=== PATIENT | female | born 1935 | race Caucasian/White ===

== ENCOUNTER 2020-08-18 16:41 | Inpatient (IN) ==
[2020-08-18] MEDS ORDERED: ZOFRAN INJ 4 MG VIAL IVP ONE (16:47)
--- NOTE | 2020-08-18 16:48 | DR.DIZZY ---
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 States she awoke to taker her am meds this morning. Noted RUE numbness t/o the extremity as well as increasing slurring of words. Did not seek medical attention until the afternoon. No focal motor weakness, dizziness, syncope, DISLA, neck pain, CP/ SOB. + blurrier vision from baseline. Does not know if she is on any anticoagulation or antiplatelet agent. + n/v. Source History Provided: Patient and EMS Mode of Arrival Mode of Arrival: EMS Location of Weakness Weakness Location: Generalized Context Stroke Symptoms: Numbness of limbs PMH PMH Past Medical History: CHF, CVA and Diabetes Past Surgical History: Yes Surgical History: Hysterectomy Family History History of Family Medical Conditions: Yes Family Medical History: Cancer Social History Does patient currently use any type of tobacco product: No Do you use any recreational Drugs:: No Lives With: Family ROS Review of Systems Constitutional: No Symptoms Reported Eyes: No Symptoms Reported ENTM: No Symptoms Reported Respiratoy: No Symptoms Reported Cardiovascular: No Symptoms Reported Gastrointestinal/Abdominal: Nausea and Vomiting; negative Abdominal Pain and Diarrhea Genitourinary: No Symptoms Reported Neurological: Numbness and Speech Problem; negative Headache, Seizure, Weakness and Dizziness Musculoskeletal: No Symptoms Reported Integumentary: No Symptoms Reported Hematologic/Lymphatic: No Symptoms Reported Endocrine: No Symptoms Reported Psychiatric: No Symptoms Reported All Other Systems: Reviewed and Negative PE Vital Signs Vitals: Temperature 98.3 F Pulse Rate 66 Respiratory Rate 24 Blood Pressure [Right Arm] 155/65 Blood Pressure 173/72 O2 Sat by Pulse Oximetry 99 General Limitations: No Limitations General Appearance: Alert and In No Apparent Distress Head Head Exam: Normal Inspection Eyes Eye exam: Normal Appearance ENT ENT Exam: Normal Exam, Normal Oropharynx and Normal External Ear Exam Neck Neck Exam: Normal Inspection and Full ROM Chest Chest Inspection: Normal Inspection Respiratory Respiratory Exam: Normal Lung Sounds Bilat Cardiovascular Cardiovascular Exam: Regular Rate and Normal Rhythm Abdominal Exam Abdominal Exam: Normal Inspection, Normal Bowel Sounds and Soft Rectal Rectal Exam: Deferred Extremeties Extremities Exam: Normal Inspection and Full ROM Back Back Exam: Normal Inspection and Full ROM Neurologic Neurological Exam: Alert, Oriented X3 and Reflexes Normal Patient Oriented To: Person, Place and Time Speech: negative Receptive Aphasia Psychiatric Psychiatric Exam: Normal Affect and Normal Mood Skin Skin Exam: Warm, Dry, Intact and Normal Color Other Exam Other Exam: mild dysarthria, no aphasia. a/o x 3. mild subjective numbness rue. No focal motor weakness. 5/5 strength all major muscle groups. CV 2-12 otherwise grossly intact. No pronator drift. NIH SS 2. MDM Differential Diagnosis Differential Diagnosis: CVA, Electrolyte disorder, Hypoglycemia, Myocardial infarction and TIA COURSE Treatment Treatment: 85 yo f w/ prev hx of right sided cva w/ residual rle deficits pres ented w/ dizziness, vomiting, r arm numbness and worsening dysarthria. NIH ss 2 on arrival. Presented after 4 hrs, not a tpa canidate. CTH negative for acute changes. Neuro exam unchanged on serial eval. BMP w/ mild mahad, fluids started. ASA loaded. d/w dr Fairchild whom agrees to admit. ROR Labs Reviewed Laboratory Results Reviewed?: Yes Result Diagrams: 08/18/20 17:01 08/18/20 17:01 Laboratory: WBC 3.0 X10^3/uL (3.6-10.0) L 08/18/20 17:01 RBC 2.88 X10^6/uL (3.5-5.4) L 08/18/20 17:01 Hgb 7.9 g/dL (12.0-16.0) L 08/18/20 17:01 Hct 24.2 % (36.0-47.0) L 08/18/20 17:01 MCV 84.2 fL (80.0-100.0) 08/18/20 17:01 MCH 27.5 pg (27.0-34.0) 08/18/20 17:01 MCHC 32.6 g/dL (33.0-35.0) L 08/18/20 17:01 RDW 17.0 % (11.6-16.5) H 08/18/20 17: Plt Count 62 X10^3/uL (150.0-450.0) L 08/18/20 17:01 Plt Count Comment Decreased (ADEQUATE) A 08/18/20 17: MPV 10.5 fL (7.4-11.0) 08/18/20 17:01 Neut % (Auto) 63.0 % (42.0-75.0) 08/18/20 17:01 Lymph % (Auto) 22.6 % (21.0-51.0) 08/18/20 17:01 [place] % (Auto) 7.7 % (0.0-13.0) 08/18/20 17:01 Eos % (Auto) 5.9 % (0.9-2.9) H 08/18/20 17:01 Baso % (Auto) 0.8 % (0.2-1.0) 08/18/20 17:01 Neut # (Auto) 1.9 x10^3/uL (2.2-4.8) L 08/18/20 17:01 Lymph # (Auto) 0.7 X10^3/uL (1.3-2.9) L 08/18/20 17:01 [place] # (Auto) 0.2 x10^3/uL (0.3-0.8) L 08/18/20 17:01 Eos # (Auto) 0.2 x10^3/uL (0.0-0.2) 08/18/20 17:01 Baso # (Auto) 0.0 X10^3/uL (0.0-0.1) 08/18/20 17:01 Absolute Nucleated RBC 0.0 /100WBC 08/18/20 17:01 Plt Morphology Comment Normal (NORMAL) 08/18/20 17:01 RBC Morphology Abnormal (NORMAL) A 08/18/20 17:01 Anisocytosis 1+ A 08/18/20 17:01 PT 14.4 SECONDS (11.8-14.3) 08/18/20 17:01 INR Target Range - 08/18/20 17:01 INR 1.16 (0.8-1.3) 08/18/20 17:01 APTT 28.2 SECONDS (22.9-36.5) 08/18/20 17:01 PTT Comment - 08/18/20 17:01 Sodium 143 mmol/L (136-145) 08/18/20 17:01 Corrected Sodium 146 mmol/L (136-145) H 08/18/20 17:01 Potassium 3.1 mmol/L (3.5-5.1) L 08/18/20 17:01 Chloride 105 mmol/L (98-107) 08/18/20 17:01 Carbon Dioxide 29.3 mmol/L (21-32) 08/18/20 17:01 BUN 32 mg/dL (7-18) H 08/18/20 17:01 Creatinine 1.91 mg/dL (0.55-1.02) H 08/18/20 17:01 Est GFR (MDRD) Af Amer 32 (>60) L 08/18/20 17:01 Est GFR (MDRD) Non-Af 26 (>60) L 08/18/20 17:01 Glucose 244 mg/dL (65-99) H 08/18/20 17:01 Calcium 9.2 mg/dL (8.5-10.1) 08/18/20 17:01 Troponin I 0.04 ng/mL (0-1.5) 08/18/20 17:01 XRAY XRAY Interpreted by: Radiologist X-ray Results: hairspring staker head: chronic changes, no ich or acute cva cxr: no infiltrate. EKG Rate: 57 [place]: LAD Rhythm: NSR Block: None and RBBB Hypertrophy: LVH Opioid Opioid Risk Tool Age (Justo box if 16-45): No History of Preadolescent Sexual Abuse: No Total: 0 Total Score Risk Category: Low Risk Copyright: Tera GONZALES predicting aberrant behaviors Diagnosis Discharge Problem: Numbness and tingling of right arm, MAHAD (acute kidney injury)
[2020-08-18] MEDS ORDERED: ZOFRAN INJ 4 MG VIAL ONE (17:10)
[2020-08-18] MEDS ORDERED: ASPIRIN PO ONE (17:20)
[2020-08-18] MEDS ORDERED: ASPIRIN ONE (17:23)
--- NOTE | 2020-08-18 17:25 | CT ---
BRAIN W/O CONCLINICAL INDICATION: weaknessTECHNIQUE: Images were obtained through the head per standard CT protocol. Multiplanar reformatted images were generated from the CT dataset. Dose reduction techniques including Automated Exposure Control (AEC) and adjustment of mA and kV were utlized.COMPARISON:None.FINDINGS:Diffuse patchy and confluent periventricular and subcortical hypoattenuation with associated volume loss. There is no evidence of acute infarction, intracranial hemorrhage, mass or mass effect, or abnormal extra-axial collection . The density of the larger dural venous sinuses is normal . Age-related, ex-vacuo dilatation of the ventricles and sulci . The skull base and calvarium are normal .The included paranasal sinuses and mastoid air cells are predominantly clear .IMPRESSION:1. No acute intracranial abnormality. Chronic microangiopathic changes and ex vacuo dilatation of the ventricles and sulci.Electronically signed by: ALIVIA AVELAR (Aug 18, 2020 17:24:43)
[2020-08-18 17:29] LABS: BASOPHILS % (AUTO) 0.8 % (0.2-1.0); EOSINOPHILS # (AUTO) 0.2 x10^3/uL (0.0-0.2); EOSINOPHILS % (AUTO) 5.9 % (0.9-2.9); HEMATOCRIT 24.2 % (36.0-47.0); HEMOGLOBIN 7.9 g/dL (12.0-16.0); LYMPHOCYTES # (AUTO) 0.7 X10^3/uL (1.3-2.9); LYMPHOCYTES % (AUTO) 22.6 % (21.0-51.0); MEAN CORPUSCULAR HEMOGLOBIN 27.5 pg (27.0-34.0); MEAN CORPUSCULAR HGB CONC 32.6 g/dL (33.0-35.0); MEAN CORPUSCULAR VOLUME 84.2 fL (80.0-100.0); MEAN PLATELET VOLUME 10.5 fL (7.4-11.0); MONOCYTES # (AUTO) 0.2 x10^3/uL (0.3-0.8); MONOCYTES % (AUTO) 7.7 % (0.0-13.0); NEUTROPHILS # (AUTO) 1.9 x10^3/uL (2.2-4.8); PLATELET COUNT 62 X10^3/uL (150.0-450.0); RED BLOOD COUNT 2.88 X10^6/uL (3.5-5.4)
--- NOTE | 2020-08-18 17:32 | RAD ---
HISTORYAMS weaknessSTUDYPortable AP [id number]/02/2020FINDINGSStable heart size with sternal wires, clear lungs and pleural spaces. There is no evidence for developing infiltrate, edema, pleural fluid.IMPRESSIONNo change; no acute chest findings.Electronically signed by: EUSEBIA RIVERA (Aug 18, 2020 17:32:14)
[2020-08-18 17:34] LABS: CALCIUM 9.2 mg/dL (8.5-10.1); CARBON DIOXIDE 29.3 mmol/L (21-32); CREATININE 1.91 mg/dL (0.55-1.02); TROPONIN I 0.04 ng/mL (0-1.5)
[2020-08-18 17:41] LABS: ANISOCYTOSIS 1+; PLATELET MORPHOLOGY COMMENT NORMAL (NORMAL)
[2020-08-18] MEDS ORDERED: K-DUR TAB 20 MEQ PO ONE ×2 (19:08→19:10)
[2020-08-18] MEDS ORDERED: NS 1000 ML 1,000 ML ONE (20:52)
[2020-08-18] MEDS: NS 1000 ML 1,000 ML IV SCH (20:57)
[2020-08-18] MEDS: LIPITOR TAB 40 MG PO SCH (22:09)
[2020-08-19] MEDS: NS 1000 ML 1,000 ML IV SCH ×3 (05:00→22:26)
[2020-08-19 06:49] LABS: BASOPHILS % (AUTO) 0.7 % (0.2-1.0); EOSINOPHILS # (AUTO) 0.2 x10^3/uL (0.0-0.2); EOSINOPHILS % (AUTO) 7.1 % (0.9-2.9); HEMATOCRIT 22.5 % (36.0-47.0); HEMOGLOBIN 7.3 g/dL (12.0-16.0); LYMPHOCYTES # (AUTO) 0.6 X10^3/uL (1.3-2.9); MEAN CORPUSCULAR HEMOGLOBIN 27.3 pg (27.0-34.0); MEAN CORPUSCULAR HGB CONC 32.2 g/dL (33.0-35.0); MEAN CORPUSCULAR VOLUME 84.8 fL (80.0-100.0); MEAN PLATELET VOLUME 10.2 fL (7.4-11.0); MONOCYTES # (AUTO) 0.2 x10^3/uL (0.3-0.8); MONOCYTES % (AUTO) 9.3 % (0.0-13.0); NEUTROPHILS # (AUTO) 1.2 x10^3/uL (2.2-4.8); NEUTROPHILS % (AUTO) 54.9 % (42.0-75.0); PLATELET COUNT 55 X10^3/uL (150.0-450.0); RED BLOOD COUNT 2.66 X10^6/uL (3.5-5.4); RED CELL DISTRIBUTION WIDTH 16.7 % (11.6-16.5); WHITE BLOOD COUNT 2.2 X10^3/uL (3.6-10.0)
[2020-08-19 06:53] VITALS: BMI 21.3
[2020-08-19 07:17] LABS: ALBUMIN 2.8 g/dL (3.4-5.0); CALCIUM 8.6 mg/dL (8.5-10.1); CARBON DIOXIDE 27.9 mmol/L (21-32); COR CA(FOR HYPOALB) 9.6 mg/dL (8.5-10.1); CREATININE 1.73 mg/dL (0.55-1.02); MAGNESIUM 2.1 mg/dL (1.7-2.9); TOTAL PROTEIN 6.5 g/dL (6.4-8.2)
[2020-08-19 07:42] LABS: ANISOCYTOSIS SLIGHT; BAND NEUTROPHILS % 1 % (0-10); PLATELET MORPHOLOGY COMMENT NORMAL (NORMAL)
[2020-08-19] MEDS ORDERED: ASPIRIN PO SCH (09:00)
[2020-08-19] MEDS: ASPIRIN EC 81 MG PO SCH (10:08)
[2020-08-19] MEDS: PLAVIX PO SCH (10:08)
[2020-08-19] MEDS: LIPITOR TAB 40 MG PO SCH (10:28)
[2020-08-19 11:41] LABS: CHOL/HDL RATIO 2.5 (0.0-5.0)
[2020-08-19] MEDS: HumuLIN R SC PRN ×2 (12:29→20:30)
[2020-08-19] MEDS ORDERED: MICRO K EXTEN CAP 10 MEQ PO PRN (15:54)
[2020-08-19] MEDS ORDERED: KLOR-CON PO PRN (15:54)
[2020-08-19] MEDS ORDERED: POTASSIUM CHL 60 MEQ/NS 0.45% 500 ML IV PRN (15:54)
[2020-08-19] MEDS ORDERED: K-DUR TAB 20 MEQ PO PRN (15:54)
[2020-08-19] MEDS ORDERED: POTASSIUM CHLORIDE LIQ 20 MEQ UDC PO PRN (15:54)
[2020-08-19] MEDS ORDERED: POTASSIUM CHL 40 MEQ/NS 0.45% 500 ML IV PRN (15:54)
[2020-08-19] MEDS ORDERED: K-RIDER 10 MEQ/NS 100 ML 10 MEQ/100 ML BAG IV PRN (15:54)
[2020-08-19] MEDS: COREG TAB 3.125 MG PO SCH (20:30)
[2020-08-19] MEDS ORDERED: LIPITOR TAB 20 MG PO SCH (21:00)
[2020-08-19] MEDS ORDERED: TYLENOL 325 MG TAB PO ONE (22:08)
[2020-08-19] MEDS: TYLENOL 325 MG TAB PO PRN (22:15)
[2020-08-20] MEDS: NS 1000 ML 1,000 ML IV SCH (03:24)
[2020-08-20 06:58] LABS: BASOPHILS % (AUTO) 0.7 % (0.2-1.0); EOSINOPHILS # (AUTO) 0.2 x10^3/uL (0.0-0.2); EOSINOPHILS % (AUTO) 6.7 % (0.9-2.9); HEMATOCRIT 21.6 % (36.0-47.0); LYMPHOCYTES # (AUTO) 0.6 X10^3/uL (1.3-2.9); LYMPHOCYTES % (AUTO) 26.4 % (21.0-51.0); MEAN CORPUSCULAR HEMOGLOBIN 27.4 pg (27.0-34.0); MEAN CORPUSCULAR HGB CONC 32.2 g/dL (33.0-35.0); MEAN PLATELET VOLUME 9.7 fL (7.4-11.0); MONOCYTES # (AUTO) 0.2 x10^3/uL (0.3-0.8); MONOCYTES % (AUTO) 8.5 % (0.0-13.0); NEUTROPHILS # (AUTO) 1.4 x10^3/uL (2.2-4.8); NEUTROPHILS % (AUTO) 57.7 % (42.0-75.0); PLATELET COUNT 53 X10^3/uL (150.0-450.0); RED BLOOD COUNT 2.54 X10^6/uL (3.5-5.4); RED CELL DISTRIBUTION WIDTH 16.7 % (11.6-16.5); WHITE BLOOD COUNT 2.4 X10^3/uL (3.6-10.0)
[2020-08-20 07:15] LABS: HEMOGLOBIN 6.9 g/dL (12.0-16.0)
[2020-08-20 07:25] LABS: ALBUMIN 2.5 g/dL (3.4-5.0); CALCIUM 8.4 mg/dL (8.5-10.1); CARBON DIOXIDE 25.1 mmol/L (21-32); COR CA(FOR HYPOALB) 9.6 mg/dL (8.5-10.1); CREATININE 1.54 mg/dL (0.55-1.02); TOTAL PROTEIN 5.9 g/dL (6.4-8.2)
[2020-08-20 07:31] LABS: HYPOCHROMASIA SLIGHT; PLATELET MORPHOLOGY COMMENT NORMAL (NORMAL)
[2020-08-20] MEDS ORDERED: LEXAPRO ONE (07:44)
[2020-08-20] MEDS ORDERED: NS 500 ML IV 500 ML IV ONE ×2 (08:26→10:25)
--- NOTE | 2020-08-20 08:58 | VAS ---
HISTORYCAD, DIZZINESSSTUDYCAROTID USCOMPARISONNoneTECHNIQUEMultiple bhatt scale and color flow Doppler images of the right and left carotid arterial system were obtained. The vertebral arterial system was evaluated as well.FINDINGSModerate degree of plaque is noted in both carotid bulbs.On the right, peak systolic velocities in centimeters/sec of the right internal and common carotid arteries measure 73 and 70 respectively. The greatest ICA/CCA ratio on the right is 1.04On the left, peak systolic velocities in centimeters/sec of the left internal and common carotid arteries measure 109 and 71 respectively. The greatest ICA/CCA ratio on the left is 1.53.Antegrade flow is documented in patent vertebral arteries bilaterally.IMPRESSIONNo hemodynamically significant carotid stenosis seen on either side.Electronically signed by: DAVE MONTERROSO (Aug 20, 2020 08:57:11)
[2020-08-20] MEDS: ASPIRIN EC 81 MG PO SCH (09:55)
[2020-08-20] MEDS: LEXAPRO PO SCH (09:58)
[2020-08-20] MEDS: COREG TAB 3.125 MG PO SCH ×2 (09:58→20:59)
[2020-08-20] MEDS: PLAVIX PO SCH (09:59)
[2020-08-20] MEDS: HEMOCYTE-PLUS PO SCH (10:00)
[2020-08-20] MEDS: LIPITOR TAB 40 MG PO SCH (10:01)
--- NOTE | 2020-08-20 10:31 | RAD ---
HISTORYCHF, SOBSTUDYCHEST, 1 [id number]/26/2020TECHNIQUEAP view of the chestFINDINGSStatus post median sternotomy and CABG. Cardiac silhouette is borderline in size. No consolidation, segmental collapse, pleural effusion or pneumothorax.IMPRESSIONNo acute pulmonary process.Electronically signed by: Bj Barnes (Aug 20, 2020 10:31:05)
[2020-08-20] MEDS: NS 1/2 1000 ML IV 1,000 ML IV SCH (10:32)
[2020-08-20 15:29] LABS: HEMATOCRIT 25.2 % (36.0-47.0); HEMOGLOBIN 8.1 g/dL (12.0-16.0)
[2020-08-20] MEDS: TYLENOL 325 MG TAB PO PRN (15:36)
[2020-08-20] MEDS: HumuLIN R SC PRN ×2 (17:36→20:59)
--- NOTE | 2020-08-20 17:39 | DR.CONSULT ---
Consult - Consultation for Day of: Date: 08/20/20 - Chief Complaint Chief Complaint: Pateint referred for low hemoglobin. Patinet with complaints of constipation and melena. - History of Present Illness History of Present Illness: Patient is a 85 yo female who was referred for low hemoglobin. Patient oriented to person and place only. Patient with complaints of constipation and melena. Patient states melena had been going on for a while, she states she has not had a BM since in the hospital. Has occasional lower abdominal pain and occasional diarrhea. Denies dysphagia, dyspepsia, nausea, vomiting, hematochezia. Patient denies previous colon or EGD. Hgb 6.9, Hct 21.6, Plt 53, BUN 27, Creatinine 1.54, T. Bili 0.6, AST 15, ALT 12, ALP 51. - Past Medical History Past Medical History: Diabetes, CVA, CHF - Past Surgical History Surgical History: Appendectomy, CABG/Valve Surgery, Cholecystectomy, Hysterectomy, Other - Family History Family Medical History: Cancer - Social History Does patient currently use any type of tobacco product: Yes Have you used tobacco products in the last 12 months: Yes Type of Tobacco Use: Snuff Does any household member use tobacco: Yes Alcohol Use: None Drug Use: None - Medications Home Medications: Penicillins Adverse Reaction (Verified 06/24/20 12:17) Sulfa (Sulfonamide Antibiotics) Adverse Reaction (Verified 06/24/20 12:17) CONTINUE taking the following medications insulin detemir U-100 [Levemir FlexTouch U-100 Insuln] 10 unit SUBCUT DAILY 08/19/20 [History] insulin lispro See Rx Instructions .ROUTE .COMPLEX 08/19/20 [History] - Review of Systems Gastrointestinal: See HPI, Constipation, Melena. denies: Nausea, Vomiting, Abdominal Pain, Diarrhea, Hematochezia - Physical Exam Vital Signs: Temperature 98.0 F Pulse Rate [Right Brachial] 62 Pulse Rate 58 Respiratory Rate 20 Blood Pressure [Right Arm] 165/71 Blood Pressure 173/72 O2 Sat by Pulse Oximetry 98 Oriented: Person, Place Eyes: Normal Ear: Normal Nose: Normal Throat: Normal Respiratory: Clear Throughout Cardiovascular: Normal Auscultation: Bowel Sounds: Normal Palpation: Normal. negative: Spleen Enlarged, Liver Enlarged, Mass Pulsatile Tenderness: Normal Skin: Normal Musculoskeletal: Normal Psychiatric: Normal Mood Description: Calm Affect: Normal Speech Pattern: Clear, Appropriate - Plan Plan: Assessment. 1. Anemia, Melena r/o GI Loss. Plan. 1. Hold ASA and Plavix, Protonix IV, Monitor Hgb, Transfuse as needed, EGD tomorrow. Plan reviewed with Dr. Keita - Allergies Allergies/Adverse Reactions: Allergies Allergy/AdvReac Type Severity Reaction Status Date / Time Penicillins AdvReac Verified 06/24/20 12:17 Sulfa (Sulfonamide AdvReac Verified 06/24/20 12:17 Antibiotics)
[2020-08-20] MEDS: PROTONIX INJ 40 MG VIAL IVP SCH (21:00)
[2020-08-21 07:00] LABS: ALBUMIN 2.5 g/dL (3.4-5.0); CALCIUM 8.6 mg/dL (8.5-10.1); CARBON DIOXIDE 26.5 mmol/L (21-32); COR CA(FOR HYPOALB) 9.8 mg/dL (8.5-10.1); CREATININE 1.36 mg/dL (0.55-1.02)
[2020-08-21 07:12] LABS: BASOPHILS % (AUTO) 0.6 % (0.2-1.0); EOSINOPHILS # (AUTO) 0.3 x10^3/uL (0.0-0.2); HEMATOCRIT 26.6 % (36.0-47.0); HEMOGLOBIN 8.7 g/dL (12.0-16.0); LYMPHOCYTES # (AUTO) 0.6 X10^3/uL (1.3-2.9); LYMPHOCYTES % (AUTO) 16.4 % (21.0-51.0); MEAN CORPUSCULAR HEMOGLOBIN 27.5 pg (27.0-34.0); MEAN CORPUSCULAR HGB CONC 32.5 g/dL (33.0-35.0); MEAN CORPUSCULAR VOLUME 84.6 fL (80.0-100.0); MEAN PLATELET VOLUME 9.8 fL (7.4-11.0); MONOCYTES # (AUTO) 0.2 x10^3/uL (0.3-0.8); MONOCYTES % (AUTO) 6.1 % (0.0-13.0); NEUTROPHILS # (AUTO) 2.4 x10^3/uL (2.2-4.8); NEUTROPHILS % (AUTO) 68.9 % (42.0-75.0); PLATELET COUNT 56 X10^3/uL (150.0-450.0); RED BLOOD COUNT 3.14 X10^6/uL (3.5-5.4); RED CELL DISTRIBUTION WIDTH 16.5 % (11.6-16.5); WHITE BLOOD COUNT 3.6 X10^3/uL (3.6-10.0)
[2020-08-21] MEDS ORDERED: LEXAPRO ONE (09:48)
[2020-08-21] MEDS: PROTONIX INJ 40 MG VIAL IVP SCH ×2 (10:11→20:23)
[2020-08-21] MEDS ORDERED: NS 1/2 1000 ML IV 1,000 ML IV ONE (12:13)
[2020-08-21] MEDS: NS 1/2 1000 ML IV 1,000 ML IV SCH (12:15)
[2020-08-21] MEDS ORDERED: XYLOCAINE 2 % (PLAIN) ONE (13:47)
[2020-08-21] MEDS ORDERED: DIPRIVAN VIAL 20 ML ONE (13:47)
[2020-08-21] MEDS ORDERED: BUTT CREAM (COMPOUND) ONE (14:46)
[2020-08-21] MEDS: HEMOCYTE-PLUS PO SCH (15:21)
[2020-08-21] MEDS: COREG TAB 3.125 MG PO SCH (15:21)
[2020-08-21] MEDS: LEXAPRO PO SCH (15:22)
[2020-08-21] MEDS: LIPITOR TAB 40 MG PO SCH (15:22)
[2020-08-21] MEDS ORDERED: BUTT CREAM (COMPOUND) TOP PRN (15:37)
[2020-08-21] MEDS: HumuLIN R SC PRN (20:59)
[2020-08-21] MEDS ORDERED: MILK OF MAGNESIA PO SCH (21:00)
[2020-08-21] MEDS ORDERED: COLACE CAP 100 MG PO SCH (21:00)
[2020-08-22 06:44] LABS: BASOPHILS % (AUTO) 0.4 % (0.2-1.0); EOSINOPHILS # (AUTO) 0.3 x10^3/uL (0.0-0.2); EOSINOPHILS % (AUTO) 6.2 % (0.9-2.9); HEMATOCRIT 27.9 % (36.0-47.0); HEMOGLOBIN 9.2 g/dL (12.0-16.0); LYMPHOCYTES # (AUTO) 0.6 X10^3/uL (1.3-2.9); LYMPHOCYTES % (AUTO) 13.8 % (21.0-51.0); MEAN CORPUSCULAR HGB CONC 33.1 g/dL (33.0-35.0); MEAN CORPUSCULAR VOLUME 84.7 fL (80.0-100.0); MEAN PLATELET VOLUME 9.8 fL (7.4-11.0); MONOCYTES # (AUTO) 0.3 x10^3/uL (0.3-0.8); MONOCYTES % (AUTO) 7.5 % (0.0-13.0); NEUTROPHILS % (AUTO) 72.1 % (42.0-75.0); PLATELET COUNT 59 X10^3/uL (150.0-450.0); RED BLOOD COUNT 3.29 X10^6/uL (3.5-5.4); RED CELL DISTRIBUTION WIDTH 16.7 % (11.6-16.5); WHITE BLOOD COUNT 4.1 X10^3/uL (3.6-10.0)
[2020-08-22 07:03] LABS: ALBUMIN 2.6 g/dL (3.4-5.0); CALCIUM 8.4 mg/dL (8.5-10.1); CARBON DIOXIDE 25.9 mmol/L (21-32); COR CA(FOR HYPOALB) 9.5 mg/dL (8.5-10.1); CREATININE 1.26 mg/dL (0.55-1.02); TOTAL PROTEIN 6.3 g/dL (6.4-8.2)
[2020-08-22 08:28] VITALS: BP 184/74
[2020-08-22] MEDS ORDERED: LEXAPRO ONE (08:43)
[2020-08-22] MEDS: LIPITOR TAB 40 MG PO SCH (09:22)
[2020-08-22] MEDS: HEMOCYTE-PLUS PO SCH (09:23)
[2020-08-22] MEDS: LEXAPRO PO SCH (09:23)
[2020-08-22] MEDS: PROTONIX INJ 40 MG VIAL IVP SCH (09:24)
[2020-08-22] MEDS: COREG TAB 3.125 MG PO SCH (09:24)
== END 2020-08-22 13:10 | disposition home health service (06) | DRG 812 ==
LOC: MED/SURG 16:41 → ER 16:41 → MED/SURG 20:25
PROVIDERS: ADMIT Internal Medicine; ATTEND Internal Medicine
DX: D64.9 Anemia, unspecified; R42 Dizziness and giddiness; K20.8 Other esophagitis; Z79.01 Long term (current) use of anticoagulants; K31.89 Other diseases of stomach and duodenum; N28.9 Disorder of kidney and ureter, unspecified; E11.65 Type 2 diabetes mellitus with hyperglycemia; I69.351 Hemiplegia and hemiparesis following cerebral infarction affecting right dominant side; R26.89 Other abnormalities of gait and mobility; R20.0 Anesthesia of skin; K29.00 Acute gastritis without bleeding; R13.11 Dysphagia, oral phase; R94.31 Abnormal electrocardiogram [ECG] [EKG]

== ENCOUNTER 2021-02-26 16:46 | Inpatient (IN) ==
[2021-02-26 17:02] VITALS: BMI 18.1
[2021-02-26 18:08] LABS: ALBUMIN 2.8 g/dL (3.4-5.0); CALCIUM 8.5 mg/dL (8.5-10.1); CARBON DIOXIDE 25.1 mmol/L (21-32); COR CA(FOR HYPOALB) 9.5 mg/dL (8.5-10.1); CREATININE 2.62 mg/dL (0.55-1.02)
[2021-02-26 18:20] LABS: LYMPHOCYTES # (AUTO) 0.6 X10^3/uL (1.3-2.9); MONOCYTES # (AUTO) 0.2 x10^3/uL (0.3-0.8); NEUTROPHILS # (AUTO) 1.5 x10^3/uL (2.2-4.8)
[2021-02-26 18:28] LABS: BASOPHILS % (AUTO) 0.9 % (0.2-1.0); EOSINOPHILS % (AUTO) 1.3 % (0.9-2.9); LYMPHOCYTES % (AUTO) 25.5 % (21.0-51.0); MEAN CORPUSCULAR HEMOGLOBIN 23.2 pg (27.0-34.0); MEAN CORPUSCULAR HGB CONC 29.8 g/dL (33.0-35.0); MEAN CORPUSCULAR VOLUME 77.9 fL (80.0-100.0); MEAN PLATELET VOLUME 8.9 fL (7.4-11.0); MONOCYTES % (AUTO) 9.1 % (0.0-13.0); NEUTROPHILS % (AUTO) 63.2 % (42.0-75.0); PLATELET COUNT 81 X10^3/uL (150.0-450.0); RED BLOOD COUNT 2.06 X10^6/uL (3.5-5.4); RED CELL DISTRIBUTION WIDTH 17.6 % (11.6-16.5); WHITE BLOOD COUNT 2.3 X10^3/uL (3.6-10.0)
[2021-02-26 18:46] LABS: BILIRUBIN,URINE NEGATIVE (NEGATIVE); BLOOD/HEMOGLOBIN,URINE 1+ (NEGATIVE); GLUCOSE, URINE NEGATIVE (NEGATIVE); KETONES,URINE NEGATIVE (NEGATIVE); LEUKOCYTE ESTERASE ,URINE 3+ (NEGATIVE); NITRITES,URINE NEGATIVE (NEGATIVE); PROTEIN,URINE 1+ (NEGATIVE); UROBILINOGEN,URINE NORMAL (NORMAL)
--- NOTE | 2021-02-26 18:51 | CT ---
EXAM: HEAD CT WITHOUT INTRAVENOUS CONTRASTHISTORY: Right leg weakness. Nausea, vomiting, diarrhea.TECHNIQUE: Spiral axial CT images are obtained through the brain without the administration of intravenous contrast. Additional sagittal and coronal reformatted images are reconstructed.DOSIMETRY: Total DLP 1223.3 mGycm; CTDI 78.8 mGyCOMPARISON: Head CT dated August 18, 2020.FINDINGS:There are multiple stable chronic bilateral basal ganglia/rubalcava radiata lacunar infarctions. There is significant interval progression/enlargement of a chronic appearing infarction in the right parietal lobe, measuring approximately 5.3 cm transverse by 1.8 cm AP by 3.3 cm CC (previously 3 cm transverse by 1 cm AP by 2.2 cm CC). Consider follow-up evaluation with MRI with DWI to rule out acute or subacute infarct extension in the appropriate clinical setting.There are patchy parenchymal lucencies within the periventricular white matter tracks of the centrum semiovale, consistent with chronic sequela of atherosclerotic microvascular ischemic disease. There is severe atherosclerotic disease of the carotid siphons and distal vertebral arteries.There is mild to moderate diffuse cerebral cortical atrophy. The centrum semiovale, basal ganglia, cerebellum, and brainstem are otherwise grossly unremarkable for a noncontrast CT scan. There is no acute intracranial hemorrhage, gross acute infarction, mass lesion, midline shift, or hydrocephalus seen. No extra-axial mass or abnormal fluid collection noted.The calvarium is intact. There is hyperostosis frontalis. The partially imaged paranasal sinuses, middle ear cavities and mastoid air cells are clear.IMPRESSION:1. Significant interval progression/enlargement of a chronic appearing infarction in the right parietal lobe, measuring approximately 5.3 cm transverse by 1.8 cm AP by 3.3 cm CC (previously 3 cm transverse by 1 cm AP by 2.2 cm CC). Consider follow-up evaluation with MRI with DWI to rule out acute or subacute infarct extension in the appropriate clinical setting.2. Stable appearance of multiple chronic bilateral basal ganglia/rubalcava radiata lacunar infarctions, and chronic microvascular ischemic disease throughout the centrum semiovale. Consider followup MRI with diffusion-weighted imaging to rule out occult acute infarction if clinically warranted.3. Severe atherosclerotic disease of the carotid siphons. Consider follow-up MRA as clinically warranted.4. No skull fracture, intracranial hemorrhage, mass lesion, midline shift, or hydrocephalus seen.Electronically signed by: Jose Reyna (Feb 26, 2021 18:48:57)
[2021-02-26 18:53] LABS: APPEARANCE,URINE CLOUDY (CLEAR); COLOR,URINE STRAW (YELLOW); RBC,URINE 0-2 /HPF (0-3)
[2021-02-26 18:54] LABS: BACTERIA,URINE 3+ /HPF (NEGATIVE); HYALINE CASTS, URINE FEW /LPF (NEGATIVE); SQUAMOUS EPITHELIAL CELL,UR FEW /HPF (NEGATIVE)
[2021-02-26 19:08] LABS: HYPOCHROMASIA 2+; PLATELET MORPHOLOGY COMMENT NORMAL (NORMAL)
--- NOTE | 2021-02-26 19:24 | DR.GENAD ---
HPI Time Seen Time Seen by Provider: 02/26/21 17:47 HPI Comment HPI Comment: Patient presents with the complaint of weakness, right leg weakness, N/V x 2-3 days. Notes that she has a h/o bleeding ulcers in the past. Denies any bad food or known sick contact exposure. Complaint/Symptoms Chief Complaint:: Pt c/o n/v/d and weakness and back pain since yesterday. She also c/o right leg weakness. Unable to determine if this leg weakness is new. Pt has previous CVA with right side deficit. COVID-19 Has patient experienced Coronavirus symptoms: No Source History Provided: Patient and EMS Mode of Arrival Mode of Arrival: Stretcher Timing Onset of Chief Complaint: 02/25/21 PMH PMH Past Medical History: Yes Past Medical History: CHF, CVA, Dementia and Diabetes Past Surgical History: Yes Surgical History: Appendectomy, CABG/Valve Surgery, Cholecystectomy, Hysterectomy and Other Family History History of Family Medical Conditions: Yes Family Medical History: Cancer Social History Does patient currently use any type of tobacco product: Yes Have you used tobacco products in the last 12 months: Yes Type of Tobacco Use: Smokeless Does any household member use tobacco: Yes Alcohol Use: None Do you use any recreational Drugs:: No Lives With: Family Travel Risk Has patient experienced Coronavirus symptoms: No Infectious screening In the last 2 months have you had wt loss of >10#?: NO Have you had fever, night sweats or hemotysis?: No Have you traveled outside the country in the last 6 months?: No Isolation: Standard ROS Review of Systems Constitutional: See HPI Gastrointestinal/Abdominal: Abdominal Pain, Diarrhea, Nausea and Vomiting All Other Systems: Reviewed and Negative PE Vital Signs Vitals: Temperature 98.2 F Pulse Rate 78 Respiratory Rate 20 Blood Pressure [Right Arm] 132/65 Blood Pressure 144/63 O2 Sat by Pulse Oximetry 100 General Limitations: No Limitations General Appearance: Alert and In No Apparent Distress Head Head Exam: Normal Inspection, Atraumatic and Normocephalic Eyes Eye exam: Normal Appearance and EOMI ENT ENT Exam: Normal Exam Neck Neck Exam: Normal Inspection and Trachea Midline Chest Chest Inspection: Normal Inspection and Symmetric Chest Wall Rise Respiratory Respiratory Exam: Normal Lung Sounds Bilat Respiratory Exam: Bilateral: Clear to Auscultation Cardiovascular Cardiovascular Exam: Regular Rate, Normal Rhythm and Normal Heart Sounds Abdominal Exam Abdominal Exam: Normal Inspection, Soft, Tenderness and Hyperactive Bowel Sounds Abdominal Tenderness: Diffuse Neurologic Neurological Exam: Alert and Oriented X3 Psychiatric Psychiatric Exam: Normal Affect and Normal Mood Skin Skin Exam: Warm, Dry and Intact COURSE Reevaluation 1st: Unchanged Consultation Consultation Comments: Spoke with Dr. Quigley who accepts this patient for admission. ROR Labs Reviewed Laboratory Results Reviewed?: Yes Result Diagrams: 02/26/21 17:45 02/26/21 17:45 Laboratory: WBC 2.3 X10^3/uL (3.6-10.0) L 02/26/21 17:45 RBC 2.06 X10^6/uL (3.5-5.4) L 02/26/21 17:45 Hgb 4.8 g/dL (12.0-16.0) L* 02/26/21 17:45 Hct 16.0 % (36.0-47.0) L* 02/26/21 17:45 MCV 77.9 fL (80.0-100.0) L 02/26/21 17:45 MCH 23.2 pg (27.0-34.0) L 02/26/21 17:45 MCHC 29.8 g/dL (33.0-35.0) L 02/26/21 17:45 RDW 17.6 % (11.6-16.5) H 02/26/21 17:45 Plt Count 81 X10^3/uL (150.0-450.0) L 02/26/21 17:45 Plt Count Comment Decreased (ADEQUATE) A 02/26/21 17:45 MPV 8.9 fL (7.4-11.0) 02/26/21 17:45 Neut % (Auto) 63.2 % (42.0-75.0) 02/26/21 17:45 Lymph % (Auto) 25.5 % (21.0-51.0) 02/26/21 17:45 [place] % (Auto) 9.1 % (0.0-13.0) 02/26/21 17:45 Eos % (Auto) 1.3 % (0.9-2.9) 02/26/21 17:45 Baso % (Auto) 0.9 % (0.2-1.0) 02/26/21 17:45 Neut # (Auto) 1.5 x10^3/uL (2.2-4.8) L 02/26/21 17:45 Lymph # (Auto) 0.6 X10^3/uL (1.3-2.9) L 02/26/21 17:45 [place] # (Auto) 0.2 x10^3/uL (0.3-0.8) L 02/26/21 17:45 Eos # (Auto) 0.0 x10^3/uL (0.0-0.2) 02/26/21 17:45 Baso # (Auto) 0.0 X10^3/uL (0.0-0.1) 02/26/21 17:45 Absolute Nucleated RBC 0.3 /100WBC 02/26/21 17:45 Total Counted 100 02/26/21 17:45 Neutrophils % (Manual) 55 % (39-76) 02/26/21 17:45 Lymphocytes % (Manual) 10 % (13-43) L 02/26/21 17:45 Monocytes % (Manual) 4 % (4-9) 02/26/21 17:45 Eosinophils % (Manual) 1 % (0-6) 02/26/21 17:45 Plt Morphology Comment Normal (NORMAL) 02/26/21 17:45 RBC Morphology Abnormal (NORMAL) A 02/26/21 17:45 Hypochromasia 2+ A 02/26/21 17:45 Sodium 146 mmol/L (136-145) H 02/26/21 17:45 Corrected Sodium 148 mmol/L (136-145) H 02/26/21 17:45 Potassium 3.4 mmol/L (3.5-5.1) L 02/26/21 17:45 Chloride 110 mmol/L (98-107) H 02/26/21 17:45 Carbon Dioxide 25.1 mmol/L (21-32) 02/26/21 17:45 BUN 45 mg/dL (7-18) H 02/26/21 17:45 Creatinine 2.62 mg/dL (0.55-1.02) H 02/26/21 17:45 Est GFR (MDRD) Af Amer 22 (>60) L 02/26/21 17:45 Est GFR (MDRD) Non-Af 18 (>60) L 02/26/21 17:45 Glucose 196 mg/dL (65-99) H 02/26/21 17:45 Calcium 8.5 mg/dL (8.5-10.1) 02/26/21 17:45 Corrected Calcium 9.5 mg/dL (8.5-10.1) 02/26/21 17:45 Total Bilirubin 1.00 mg/dL (0.2-1.0) 02/26/21 17:45 AST 9 Units/L (15-37) L 02/26/21 17:45 ALT 15 Units/L (12-78) 02/26/21 17:45 Alkaline Phosphatase 67 Units/L (46-116) 02/26/21 17:45 Total Protein 6.0 g/dL (6.4-8.2) L 02/26/21 17:45 Albumin 2.8 g/dL (3.4-5.0) L 02/26/21 17:45 Globulin 3.2 g/dL (2.5-4.5) 02/26/21 17:45 Albumin/Globulin Ratio 0.9 Ratio (1.1-2.1) L 02/26/21 17:45 Specimen Type Catherized urine 02/26/21 18:37 Urine Color Straw (YELLOW) 02/26/21 18:37 Urine Appearance Cloudy (CLEAR) 02/26/21 18:37 Urine pH 5.0 (5.0 - 8.0) 02/26/21 18:37 Ur Specific [place] 1.020 (1.000-1.030) 02/26/21 18:37 Urine Protein 1+ (NEGATIVE) 02/26/21 18:37 Urine Glucose (UA) Negative (NEGATIVE) 02/26/21 18:37 Urine Ketones Negative (NEGATIVE) 02/26/21 18:37 Urine Occult Blood 1+ (NEGATIVE) 02/26/21 18:37 Urine Nitrite Negative (NEGATIVE) 02/26/21 18:37 Urine Bilirubin Negative (NEGATIVE) 02/26/21 18:37 Urine Urobilinogen Normal (NORMAL) 02/26/21 18:37 Ur Leukocyte Esterase 3+ (NEGATIVE) 02/26/21 18:37 Urine RBC 0-2 /HPF (0-3) 02/26/21 18:37 Urine WBC 5-10 /HPF (0-5) A 02/26/21 18:37 Ur Squamous Epith Cells Few /HPF (NEGATIVE) 02/26/21 18:37 Urine Bacteria 3+ /HPF (NEGATIVE) 02/26/21 18:37 Hyaline Casts Few /LPF (NEGATIVE) 02/26/21 18:37 Ur Culture Indicated? Yes/culture set up 02/26/21 18:37 SARS CoV-2 RNA Rapid YOCASTA Negative (NEGATIVE) 02/26/21 18:25 XRAY X-ray Results: EXAM: HEAD CT WITHOUT INTRAVENOUS CONTRAST HISTORY: Right leg weakness. Nausea, vomiting, diarrhea. TECHNIQUE: Spiral axial CT images are obtained through the brain without the administration of intravenous contrast. Additional sagittal and coronal reformatted images are reconstructed. DOSIMETRY: Total DLP 1223.3 mGycm; CTDI 78.8 mGy COMPARISON: Head CT dated August 18, 2020. FINDINGS: There are multiple stable chronic bilateral basal ganglia/rubalcava radiata lacunar infarctions. There is significant interval progression/enlargement of a chronic appearing infarction in the right parietal lobe, measuring approximately 5.3 cm transverse by 1.8 cm AP by 3.3 cm CC (previously 3 cm transverse by 1 cm AP by 2.2 cm CC). Consider follow-up evaluation with MRI with DWI to rule out acute or subacute infarct extension in the appropriate clinical setting. There are patchy parenchymal lucencies within the periventricular white matter tracks of the centrum semiovale, consistent with chronic sequela of atherosclerotic microvascular ischemic disease. There is severe atherosclerotic disease of the carotid siphons and distal vertebral arteries. There is mild to moderate diffuse cerebral cortical atrophy. The centrum semiovale, basal ganglia, cerebellum, and brainstem are otherwise grossly unremarkable for a noncontrast CT scan. There is no acute intracranial hemorrhage, gross acute infarction, mass lesion, midline shift, or hydrocephalus seen. No extra-axial mass or abnormal fluid collection noted. The calvarium is intact. There is hyperostosis frontalis. The partially imaged paranasal sinuses, middle ear cavities and mastoid air cells are clear. IMPRESSION: 1. Significant interval progression/enlargement of a chronic appearing infarction in the right parietal lobe, measuring approximately 5.3 cm transverse by 1.8 cm AP by 3.3 cm CC (previously 3 cm transverse by 1 cm AP by 2.2 cm CC). Consider follow-up evaluation with MRI with DWI to rule out acute or subacute infarct extension in the appropriate clinical setting. 2. Stable appearance of multiple chronic bilateral basal ganglia/rubalcava radiata lacunar infarctions, and chronic microvascular ischemic disease throughout the centrum semiovale. Consider followup MRI with diffusion-weighted imaging to rule out occult acute infarction if clinically warranted. 3. Severe atherosclerotic disease of the carotid siphons. Consider follow-up MRA as clinically warranted. 4. No skull fracture, intracranial hemorrhage, mass lesion, midline shift, or hydrocephalus seen. Electronically signed by: Jose Reyna (Feb 26, 2021 18:48:57) Opioid Opioid Risk Tool Age (Justo box if 16-45): No History of Preadolescent Sexual Abuse: No Total: 0 Total Score Risk Category: Low Risk Copyright: Tera GONZALES predicting aberrant behaviors Diagnosis Discharge Problem: Acute on chronic kidney failure Qualifiers: Acute renal failure type: unspecified Chronic kidney disease stage: unspecified stage Qualified Code(s): N17.9 - Acute kidney failure, unspecified Anemia Qualifiers: Anemia type: unspecified type Qualified Code(s): D64.9 - Anemia, unspecified
[2021-02-26] MEDS: NS 1000 ML 1,000 ML IV SCH (20:40)
[2021-02-26] MEDS: NS 500 ML IV 500 ML IV ONE (21:37)
[2021-02-26] MEDS: BENADRYL INJ 50 MG VIAL IVP PRN (22:10)
[2021-02-26] MEDS: TYLENOL 325 MG TAB PO PRN (22:10)
--- NOTE | 2021-02-26 22:14 | RAD ---
PROCEDURE: Acute Abdomen Series .HISTORY: Nausea, vomiting, diarrhea, weakness, and back pain since yesterday.TECHNIQUE: AP supine and upright abdomen with AP chest x-ray views .COMPARISON: 08/20/2020 chest x-ray.TECHNICAL QUALITY: Satisfactory .FINDINGS:Unchanged mild cardiomegaly with previous sternotomy.Mediastinum and hilar regions show no masses.Normal central vascularity.Clear lungs.No pneumoperitoneum.Scattered gas and feces in the colon without distention. No obstruction or ileus.No organomegaly.Subcentimeter calcifications both sides of the visualized pelvis probably related to the vascular system.No acute bony abnormality.IMPRESSION:1. Nonspecific bowel gas pattern.2. Unchanged cardiomegaly.Electronically signed by: Bhavik Schulte (Feb 26, 2021 22:12:40)
[2021-02-27] MEDS: NS 500 ML IV 500 ML IV ONE (03:37)
[2021-02-27 05:30] LABS: EOSINOPHILS # (AUTO) 0.1 x10^3/uL (0.0-0.2); LYMPHOCYTES # (AUTO) 0.7 X10^3/uL (1.3-2.9); MONOCYTES # (AUTO) 0.2 x10^3/uL (0.3-0.8); NEUTROPHILS # (AUTO) 1.1 x10^3/uL (2.2-4.8); WHITE BLOOD COUNT 2.1 X10^3/uL (3.6-10.0)
[2021-02-27 05:34] LABS: BASOPHILS % (AUTO) 1.8 % (0.2-1.0); EOSINOPHILS % (AUTO) 3.2 % (0.9-2.9); HEMATOCRIT 22.2 % (36.0-47.0); LYMPHOCYTES % (AUTO) 32.5 % (21.0-51.0); MEAN CORPUSCULAR HEMOGLOBIN 24.6 pg (27.0-34.0); MEAN CORPUSCULAR HGB CONC 30.8 g/dL (33.0-35.0); MEAN PLATELET VOLUME 9.4 fL (7.4-11.0); MONOCYTES % (AUTO) 9.1 % (0.0-13.0); NEUTROPHILS % (AUTO) 53.4 % (42.0-75.0); PLATELET COUNT 77 X10^3/uL (150.0-450.0); RED BLOOD COUNT 2.77 X10^6/uL (3.5-5.4); RED CELL DISTRIBUTION WIDTH 17.5 % (11.6-16.5)
[2021-02-27 05:38] LABS: HEMOGLOBIN 6.8 g/dL (12.0-16.0)
[2021-02-27 05:46] LABS: ALBUMIN 2.6 g/dL (3.4-5.0); CALCIUM 8.2 mg/dL (8.5-10.1); CARBON DIOXIDE 25.8 mmol/L (21-32); COR CA(FOR HYPOALB) 9.3 mg/dL (8.5-10.1); CREATININE 2.5 mg/dL (0.55-1.02); TOTAL PROTEIN 5.5 g/dL (6.4-8.2)
[2021-02-27 05:57] LABS: ANISOCYTOSIS SLIGHT; HYPOCHROMASIA 1+; PLATELET MORPHOLOGY COMMENT NORMAL (NORMAL)
[2021-02-27 05:58] LABS: MICROCYTOSIS SLIGHT
[2021-02-27] MEDS: NS 1000 ML 1,000 ML IV SCH (07:13)
--- NOTE | 2021-02-27 08:57 | RAD ---
HISTORYHYPOXIASTUDYCHEST, 1 [id number]/28/2020FINDINGSThe cardiomediastinal silhouette is stable. Similar post sternotomy changes. Increased interstitial markings and bilateral airspace opacities, worst in the left base. The bony thorax appears intact. ACDF hardware partially visualized.IMPRESSIONBilateral airspace opacities, worst in the left base, concerning for pneumonia. Recommend follow-up to resolution.Electronically signed by: MEKA ROLLE (Feb 27, 2021 08:54:57)
[2021-02-27] MEDS ORDERED: POTASSIUM CHL 60 MEQ/NS 0.45% 500 ML IV PRN (09:50)
[2021-02-27] MEDS ORDERED: POTASSIUM CHLORIDE LIQ 20 MEQ UDC PO PRN (09:50)
[2021-02-27] MEDS ORDERED: MICRO K EXTEN CAP 10 MEQ PO PRN (09:50)
[2021-02-27] MEDS ORDERED: POTASSIUM CHL 40 MEQ/NS 0.45% 500 ML IV PRN (09:50)
[2021-02-27] MEDS ORDERED: NS 500 ML IV 500 ML IV ONE (09:50)
[2021-02-27] MEDS ORDERED: K-RIDER 10 MEQ/NS 100 ML 10 MEQ/100 ML BAG IV PRN (09:50)
[2021-02-27] MEDS ORDERED: K-DUR TAB 20 MEQ PO PRN (09:50)
[2021-02-27] MEDS ORDERED: KLOR-CON PO PRN (09:50)
--- NOTE | 2021-02-27 09:57 | DR.H&P ---
H&P History & Physical for Day of: H&P Date: 02/27/21 Chief Complaint Chief Complaint: weakness, N/V. Allergies Allergies Allergy/AdvReac Type Severity Reaction Status Date / Time Penicillins AdvReac Verified 10/09/20 13:08 Sulfa (Sulfonamide AdvReac Verified 10/09/20 13:08 Antibiotics) History of Present Illness History of Present Illness: Ms. Eubanks is a 85y/o female with a PMH of HTN, HLD, CAD s/p CABG, CVA with right sided residual weakness, wheelchair bound, anemia, gastric ulcer and gastritis presented with increased weakness, nausea and vomit ing. Patient states she also noticed worsening right sided leg weakness and numbness. She had a stroke 15 years ago and since then has been pretty immobile due to RUE and RLE weakness. She uses the wheelchair to get around, lives with adopted son. Patient was admitted for renal failure and anemia in Jul 2020. She had EGD done by Dr. Keita which showed gastric AV malformations, erosive gastritis and ulcer. She states she has not followed up with GI in clinic. She reports dark tarry stools. Denies any hematemesis or bright red rectal bleeding. Denies abdominal pain. Labs Hgb: 4.8 Plt: 81 K: 3.2 Na: 147 BUN/Cr 42/2.50 (2.62) UA: suggestive of infection, culture pending CT-head: chronic lacunar infarction with possible progression/enlargement. Recommended MRI with DWI and MRA Abd XR: no acute process Patient was transfused 2 units PRBCs, Hgb 6.8 this AM. She reports feeling be tter. no vomiting or BM since admission. Last BM yesterday morning. Son at bedside stated that patient's right sided weakness has been the same and not changed since she had the stroke. Plan: will transfuse 2 more units of PRBCs to keep Hgb>7 due to hx of CABG, consult GI Dr. Keita to evaluate for possible EGD. Change diet to clears for now. Start IV protonix BID. Reconcile home medications. Order MRA and MRI brain for further evaluation. Order CXR. Start Rocephin for UTI. Check Mag and lactic acid. Check anemia panel, FOBT. Continue hydration with IVF. Monitor H/H post transfusion. Replace K as per protocol. Monitor AM labs and imaging. PT/OT as tolerated. Time spent for clinical assessment, reviewing labs/imaging, physical exam, management, decision making and documentation greater than 75 mins. Past Medical History Past Medical History: Anemia, Anxiety, CHF, CVA, Dementia, Diabetes, GERD and Hypertension Past Surgical History Surgical History: Appendectomy, CABG/Valve Surgery, Cholecystectomy and Hysterectomy Family History Family Medical History: Cancer and Coronary Artery Disease Social History Does patient currently use any type of tobacco product: No Have you used tobacco products in the last 12 months: No Type of Tobacco Use: None Does any household member use tobacco: No Alcohol Use: None Drug Use: None Prescription drug monitoring program results: PDMP reviewed and no concerns identified Medications Home Medications: Penicillins Adverse Reaction (Verified 10/09/20 13:08) Sulfa (Sulfonamide Antibiotics) Adverse Reaction (Verified 10/09/20 13:08) CONTINUE taking the following medications pantoprazole [Protonix] 40 mg PO DAILY 02/27/21 [History] torsemide 20 mg PO BID 02/27/21 [History] Labs Result Diagrams: 02/27/21 05:00 02/27/21 05:00 Labs: 02/26/21 18:37 Urine,Catheterized Urine Culture - Preliminary Laboratory WBC 2.1 X10^3/uL (3.6-10.0) L 02/27/21 05:00 RBC 2.77 X10^6/uL (3.5-5.4) L 02/27/21 05:00 Hgb 6.8 g/dL (12.0-16.0) L* D 02/27/21 05:00 Hct 22.2 % (36.0-47.0) L 02/27/21 05:00 MCV 80.0 fL (80.0-100.0) 02/27/21 05:00 MCH 24.6 pg (27.0-34.0) L 02/27/21 05:00 MCHC 30.8 g/dL (33.0-35.0) L 02/27/21 05:00 RDW 17.5 % (11.6-16.5) H 02/27/21 05:00 Plt Count 77 X10^3/uL (150.0-450.0) L 02/27/21 05:00 Plt Count Comment Decreased (ADEQUATE) A 02/27/21 05:00 MPV 9.4 fL (7.4-11.0) 02/27/21 05:00 Neut % (Auto) 53.4 % (42.0-75.0) 02/27/21 05:00 Lymph % (Auto) 32.5 % (21.0-51.0) 02/27/21 05:00 [place] % (Auto) 9.1 % (0.0-13.0) 02/27/21 05:00 Eos % (Auto) 3.2 % (0.9-2.9) H 02/27/21 05:00 Baso % (Auto) 1.8 % (0.2-1.0) H 02/27/21 05:00 Neut # (Auto) 1.1 x10^3/uL (2.2-4.8) L 02/27/21 05:00 Lymph # (Auto) 0.7 X10^3/uL (1.3-2.9) L 02/27/21 05:00 [place] # (Auto) 0.2 x10^3/uL (0.3-0.8) L 02/27/21 05:00 Eos # (Auto) 0.1 x10^3/uL (0.0-0.2) 02/27/21 05:00 Baso # (Auto) 0.0 X10^3/uL (0.0-0.1) 02/27/21 05:00 Absolute Nucleated RBC 0.1 /100WBC 02/27/21 05:00 Total Counted 50 02/27/21 05:00 Neutrophils % (Manual) 60 % (39-76) 02/27/21 05:00 Lymphocytes % (Manual) 36 % (13-43) 02/27/21 05:00 Monocytes % (Manual) 4 % (4-9) 02/26/21 17:45 Eosinophils % (Manual) 4 % (0-6) 02/27/21 05:00 Plt Morphology Comment Normal (NORMAL) 02/27/21 05:00 RBC Morphology Abnormal (NORMAL) A 02/27/21 05:00 Dimorphic RBCs Slight 02/27/21 05:00 Hypochromasia 1+ A 02/27/21 05:00 Anisocytosis Slight A 02/27/21 05:00 Microcytosis Slight A 02/27/21 05:00 Sodium 146 mmol/L (136-145) H 02/27/21 05:00 Corrected Sodium 147 mmol/L (136-145) H 02/27/21 05:00 Potassium 3.2 mmol/L (3.5-5.1) L 02/27/21 05:00 Chloride 113 mmol/L (98-107) H 02/27/21 05:00 Carbon Dioxide 25.8 mmol/L (21-32) 02/27/21 05:00 BUN 42 mg/dL (7-18) H 02/27/21 05:00 Creatinine 2.50 mg/dL (0.55-1.02) H 02/27/21 05:00 Est GFR (MDRD) Af Amer 23 (>60) L 02/27/21 05:00 Est GFR (MDRD) Non-Af 19 (>60) L 02/27/21 05:00 Glucose 141 mg/dL (65-99) H 02/27/21 05:00 POC Glucose (mg/dL) 132 mg/dL (65-99) H 02/27/21 05:50 Calcium 8.2 mg/dL (8.5-10.1) L 02/27/21 05:00 Corrected Calcium 9.3 mg/dL (8.5-10.1) 02/27/21 05:00 Magnesium 2.2 mg/dL (1.7-2.9) 02/27/21 05:00 Iron 8 ug/dL (50-175) L 02/26/21 17:45 Transferrin 237 mg/dL (202-364) 02/26/21 17:45 Ferritin 9 ng/mL (8-252) 02/26/21 17:45 Total Bilirubin 1.10 mg/dL (0.2-1.0) H 02/27/21 05:00 AST 16 Units/L (15-37) 02/27/21 05:00 ALT 14 Units/L (12-78) 02/27/21 05:00 Alkaline Phosphatase 64 Units/L (46-116) 02/27/21 05:00 Total Protein 5.5 g/dL (6.4-8.2) L 02/27/21 05:00 Albumin 2.6 g/dL (3.4-5.0) L 02/27/21 05:00 Globulin 2.9 g/dL (2.5-4.5) 02/27/21 05:00 Albumin/Globulin Ratio 0.9 Ratio (1.1-2.1) L 02/27/21 05:00 Vitamin B12 280 pg/mL (193-986) 02/26/21 17:45 Folate 12.4 ng/mL (>8.6) 02/26/21 17:45 Specimen Type Catherized urine 02/26/21 18:37 Urine Color Straw (YELLOW) 02/26/21 18:37 Urine Appearance Cloudy (CLEAR) 02/26/21 18:37 Urine pH 5.0 (5.0 - 8.0) 02/26/21 18:37 Ur Specific [place] 1.020 (1.000-1.030) 02/26/21 18:37 Urine Protein 1+ (NEGATIVE) 02/26/21 18:37 Urine Glucose (UA) Negative (NEGATIVE) 02/26/21 18:37 Urine Ketones Negative (NEGATIVE) 02/26/21 18:37 Urine Occult Blood 1+ (NEGATIVE) 02/26/21 18:37 Urine Nitrite Negative (NEGATIVE) 02/26/21 18:37 Urine Bilirubin Negative (NEGATIVE) 02/26/21 18:37 Urine Urobilinogen Normal (NORMAL) 02/26/21 18:37 Ur Leukocyte Esterase 3+ (NEGATIVE) 02/26/21 18:37 Urine RBC 0-2 /HPF (0-3) 02/26/21 18:37 Urine WBC 5-10 /HPF (0-5) A 02/26/21 18:37 Ur Squamous Epith Cells Few /HPF (NEGATIVE) 02/26/21 18:37 Urine Bacteria 3+ /HPF (NEGATIVE) 02/26/21 18:37 Hyaline Casts Few /LPF (NEGATIVE) 02/26/21 18:37 Ur Culture Indicated? Yes/culture set up 02/26/21 18:37 SARS CoV-2 RNA Rapid YOCASTA Negative (NEGATIVE) 02/26/21 18:25 Blood Type A POSITIVE 02/26/21 18:14 Antibody Screen Negative 02/26/21 18:14 Crossmatch See Detail 02/26/21 18:14 Review of Systems Constitutional: Weakness Eyes: No Symptoms Reported ENT: No Symptoms Reported Respiratory: No Symptoms Reported Cardiovascular: Edema Gastrointestinal: Nausea, Vomiting and Melena Genitourinary: Incontinence Musculoskeletal: Leg Pain Skin: No Symptoms Reported Neurological: Weakness and Numbness Physical Exam Vital Signs: Temperature 98.4 F Pulse Rate [Left Radial] 70 Pulse Rate 78 Respiratory Rate 20 Blood Pressure [Right Arm] 133/62 Blood Pressure 144/63 O2 Sat by Pulse Oximetry 99 Oriented: Normal Eyes: Normal Nose: Normal Throat: Normal Respiratory: Diminished Throughout Cardiovascular: Normal and Edema Auscultation: Bowel Sounds: Normal Palpation: Normal Tenderness: Normal Skin: Decreased Turgur Musculoskeletal: Motor Deficit (RLE weakness, RUE strength intact ) Psychiatric: Normal Mood Description: Depressed Affect: Normal Speech Pattern: Clear and Appropriate Assessment/Plan (1) Generalized weakness: Status: Acute (2) Acute UTI: Status: Acute (3) Anemia: Qualifiers: Anemia type: unspecified type Qualified Code(s): D64.9 - Anemia, unspecified Status: Acute (4) Acute on chronic kidney failure: Qualifiers: Acute renal failure type: unspecified Chronic kidney disease stage: unspecified stage Qualified Code(s): N17.9 - Acute kidney failure, unspecified; N18.9 - Chronic kidney disease, unspecified Status: Acute (5) Iron deficiency anemia: Qualifiers: Iron deficiency anemia type: unspecified iron deficiency Qualified C ode(s): D50.9 - Iron deficiency anemia, unspecified Status: Acute (6) Right sided weakness: Status: Acute (7) Erosive gastritis: Status: Acute (8) Hypokalemia: Status: Acute (9) Hx of peptic ulcer: Status: Acute (10) Lacunar stroke: Status: Acute (11) CVA (cerebral vascular accident): Qualifiers: CVA mechanism: unspecified Qualified Code(s): I63.9 - Cerebral infarction, unspecified Status: Acute (12) GERD (gastroesophageal reflux disease): Qualifiers: Esophagitis bleeding: unspecified whether hemorrhage Esophagitis presence: with esophagitis Qualified Code(s): K21.00 - Gastro-esophageal reflux disease with esophagitis, without bleeding Status: Acute (13) Hx of CABG: Status: Acute Review H&P Reviewed: Yes Patient was examined?: Yes
--- NOTE | 2021-02-27 10:15 | MRI ---
HISTORYAcute mental status change, CVASTUDYMRI brain without IV contrastCOMPARISONCT 02/26/2021TECHNIQUEMultiplanar multi-sequence MRI of the brain was obtained without administration of IV contrast.FINDINGSThe cerebellar tonsils are normally positioned. Pituitary gland is normal in size. [Prominent diffuse volume loss in the brain with mild compensatory enlargement of the ventricular system.]No areas of restricted diffusion. Old CVA are seen. In the right parietal lobe there is mild encephalomalacia and gliosis from old CVA. An even smaller right occipital CVA is seen with encephalomalacia and gliosis. These are similar to CT appearance. Other old lacunar infarcts are seen in basal ganglia and periventricular white matter. Old lacunar infarcts are seen in the cerebellum. [There is a tiny amount of hemosiderin deposition within the right parietal CVA from likely old hemorrhage. No suggestion of recent hemorrhage.]Paranasal sinuses and mastoid air cells appear clear.IMPRESSIONNo evidence of recent CVA.Old ischemic changes are similar to the CT study.Electronically signed by: Charli Calles (Feb 27, 2021 10:13:02)
--- NOTE | 2021-02-27 10:24 | MRI ---
HISTORYAcute altered mental status, CVASTUDYMRA HEAD without IV contrastCOMPARISONCT from previous dayTECHNIQUE3-D [id number] imaging of the intracranial circulation was performed with MIP reconstructions.IV contrast was not administered.FINDINGSDistal left vertebral artery is not well seen. Left PICA appears to be supplied by a branch of the left AICA. There is attenuation of the mid basilar artery which is concerning for possible moderate hemodynamically significant stenosis. Distal basilar artery appears normal. No [employer]IL[employer] stenosis is seen. Posterior communicating arteries are not seen.Likely tiny anterior communicating artery is present. Right A1 segment is small with nonvisualization of the origin of the right A1 segment. This could be due to stenosis or may be due to normal variant small artery. Atherosclerotic changes are suspected in the supraclinoid ICAs, right greater than left. Possible hemodynamically significant stenosis is seen in the supraclinoid right ICA.There is attenuation of the distal left M1 segment which could be due to artifact or possible mild hemodynamically significant stenosis. No aneurysm is seen.IMPRESSIONPossible hemodynamically significant stenosis in the supraclinoid right ICA. Possible occlusion or absence of the intracranial portion of the left vertebral artery. Likely moderate stenosis in the mid basilar artery.Small right A1 segment is probably normal variant but stenosis at the origin is not excluded. Possible hemodynamically significant stenosis in the distal left M1 segment.Further evaluation of the [place] with CTA may be useful.Electronically signed by: Charli Calles (Feb 27, 2021 10:22:32)
[2021-02-27] MEDS: ROCEPHIN VIAL 1 GRAM 1 G in NS 100 ML IV + SPIKE MINIBAG* 100 ML IV SCH ×2 (11:00→11:35)
[2021-02-27] MEDS: PROTONIX INJ 40 MG VIAL IVP SCH ×2 (11:00→20:24)
[2021-02-27] MEDS ORDERED: LEXAPRO ONE (12:12)
[2021-02-27] MEDS: LEXAPRO PO SCH (12:30)
[2021-02-27] MEDS: COREG TAB 3.125 MG PO SCH ×2 (12:30→20:23)
[2021-02-27 13:43] LABS: HEMOGLOBIN 4.8 g/dL (12.0-16.0)
[2021-02-27] MEDS: DUONEB 0.5 MG/3 MG (3 mL) NEB SCH ×2 (13:55→21:29)
[2021-02-27] MEDS ORDERED: NS 250 ML IV 250 ML IV ONE (14:35)
[2021-02-27] MEDS: TYLENOL 325 MG TAB PO PRN (14:58)
[2021-02-27] MEDS: BENADRYL INJ 50 MG VIAL IVP PRN (14:59)
[2021-02-27] MEDS: LIPITOR TAB 20 MG PO SCH (20:23)
[2021-02-28 02:37] LABS: HEMATOCRIT 30.6 % (36.0-47.0); HEMOGLOBIN 9.8 g/dL (12.0-16.0)
[2021-02-28] MEDS: DUONEB 0.5 MG/3 MG (3 mL) NEB SCH ×3 (05:43→21:00)
[2021-02-28 06:09] LABS: BASOPHILS % (AUTO) 0.5 % (0.2-1.0); EOSINOPHILS % (AUTO) 0.7 % (0.9-2.9); HEMATOCRIT 30.7 % (36.0-47.0); HEMOGLOBIN 9.9 g/dL (12.0-16.0); LYMPHOCYTES # (AUTO) 0.5 X10^3/uL (1.3-2.9); LYMPHOCYTES % (AUTO) 9.5 % (21.0-51.0); MEAN CORPUSCULAR HEMOGLOBIN 26.3 pg (27.0-34.0); MEAN CORPUSCULAR HGB CONC 32.2 g/dL (33.0-35.0); MEAN CORPUSCULAR VOLUME 81.6 fL (80.0-100.0); MONOCYTES # (AUTO) 0.3 x10^3/uL (0.3-0.8); MONOCYTES % (AUTO) 5.8 % (0.0-13.0); NEUTROPHILS # (AUTO) 4.7 x10^3/uL (2.2-4.8); NEUTROPHILS % (AUTO) 83.5 % (42.0-75.0); PLATELET COUNT 64 X10^3/uL (150.0-450.0); RED BLOOD COUNT 3.76 X10^6/uL (3.5-5.4); WHITE BLOOD COUNT 5.7 X10^3/uL (3.6-10.0)
[2021-02-28 06:12] LABS: CREATININE 2.17 mg/dL (0.55-1.02)
[2021-02-28] MEDS ORDERED: D5 LR 1000 ML 1,000 ML IV ONE (08:29)
[2021-02-28] MEDS: ZOFRAN INJ 4 MG VIAL IVP PRN (08:57)
[2021-02-28] MEDS ORDERED: NS 1000 ML 1,000 ML ONE (09:01)
[2021-02-28] MEDS ORDERED: DIPRIVAN VIAL 20 ML ONE (09:10)
[2021-02-28] MEDS ORDERED: LEXAPRO ONE (09:11)
[2021-02-28] MEDS ORDERED: NS 1000 ML 1,000 ML IV SCH (10:00)
[2021-02-28] MEDS: MAXIPIME VIAL 1 GRAM 1 G in NS 50 ML IV + SPIKE MINIBAG* 50 ML IV SCH ×3 (10:25→20:56)
[2021-02-28] MEDS: COREG TAB 3.125 MG PO SCH ×2 (10:26→20:57)
[2021-02-28] MEDS: LEXAPRO PO SCH (10:26)
[2021-02-28] MEDS: PROTONIX INJ 40 MG VIAL IVP SCH ×2 (10:27→20:56)
[2021-02-28] MEDS: D5W 1000 ML IV 1,000 ML IV SCH (10:50)
--- NOTE | 2021-02-28 10:50 | PCM.PROG ---
Progress Note Progress Note for Day of Date of Exam: 02/28/21 Subjective Subjective: Patient seen at bedside, no acute events overnight. She did have a fever, Tmax 100.8. She states she is still having epigastric abdominal pain. She denies N/V/D. She was able to tolerate clears yesterday and is currently NPO for EGD this AM. She still feels weak especially her right leg. She did receive 2 more units of PRBCs yesterday, Hgb 9.9 this morning. FOBT positive for blood. Labs: Hgb 9.9 Plt 64 Na: 150 K: 3.6 Cl 115 BUN/Cr: 33/2.17 Glucose 171 Iron Low, normal B12 and folate CXR: concerning for pneumonia MRI-brain: prior stroke noted, no acute infarction MRA: concern for high grade stenosis Urine culture: Gram neg rods Blood Cx pending Plan: continue NPO status, EGD this morning. Follow GI recommendations. Continue IV Protonix. Start iron supplements post EGD. Change NS to D5W at 50cc/hr for hypernatremia. Monitor H/H and renal function. Diet as per GI post procedure. Switch Rocephin to Cefepime for Pseudomonas coverage. Continue Duonebs. Wean O2 as tolerated, currently on 2L NC. Outpatient follow up with neurology and cardiology. PT/OT as tolerated. Time spent for clinical assessment, reviewing labs/imaging, physical exam, management, decision making and documentation greater than 75 mins. Past Medical Family Social History Past Med/Fam/Surg Hx: No changes since H&P Allergies: Allergies Penicillins Adverse Reaction (Verified 10/09/20 13:08) Sulfa (Sulfonamide Antibiotics) Adverse Reaction (Verified 10/09/20 13:08) Review of Systems ROS: No change since H&P Vital Signs and I&O's Vital Signs: Temperature 99.0 F Pulse Rate [Left Radial] 79 Pulse Rate 79 Respiratory Rate 14 Blood Pressure [Right Arm] 134/58 Blood Pressure 143/63 O2 Sat by Pulse Oximetry 98 Intake and Output: Intake & Output 02/25/21 02/26/21 02/27/21 02/28/21 23:59 23:59 23:59 23:59 Intake Total 50 / 50 970 / 970 2202 / 2202 Output Total 200 / 200 675 / 675 320 / 320 Balance -150 / -150 295 / 295 1882 / 1882 Physical Exam Oriented: Normal Eyes: Normal Nose: Normal Throat: Dry Respiratory: Generalized and Diminished Cardiovascular: Normal and Edema (RLE > LLE ) Auscultation: Bowel Sounds: Normal Tenderness: Epigastric and Mild Skin: Decreased Turgur Musculoskeletal: Motor Deficit (RLE weakness, RUE strength intact ) Psychiatric: Normal Mood Description: Calm Affect: Normal Speech Pattern: Clear and Appropriate Laboratory and Diagnostics Result Diagrams: 02/28/21 05:26 02/28/21 05:26 Labs: 02/26/21 18:37 Urine,Catheterized Urine Culture - Final Escherichia Coli Laboratory WBC 5.7 X10^3/uL (3.6-10.0) 02/28/21 05:26 RBC 3.76 X10^6/uL (3.5-5.4) 02/28/21 05:26 Hgb 9.9 g/dL (12.0-16.0) L 02/28/21 05:26 Hct 30.7 % (36.0-47.0) L 02/28/21 05:26 MCV 81.6 fL (80.0-100.0) 02/28/21 05:26 MCH 26.3 pg (27.0-34.0) L 02/28/21 05:26 MCHC 32.2 g/dL (33.0-35.0) L 02/28/21 05:26 RDW 17.0 % (11.6-16.5) H 02/28/21 05:26 Plt Count 64 X10^3/uL (150.0-450.0) L 02/28/21 05:26 Plt Count Comment Decreased (ADEQUATE) A 02/27/21 05:00 MPV 10.0 fL (7.4-11.0) 02/28/21 05:26 Neut % (Auto) 83.5 % (42.0-75.0) H 02/28/21 05:26 Lymph % (Auto) 9.5 % (21.0-51.0) L 02/28/21 05:26 [place] % (Auto) 5.8 % (0.0-13.0) 02/28/21 05:26 Eos % (Auto) 0.7 % (0.9-2.9) L 02/28/21 05:26 Baso % (Auto) 0.5 % (0.2-1.0) 02/28/21 05:26 Neut # (Auto) 4.7 x10^3/uL (2.2-4.8) 02/28/21 05:26 Lymph # (Auto) 0.5 X10^3/uL (1.3-2.9) L 02/28/21 05:26 [place] # (Auto) 0.3 x10^3/uL (0.3-0.8) 02/28/21 05:26 Eos # (Auto) 0.0 x10^3/uL (0.0-0.2) 02/28/21 05:26 Baso # (Auto) 0.0 X10^3/uL (0.0-0.1) 02/28/21 05:26 Absolute Nucleated RBC 0.0 /100WBC 02/28/21 05:26 Total Counted 50 02/27/21 05:00 Neutrophils % (Manual) 60 % (39-76) 02/27/21 05:00 Lymphocytes % (Manual) 36 % (13-43) 02/27/21 05:00 Monocytes % (Manual) 4 % (4-9) 02/26/21 17:45 Eosinophils % (Manual) 4 % (0-6) 02/27/21 05:00 Plt Morphology Comment Normal (NORMAL) 02/27/21 05:00 RBC Morphology Abnormal (NORMAL) A 02/27/21 05:00 Dimorphic RBCs Slight 02/27/21 05:00 Hypochromasia 1+ A 02/27/21 05:00 Anisocytosis Slight A 02/27/21 05:00 Microcytosis Slight A 02/27/21 05:00 Sodium 148 mmol/L (136-145) H 02/28/21 05:26 Corrected Sodium 150 mmol/L (136-145) H 02/28/21 05:26 Potassium 3.6 mmol/L (3.5-5.1) 02/28/21 05:26 Chloride 115 mmol/L (98-107) H* 02/28/21 05:26 Carbon Dioxide 23.0 mmol/L (21-32) 02/28/21 05:26 BUN 33 mg/dL (7-18) H 02/28/21 05:26 Creatinine 2.17 mg/dL (0.55-1.02) H 02/28/21 05:26 Est GFR (MDRD) Af Amer 28 (>60) L 02/28/21 05:26 Est GFR (MDRD) Non-Af 23 (>60) L 02/28/21 05:26 Glucose 171 mg/dL (65-99) H 02/28/21 05:26 POC Glucose (mg/dL) 175 mg/dL (65-99) H 02/28/21 09:00 Lactic Acid 2.2 mmol/L (0.4-2.0) H 02/27/21 10:15 Calcium 8.0 mg/dL (8.5-10.1) L 02/28/21 05:26 Corrected Calcium 9.3 mg/dL (8.5-10.1) 02/27/21 05:00 Magnesium Cancelled 02/27/21 10:15 Iron 8 ug/dL (50-175) L 02/26/21 17:45 Transferrin 237 mg/dL (202-364) 02/26/21 17:45 Ferritin 9 ng/mL (8-252) 02/26/21 17:45 Total Bilirubin 1.10 mg/dL (0.2-1.0) H 02/27/21 05:00 AST 16 Units/L (15-37) 02/27/21 05:00 ALT 14 Units/L (12-78) 02/27/21 05:00 Alkaline Phosphatase 64 Units/L (46-116) 02/27/21 05:00 Ammonia 27 umol/L (11-32) 02/28/21 09:03 Total Protein 5.5 g/dL (6.4-8.2) L 02/27/21 05:00 Albumin 2.6 g/dL (3.4-5.0) L 02/27/21 05:00 Globulin 2.9 g/dL (2.5-4.5) 02/27/21 05:00 Albumin/Globulin Ratio 0.9 Ratio (1.1-2.1) L 02/27/21 05:00 Vitamin B12 280 pg/mL (193-986) 02/26/21 17:45 Folate 12.4 ng/mL (>8.6) 02/26/21 17:45 Specimen Type Catherized urine 02/26/21 18:37 Urine Color Straw (YELLOW) 02/26/21 18:37 Urine Appearance Cloudy (CLEAR) 02/26/21 18:37 Urine pH 5.0 (5.0 - 8.0) 02/26/21 18:37 Ur Specific [place] 1.020 (1.000-1.030) 02/26/21 18:37 Urine Protein 1+ (NEGATIVE) 02/26/21 18:37 Urine Glucose (UA) Negative (NEGATIVE) 02/26/21 18:37 Urine Ketones Negative (NEGATIVE) 02/26/21 18:37 Urine Occult Blood 1+ (NEGATIVE) 02/26/21 18:37 Urine Nitrite Negative (NEGATIVE) 02/26/21 18:37 Urine Bilirubin Negative (NEGATIVE) 02/26/21 18:37 Urine Urobilinogen Normal (NORMAL) 02/26/21 18:37 Ur Leukocyte Esterase 3+ (NEGATIVE) 02/26/21 18:37 Urine RBC 0-2 /HPF (0-3) 02/26/21 18:37 Urine WBC 5-10 /HPF (0-5) A 02/26/21 18:37 Ur Squamous Epith Cells Few /HPF (NEGATIVE) 02/26/21 18:37 Urine Bacteria 3+ /HPF (NEGATIVE) 02/26/21 18:37 Hyaline Casts Few /LPF (NEGATIVE) 02/26/21 18:37 Ur Culture Indicated? Yes/culture set up 02/26/21 18:37 Stool Description 40g semi formed 02/27/21 10:00 Stl Occult Blood (IFOB) Positive (NEGATIVE) A 02/27/21 10:00 SARS CoV-2 RNA Rapid YOCASTA Negative (NEGATIVE) 02/26/21 18:25 Blood Type A POSITIVE 02/26/21 18:14 Antibody Screen Negative 02/26/21 18:14 Crossmatch See Detail 02/26/21 18:14 Plan (1) Generalized weakness: Status: Acute (2) Acute UTI: Status: Acute (3) Anemia: Status: Acute Qualifiers: Anemia type: unspecified type Qualified Code(s): D64.9 - Anemia, unspecified (4) Acute on chronic kidney failure: Status: Acute Qualifiers: Acute renal failure type: unspecified Chronic kidney disease stage: unspecified stage Qualified Code(s): N17.9 - Acute kidney failure, unspecified; N18.9 - Chronic kidney disease, unspecified (5) Iron deficiency anemia: Status: Acute Qualifiers: Iron deficiency anemia type: unspecified iron deficiency Qualified Code(s): D50.9 - Iron deficiency anemia, unspecified (6) Right sided weakness: Status: Acute (7) Erosive gastritis: Status: Acute (8) Pneumonia: Status: Acute Qualifiers: Laterality: unspecified laterality Lung location: unspecified part of lung Pneumonia type: due to unspecified organism Qualified Code(s): J18.9 - Pneumonia, unspecified organism (9) Hypokalemia: Status: Acute (10) Hx of peptic ulcer: Status: Acute (11) Lacunar stroke: Status: Acute (12) CVA (cerebral vascular accident): Status: Acute Qualifiers: CVA mechanism: unspecified Qualified Code(s): I63.9 - Cerebral infarction, unspecified (13) GERD (gastroesophageal reflux disease): Status: Acute Qualifiers: Esophagitis bleeding: unspecified whether hemorrhage Esophagitis presence: with esophagitis Qualified Code(s): K21.00 - Gastro-esophageal reflux disease with esophagitis, without bleeding (14) Hx of CABG: Status: Acute (15) Carotid stenosis: Status: Acute Qualifiers: Laterality: bilateral Qualified Code(s): I65.23 - Occlusion and stenosis of bilateral carotid arteries
--- NOTE | 2021-02-28 13:14 | US ---
HISTORYelevated lft's DIABETES, CVA, CHF, APPENDIX, GB, CABG/VALVE, HYSTERECTOMY anemia.STUDYLIVERCOMPARISONNoneTECHNIQUEForty-seven images made by the strainer mill operator. Miranda scale and co brittney-flow doppler images of the right upper quadrant were obtained. One Cine clip was obtained.FINDING SThe liver has normal echogenicity and size. The liver has a lobular contour suggesting cirrhosis. No mass or intrahepatic biliary duct dilatation is present. Very minimal perihepatic ascites is noted.T he intrahepatic inferior vena cava was imaged. Main portal vein has echogenic material within it and no blood flow. Finding is compatible with portal venous thrombosis. There is flow in the more central and intrahepatic portal veins.The pancreas is largely obscured by overlying bowel gas.No gallbladder is identified consistent with prior cholecystectomy. No extrahepatic biliary duct dilatation; commo n duct is normal.The right kidney is normal in size and echogenicity. No hydronephrosis.IMPRESSION1. Findings suggesting hepatic cirrhosis2. Portal vein thrombosisElectronically signed by: Srinivasan mills (Feb 28, 2021 13:12:18)
[2021-02-28] MEDS: NICOTINE PATCH TD SCH (14:22)
[2021-02-28] MEDS ORDERED: BUTT CREAM (COMPOUND) TOP PRN (18:37)
[2021-02-28] MEDS: LIPITOR TAB 20 MG PO SCH (20:56)
[2021-02-28] MEDS: HumuLIN R SC PRN (21:14)
[2021-03-01] MEDS: ZOFRAN INJ 4 MG VIAL IVP PRN ×2 (04:38→08:16)
[2021-03-01 04:45] LABS: BASOPHILS % (AUTO) 0.7 % (0.2-1.0); EOSINOPHILS # (AUTO) 0.1 x10^3/uL (0.0-0.2); HEMATOCRIT 31.5 % (36.0-47.0); HEMOGLOBIN 9.9 g/dL (12.0-16.0); LYMPHOCYTES # (AUTO) 0.6 X10^3/uL (1.3-2.9); LYMPHOCYTES % (AUTO) 13.3 % (21.0-51.0); MEAN CORPUSCULAR HEMOGLOBIN 25.6 pg (27.0-34.0); MEAN CORPUSCULAR HGB CONC 31.3 g/dL (33.0-35.0); MEAN CORPUSCULAR VOLUME 81.8 fL (80.0-100.0); MEAN PLATELET VOLUME 10.2 fL (7.4-11.0); MONOCYTES # (AUTO) 0.4 x10^3/uL (0.3-0.8); MONOCYTES % (AUTO) 7.3 % (0.0-13.0); NEUTROPHILS # (AUTO) 3.7 x10^3/uL (2.2-4.8); NEUTROPHILS % (AUTO) 75.7 % (42.0-75.0); PLATELET COUNT 63 X10^3/uL (150.0-450.0); RED BLOOD COUNT 3.86 X10^6/uL (3.5-5.4); RED CELL DISTRIBUTION WIDTH 17.5 % (11.6-16.5); WHITE BLOOD COUNT 4.9 X10^3/uL (3.6-10.0)
[2021-03-01 04:52] LABS: CALCIUM 8.2 mg/dL (8.5-10.1); CARBON DIOXIDE 24.6 mmol/L (21-32); CREATININE 2.01 mg/dL (0.55-1.02)
[2021-03-01] MEDS: D5W 1000 ML IV 1,000 ML IV SCH ×2 (05:13→14:00)
[2021-03-01] MEDS: DUONEB 0.5 MG/3 MG (3 mL) NEB SCH ×3 (06:28→21:58)
[2021-03-01] MEDS ORDERED: LEXAPRO ONE (08:18)
[2021-03-01] MEDS: LEXAPRO PO SCH (09:04)
[2021-03-01] MEDS: MAXIPIME VIAL 1 GRAM 1 G in NS 50 ML IV + SPIKE MINIBAG* 50 ML IV SCH ×2 (09:04→20:15)
[2021-03-01] MEDS: COREG TAB 3.125 MG PO SCH ×2 (09:05→20:16)
[2021-03-01] MEDS: PROTONIX INJ 40 MG VIAL IVP SCH (09:05)
[2021-03-01] MEDS: NICOTINE PATCH TD SCH (09:05)
--- NOTE | 2021-03-01 11:42 | PCM.PROG ---
Progress Note Progress Note for Day of Date of Exam: 03/01/21 Subjective Subjective: Patient seen at bedside, no acute events overnight. She states she still feels sick to her stomach, burning feeling when eating but not as bad as before. She had EGD done yesterday which showed large bleeding AVM, gastritis and portal gastropathy. She has been tolerating diet post procedure. She reports it's easier for her to eat soft foods. She is still on 2L O2. She states her breathing is fine, able to cough up more. She has been abferile. Labs: Hgb 9.9 Plt 63 Na: 145 K: 3.69 Cl 111 BUN/Cr: 28/2.01 Glucose 179 Iron Low, normal B12 and folate CXR: concerning for pneumonia MRI-brain: prior stroke noted, no acute infarction MRA: concern for high grade stenosis Urine culture: E. coli Blood Cx: no growth Liver U/S: portal venous thrombosis and liver cirrhosis Plan: will change diet to soft, add carafate prior to meals. Continue protonix BID. PT/OT as tolerated. Continue Cefepime. Continue gentle hydration with D5. Wean O2 as tolerated to keep sats > 92%. Monitor H/H and renal function. CM to discuss discharge needs with patient's son. Continue home medications. Patient not a candidate for anti-coagulation due to hx of GI bleed due to AVM's. Time spent for clinical assessment, reviewing labs/imaging, physical exam, management, decision making and documentation greater than 75 mins. Past Medical Family Social History Past Med/Fam/Surg Hx: No changes since H&P Allergies: Allergies Penicillins Adverse Reaction (Verified 10/09/20 13:08) Sulfa (Sulfonamide Antibiotics) Adverse Reaction (Verified 10/09/20 13:08) Review of Systems ROS: No change since H&P Vital Signs and I&O's Vital Signs: Temperature 98.6 F Pulse Rate [Left Radial] 74 Pulse Rate 77 Respiratory Rate 18 Blood Pressure [Right Arm] 135/64 Blood Pressure 143/63 O2 Sat by Pulse Oximetry 99 Intake and Output: Intake & Output 02/26/21 02/27/21 02/28/21 03/01/21 23:59 23:59 23:59 23:59 Intake Total 50 / 50 970 / 970 3713 / 3713 375 / 375 Output Total 200 / 200 675 / 675 845 / 845 200 / 200 Balance -150 / -150 295 / 295 2868 / 2868 175 / 175 Physical Exam Oriented: Normal Eyes: Normal Nose: Normal Throat: Normal Respiratory: Generalized and Diminished Cardiovascular: Normal and Edema (RLE > LLE ) Auscultation: Bowel Sounds: Normal Tenderness: Epigastric and Mild Skin: Decreased Turgur Musculoskeletal: Motor Deficit (RLE weakness, RUE strength intact ) Psychiatric: Normal Mood Description: Calm Affect: Normal Speech Pattern: Clear and Appropriate Laboratory and Diagnostics Result Diagrams: 03/01/21 04:10 03/01/21 04:10 Labs: 02/27/21 19:01 Blood Blood Culture - Preliminary 02/27/21 18:55 Blood Blood Culture - Preliminary 02/26/21 18:37 Urine,Catheterized Urine Culture - Final Escherichia Coli Laboratory WBC 4.9 X10^3/uL (3.6-10.0) 03/01/21 04:10 RBC 3.86 X10^6/uL (3.5-5.4) 03/01/21 04:10 Hgb 9.9 g/dL (12.0-16.0) L 03/01/21 04:10 Hct 31.5 % (36.0-47.0) L 03/01/21 04:10 MCV 81.8 fL (80.0-100.0) 03/01/21 04:10 MCH 25.6 pg (27.0-34.0) L 03/01/21 04:10 MCHC 31.3 g/dL (33.0-35.0) L 03/01/21 04:10 RDW 17.5 % (11.6-16.5) H 03/01/21 04:10 Plt Count 63 X10^3/uL (150.0-450.0) L 03/01/21 04:10 Plt Count Comment Decreased (ADEQUATE) A 02/27/21 05:00 MPV 10.2 fL (7.4-11.0) 03/01/21 04:10 Neut % (Auto) 75.7 % (42.0-75.0) H 03/01/21 04:10 Lymph % (Auto) 13.3 % (21.0-51.0) L 03/01/21 04:10 [place] % (Auto) 7.3 % (0.0-13.0) 03/01/21 04:10 Eos % (Auto) 3.0 % (0.9-2.9) H 03/01/21 04:10 Baso % (Auto) 0.7 % (0.2-1.0) 03/01/21 04:10 Neut # (Auto) 3.7 x10^3/uL (2.2-4.8) 03/01/21 04:10 Lymph # (Auto) 0.6 X10^3/uL (1.3-2.9) L 03/01/21 04:10 [place] # (Auto) 0.4 x10^3/uL (0.3-0.8) 03/01/21 04:10 Eos # (Auto) 0.1 x10^3/uL (0.0-0.2) 03/01/21 04:10 Baso # (Auto) 0.0 X10^3/uL (0.0-0.1) 03/01/21 04:10 Absolute Nucleated RBC 0.1 /100WBC 03/01/21 04:10 Total Counted 50 02/27/21 05:00 Neutrophils % (Manual) 60 % (39-76) 02/27/21 05:00 Lymphocytes % (Manual) 36 % (13-43) 02/27/21 05:00 Monocytes % (Manual) 4 % (4-9) 02/26/21 17:45 Eosinophils % (Manual) 4 % (0-6) 02/27/21 05:00 Plt Morphology Comment Normal (NORMAL) 02/27/21 05:00 RBC Morphology Abnormal (NORMAL) A 02/27/21 05:00 Dimorphic RBCs Slight 02/27/21 05:00 Hypochromasia 1+ A 02/27/21 05:00 Anisocytosis Slight A 02/27/21 05:00 Microcytosis Slight A 02/27/21 05:00 Sodium 143 mmol/L (136-145) 03/01/21 04:10 Corrected Sodium 145 mmol/L (136-145) 03/01/21 04:10 Potassium 3.9 mmol/L (3.5-5.1) 03/01/21 04:10 Chloride 111 mmol/L (98-107) H 03/01/21 04:10 Carbon Dioxide 24.6 mmol/L (21-32) 03/01/21 04:10 BUN 28 mg/dL (7-18) H 03/01/21 04:10 Creatinine 2.01 mg/dL (0.55-1.02) H 03/01/21 04:10 Est GFR (MDRD) Af Amer 30 (>60) L 03/01/21 04:10 Est GFR (MDRD) Non-Af 25 (>60) L 03/01/21 04:10 Glucose 190 mg/dL (65-99) H 03/01/21 04:10 POC Glucose (mg/dL) 201 mg/dL (65-99) H 03/01/21 11:29 Lactic Acid 2.2 mmol/L (0.4-2.0) H 02/27/21 10:15 Calcium 8.2 mg/dL (8.5-10.1) L 03/01/21 04:10 Corrected Calcium 9.3 mg/dL (8.5-10.1) 02/27/21 05:00 Magnesium Cancelled 02/27/21 10:15 Iron 8 ug/dL (50-175) L 02/26/21 17:45 Transferrin 237 mg/dL (202-364) 02/26/21 17:45 Ferritin 9 ng/mL (8-252) 02/26/21 17:45 Total Bilirubin 1.10 mg/dL (0.2-1.0) H 02/27/21 05:00 AST 16 Units/L (15-37) 02/27/21 05:00 ALT 14 Units/L (12-78) 02/27/21 05:00 Alkaline Phosphatase 64 Units/L (46-116) 02/27/21 05:00 Ammonia 27 umol/L (11-32) 02/28/21 09:03 Total Protein 5.5 g/dL (6.4-8.2) L 02/27/21 05:00 Albumin 2.6 g/dL (3.4-5.0) L 02/27/21 05:00 Globulin 2.9 g/dL (2.5-4.5) 02/27/21 05:00 Albumin/Globulin Ratio 0.9 Ratio (1.1-2.1) L 02/27/21 05:00 Vitamin B12 280 pg/mL (193-986) 02/26/21 17:45 Folate 12.4 ng/mL (>8.6) 02/26/21 17:45 Specimen Type Catherized urine 02/26/21 18:37 Urine Color Straw (YELLOW) 02/26/21 18:37 Urine Appearance Cloudy (CLEAR) 02/26/21 18:37 Urine pH 5.0 (5.0 - 8.0) 02/26/21 18:37 Ur Specific [place] 1.020 (1.000-1.030) 02/26/21 18:37 Urine Protein 1+ (NEGATIVE) 02/26/21 18:37 Urine Glucose (UA) Negative (NEGATIVE) 02/26/21 18:37 Urine Ketones Negative (NEGATIVE) 02/26/21 18:37 Urine Occult Blood 1+ (NEGATIVE) 02/26/21 18:37 Urine Nitrite Negative (NEGATIVE) 02/26/21 18:37 Urine Bilirubin Negative (NEGATIVE) 02/26/21 18:37 Urine Urobilinogen Normal (NORMAL) 02/26/21 18:37 Ur Leukocyte Esterase 3+ (NEGATIVE) 02/26/21 18:37 Urine RBC 0-2 /HPF (0-3) 02/26/21 18:37 Urine WBC 5-10 /HPF (0-5) A 02/26/21 18:37 Ur Squamous Epith Cells Few /HPF (NEGATIVE) 02/26/21 18:37 Urine Bacteria 3+ /HPF (NEGATIVE) 02/26/21 18:37 Hyaline Casts Few /LPF (NEGATIVE) 02/26/21 18:37 Ur Culture Indicated? Yes/culture set up 02/26/21 18:37 Stool Description 40g semi formed 02/27/21 10:00 Stl Occult Blood (IFOB) Positive (NEGATIVE) A 02/27/21 10:00 SARS CoV-2 RNA Rapid YOCASTA Negative (NEGATIVE) 02/26/21 18:25 Blood Type A POSITIVE 02/26/21 18:14 Antibody Screen Negative 02/26/21 18:14 Crossmatch See Detail 02/26/21 18:14 Plan (1) Generalized weakness: Status: Acute (2) Acute UTI: Status: Acute (3) Anemia: Status: Acute Qualifiers: Anemia type: unspecified type Qualified Code(s): D64.9 - Anemia, unspecified (4) Acute on chronic kidney failure: Status: Acute Qualifiers: Acute renal failure type: unspecified Chronic kidney disease stage: unspecified stage Qualified Code(s): N17.9 - Acute kidney failure, unspecified; N18.9 - Chronic kidney disease, unspecified (5) Iron deficiency anemia: Status: Acute Qualifiers: Iron deficiency anemia type: unspecified iron deficiency Qualified Code(s): D50.9 - Iron deficiency anemia, unspecified (6) Right sided weakness: Status: Acute (7) Erosive gastritis: Status: Acute (8) Pneumonia: Status: Acute Qualifiers: Laterality: unspecified laterality Lung location: unspecified part of lung Pneumonia type: due to unspecified organism Qualified Code(s): J18.9 - Pneumonia, unspecified organism (9) Hypokalemia: Status: Acute (10) Hx of peptic ulcer: Status: Acute (11) Hypernatremia: Status: Acute (12) Lacunar stroke: Status: Acute (13) CVA (cerebral vascular accident): Status: Acute Qualifiers: CVA mechanism: unspecified Qualified Code(s): I63.9 - Cerebral infarction, unspecified (14) GERD (gastroesophageal reflux disease): Status: Acute Qualifiers: Esophagitis bleeding: unspecified whether hemorrhage Esophagitis presence: with esophagitis Qualified Code(s): K21.00 - Gastro-esophageal reflux disease with esophagitis, without bleeding (15) Hx of CABG: Status: Acute (16) Carotid stenosis: Status: Acute Qualifiers: Laterality: bilateral Qualified Code(s): I65.23 - Occlusion and stenosis of bilateral carotid arteries
[2021-03-01] MEDS: CARAFATE ORAL SUSP PO SCH ×2 (16:34→20:15)
[2021-03-01] MEDS: FERROUS GLUCONATE PO SCH (17:16)
[2021-03-01] MEDS: LIPITOR TAB 20 MG PO SCH (20:16)
[2021-03-01] MEDS: PROTONIX TAB 40 MG PO SCH (20:25)
[2021-03-02] MEDS: CARAFATE ORAL SUSP PO SCH ×4 (06:17→20:50)
[2021-03-02] MEDS: D5W 1000 ML IV 1,000 ML IV SCH ×3 (06:20→14:01)
[2021-03-02] MEDS: DUONEB 0.5 MG/3 MG (3 mL) NEB SCH ×3 (06:25→21:01)
[2021-03-02 06:36] LABS: BASOPHILS % (AUTO) 0.6 % (0.2-1.0); EOSINOPHILS # (AUTO) 0.2 x10^3/uL (0.0-0.2); EOSINOPHILS % (AUTO) 5.5 % (0.9-2.9); HEMATOCRIT 29.8 % (36.0-47.0); HEMOGLOBIN 9.6 g/dL (12.0-16.0); LYMPHOCYTES # (AUTO) 0.6 X10^3/uL (1.3-2.9); LYMPHOCYTES % (AUTO) 13.3 % (21.0-51.0); MEAN CORPUSCULAR HEMOGLOBIN 26.1 pg (27.0-34.0); MEAN CORPUSCULAR HGB CONC 32.1 g/dL (33.0-35.0); MEAN CORPUSCULAR VOLUME 81.3 fL (80.0-100.0); MEAN PLATELET VOLUME 10.6 fL (7.4-11.0); MONOCYTES # (AUTO) 0.4 x10^3/uL (0.3-0.8); MONOCYTES % (AUTO) 9.1 % (0.0-13.0); NEUTROPHILS % (AUTO) 71.5 % (42.0-75.0); PLATELET COUNT 64 X10^3/uL (150.0-450.0); RED BLOOD COUNT 3.66 X10^6/uL (3.5-5.4); RED CELL DISTRIBUTION WIDTH 17.9 % (11.6-16.5); WHITE BLOOD COUNT 4.1 X10^3/uL (3.6-10.0)
[2021-03-02 06:45] LABS: CREATININE 1.96 mg/dL (0.55-1.02)
[2021-03-02] MEDS ORDERED: LEXAPRO ONE (08:57)
[2021-03-02] MEDS: MAXIPIME VIAL 1 GRAM 1 G in NS 50 ML IV + SPIKE MINIBAG* 50 ML IV SCH ×2 (09:21→20:51)
[2021-03-02] MEDS: COREG TAB 3.125 MG PO SCH ×2 (09:22→20:50)
[2021-03-02] MEDS: PROTONIX TAB 40 MG PO SCH ×2 (09:23→20:50)
[2021-03-02] MEDS: LEXAPRO PO SCH (09:25)
[2021-03-02] MEDS: NICOTINE PATCH TD SCH (09:30)
[2021-03-02] MEDS: ZOFRAN INJ 4 MG VIAL IVP PRN (09:45)
--- NOTE | 2021-03-02 10:18 | PCM.PROG ---
Progress Note Progress Note for Day of Date of Exam: 03/02/21 Subjective Subjective: Patient seen at bedside, no acute events overnight. She states she still feels sick to her stomach. She has been eating a little it. She prefers soft foods. She is not sure when her last BM was. Denies vomiting. She did work with PT yesterday, recommended SNF. CM working on placement. Patient is currently on room air. Labs: Hgb 9.6 Plt 64 Na: 145 K: 4.1 Cl 104 BUN/Cr: 30/1.96 Glucose 187 Iron Low, normal B12 and folate CXR: concerning for pneumonia MRI-brain: prior stroke noted, no acute infarction MRA: concern for high grade stenosis Urine culture: E. coli Blood Cx: no growth Liver U/S: portal venous thrombosis and liver cirrhosis Plan: will get KUB, continue Protonix and Carafate. Switch to soft foods with oatmeal and grits. Zofran prn. Continue IV cefepime and duonebs. Will add pulmicort BID. Continue gentle hydration with D5. Monitor H/H and renal function. CM working on placement to SNF, likely early next week. Continue PT as tolerated. Past Medical Family Social History Past Med/Fam/Surg Hx: No changes since H&P Allergies: Allergies Penicillins Adverse Reaction (Verified 10/09/20 13:08) Sulfa (Sulfonamide Antibiotics) Adverse Reaction (Verified 10/09/20 13:08) Review of Systems ROS: No change since H&P Vital Signs and I&O's Vital Signs: Temperature 98.3 F Pulse Rate [Left Radial] 76 Pulse Rate 74 Respiratory Rate 20 Blood Pressure [Left Arm] 141/63 Blood Pressure [Right Arm] 127/56 Blood Pressure 143/63 O2 Sat by Pulse Oximetry 98 Intake and Output: Intake & Output 02/27/21 02/28/21 03/01/21 03/02/21 23:59 23:59 23:59 23:59 Intake Total 970 / 970 3713 / 3713 1335 / 1335 2175 / 2175 Output Total 675 / 675 845 / 845 875 / 875 400 / 400 Balance 295 / 295 2868 / 2868 460 / 460 1775 / 1775 Physical Exam Oriented: Normal Eyes: Normal Nose: Normal Throat: Normal Respiratory: Generalized, Wheezes and Rhonchi Cardiovascular: Normal and Edema (RLE > LLE ) Auscultation: Bowel Sounds: Normal Tenderness: Epigastric and Mild Skin: Decreased Turgur Musculoskeletal: Motor Deficit (RLE weakness, RUE strength intact ) Psychiatric: Normal Mood Description: Calm Affect: Normal Speech Pattern: Clear and Appropriate Laboratory and Diagnostics Result Diagrams: 03/02/21 05:47 03/02/21 05:47 Labs: 02/27/21 19:01 Blood Blood Culture - Preliminary 02/27/21 18:55 Blood Blood Culture - Preliminary 02/26/21 18:37 Urine,Catheterized Urine Culture - Final Escherichia Coli Laboratory WBC 4.1 X10^3/uL (3.6-10.0) 03/02/21 05:47 RBC 3.66 X10^6/uL (3.5-5.4) 03/02/21 05:47 Hgb 9.6 g/dL (12.0-16.0) L 03/02/21 05:47 Hct 29.8 % (36.0-47.0) L 03/02/21 05:47 MCV 81.3 fL (80.0-100.0) 03/02/21 05:47 MCH 26.1 pg (27.0-34.0) L 03/02/21 05:47 MCHC 32.1 g/dL (33.0-35.0) L 03/02/21 05:47 RDW 17.9 % (11.6-16.5) H 03/02/21 05:47 Plt Count 64 X10^3/uL (150.0-450.0) L 03/02/21 05:47 Plt Count Comment Decreased (ADEQUATE) A 02/27/21 05:00 MPV 10.6 fL (7.4-11.0) 03/02/21 05:47 Neut % (Auto) 71.5 % (42.0-75.0) 03/02/21 05:47 Lymph % (Auto) 13.3 % (21.0-51.0) L 03/02/21 05:47 [place] % (Auto) 9.1 % (0.0-13.0) 03/02/21 05:47 Eos % (Auto) 5.5 % (0.9-2.9) H 03/02/21 05:47 Baso % (Auto) 0.6 % (0.2-1.0) 03/02/21 05:47 Neut # (Auto) 3.0 x10^3/uL (2.2-4.8) 03/02/21 05:47 Lymph # (Auto) 0.6 X10^3/uL (1.3-2.9) L 03/02/21 05:47 [place] # (Auto) 0.4 x10^3/uL (0.3-0.8) 03/02/21 05:47 Eos # (Auto) 0.2 x10^3/uL (0.0-0.2) 03/02/21 05:47 Baso # (Auto) 0.0 X10^3/uL (0.0-0.1) 03/02/21 05:47 Absolute Nucleated RBC 0.2 /100WBC 03/02/21 05:47 Total Counted 50 02/27/21 05:00 Neutrophils % (Manual) 60 % (39-76) 02/27/21 05:00 Lymphocytes % (Manual) 36 % (13-43) 02/27/21 05:00 Monocytes % (Manual) 4 % (4-9) 02/26/21 17:45 Eosinophils % (Manual) 4 % (0-6) 02/27/21 05:00 Plt Morphology Comment Normal (NORMAL) 02/27/21 05:00 RBC Morphology Abnormal (NORMAL) A 02/27/21 05:00 Dimorphic RBCs Slight 02/27/21 05:00 Hypochromasia 1+ A 02/27/21 05:00 Anisocytosis Slight A 02/27/21 05:00 Microcytosis Slight A 02/27/21 05:00 Sodium 141 mmol/L (136-145) 03/02/21 05:47 Corrected Sodium 144 mmol/L (136-145) 03/02/21 05:47 Potassium 4.1 mmol/L (3.5-5.1) 03/02/21 05:47 Chloride 109 mmol/L (98-107) H 03/02/21 05:47 Carbon Dioxide 24.0 mmol/L (21-32) 03/02/21 05:47 BUN 30 mg/dL (7-18) H 03/02/21 05:47 Creatinine 1.96 mg/dL (0.55-1.02) H 03/02/21 05:47 Est GFR (MDRD) Af Amer 31 (>60) L 03/02/21 05:47 Est GFR (MDRD) Non-Af 26 (>60) L 03/02/21 05:47 Glucose 231 mg/dL (65-99) H 03/02/21 05:47 POC Glucose (mg/dL) 187 mg/dL (65-99) H 03/02/21 06:58 Lactic Acid 2.2 mmol/L (0.4-2.0) H 02/27/21 10:15 Calcium 8.0 mg/dL (8.5-10.1) L 03/02/21 05:47 Corrected Calcium 9.3 mg/dL (8.5-10.1) 02/27/21 05:00 Magnesium Cancelled 02/27/21 10:15 Iron 8 ug/dL (50-175) L 02/26/21 17:45 Transferrin 237 mg/dL (202-364) 02/26/21 17:45 Ferritin 9 ng/mL (8-252) 02/26/21 17:45 Total Bilirubin 1.10 mg/dL (0.2-1.0) H 02/27/21 05:00 AST 16 Units/L (15-37) 02/27/21 05:00 ALT 14 Units/L (12-78) 02/27/21 05:00 Alkaline Phosphatase 64 Units/L (46-116) 02/27/21 05:00 Ammonia 27 umol/L (11-32) 02/28/21 09:03 Total Protein 5.5 g/dL (6.4-8.2) L 02/27/21 05:00 Albumin 2.6 g/dL (3.4-5.0) L 02/27/21 05:00 Globulin 2.9 g/dL (2.5-4.5) 02/27/21 05:00 Albumin/Globulin Ratio 0.9 Ratio (1.1-2.1) L 02/27/21 05:00 Vitamin B12 280 pg/mL (193-986) 02/26/21 17:45 Folate 12.4 ng/mL (>8.6) 02/26/21 17:45 Specimen Type Catherized urine 02/26/21 18:37 Urine Color Straw (YELLOW) 02/26/21 18:37 Urine Appearance Cloudy (CLEAR) 02/26/21 18:37 Urine pH 5.0 (5.0 - 8.0) 02/26/21 18:37 Ur Specific [place] 1.020 (1.000-1.030) 02/26/21 18:37 Urine Protein 1+ (NEGATIVE) 02/26/21 18:37 Urine Glucose (UA) Negative (NEGATIVE) 02/26/21 18:37 Urine Ketones Negative (NEGATIVE) 02/26/21 18:37 Urine Occult Blood 1+ (NEGATIVE) 02/26/21 18:37 Urine Nitrite Negative (NEGATIVE) 02/26/21 18:37 Urine Bilirubin Negative (NEGATIVE) 02/26/21 18:37 Urine Urobilinogen Normal (NORMAL) 02/26/21 18:37 Ur Leukocyte Esterase 3+ (NEGATIVE) 02/26/21 18:37 Urine RBC 0-2 /HPF (0-3) 02/26/21 18:37 Urine WBC 5-10 /HPF (0-5) A 02/26/21 18:37 Ur Squamous Epith Cells Few /HPF (NEGATIVE) 02/26/21 18:37 Urine Bacteria 3+ /HPF (NEGATIVE) 02/26/21 18:37 Hyaline Casts Few /LPF (NEGATIVE) 02/26/21 18:37 Ur Culture Indicated? Yes/culture set up 02/26/21 18:37 Stool Description 40g semi formed 02/27/21 10:00 Stl Occult Blood (IFOB) Positive (NEGATIVE) A 02/27/21 10:00 SARS CoV-2 RNA Rapid YOCASTA Negative (NEGATIVE) 02/26/21 18:25 Blood Type A POSITIVE 02/26/21 18:14 Antibody Screen Negative 02/26/21 18:14 Crossmatch See Detail 02/26/21 18:14 Plan (1) Generalized weakness: Status: Acute (2) Acute UTI: Status: Acute (3) Anemia: Status: Acute Qualifiers: Anemia type: unspecified type Qualified Code(s): D64.9 - Anemia, unspecified (4) Acute on chronic kidney failure: Status: Acute Qualifiers: Acute renal failure type: unspecified Chronic kidney disease stage: unspecified stage Qualified Code(s): N17.9 - Acute kidney failure, unspecified; N18.9 - Chronic kidney disease, unspecified (5) Iron deficiency anemia: Status: Acute Qualifiers: Iron deficiency anemia type: unspecified iron deficiency Qualified Code(s): D50.9 - Iron deficiency anemia, unspecified (6) Right sided weakness: Status: Acute (7) Erosive gastritis: Status: Acute (8) Pneumonia: Status: Acute Qualifiers: Laterality: unspecified laterality Lung location: unspecified part of lung Pneumonia type: due to unspecified organism Qualified Code(s): J18.9 - Pneumonia, unspecified organism (9) Hypokalemia: Status: Acute (10) Hx of peptic ulcer: Status: Acute (11) Hypernatremia: Status: Acute (12) Lacunar stroke: Status: Acute (13) CVA (cerebral vascular accident): Status: Acute Qualifiers: CVA mechanism: unspecified Qualified Code(s): I63.9 - Cerebral infarction, unspecified (14) GERD (gastroesophageal reflux disease): Status: Acute Qualifiers: Esophagitis bleeding: unspecified whether hemorrhage Esophagitis presence: with esophagitis Qualified Code(s): K21.00 - Gastro-esophageal reflux disease with esophagitis, without bleeding (15) Hx of CABG: Status: Acute (16) Carotid stenosis: Status: Acute Qualifiers: Laterality: bilateral Qualified Code(s): I65.23 - Occlusion and stenosis of bilateral carotid arteries (17) Cirrhosis: Status: Acute Qualifiers: Hepatic cirrhosis type: unspecified hepatic cirrhosis Ascites presence: without ascites Qualified Code(s): K74.60 - Unspecified cirrhosis of liver (18) Portal vein thrombosis: Status: Acute
[2021-03-02] MEDS: PULMICORT NEB TX 0.5 MG NEB SCH ×2 (10:20→21:01)
[2021-03-02] MEDS: HumuLIN R SC PRN ×2 (11:27→20:57)
--- NOTE | 2021-03-02 11:56 | RAD ---
HISTORYPain constipationSTUDYPortable [id number] is slight gaseous distention of scattered segments of small bowel and colon in a pattern not suggesting obstruction. There is slight fecal distention of the rectosigmoid. No organ enlargement, ascites or pathologic calcification seen.IMPRESSIONNonobstructive intestinal gas pattern. Mild fecal distention of rectosigmoid.Electronically signed by: EUSEBIA RIVERA (Mar 02, 2021 11:54:48)
[2021-03-02] MEDS ORDERED: DULCOLAX SUPPOSITORY 10 MG RECTAL ONE (14:23)
[2021-03-02] MEDS: FERROUS GLUCONATE PO SCH (17:38)
[2021-03-02] MEDS: LIPITOR TAB 20 MG PO SCH (20:50)
[2021-03-03] MEDS: CARAFATE ORAL SUSP PO SCH ×4 (05:43→20:11)
[2021-03-03] MEDS: D5W 1000 ML IV 1,000 ML IV SCH ×3 (05:43→14:14)
[2021-03-03] MEDS: HumuLIN R SC PRN ×3 (05:49→20:29)
[2021-03-03 05:52] LABS: BASOPHILS % (AUTO) 1.4 % (0.2-1.0); EOSINOPHILS # (AUTO) 0.2 x10^3/uL (0.0-0.2); EOSINOPHILS % (AUTO) 7.5 % (0.9-2.9); HEMATOCRIT 33.2 % (36.0-47.0); HEMOGLOBIN 10.2 g/dL (12.0-16.0); LYMPHOCYTES # (AUTO) 0.6 X10^3/uL (1.3-2.9); LYMPHOCYTES % (AUTO) 19.3 % (21.0-51.0); MEAN CORPUSCULAR HEMOGLOBIN 25.2 pg (27.0-34.0); MEAN CORPUSCULAR HGB CONC 30.8 g/dL (33.0-35.0); MEAN CORPUSCULAR VOLUME 81.9 fL (80.0-100.0); MEAN PLATELET VOLUME 9.8 fL (7.4-11.0); MONOCYTES # (AUTO) 0.2 x10^3/uL (0.3-0.8); MONOCYTES % (AUTO) 8.5 % (0.0-13.0); NEUTROPHILS # (AUTO) 1.8 x10^3/uL (2.2-4.8); NEUTROPHILS % (AUTO) 63.3 % (42.0-75.0); PLATELET COUNT 62 X10^3/uL (150.0-450.0); RED BLOOD COUNT 4.06 X10^6/uL (3.5-5.4); RED CELL DISTRIBUTION WIDTH 18.2 % (11.6-16.5); WHITE BLOOD COUNT 2.9 X10^3/uL (3.6-10.0)
[2021-03-03 05:57] LABS: CALCIUM 8.3 mg/dL (8.5-10.1); CARBON DIOXIDE 23.7 mmol/L (21-32); CREATININE 1.91 mg/dL (0.55-1.02)
[2021-03-03] MEDS: DUONEB 0.5 MG/3 MG (3 mL) NEB SCH ×3 (06:29→20:15)
[2021-03-03] MEDS ORDERED: LEXAPRO ONE (08:09)
[2021-03-03] MEDS: PULMICORT NEB TX 0.5 MG NEB SCH ×2 (09:00→20:15)
[2021-03-03] MEDS: MAXIPIME VIAL 1 GRAM 1 G in NS 50 ML IV + SPIKE MINIBAG* 50 ML IV SCH ×2 (09:11→20:11)
[2021-03-03] MEDS: NICOTINE PATCH TD SCH (09:12)
[2021-03-03] MEDS: LEXAPRO PO SCH (09:13)
[2021-03-03] MEDS: PROTONIX TAB 40 MG PO SCH ×2 (09:13→20:11)
[2021-03-03] MEDS: COREG TAB 3.125 MG PO SCH ×2 (09:13→20:11)
--- NOTE | 2021-03-03 09:50 | PCM.PROG ---
Progress Note Progress Note for Day of Date of Exam: 03/03/21 Subjective Subjective: Patient seen at bedside, no acute events overnight. She states she feels better today. She did have a BM yesterday. She ate her breakfast. Denies nausea or vomiting. She is on room air, afebrile. Labs: Hgb 10.2 Plt 62 Na: 144 K: 4.1 Cl 112 BUN/Cr: 27/1.91 Glucose 155 Iron Low, normal B12 and folate CXR: concerning for pneumonia MRI-brain: prior stroke noted, no acute infarction MRA: concern for high grade stenosis Urine culture: E. coli Blood Cx: no growth Liver U/S: portal venous thrombosis and liver cirrhosis KUB: no obstruction, stool noted in the recto sigmoid area Plan: continue Protonix and Carafate. Zofran prn. Continue IV cefepime and duonebs. Continue pulmicort BID. Continue stool softner. Continue gentle hydration with D5. Monitor H/H and renal function. Continue PT as tolerated. CM to work on discharge plan tomorrow. Monitor AM labs. Past Medical Family Social History Past Med/Fam/Surg Hx: No changes since H&P Allergies: Allergies Penicillins Adverse Reaction (Verified 10/09/20 13:08) Sulfa (Sulfonamide Antibiotics) Adverse Reaction (Verified 10/09/20 13:08) Review of Systems ROS: No change since H&P Vital Signs and I&O's Vital Signs: Temperature 97.7 F Pulse Rate [Left Radial] 60 Pulse Rate 68 Respiratory Rate 20 Blood Pressure [Left Arm] 131/79 Blood Pressure [Right Arm] 127/56 Blood Pressure 143/63 O2 Sat by Pulse Oximetry 100 Intake and Output: Intake & Output 02/28/21 03/01/21 03/02/21 03/03/21 23:59 23:59 23:59 23:59 Intake Total 3713 / 3713 1335 / 1335 3670 / 3670 600 / 600 Output Total 845 / 845 875 / 875 1280 / 1280 200 / 200 Balance 2868 / 2868 460 / 460 2390 / 2390 400 / 400 Physical Exam Oriented: Normal Eyes: Normal Nose: Normal Throat: Normal Respiratory: Generalized and Diminished Cardiovascular: Normal and Edema (RLE > LLE ) Auscultation: Bowel Sounds: Normal Tenderness: Epigastric and Mild Skin: Decreased Turgur Musculoskeletal: Motor Deficit (RLE weakness, RUE strength intact ) Psychiatric: Normal Mood Description: Calm Affect: Normal Speech Pattern: Clear and Appropriate Laboratory and Diagnostics Result Diagrams: 03/03/21 05:33 03/03/21 05:33 Labs: 02/27/21 19:01 Blood Blood Culture - Preliminary 02/27/21 18:55 Blood Blood Culture - Preliminary 02/26/21 18:37 Urine,Catheterized Urine Culture - Final Escherichia Coli Laboratory WBC 2.9 X10^3/uL (3.6-10.0) L 03/03/21 05:33 RBC 4.06 X10^6/uL (3.5-5.4) 03/03/21 05:33 Hgb 10.2 g/dL (12.0-16.0) L 03/03/21 05:33 Hct 33.2 % (36.0-47.0) L 03/03/21 05:33 MCV 81.9 fL (80.0-100.0) 03/03/21 05:33 MCH 25.2 pg (27.0-34.0) L 03/03/21 05:33 MCHC 30.8 g/dL (33.0-35.0) L 03/03/21 05:33 RDW 18.2 % (11.6-16.5) H 03/03/21 05:33 Plt Count 62 X10^3/uL (150.0-450.0) L 03/03/21 05:33 Plt Count Comment Decreased (ADEQUATE) A 02/27/21 05:00 MPV 9.8 fL (7.4-11.0) 03/03/21 05:33 Neut % (Auto) 63.3 % (42.0-75.0) 03/03/21 05:33 Lymph % (Auto) 19.3 % (21.0-51.0) L 03/03/21 05:33 [place] % (Auto) 8.5 % (0.0-13.0) 03/03/21 05:33 Eos % (Auto) 7.5 % (0.9-2.9) H 03/03/21 05:33 Baso % (Auto) 1.4 % (0.2-1.0) H 03/03/21 05:33 Neut # (Auto) 1.8 x10^3/uL (2.2-4.8) L 03/03/21 05:33 Lymph # (Auto) 0.6 X10^3/uL (1.3-2.9) L 03/03/21 05:33 [place] # (Auto) 0.2 x10^3/uL (0.3-0.8) L 03/03/21 05:33 Eos # (Auto) 0.2 x10^3/uL (0.0-0.2) 03/03/21 05:33 Baso # (Auto) 0.0 X10^3/uL (0.0-0.1) 03/03/21 05:33 Absolute Nucleated RBC 0.1 /100WBC 03/03/21 05:33 Total Counted 50 02/27/21 05:00 Neutrophils % (Manual) 60 % (39-76) 02/27/21 05:00 Lymphocytes % (Manual) 36 % (13-43) 02/27/21 05:00 Monocytes % (Manual) 4 % (4-9) 02/26/21 17:45 Eosinophils % (Manual) 4 % (0-6) 02/27/21 05:00 Plt Morphology Comment Normal (NORMAL) 02/27/21 05:00 RBC Morphology Abnormal (NORMAL) A 02/27/21 05:00 Dimorphic RBCs Slight 02/27/21 05:00 Hypochromasia 1+ A 02/27/21 05:00 Anisocytosis Slight A 02/27/21 05:00 Microcytosis Slight A 02/27/21 05:00 Sodium 142 mmol/L (136-145) 03/03/21 05:33 Corrected Sodium 144 mmol/L (136-145) 03/03/21 05:33 Potassium 4.1 mmol/L (3.5-5.1) 03/03/21 05:33 Chloride 112 mmol/L (98-107) H 03/03/21 05:33 Carbon Dioxide 23.7 mmol/L (21-32) 03/03/21 05:33 BUN 27 mg/dL (7-18) H 03/03/21 05:33 Creatinine 1.91 mg/dL (0.55-1.02) H 03/03/21 05:33 Est GFR (MDRD) Af Amer 32 (>60) L 03/03/21 05:33 Est GFR (MDRD) Non-Af 26 (>60) L 03/03/21 05:33 Glucose 177 mg/dL (65-99) H 03/03/21 05:33 POC Glucose (mg/dL) 155 mg/dL (65-99) H 03/03/21 05:34 Lactic Acid 2.2 mmol/L (0.4-2.0) H 02/27/21 10:15 Calcium 8.3 mg/dL (8.5-10.1) L 03/03/21 05:33 Corrected Calcium 9.3 mg/dL (8.5-10.1) 02/27/21 05:00 Magnesium Cancelled 02/27/21 10:15 Iron 8 ug/dL (50-175) L 02/26/21 17:45 Transferrin 237 mg/dL (202-364) 02/26/21 17:45 Ferritin 9 ng/mL (8-252) 02/26/21 17:45 Total Bilirubin 1.10 mg/dL (0.2-1.0) H 02/27/21 05:00 AST 16 Units/L (15-37) 02/27/21 05:00 ALT 14 Units/L (12-78) 02/27/21 05:00 Alkaline Phosphatase 64 Units/L (46-116) 02/27/21 05:00 Ammonia 27 umol/L (11-32) 02/28/21 09:03 Total Protein 5.5 g/dL (6.4-8.2) L 02/27/21 05:00 Albumin 2.6 g/dL (3.4-5.0) L 02/27/21 05:00 Globulin 2.9 g/dL (2.5-4.5) 02/27/21 05:00 Albumin/Globulin Ratio 0.9 Ratio (1.1-2.1) L 02/27/21 05:00 Vitamin B12 280 pg/mL (193-986) 02/26/21 17:45 Folate 12.4 ng/mL (>8.6) 02/26/21 17:45 Specimen Type Catherized urine 02/26/21 18:37 Urine Color Straw (YELLOW) 02/26/21 18:37 Urine Appearance Cloudy (CLEAR) 02/26/21 18:37 Urine pH 5.0 (5.0 - 8.0) 02/26/21 18:37 Ur Specific [place] 1.020 (1.000-1.030) 02/26/21 18:37 Urine Protein 1+ (NEGATIVE) 02/26/21 18:37 Urine Glucose (UA) Negative (NEGATIVE) 02/26/21 18:37 Urine Ketones Negative (NEGATIVE) 02/26/21 18:37 Urine Occult Blood 1+ (NEGATIVE) 02/26/21 18:37 Urine Nitrite Negative (NEGATIVE) 02/26/21 18:37 Urine Bilirubin Negative (NEGATIVE) 02/26/21 18:37 Urine Urobilinogen Normal (NORMAL) 02/26/21 18:37 Ur Leukocyte Esterase 3+ (NEGATIVE) 02/26/21 18:37 Urine RBC 0-2 /HPF (0-3) 02/26/21 18:37 Urine WBC 5-10 /HPF (0-5) A 02/26/21 18:37 Ur Squamous Epith Cells Few /HPF (NEGATIVE) 02/26/21 18:37 Urine Bacteria 3+ /HPF (NEGATIVE) 02/26/21 18:37 Hyaline Casts Few /LPF (NEGATIVE) 02/26/21 18:37 Ur Culture Indicated? Yes/culture set up 02/26/21 18:37 Stool Description 40g semi formed 02/27/21 10:00 Stl Occult Blood (IFOB) Positive (NEGATIVE) A 02/27/21 10:00 SARS CoV-2 RNA Rapid YOCASTA Negative (NEGATIVE) 02/26/21 18:25 Blood Type A POSITIVE 02/26/21 18:14 Antibody Screen Negative 02/26/21 18:14 Crossmatch See Detail 02/26/21 18:14 Plan (1) Generalized weakness: Status: Acute (2) Acute UTI: Status: Acute (3) Anemia: Status: Acute Qualifiers: Anemia type: unspecified type Qualified Code(s): D64.9 - Anemia, unspecified (4) Acute on chronic kidney failure: Status: Acute Qualifiers: Acute renal failure type: unspecified Chronic kidney disease stage: unspecified stage Qualified Code(s): N17.9 - Acute kidney failure, unspecified; N18.9 - Chronic kidney disease, unspecified (5) Iron deficiency anemia: Status: Acute Qualifiers: Iron deficiency anemia type: unspecified iron deficiency Qualified Code(s): D50.9 - Iron deficiency anemia, unspecified (6) Right sided weakness: Status: Acute (7) Erosive gastritis: Status: Acute (8) Pneumonia: Status: Acute Qualifiers: Laterality: unspecified laterality Lung location: unspecified part of lung Pneumonia type: due to unspecified organism Qualified Code(s): J18.9 - Pneumonia, unspecified organism (9) Hypokalemia: Status: Acute (10) Hx of peptic ulcer: Status: Acute (11) Hypernatremia: Status: Acute (12) Lacunar stroke: Status: Acute (13) CVA (cerebral vascular accident): Status: Acute Qualifiers: CVA mechanism: unspecified Qualified Code(s): I63.9 - Cerebral infarction, unspecified (14) GERD (gastroesophageal reflux disease): Status: Acute Qualifiers: Esophagitis bleeding: unspecified whether hemorrhage Esophagitis presence: with esophagitis Qualified Code(s): K21.00 - Gastro-esophageal reflux disease with esophagitis, without bleeding (15) Hx of CABG: Status: Acute (16) Carotid stenosis: Status: Acute Qualifiers: Laterality: bilateral Qualified Code(s): I65.23 - Occlusion and stenosis of bilateral carotid arteries (17) Cirrhosis: Status: Acute Qualifiers: Ascites presence: without ascites Hepatic cirrhosis type: unspecified hepatic cirrhosis Qualified Code(s): K74.60 - Unspecified cirrhosis of liver (18) Portal vein thrombosis: Status: Acute (19) Thrombocytopenia: Status: Acute
[2021-03-03] MEDS: FERROUS GLUCONATE PO SCH (18:05)
[2021-03-03] MEDS: LIPITOR TAB 20 MG PO SCH (20:11)
[2021-03-04] MEDS: D5W 1000 ML IV 1,000 ML IV SCH (02:46)
[2021-03-04] MEDS: DUONEB 0.5 MG/3 MG (3 mL) NEB SCH (05:09)
[2021-03-04 05:17] LABS: EOSINOPHILS # (AUTO) 0.2 x10^3/uL (0.0-0.2); EOSINOPHILS % (AUTO) 7.6 % (0.9-2.9); HEMATOCRIT 31.3 % (36.0-47.0); HEMOGLOBIN 9.7 g/dL (12.0-16.0); LYMPHOCYTES # (AUTO) 0.6 X10^3/uL (1.3-2.9); LYMPHOCYTES % (AUTO) 19.1 % (21.0-51.0); MEAN CORPUSCULAR HEMOGLOBIN 25.3 pg (27.0-34.0); MEAN CORPUSCULAR HGB CONC 31.1 g/dL (33.0-35.0); MEAN CORPUSCULAR VOLUME 81.6 fL (80.0-100.0); MEAN PLATELET VOLUME 10.2 fL (7.4-11.0); MONOCYTES # (AUTO) 0.3 x10^3/uL (0.3-0.8); MONOCYTES % (AUTO) 10.7 % (0.0-13.0); NEUTROPHILS % (AUTO) 61.6 % (42.0-75.0); PLATELET COUNT 67 X10^3/uL (150.0-450.0); RED BLOOD COUNT 3.84 X10^6/uL (3.5-5.4); RED CELL DISTRIBUTION WIDTH 18.2 % (11.6-16.5); WHITE BLOOD COUNT 3.2 X10^3/uL (3.6-10.0)
[2021-03-04 05:20] LABS: CALCIUM 8.1 mg/dL (8.5-10.1); CARBON DIOXIDE 24.7 mmol/L (21-32); CREATININE 1.9 mg/dL (0.55-1.02)
[2021-03-04] MEDS: CARAFATE ORAL SUSP PO SCH ×2 (05:30→11:15)
[2021-03-04] MEDS ORDERED: LEXAPRO ONE (08:25)
[2021-03-04] MEDS ORDERED: MAXIPIME VIAL 1 GRAM ONE (08:25)
[2021-03-04] MEDS: PROTONIX TAB 40 MG PO SCH (08:30)
[2021-03-04] MEDS: COREG TAB 3.125 MG PO SCH (08:30)
[2021-03-04] MEDS: LEXAPRO PO SCH (08:30)
[2021-03-04] MEDS: MAXIPIME VIAL 1 GRAM 1 G in NS 50 ML IV + SPIKE MINIBAG* 50 ML IV SCH (08:30)
[2021-03-04] MEDS: PULMICORT NEB TX 0.5 MG NEB SCH (09:17)
--- NOTE | 2021-03-04 10:01 | W.DIS.FURT ---
Summary of Discharge Discharge Summary of Date Date of Exam: 03/04/21 Admission Date Date of Admission: 02/26/21 Admission Diagnosis Patient Problems (Updated 03/11/21 @ 12:50 by Tana Quigley) Acute on chronic kidney failure (Acute) N17.9, N18.9 Anemia (Chronic) D64.9 Hospital Course: Ms. Eubanks is a 85y/o female with a PMH of HTN, HLD, CAD s/p CABG, CVA with right sided residual weakness, wheelchair bound, anemia, gastric ulcer and gastritis presented with increased weakness, nausea and vomiting. Patient states she also noticed worsening right sided leg weakness and numbness. She had a stroke 15 years ago and since then has been pretty immobile due to RUE and RLE weakness. She uses the wheelchair to get around, lives with adopted son. Patient was admitted for renal failure and anemia in Jul 2020. She had EGD done by Dr. Keita which showed gastric AV malformations, erosive gastritis and ulcer. She states she has not followed up with GI in clinic. She reports dark tarry stools. Denies any hematemesis or bright red rectal bleeding. In the Er, she was noted to have Hgb 4.8, plt 81, low potassium and sodium along with increased creatinine. CT-head showed chronic lacunar infarction with possible progression/enlargement, MRI with DWI and MRA were recommended. Abdominal XR was negative. Patient initially received 2 units of PRBCs, hgb came up to 6.8. She was given 2 more units. She was also started on IV protonix BID and gentle hydration. UA also showed UTI so she was also started on Rocephin. GI Dr. Keita was consulted on admission. Anemia panel showed low iron and positive FOBT. Patient's labs and electrolytes were monitored daily and replaced as needed. Patient was also having some cough, CXR showed pneumonia. She did initially require O2 but then was saturating well without it. Patient was scheduled for EGD which showed a large AVM and gastritis. Patient's diet was advanced as tolerated. Her Hgb remained stable, did not require any further transfusions. She was transitioned to PO protonix and carafate was also added. MRI brain showed chronic infarct with no acute changes. Liver U/S was ordered by GI due to concern for liver disease due to chronic thrombocytopenia. U/S showed cirrhosis and portal venous thrombosis. Patient was not a candidate for coagulation due to chronic AVMs and recurrent GI bleed. PT/OT worked with patient and initially recommended SNF but patient's family wanted to take her home with home health. Patient will follow up with GI and PCP as scheduled. Time spent for clinical assessment, reviewing labs/imaging, physical exam, management, decision making and documentation greater than 75 mins. Vital Signs: Vital Signs (72 hours) 03/01/21 12:00 03/01/21 14:35 03/01/21 16:00 Temperature 99.0 F 99.3 F Pulse Rate 76 Pulse Rate [Left Radial] 64 68 Respiratory Rate 18 20 Blood Pressure [Left Arm] Blood Pressure [Right Arm] 124/60 127/56 O2 Sat by Pulse Oximetry 98 97 98 03/01/21 19:45 03/01/21 21:59 03/02/21 00:00 Temperature 98.9 F 98.2 F Pulse Rate 74 Pulse Rate [Left Radial] 74 76 Respiratory Rate 18 18 Blood Pressure [Left Arm] 131/59 128/60 Blood Pressure [Right Arm] O2 Sat by Pulse Oximetry 98 96 99 03/02/21 04:00 03/02/21 08:00 03/02/21 12:00 Temperature 98.4 F 98.3 F 98.0 F Pulse Rate Pulse Rate [Left Radial] 76 76 72 Respiratory Rate 18 20 22 Blood Pressure [Left Arm] 124/60 141/63 138/64 Blood Pressure [Right Arm] O2 Sat by Pulse Oximetry 95 98 96 03/02/21 13:55 03/02/21 15:53 03/02/21 20:00 Temperature 98.3 F 98.0 F Pulse Rate 74 Pulse Rate [Left Radial] 76 75 Respiratory Rate 18 18 Blood Pressure [Left Arm] 146/65 133/62 Blood Pressure [Right Arm] O2 Sat by Pulse Oximetry 96 96 98 03/02/21 21:01 03/03/21 00:00 03/03/21 04:00 Temperature 98.0 F 98.4 F Pulse Rate 72 Pulse Rate [Left Radial] 66 70 Respiratory Rate 18 18 Blood Pressure [Left Arm] 120/77 122/56 Blood Pressure [Right Arm] O2 Sat by Pulse Oximetry 94 L 98 93 L 03/03/21 06:29 03/03/21 08:00 03/03/21 09:00 Temperature 97.7 F Pulse Rate 69 68 Pulse Rate [Left Radial] 60 Respiratory Rate 20 Blood Pressure [Left Arm] 131/79 Blood Pressure [Right Arm] O2 Sat by Pulse Oximetry 98 98 100 03/03/21 11:45 03/03/21 14:46 03/03/21 15:45 Temperature 97.6 F 97.5 F L Pulse Rate 74 Pulse Rate [Left Radial] 64 76 Respiratory Rate 20 20 Blood Pressure [Left Arm] 138/62 128/62 Blood Pressure [Right Arm] O2 Sat by Pulse Oximetry 96 94 L 96 03/03/21 19:31 03/03/21 20:15 03/04/21 00:00 Temperature 98.3 F 98.0 F Pulse Rate 78 Pulse Rate [Left Radial] 80 77 Respiratory Rate 18 20 Blood Pressure [Left Arm] 136/63 138/61 Blood Pressure [Right Arm] O2 Sat by Pulse Oximetry 93 L 97 96 03/04/21 03:57 03/04/21 05:09 03/04/21 08:00 Temperature 98.3 F 98.2 F Pulse Rate 72 Pulse Rate [Left Radial] 71 70 Respiratory Rate 18 22 Blood Pressure [Left Arm] 141/61 140/64 Blood Pressure [Right Arm] O2 Sat by Pulse Oximetry 96 99 97 Labs: Laboratory Last Values WBC 3.2 X10^3/uL (3.6-10.0) L 03/04/21 04:55 RBC 3.84 X10^6/uL (3.5-5.4) 03/04/21 04:55 Hgb 9.7 g/dL (12.0-16.0) L 03/04/21 04:55 Hct 31.3 % (36.0-47.0) L 03/04/21 04:55 MCV 81.6 fL (80.0-100.0) 03/04/21 04:55 MCH 25.3 pg (27.0-34.0) L 03/04/21 04:55 MCHC 31.1 g/dL (33.0-35.0) L 03/04/21 04:55 RDW 18.2 % (11.6-16.5) H 03/04/21 04:55 Plt Count 67 X10^3/uL (150.0-450.0) L 03/04/21 04:55 Plt Count Comment Decreased (ADEQUATE) A 02/27/21 05:00 MPV 10.2 fL (7.4-11.0) 03/04/21 04:55 Neut % (Auto) 61.6 % (42.0-75.0) 03/04/21 04:55 Lymph % (Auto) 19.1 % (21.0-51.0) L 03/04/21 04:55 [place] % (Auto) 10.7 % (0.0-13.0) 03/04/21 04:55 Eos % (Auto) 7.6 % (0.9-2.9) H 03/04/21 04:55 Baso % (Auto) 1.0 % (0.2-1.0) 03/04/21 04:55 Neut # (Auto) 2.0 x10^3/uL (2.2-4.8) L 03/04/21 04:55 Lymph # (Auto) 0.6 X10^3/uL (1.3-2.9) L 03/04/21 04:55 [place] # (Auto) 0.3 x10^3/uL (0.3-0.8) 03/04/21 04:55 Eos # (Auto) 0.2 x10^3/uL (0.0-0.2) 03/04/21 04:55 Baso # (Auto) 0.0 X10^3/uL (0.0-0.1) 03/04/21 04:55 Absolute Nucleated RBC 0.0 /100WBC 03/04/21 04:55 Total Counted 50 02/27/21 05:00 Neutrophils % (Manual) 60 % (39-76) 02/27/21 05:00 Lymphocytes % (Manual) 36 % (13-43) 02/27/21 05:00 Monocytes % (Manual) 4 % (4-9) 02/26/21 17:45 Eosinophils % (Manual) 4 % (0-6) 02/27/21 05:00 Plt Morphology Comment Normal (NORMAL) 02/27/21 05:00 RBC Morphology Abnormal (NORMAL) A 02/27/21 05:00 Dimorphic RBCs Slight 02/27/21 05:00 Hypochromasia 1+ A 02/27/21 05:00 Anisocytosis Slight A 02/27/21 05:00 Microcytosis Slight A 02/27/21 05:00 Sodium 142 mmol/L (136-145) 03/04/21 04:55 Corrected Sodium 144 mmol/L (136-145) 03/04/21 04:55 Potassium 4.5 mmol/L (3.5-5.1) 03/04/21 04:55 Chloride 111 mmol/L (98-107) H 03/04/21 04:55 Carbon Dioxide 24.7 mmol/L (21-32) 03/04/21 04:55 BUN 29 mg/dL (7-18) H 03/04/21 04:55 Creatinine 1.90 mg/dL (0.55-1.02) H 03/04/21 04:55 Est GFR (MDRD) Af Amer 32 (>60) L 03/04/21 04:55 Est GFR (MDRD) Non-Af 27 (>60) L 03/04/21 04:55 Glucose 168 mg/dL (65-99) H 03/04/21 04:55 POC Glucose (mg/dL) 188 mg/dL (65-99) H 03/04/21 05:26 Lactic Acid 2.2 mmol/L (0.4-2.0) H 02/27/21 10:15 Calcium 8.1 mg/dL (8.5-10.1) L 03/04/21 04:55 Corrected Calcium 9.3 mg/dL (8.5-10.1) 02/27/21 05:00 Magnesium Cancelled 02/27/21 10:15 Iron 8 ug/dL (50-175) L 02/26/21 17:45 Transferrin 237 mg/dL (202-364) 02/26/21 17:45 Ferritin 9 ng/mL (8-252) 02/26/21 17:45 Total Bilirubin 1.10 mg/dL (0.2-1.0) H 02/27/21 05:00 AST 16 Units/L (15-37) 02/27/21 05:00 ALT 14 Units/L (12-78) 02/27/21 05:00 Alkaline Phosphatase 64 Units/L (46-116) 02/27/21 05:00 Ammonia 27 umol/L (11-32) 02/28/21 09:03 Total Protein 5.5 g/dL (6.4-8.2) L 02/27/21 05:00 Albumin 2.6 g/dL (3.4-5.0) L 02/27/21 05:00 Globulin 2.9 g/dL (2.5-4.5) 02/27/21 05:00 Albumin/Globulin Ratio 0.9 Ratio (1.1-2.1) L 02/27/21 05:00 Vitamin B12 280 pg/mL (193-986) 02/26/21 17:45 Folate 12.4 ng/mL (>8.6) 02/26/21 17:45 Specimen Type Catherized urine 02/26/21 18:37 Urine Color Straw (YELLOW) 02/26/21 18:37 Urine Appearance Cloudy (CLEAR) 02/26/21 18:37 Urine pH 5.0 (5.0 - 8.0) 02/26/21 18:37 Ur Specific [place] 1.020 (1.000-1.030) 02/26/21 18:37 Urine Protein 1+ (NEGATIVE) 02/26/21 18:37 Urine Glucose (UA) Negative (NEGATIVE) 02/26/21 18:37 Urine Ketones Negative (NEGATIVE) 02/26/21 18:37 Urine Occult Blood 1+ (NEGATIVE) 02/26/21 18:37 Urine Nitrite Negative (NEGATIVE) 02/26/21 18:37 Urine Bilirubin Negative (NEGATIVE) 02/26/21 18:37 Urine Urobilinogen Normal (NORMAL) 02/26/21 18:37 Ur Leukocyte Esterase 3+ (NEGATIVE) 02/26/21 18:37 Urine RBC 0-2 /HPF (0-3) 02/26/21 18:37 Urine WBC 5-10 /HPF (0-5) A 02/26/21 18:37 Ur Squamous Epith Cells Few /HPF (NEGATIVE) 02/26/21 18:37 Urine Bacteria 3+ /HPF (NEGATIVE) 02/26/21 18:37 Hyaline Casts Few /LPF (NEGATIVE) 02/26/21 18:37 Ur Culture Indicated? Yes/culture set up 02/26/21 18:37 Stool Description 40g semi formed 02/27/21 10:00 Stl Occult Blood (IFOB) Positive (NEGATIVE) A 02/27/21 10:00 SARS CoV-2 RNA Rapid YOCASTA Negative (NEGATIVE) 02/26/21 18:25 Blood Type A POSITIVE 02/26/21 18:14 Antibody Screen Negative 02/26/21 18:14 Crossmatch See Detail 02/26/21 18:14 Reason For Visit: severe anemia,acute an chronic renal failure Discharge Date Discharge Date: 03/04/21 Discharge Diagnosis All Active Problems (Updated 03/11/21 @ 12:50 by Tana Quigley) Abdominal pain (Acute) Thrombocytopenia (Chronic) Portal vein thrombosis (Chronic) Cirrhosis (Chronic) Hypernatremia (Acute) Carotid stenosis (Acute) Pneumonia (Acute) Hypokalemia (Acute) Lacunar stroke (Chronic) Right sided weakness (Chronic) CVA (cerebral vascular accident) (Chronic) Hx of peptic ulcer (Chronic) Erosive gastritis (Chronic) Hx of CABG (Chronic) Iron deficiency anemia (Acute) GERD (gastroesophageal reflux disease) (Chronic) Generalized weakness (Acute) Acute UTI (Acute) Numbness and tingling of right arm (Chronic) MAHAD (acute kidney injury) (Acute) Acute on chronic kidney failure (Acute) Anemia (Chronic) Plan of Treatment: Continue with present treatment and follow up plan. Pt is to keep follow up appointment as instructed and take medications as ordered. Discharge Medications Discharge Medications: Penicillins Adverse Reaction (Verified 10/09/20 13:08) Sulfa (Sulfonamide Antibiotics) Adverse Reaction (Verified 10/09/20 13:08) CONTINUE taking the following medications pantoprazole [Protonix] 40 mg PO DAILY 02/27/21 [History] torsemide 20 mg PO BID 02/27/21 [History] New Prescriptions ferrous gluconate 324 mg PO DAILYPC 30 Days #30 tab 03/04/21 [Rx] ondansetron 4 mg PO Q6H PRN #20 tab 03/04/21 [Rx] pantoprazole 40 mg PO BID 30 Days #60 tab 03/04/21 [Rx] sucralfate [Carafate] 1 g PO TIDWMEAL 15 Days #45 tab 03/04/21 [Rx] Follow up and Referral Follow Up: 1 Week (GI) 1 Week (PCP) Discharge Disposition Discharge Disposition: Home with home health Discharge Condition: Stable Discharge Plan Discharge Plan Hospital Course: Ms. Eubanks is a 85y/o female with a PMH of HTN, HLD, CAD s/p CABG, CVA with right sided residual weakness, wheelchair bound, anemia, gastric ulcer and gastritis presented with increased weakness, nausea and vomiting. Patient states she also noticed worsening right sided leg weakness and numbness. She had a stroke 15 years ago and since then has been pretty immobile due to RUE and RLE weakness. She uses the wheelchair to get around, lives with adopted son. Patient was admitted for renal failure and anemia in Jul 2020. She had EGD done by Dr. Keita which showed gastric AV malformations, erosive gastritis and ulcer. She states she has not followed up with GI in clinic. She reports dark tarry stools. Denies any hematemesis or bright red rectal bleeding. In the Er, she was noted to have Hgb 4.8, plt 81, low potassium and sodium along with increased creatinine. CT-head showed chronic lacunar infarction with possible progression/enlargement, MRI with DWI and MRA were recommended. Abdominal XR was negative. Patient initially received 2 units of PRBCs, hgb came up to 6.8. She was given 2 more units. She was also started on IV protonix BID and gentle hydration. UA also showed UTI so she was also started on Rocephin. GI Dr. Keita was consulted on admission. Anemia panel showed low iron and positive FOBT. Patient's labs and electrolytes were monitored daily and replaced as needed. Patient was also having some cough, CXR showed pneumonia. She did initially require O2 but then was saturating well without it. Patient was scheduled for EGD which showed a large AVM and gastritis. Patient's diet was advanced as tolerated. Her Hgb remained stable, did not require any further transfusions. She was transitioned to PO protonix and carafate was also added. MRI brain showed chronic infarct with no acute changes. Liver U/S was ordered by GI due to concern for liver disease due to chronic thrombocytopenia. U/S showed cirrhosis and portal venous thrombosis. Patient was not a candidate for coagulation due to chronic AVMs and recurrent GI bleed. PT/OT worked with patient and initially recommended SNF but patient's family wanted to take her home with home health. Patient will follow up with GI and PCP as scheduled. Time spent for clinical assessment, reviewing labs/imaging, physical exam, management, decision making and documentation greater than 75 mins. Patient Disposition: HOME HEALTH SERVICE Condition: Stable Health Concerns: Post Hospitalization: new medications and changes needed to prevent readmission or further decline. Pt educated and given instructions on all concerns. Care Plan Goals: Problem: Fluid Volume Deficit Goal: Maintain/Improved Adequate hydration. Instructions: Follow provided instructions. Follow up with primary physician as directed. Contact primary care physician or report to the closest Emergency Room if condition worsens. Plan of Treatment: Continue with present treatment and follow up plan. Pt is to keep follow up appointment as instructed and take medications as ordered. Prescriptions: New pantoprazole 40 mg Tablet,Delayed Release (Dr/Ec) 40 mg PO BID 30 Days Qty: 60 RF: 1 ferrous gluconate 324 mg (38 mg iron) Tablet 324 mg PO DAILYPC 30 Days Qty: 30 RF: 0 sucralfate [Carafate] 1 gram tablet 1 g PO TIDWMEAL 15 Days Qty: 45 RF: 0 ondansetron 4 mg tablet,disintegrating 4 mg PO Q6H PRNQty: 20 RF: 0 Continued atorvastatin 20 mg Tablet 20 mg PO HS RF: 0 carvedilol [Coreg] 3.125 mg Tablet 3.125 mg PO BID RF: 0 escitalopram oxalate 5 mg Tablet 5 mg PO DAILY RF: 0 Januvia 50 mg Tablet 50 mg PO DAILY RF: 0 insulin lispro 100 unit/mL solution See Rx Instructions .ROUTE .COMPLEX RF: 0 Levemir FlexTouch U-100 Insuln 100 unit/mL (3 mL) insulin pen 10 unit SUBCUT DAILY RF: 0 torsemide 20 mg tablet 20 mg PO DAILY 30 Days Qty: 30 RF: 0 Discontinued pantoprazole [Protonix] 40 mg tablet,delayed release (DR/EC) 40 mg PO DAILY RF: 0 Follow ups/Referrals Follow ups/Referrals: MIRACLE KEITA [STAFF PHYSICIAN] - 03/26/21 1:30 pm Tana Quigley [STAFF PHYSICIAN] - 03/12/21 10:30 am Instructions Instructions: Type 2 Diabetes Mellitus, Diagnosis, Adult, Urinary Tract Infection, Adult, Hypertension, [id number], Gastrointestinal Bleeding, [id number], Esophagogastroduodenoscopy, Care After, Community-Acquired Pneumonia, Adult, [id number] Stand Alone Forms: Excuse From Work or School, Precautions for COVID19, Patient Portal, Social Distancing
[2021-03-04] MEDS: NICOTINE PATCH TD SCH (11:55)
[2021-03-04 16:04] VITALS: BP 137/64
== END 2021-03-04 17:20 | disposition home health service (06) | DRG 682 ==
LOC: ER 16:46 → MED/SURG 19:45
PROVIDERS: ADMIT Internal Medicine; ATTEND Internal Medicine
DX: N17.8 Other acute kidney failure; Z99.3 Dependence on wheelchair; R10.13 Epigastric pain; K29.60 Other gastritis without bleeding; R41.82 Altered mental status, unspecified; K31.89 Other diseases of stomach and duodenum; I13.10 Hypertensive heart and chronic kidney disease without heart failure, with stage 1 through stage 4 chronic kidney disease, or unspecified chronic kidney disease; I25.10 Atherosclerotic heart disease of native coronary artery without angina pectoris; D50.8 Other iron deficiency anemias; Z87.11 Personal history of peptic ulcer disease; R26.89 Other abnormalities of gait and mobility; J18.8 Other pneumonia, unspecified organism; E11.65 Type 2 diabetes mellitus with hyperglycemia; K21.00 Gastro-esophageal reflux disease with esophagitis, without bleeding; K92.1 Melena; I69.351 Hemiplegia and hemiparesis following cerebral infarction affecting right dominant side; K76.6 Portal hypertension; N39.0 Urinary tract infection, site not specified; Z20.822 Contact with and (suspected) exposure to COVID-19; E87.6 Hypokalemia; N18.9 Chronic kidney disease, unspecified; B96.29 Other Escherichia coli [E. coli] as the cause of diseases classified elsewhere

== ENCOUNTER 2021-03-21 15:48 | Inpatient (IN) ==
--- NOTE | 2021-03-21 15:53 | DR.NAUSEAF ---
HPI Time Seen Time Seen by Provider: 03/21/21 15:52 HPI Comment HPI Comment: 85 yo f w/ pmh dementia, cirrhosis, cva, cabg/ cad presents w/ approx 3-4 day hx of n/v. Multiple episodes of nb/nb emesis. Along w/ diffuse abd cramping/ distension. Recently treated for uti. Limited hx due to dementia. Reviewed Nurses Notes Reviewed: Yes Source History Provided: Patient and EMS Mode of Arrival Mode of Arrival: EMS Context Onset: Spontaneous PMH PMH Past Medical History: Anemia, Anxiety, CHF, CVA, Dementia, Diabetes, GERD and Hy pertension Past Surgical History: Yes Surgical History: Appendectomy, CABG/Valve Surgery, Cholecystectomy and Hysterectomy Family History Family Medical History: Cancer and Coronary Artery Disease Social History Type of Tobacco Use: None Does any household member use tobacco: No Do you use any recreational Drugs:: No ROS Review of Systems Gastrointestinal/Abdominal: Abdominal Pain, Nausea and Vomiting Unable to Obtain Due To: Dementia PE Vital Signs Vitals: Temperature 36.7 C Pulse Rate 70 Respiratory Rate 25 Blood Pressure [Left Arm] 149/68 Blood Pressure 186/73 O2 Sat by Pulse Oximetry 89 General Limitations: Altered Mental Status General Appearance: Alert and Other (a/o x 1. ) Head Head Exam: Normal Inspection Eyes Eye exam: Normal Appearance ENT ENT Exam: Normal Exam Neck Neck Exam: Normal Inspection Chest Chest Inspection: Normal Inspection Respiratory Respiratory Exam: Normal Lung Sounds Bilat Respiratory Exam: Bilateral: Clear to Auscultation Cardiovascular Cardiovascular Exam: Regular Rate and Normal Rhythm Abdominal Exam Abdominal Exam: Normal Bowel Sounds, Distention and Tenderness; negative Guarding Abdominal Tenderness: Diffuse and Mild Rectal Rectal Exam: Deferred External Exam: Female: Deferred : Speculum Exam (Female): Deferred : Bimanual Exam (female): Deferred Extremities Extremities Exam: Normal Inspection Back Back Exam: Normal Inspection Neurologic Neurological Exam: Alert (a/o x 1. ) Psychiatric Psychiatric Exam: Normal Affect and Normal Mood Skin Skin Exam: Warm, Dry, Intact and Normal Color MDM Differential Diagnosis Differential Diagnosis: Considerations may Include:: Bowel Obstruction, Cholecystitis, Gastritis, Inflammatory BD, Pancreatitis, Urinary Obstruction, Urinary Tract Infection and Urolithiasis COURSE Treatment Treatment: 85 yo CF w/ pmh dementia presents w/ n/v x 3-4 days. Afebrile. No leukocytosis. CT abd w/ evidence of ascites, pmh cirrhosis. No abd pain on exam. UA c/w uti. Poor social situation at home. Patient/ family requesting snf placement. ? family not giving patient medication/ taking her to doctor's appts. Will admit for uti, ams and dehydration. ROR Labs Reviewed Laboratory Results Reviewed?: Yes Result Diagrams: 03/21/21 16:20 03/21/21 16:20 Laboratory: WBC 3.0 X10^3/uL (3.6-10.0) L 03/21/21 16:20 RBC 3.64 X10^6/uL (3.5-5.4) 03/21/21 16:20 Hgb 9.4 g/dL (12.0-16.0) L 03/21/21 16:20 Hct 29.6 % (36.0-47.0) L 03/21/21 16:20 MCV 81.3 fL (80.0-100.0) 03/21/21 16:20 MCH 25.8 pg (27.0-34.0) L 03/21/21 16:20 MCHC 31.8 g/dL (33.0-35.0) L 03/21/21 16:20 RDW 21.4 % (11.6-16.5) H 03/21/21 16:20 Plt Count 68 X10^3/uL (150.0-450.0) L 03/21/21 16:20 Plt Count Comment Adequate (ADEQUATE) 03/21/21 16:20 MPV 9.5 fL (7.4-11.0) 03/21/21 16:20 Neut % (Auto) 69.4 % (42.0-75.0) 03/21/21 16:20 Lymph % (Auto) 18.5 % (21.0-51.0) L 03/21/21 16:20 Hill % (Auto) 8.1 % (0.0-13.0) 03/21/21 16:20 Eos % (Auto) 3.1 % (0.9-2.9) H 03/21/21 16:20 Baso % (Auto) 0.9 % (0.2-1.0) 03/21/21 16:20 Neut # (Auto) 2.1 x10^3/uL (2.2-4.8) L 03/21/21 16:20 Lymph # (Auto) 0.6 X10^3/uL (1.3-2.9) L 03/21/21 16:20 Hill # (Auto) 0.2 x10^3/uL (0.3-0.8) L 03/21/21 16:20 Eos # (Auto) 0.1 x10^3/uL (0.0-0.2) 03/21/21 16:20 Baso # (Auto) 0.0 X10^3/uL (0.0-0.1) 03/21/21 16:20 Absolute Nucleated RBC 0.0 /100WBC 03/21/21 16:20 Plt Morphology Comment Normal (NORMAL) 03/21/21 16:20 RBC Morphology Abnormal (NORMAL) A 03/21/21 16:20 Hypochromasia Slight A 03/21/21 16:20 Poikilocytosis Slight A 03/21/21 16:20 Anisocytosis 1+ A 03/21/21 16:20 Sodium 144 mmol/L (136-145) 03/21/21 16:20 Corrected Sodium 146 mmol/L (136-145) H 03/21/21 16:20 Potassium 3.2 mmol/L (3.5-5.1) L 03/21/21 16:20 Chloride 106 mmol/L (98-107) 03/21/21 16:20 Carbon Dioxide 30.3 mmol/L (21-32) 03/21/21 16:20 BUN 33 mg/dL (7-18) H 03/21/21 16:20 Creatinine 1.69 mg/dL (0.55-1.02) H 03/21/21 16:20 Est GFR (MDRD) Af Amer 37 (>60) L 03/21/21 16:20 Est GFR (MDRD) Non-Af 30 (>60) L 03/21/21 16:20 Glucose 201 mg/dL (65-99) H 03/21/21 16:20 Calcium 8.5 mg/dL (8.5-10.1) 03/21/21 16:20 Corrected Calcium 9.4 mg/dL (8.5-10.1) 03/21/21 16:20 Total Bilirubin 1.00 mg/dL (0.2-1.0) 03/21/21 16:20 AST 28 Units/L (15-37) 03/21/21 16:20 ALT 26 Units/L (12-78) 03/21/21 16:20 Alkaline Phosphatase 84 Units/L (46-116) 03/21/21 16:20 Troponin I < 0.02 ng/mL (0-1.5) 03/21/21 16:20 Total Protein 6.6 g/dL (6.4-8.2) 03/21/21 16:20 Albumin 2.9 g/dL (3.4-5.0) L 03/21/21 16:20 Globulin 3.7 g/dL (2.5-4.5) 03/21/21 16:20 Albumin/Globulin Ratio 0.8 Ratio (1.1-2.1) L 03/21/21 16:20 Lipase 187 Units/L (73-393) 03/21/21 16:20 Specimen Type Catherized urine 03/21/21 16:30 Urine Color Yellow (YELLOW) 03/21/21 16:30 Urine Appearance Cloudy (CLEAR) 03/21/21 16:30 Urine pH 5.0 (5.0 - 8.0) 03/21/21 16:30 Ur Specific [place] 1.015 (1.000-1.030) 03/21/21 16:30 Urine Protein 3+ (NEGATIVE) 03/21/21 16:30 Urine Glucose (UA) Negative (NEGATIVE) 03/21/21 16:30 Urine Ketones Negative (NEGATIVE) 03/21/21 16:30 Urine Occult Blood 2+ (NEGATIVE) 03/21/21 16:30 Urine Nitrite Negative (NEGATIVE) 03/21/21 16:30 Urine Bilirubin Negative (NEGATIVE) 03/21/21 16:30 Urine Urobilinogen Normal (NORMAL) 03/21/21 16:30 Ur Leukocyte Esterase 2+ (NEGATIVE) 03/21/21 16:30 Urine RBC 10-20 /HPF (0-3) A 03/21/21 16:30 Urine WBC 20-30 /HPF (0-5) A 03/21/21 16:30 Ur Squamous Epith Cells Moderate /HPF (NEGATIVE) 03/21/21 16:30 Amorphous Sediment 1+ /HPF (NEGATIVE) 03/21/21 16:30 Urine Bacteria 1+ /HPF (NEGATIVE) 03/21/21 16:30 Urine Yeast Moderate /HPF (NEGATIVE) 03/21/21 16:30 Ur Culture Indicated? Yes/culture set up 03/21/21 16:30 SARS CoV-2 RNA Rapid YOCASTA Negative (NEGATIVE) 03/21/21 17:53 XRAY XRAY Interpreted by: Radiologist X-ray Results: STUDY CHEST x-ray, 1 VIEW COMPARISON X-ray 03/05/2021 FINDINGS Prior cardiac surgery. Heart is normal in size. Possible COPD changes. No pneumothorax, focal infiltrate, or pleural effusion. Prior C-spine fusion. IMPRESSION No acute cardiopulmonary abnormality is seen. STUDY ABDOMEN/PELVIS W/O CON COMPARISON March 05, 2021 TECHNIQUE Non-contrasted axial CT images of the abdomen and pelvis were obtained and reformatted into coronal and sagittal planes for further evaluation. Radiation dose: 515.30 mGy-cm total DLP FINDINGS Status post median sternotomy. Coronary artery calcifications. Ascites under each diaphragm, in the pericolic gutters and in the pelvis. Lung bases are clear. Stomach appears normal. Lobulated margin of the liver is consistent with cirrhosis. Splenomegaly. Enlargement of the portal veins. Atherosclerotic changes to the aorta and iliac vessels without aneurysm. Gallbladder is not visualized; correlate for prior cholecystectomy. No intra or extrahepatic biliary dilatation. Unremarkable appearance of the kidneys. No hydronephrosis, hydroureter or ureteral calculus. Unremarkable appearance of the urinary bladder. Suture material within bowel in the anterior mid abdomen. Otherwise, unremarkable appearance of the large and small bowel. Reproductive structures are unremarkable. No evidence of acute appendicitis. No pneumoperitoneum. No adenopathy. No acute osseous abnormality. Multilevel mild degenerative disc disease without vertebral body height loss. IMPRESSION 1. No acute intra-abdominal abnormality detected. 2. Findings consistent with cirrhosis resulting moderate volume ascites and splenomegaly secondary to portal hypertension. EKG Rate: 73 Rhythm: NSR Block: RBBB and IVCD ST: Nonsp Opioid Opioid Risk Tool Age (Justo box if 16-45): No History of Preadolescent Sexual Abuse: No Total: 0 Total Score Risk Category: Low Risk Copyright: [facility] predicting aberrant behaviors Diagnosis Discharge Problem: Acute UTI, Acute dehydration AMS (altered mental status) Qualifiers: Altered mental status type: delirium Qualified Code(s): R41.0 - Disorientation, unspecified Instructions Forms: Patient Portal Social Distancing
[2021-03-21 16:05] VITALS: BMI 23.9
[2021-03-21 16:32] LABS: BASOPHILS % (AUTO) 0.9 % (0.2-1.0); EOSINOPHILS # (AUTO) 0.1 x10^3/uL (0.0-0.2); EOSINOPHILS % (AUTO) 3.1 % (0.9-2.9); HEMATOCRIT 29.6 % (36.0-47.0); HEMOGLOBIN 9.4 g/dL (12.0-16.0); LYMPHOCYTES # (AUTO) 0.6 X10^3/uL (1.3-2.9); LYMPHOCYTES % (AUTO) 18.5 % (21.0-51.0); MEAN CORPUSCULAR HEMOGLOBIN 25.8 pg (27.0-34.0); MEAN CORPUSCULAR HGB CONC 31.8 g/dL (33.0-35.0); MEAN CORPUSCULAR VOLUME 81.3 fL (80.0-100.0); MEAN PLATELET VOLUME 9.5 fL (7.4-11.0); MONOCYTES # (AUTO) 0.2 x10^3/uL (0.3-0.8); MONOCYTES % (AUTO) 8.1 % (0.0-13.0); NEUTROPHILS # (AUTO) 2.1 x10^3/uL (2.2-4.8); NEUTROPHILS % (AUTO) 69.4 % (42.0-75.0); PLATELET COUNT 68 X10^3/uL (150.0-450.0); RED BLOOD COUNT 3.64 X10^6/uL (3.5-5.4); RED CELL DISTRIBUTION WIDTH 21.4 % (11.6-16.5)
[2021-03-21] MEDS ORDERED: ZOFRAN INJ 4 MG VIAL IVP ONE (16:33)
--- NOTE | 2021-03-21 16:33 | RAD ---
HISTORYN/VSTUDYCHEST x-ray, 1 VIEWCOMPARISONX-ray 03/05/2021FINDINGSPrior cardiac surgery. Heart is normal in size. Possible COPD changes. No pneumothorax, focal infiltrate, or pleural effusion. Prior C-spine fusion.IMPRESSIONNo acute cardiopulmonary abnormality is seen.Electronically signed by: Charli Calles (Mar 21, 2021 16:30:57)
[2021-03-21 16:36] LABS: BILIRUBIN,URINE NEGATIVE (NEGATIVE); BLOOD/HEMOGLOBIN,URINE 2+ (NEGATIVE); GLUCOSE, URINE NEGATIVE (NEGATIVE); KETONES,URINE NEGATIVE (NEGATIVE); LEUKOCYTE ESTERASE ,URINE 2+ (NEGATIVE); NITRITES,URINE NEGATIVE (NEGATIVE); PROTEIN,URINE 3+ (NEGATIVE); UROBILINOGEN,URINE NORMAL (NORMAL)
[2021-03-21 16:46] LABS: ALANINE AMINOTRANSFERASE 26 Units/L (12-78); ALBUMIN 2.9 g/dL (3.4-5.0); ALKALINE PHOSPHATASE 84 Units/L (46-116); ASPARTATE AMINO TRANSFERASE 28 Units/L (15-37); BLOOD UREA NITROGEN 33 mg/dL (7-18); CALCIUM 8.5 mg/dL (8.5-10.1); CARBON DIOXIDE 30.3 mmol/L (21-32); CHLORIDE 106 mmol/L (98-107); COR CA(FOR HYPOALB) 9.4 mg/dL (8.5-10.1); COR NA(FOR HYPERGLY) 146 mmol/L (136-145); CREATININE 1.69 mg/dL (0.55-1.02); LIPASE 187 Units/L (73-393); SODIUM 144 mmol/L (136-145); TOTAL PROTEIN 6.6 g/dL (6.4-8.2); TROPONIN I < 0.02 ng/mL (0-1.5); eGFR NON BLACK RACES 30 (>60)
[2021-03-21] MEDS ORDERED: ZOFRAN INJ 4 MG VIAL ONE (16:47)
[2021-03-21] MEDS ORDERED: NS 1000 ML 1,000 ML ONE (16:47)
[2021-03-21 16:48] LABS: ANISOCYTOSIS 1+; HYPOCHROMASIA SLIGHT; PLATELET MORPHOLOGY COMMENT NORMAL (NORMAL); POIKILOCYTOSIS SLIGHT
[2021-03-21 16:48] LABS: APPEARANCE,URINE CLOUDY (CLEAR); COLOR,URINE YELLOW (YELLOW)
[2021-03-21 16:49] LABS: AMORPHOUS SEDIMENT,UR 1+ /HPF (NEGATIVE); BACTERIA,URINE 1+ /HPF (NEGATIVE); SQUAMOUS EPITHELIAL CELL,UR MODERATE /HPF (NEGATIVE); YEAST,URINE MODERATE /HPF (NEGATIVE)
[2021-03-21] MEDS: NS 1000 ML 1,000 ML IV ONE ×2 (16:55→16:56)
[2021-03-21] MEDS ORDERED: ROCEPHIN 1 GRAM IV PREMIX 1 G/50 ML IV.SOLN. IV ONE (17:14)
--- NOTE | 2021-03-21 17:34 | CT ---
HISTORYABD PAIN, N/V X 4 DAYS (GFR 27-TOOLOW FOR IV C+)STUDYABDOMEN/PELVIS W/O CONCOMPARISONApril 2020TECHNIQUENon-contrasted axial CT images of the abdomen and pelvis were obtained and reformatted into coronal and sagittal planes for further evaluation.Radiation dose: 515.30 mGy-cm total DLPFINDINGSStatus post median sternotomy.Coronary artery calcifications.Ascites under each diaphragm, in the pericolic gutters and in the pelvis.Lung bases are clear.Stomach appears normal.Lobulated margin of the liver is consistent with cirrhosis.Splenomegaly.Enlargement of the portal veins.Atherosclerotic changes to the aorta and iliac vessels without aneurysm.Gallbladder is not visualized; correlate for prior cholecystectomy.No intra or extrahepatic biliary dilatation.Unremarkable appearance of the kidneys.No hydronephrosis, hydroureter or ureteral calculus.Unremarkable appearance of the urinary bladder.Suture material within bowel in the anterior mid abdomen.Otherwise, unremarkable appearance of the large and small bowel.Reproductive structures are unremarkable.No evidence of acute appendicitis.No pneumoperitoneum.No adenopathy.No acute osseous abnormality.Multilevel mild degenerative disc disease without vertebral body height loss.IMPRESSION1. No acute intra-abdominal abnormality detected.2. Findings consistent with cirrhosis resulting moderate volume ascites and splenomegaly secondary to portal hypertension.Electronically signed by: Kishan Tello (Mar 21, 2021 17:32:31)
[2021-03-21] MEDS: ROCEPHIN 1 GRAM IV PREMIX 1 G/50 ML IV.SOLN. IV SCH (17:35)
[2021-03-21] MEDS: NS 1000 ML 1,000 ML IV SCH (19:20)
[2021-03-21] MEDS ORDERED: POTASSIUM CHL 40 MEQ/NS 0.45% 500 ML IV PRN (21:06)
[2021-03-21] MEDS ORDERED: POTASSIUM CHLORIDE LIQ 20 MEQ UDC PO PRN (21:06)
[2021-03-21] MEDS ORDERED: MICRO K EXTEN CAP 10 MEQ PO PRN (21:06)
[2021-03-21] MEDS ORDERED: KLOR-CON PO PRN (21:06)
[2021-03-21] MEDS ORDERED: POTASSIUM CHL 60 MEQ/NS 0.45% 500 ML IV PRN (21:06)
[2021-03-21] MEDS: K-DUR TAB 20 MEQ PO PRN (21:38)
[2021-03-21] MEDS: K-RIDER 10 MEQ/NS 100 ML 10 MEQ/100 ML BAG IV PRN (23:50)
[2021-03-22] MEDS: NS 1000 ML 1,000 ML IV SCH ×4 (00:44→19:42)
[2021-03-22] MEDS: K-RIDER 10 MEQ/NS 100 ML 10 MEQ/100 ML BAG IV PRN ×3 (00:45→02:42)
[2021-03-22 04:32] LABS: BASOPHILS % (AUTO) 0.7 % (0.2-1.0); EOSINOPHILS # (AUTO) 0.1 x10^3/uL (0.0-0.2); EOSINOPHILS % (AUTO) 4.7 % (0.9-2.9); HEMATOCRIT 26.3 % (36.0-47.0); HEMOGLOBIN 8.2 g/dL (12.0-16.0); LYMPHOCYTES # (AUTO) 0.6 X10^3/uL (1.3-2.9); LYMPHOCYTES % (AUTO) 29.1 % (21.0-51.0); MEAN CORPUSCULAR HEMOGLOBIN 25.3 pg (27.0-34.0); MEAN CORPUSCULAR VOLUME 81.6 fL (80.0-100.0); MEAN PLATELET VOLUME 8.9 fL (7.4-11.0); MONOCYTES # (AUTO) 0.2 x10^3/uL (0.3-0.8); MONOCYTES % (AUTO) 9.4 % (0.0-13.0); NEUTROPHILS # (AUTO) 1.2 x10^3/uL (2.2-4.8); NEUTROPHILS % (AUTO) 56.1 % (42.0-75.0); PLATELET COUNT 59 X10^3/uL (150.0-450.0); RED BLOOD COUNT 3.23 X10^6/uL (3.5-5.4); RED CELL DISTRIBUTION WIDTH 21.3 % (11.6-16.5); WHITE BLOOD COUNT 2.2 X10^3/uL (3.6-10.0)
[2021-03-22 04:46] LABS: ALBUMIN 2.3 g/dL (3.4-5.0); CARBON DIOXIDE 29.5 mmol/L (21-32); COR CA(FOR HYPOALB) 9.4 mg/dL (8.5-10.1); CREATININE 1.58 mg/dL (0.55-1.02); TOTAL PROTEIN 5.4 g/dL (6.4-8.2)
[2021-03-22 05:04] LABS: ANISOCYTOSIS 1+; HYPOCHROMASIA SLIGHT; MICROCYTOSIS SLIGHT; PLATELET MORPHOLOGY COMMENT ABNORMAL (NORMAL)
[2021-03-22] MEDS ORDERED: PROTONIX TAB 40 MG PO SCH (09:00)
[2021-03-22] MEDS ORDERED: PATIENT'S HOME MEDICATION (Insulin Detemir U-100 [Levemir Flextouch U-100 Insuln] 100 unit SUBCUT SCH (09:00)
[2021-03-22] MEDS: ROCEPHIN 1 GRAM IV PREMIX 1 G/50 ML IV.SOLN. IV SCH (09:02)
[2021-03-22] MEDS ORDERED: LEXAPRO ONE (10:04)
[2021-03-22] MEDS: LEXAPRO PO SCH (10:10)
[2021-03-22] MEDS: JANUVIA PO SCH (10:11)
[2021-03-22] MEDS: COREG TAB 3.125 MG PO SCH ×2 (10:11→20:48)
[2021-03-22] MEDS: DIFLUCAN 200 MG IV PREMIX* 100 MG/50 ML BAG IV SCH (10:12)
--- NOTE | 2021-03-22 11:35 | DR.H&P ---
H&P - History & Physical for Day of: H&P Date: 03/21/21 - Chief Complaint Chief Complaint: ABDOMINAL PAIN, N/V, AMS - History of Present Illness History of Present Illness: IS A 85 YEAR OLD WHITE FEMALE WITH A HISTORY OF DEMENTIA, CIRRHOSIS, CHF, CVA, CABG, CAD, HTN, AND DIABETES. SHE HAS RESIDUAL RIGHT SIDED WEAKNESS FROM PAST CVA. SHE IS PRETTY MUCH IMMOBILE. SHE PRESENTED WITH COMPLAINTS OF NAUSEA, VOMITING, AND DIFFUSE ABDOMINAL PAIN AND DISTENTION. PATIENTS FAMILY MEMBERS REPORT THAT SHE HAS BEEN CONFUSED AT TIMES. SHE HAS RECENTLY BEEN TREATED FOR A URINARY TRACT INFECTION. SHE WAS ALSO ADMITTED AT THE BEGINNING OF THE MONTH AND TREATED FOR A GI BLEED. AN UPPER ENDOSCOPY WAS DONE AT THAT TIME AND REVEALED A LARGE DUODENAL AV MALFORMATION, MODERATE PORTAL HYPERTENSIVE GASTROPATHY, MODERATE GASTRITIS, AND MILD DISTAL ESOPHAGITIS. SHE RECEIVED FOUR UNITS OF PRBC DURING THAT ADMISSION. PATIENT IS REQUESTING AUTOMATED EQUIPMENT ENGINEER TECHNICIAN CARE PLACEMENT AND REPORTS THAT SHE IS NO LONGER ABLE TO TAKE CARE OF HERSELF. TODAY, HER ABDOMINAL PAIN IS DESCRIBED CRAMPING, CONSTANT, AND WAS RATED A 5/10 ON ARRIVAL. EXAMINATION REVEALED MODERATE DISTENTION OF ABDOMEN. SHE IS NOTED TO HAVE 3+ PITTING EDEMA OF BILATERAL LOWER EXTREMITIES. LUNGS NOTED TO HAVE DIMINISHED LUNG SOUNDS THROUGHOUT. ON ARRIVAL TO THE ER, VITALS WERE 98.1-77-22-97%-145/68. LABS WERE OBTAINED. ABNORMAL LAB VALUES INCLUDE THE FOLLOWING: WBC 3.0, HGB 9.4, HCT 29.6, PLT COUNT 68, POTASSIUM 3.2, BUN 33, CREATININE 1.69, GLUCOSE 201, ALBUMIN 2.9. COVID-19 NEGATIVE. A URINALYSIS WAS OBTAINED AND REVEALED: WBC 20-30, RBC 10-20, BACTERIA 1+, YEAST MODERATE, LEUKOCYTES 2+, OCCULT BLOOD 2+, URINE PROTEIN 3+. A URINE CULTURE WAS SET UP. A CHEST XRAY WAS OBTAINED AND REVEALED: NO ACUTE CARDIOPULMONARY ABNORMALITY SEEN. EKG REVEALED: SINUS RHYTHM WITH HR 73. AN ABDOMEN/PELVIS CT WAS OBTAINED AND REVEALED: 1. No acute intra-abdominal abnormality detected. 2. Findings consistent with cirrhosis resulting moderate volume ascites and splenomegaly secondary to portal hypertension. IN THE ER, SHE WAS GIVEN A NORMAL SALINE BOLUS, ZOFRAN 4MG IV X 1 DOSE. SHE ADMITTED TO ONLY SLIGHT IMPROVEMENT IN SYMPTOMS. SHE WAS ADMITTED TO THE HOSPITAL FOR FURTHER EVALUATION AND TREATMENT OF UTI, AMS, NAUSEA AND VOMITING. SHE WAS STARTED ON NORMAL SALINE AT 75ML/HR, ROCEPHIN 1G IV DAILY, DIFLUCAN 100MG IV DAILY, ALBUMIN 25% IV DAILY, LASIX 20MG IV BID, ALDACTONE 25MG IV DAILY, PEPCID 20MG IV DAILY, PROTONIX 40MG IV BID, HUMULIN R SLIDING SCALE, OTBS ACHS, POTASSIUM AND MAGNESIUM SLIDING SCALES, AND HER HOME MEDICATIONS WERE RESUMED. OTHERWISE, WE PLAN TO FOLLOW UP WITH AM LABS AND CONTINUE TO MONITOR. TIME SPENT ON CLINICAL ASSESSMENT, REVIEWING LABS AND IMAGING, DECISION MAKING, AND DOCUMENTATION GREATER THAN 75 MINUTES. - Past Medical History Past Medical History: Coronary Artery Disease, CVA, Diabetes, Hypertension - Past Surgical History Surgical History: Appendectomy, CABG/Valve Surgery, Cholecystectomy, Hysterectomy - Family History Family Medical History: Cancer, Coronary Artery Disease - Social History Does patient currently use any type of tobacco product: Yes (SNUFF) Have you used tobacco products in the last 12 months: Yes Type of Tobacco Use: Smokeless Does any household member use tobacco: No Alcohol Use: None Drug Use: None - Medications Home Medications: Penicillins Adverse Reaction (Verified 10/09/20 13:08) Sulfa (Sulfonamide Antibiotics) Adverse Reaction (Verified 10/09/20 13:08) - Review of Systems Constitutional: Weakness Eyes: No Symptoms Reported ENT: No Symptoms Reported Respiratory: No Symptoms Reported Cardiovascular: See HPI, Edema (LOWER EXTREMITY SWELLING ) Gastrointestinal: See HPI, Nausea, Vomiting, Abdominal Pain, Diarrhea Genitourinary: No Symptoms Reported Musculoskeletal: No Symptoms Reported Skin: No Symptoms Reported Neurological: Weakness, Confusion - Physical Exam Vital Signs: Temperature 98.6 F Pulse Rate [Right Brachial] 66 Pulse Rate 70 Respiratory Rate 18 Blood Pressure [Right Arm] 143/63 Blood Pressure [Left Arm] 149/68 Blood Pressure 186/73 O2 Sat by Pulse Oximetry 97 Oriented: Normal Eyes: Normal Ear: Normal Nose: Normal Throat: Normal Respiratory: Diminished Throughout Cardiovascular: Edema (BLE 3+ PITTING EDEMA) : Normal Auscultation: Bowel Sounds: Increased Palpation: Normal Tenderness: Diffuse, Mild, Other (ABDOMINAL DISTENTION ) Skin: Normal Musculoskeletal: Normal Psychiatric: Normal Mood Description: Calm Affect: Normal Speech Pattern: Clear - Assessment/Plan (1) Acute UTI Status: Acute Plan: ADMIT, NORMAL SALINE AT 75ML/HR, ROCEPHIN 1G IV DAILY, DIFLUCAN 100MG IV DAILY, ALBUMIN 25% IV DAILY, LASIX 20MG IV BID, ALDACTONE 25MG IV DAILY, PEPCID 20MG IV DAILY, PROTONIX 40MG IV BID, HUMULIN R SLIDING SCALE, OTBS ACHS, POTASSIUM AND MAGNESIUM SLIDING SCALES, AND HER HOME MEDICATIONS WERE RESUMED (2) Nausea and vomiting Qualifiers: Vomiting type: unspecified Vomiting Intractability: intractable Qualified Code(s): R11.2 - Nausea with vomiting, unspecified Status: Acute (3) AMS (altered mental status) Qualifiers: Altered mental status type: delirium Qualified Code(s): R41.0 - Disorientation, unspecified Status: Acute (4) Thrombocytopenia Status: Chronic (5) CHF (congestive heart failure) Qualifiers: Heart failure type: unspecified Heart failure chronicity: chronic Qualified Code(s): I50.9 - Heart failure, unspecified Status: Chronic (6) CAD (coronary artery disease) Qualifiers: Coronary Disease-Associated Artery/Lesion type: bypass graft [place] vs. transplanted heart: [place] heart Associated angina: unspecified whether angina present Qualified Code(s): I25.810 - Atherosclerosis of coronary artery bypass graft(s) without angina pectoris Status: Chronic (7) Hypertension Qualifiers: Hypertension type: essential hypertension Qualified Code(s): I10 - Essential (primary) hypertension Status: Chronic (8) Diabetes mellitus Qualifiers: Diabetes mellitus type: type 2 Diabetes mellitus terminal computer operator insulin use: with terminal computer operator use Diabetes mellitus complication status: with other specified complication Qualified Code(s): E11.69 - Type 2 diabetes mellitus with other specified complication; Z79.4 - terminal computer operator (current) use of insulin Status: Chronic (9) Cirrhosis Qualifiers: Hepatic cirrhosis type: unspecified hepatic cirrhosis Ascites presence: without ascites Qualified Code(s): K74.60 - Unspecified cirrhosis of liver Status: Chronic (10) Right sided weakness Status: Chronic (11) CVA (cerebral vascular accident) Qualifiers: CVA mechanism: unspecified Qualified Code(s): I63.9 - Cerebral infarction, unspecified Status: Chronic (12) Hx of CABG Status: Chronic (13) Anemia Qualifiers: Anemia type: unspecified type Qualified Code(s): D64.9 - Anemia, unspecified Status: Chronic - Allergies Allergies/Adverse Reactions: Allergies Allergy/AdvReac Type Severity Reaction Status Date / Time Penicillins AdvReac Verified 10/09/20 13:08 Sulfa (Sulfonamide AdvReac Verified 10/09/20 13:08 Antibiotics)
[2021-03-22] MEDS: PEPCID 20 MG IV PREMIX* 20 MG/50 ML BAG IV SCH (12:00)
[2021-03-22] MEDS: ALDACTONE TAB 25 MG PO SCH (12:00)
[2021-03-22] MEDS: ALBUMIN HUMAN 25%- 100 ML 100 ML IV SCH (12:00)
[2021-03-22] MEDS: PROTONIX INJ 40 MG VIAL IVP SCH ×2 (12:00→20:49)
[2021-03-22] MEDS: HumuLIN R SUBCUT PRN (16:40)
[2021-03-22] MEDS: LASIX IVP SCH (16:40)
[2021-03-22] MEDS: LIPITOR TAB 20 MG PO SCH (20:47)
[2021-03-22] MEDS: SNACK - Diabetic Appropriate PO SCH (21:14)
[2021-03-23] MEDS: NS 1000 ML 1,000 ML IV SCH ×2 (03:07→10:32)
[2021-03-23 04:59] LABS: BASOPHILS % (AUTO) 0.8 % (0.2-1.0); EOSINOPHILS # (AUTO) 0.1 x10^3/uL (0.0-0.2); EOSINOPHILS % (AUTO) 4.5 % (0.9-2.9); HEMATOCRIT 24.7 % (36.0-47.0); HEMOGLOBIN 7.7 g/dL (12.0-16.0); LYMPHOCYTES # (AUTO) 0.4 X10^3/uL (1.3-2.9); LYMPHOCYTES % (AUTO) 24.2 % (21.0-51.0); MEAN CORPUSCULAR HEMOGLOBIN 25.8 pg (27.0-34.0); MEAN CORPUSCULAR HGB CONC 31.2 g/dL (33.0-35.0); MEAN CORPUSCULAR VOLUME 82.6 fL (80.0-100.0); MEAN PLATELET VOLUME 9.3 fL (7.4-11.0); MONOCYTES # (AUTO) 0.2 x10^3/uL (0.3-0.8); NEUTROPHILS # (AUTO) 1.1 x10^3/uL (2.2-4.8); NEUTROPHILS % (AUTO) 60.5 % (42.0-75.0); PLATELET COUNT 57 X10^3/uL (150.0-450.0); RED BLOOD COUNT 2.99 X10^6/uL (3.5-5.4); RED CELL DISTRIBUTION WIDTH 21.4 % (11.6-16.5)
[2021-03-23 05:02] LABS: ALBUMIN 2.5 g/dL (3.4-5.0); CALCIUM 8.3 mg/dL (8.5-10.1); CARBON DIOXIDE 28.9 mmol/L (21-32); COR CA(FOR HYPOALB) 9.5 mg/dL (8.5-10.1); CREATININE 1.52 mg/dL (0.55-1.02); TOTAL PROTEIN 5.3 g/dL (6.4-8.2)
[2021-03-23 05:09] LABS: WHITE BLOOD COUNT 1.8 X10^3/uL (3.6-10.0)
[2021-03-23 05:39] LABS: ANISOCYTOSIS 1+; HYPOCHROMASIA SLIGHT; PLATELET MORPHOLOGY COMMENT NORMAL (NORMAL)
[2021-03-23] MEDS ORDERED: LEXAPRO ONE (08:18)
[2021-03-23] MEDS: DIFLUCAN 200 MG IV PREMIX* 100 MG/50 ML BAG IV SCH (08:51)
[2021-03-23] MEDS: COREG TAB 3.125 MG PO SCH ×2 (08:57→20:11)
[2021-03-23] MEDS: PROTONIX INJ 40 MG VIAL IVP SCH ×2 (08:57→20:11)
[2021-03-23] MEDS: ALDACTONE TAB 25 MG PO SCH (08:57)
[2021-03-23] MEDS: JANUVIA PO SCH (08:58)
[2021-03-23] MEDS: LASIX IVP SCH ×2 (08:58→17:32)
[2021-03-23] MEDS: LEXAPRO PO SCH (08:59)
[2021-03-23] MEDS: PEPCID 20 MG IV PREMIX* 20 MG/50 ML BAG IV SCH (09:00)
[2021-03-23] MEDS: ROCEPHIN 1 GRAM IV PREMIX 1 G/50 ML IV.SOLN. IV SCH (09:40)
[2021-03-23] MEDS: ALBUMIN HUMAN 25%- 100 ML 100 ML IV SCH (10:10)
--- NOTE | 2021-03-23 11:02 | PCM.PROG ---
Progress Note Progress Note for Day of Date of Exam: 03/23/21 Subjective Subjective: Patient seen at bedside, no acute events overnight. Patient states she feels better. She states she was by herself at home and was not take care of. She missed her follow ups due to not having a ride. She is currently being treated for UTI, ascites due to cirrhosis. Labs: WBC 1.8 Hgb 7.7 Plt 57 BUN/Cr: 25/1.52 Glucose 159 CTAP: cirrhosis, moderate volume ascites CXR: negative Urine Cx: Gram + cocci Plan: continue IV antibiotics Rocephin and Diflucan. Continue albumin, lasix and aldactone. Continue pantoprazole. Continue home medications. Monitor H/H. CM to discuss options with family, they had mentioned placing patient in skilled nursing. Monitor AM labs and imaging. Past Medical Family Social History Past Med/Fam/Surg Hx: No changes since H&P Allergies: Allergies Penicillins Adverse Reaction (Verified 10/09/20 13:08) Sulfa (Sulfonamide Antibiotics) Adverse Reaction (Verified 10/09/20 13:08) Review of Systems ROS: No change since H&P Vital Signs and I&O's Vital Signs: Temperature 98.3 F Pulse Rate [Right Brachial] 72 Pulse Rate 70 Respiratory Rate 18 Blood Pressure [Right Arm] 168/62 Blood Pressure [Left Arm] 149/68 Blood Pressure 186/73 O2 Sat by Pulse Oximetry 96 Intake and Output: Intake & Output 03/20/21 03/21/21 03/22/21 03/23/21 23:59 23:59 23:59 23:59 Intake Total 813 / 813 4168 / 4168 423 / 423 Balance 813 / 813 4168 / 4168 423 / 423 Physical Exam Oriented: Normal Eyes: Normal Ear: Normal Nose: Normal Throat: Normal Respiratory: Generalized and Diminished Cardiovascular: Normal and Edema (BLE 3+ PITTING EDEMA) Auscultation: Bowel Sounds: Normal Tenderness: Normal and Other (ABDOMINAL DISTENTION ) Skin: Normal Musculoskeletal: Normal Psychiatric: Normal Mood Description: Calm Affect: Normal Speech Pattern: Clear and Appropriate Laboratory and Diagnostics Result Diagrams: 03/23/21 04:15 03/23/21 04:15 Labs: 03/21/21 16:30 Urine,Catheterized Urine Culture - Preliminary Laboratory WBC 1.8 X10^3/uL (3.6-10.0) L* 03/23/21 04:15 RBC 2.99 X10^6/uL (3.5-5.4) L 03/23/21 04:15 Hgb 7.7 g/dL (12.0-16.0) L 03/23/21 04:15 Hct 24.7 % (36.0-47.0) L 03/23/21 04:15 MCV 82.6 fL (80.0-100.0) 03/23/21 04:15 MCH 25.8 pg (27.0-34.0) L 03/23/21 04:15 MCHC 31.2 g/dL (33.0-35.0) L 03/23/21 04:15 RDW 21.4 % (11.6-16.5) H 03/23/21 04:15 Plt Count 57 X10^3/uL (150.0-450.0) L 03/23/21 04:15 Plt Count Comment Decreased (ADEQUATE) A 03/23/21 04:15 MPV 9.3 fL (7.4-11.0) 03/23/21 04:15 Neut % (Auto) 60.5 % (42.0-75.0) 03/23/21 04:15 Lymph % (Auto) 24.2 % (21.0-51.0) 03/23/21 04:15 [place] % (Auto) 10.0 % (0.0-13.0) 03/23/21 04:15 Eos % (Auto) 4.5 % (0.9-2.9) H 03/23/21 04:15 Baso % (Auto) 0.8 % (0.2-1.0) 03/23/21 04:15 Neut # (Auto) 1.1 x10^3/uL (2.2-4.8) L 03/23/21 04:15 Lymph # (Auto) 0.4 X10^3/uL (1.3-2.9) L 03/23/21 04:15 [place] # (Auto) 0.2 x10^3/uL (0.3-0.8) L 03/23/21 04:15 Eos # (Auto) 0.1 x10^3/uL (0.0-0.2) 03/23/21 04:15 Baso # (Auto) 0.0 X10^3/uL (0.0-0.1) 03/23/21 04:15 Absolute Nucleated RBC 0.3 /100WBC 03/23/21 04:15 Total Counted 25 03/22/21 04:13 Neutrophils % (Manual) 56 % (39-76) 03/22/21 04:13 Lymphocytes % (Manual) 40 % (13-43) 03/22/21 04:13 Eosinophils % (Manual) 4 % (0-6) 03/22/21 04:13 Plt Morphology Comment Normal (NORMAL) 03/23/21 04:15 RBC Morphology Abnormal (NORMAL) A 03/23/21 04:15 Hypochromasia Slight A 03/23/21 04:15 Poikilocytosis Slight A 03/21/21 16:20 Anisocytosis 1+ A 03/23/21 04:15 Microcytosis Slight A 03/22/21 04:13 Sodium 145 mmol/L (136-145) 03/23/21 04:15 Corrected Sodium 147 mmol/L (136-145) H 03/23/21 04:15 Potassium 4.2 mmol/L (3.5-5.1) 03/23/21 04:15 Chloride 112 mmol/L (98-107) H 03/23/21 04:15 Carbon Dioxide 28.9 mmol/L (21-32) 03/23/21 04:15 BUN 25 mg/dL (7-18) H 03/23/21 04:15 Creatinine 1.52 mg/dL (0.55-1.02) H 03/23/21 04:15 Est GFR (MDRD) Af Amer 42 (>60) L 03/23/21 04:15 Est GFR (MDRD) Non-Af 34 (>60) L 03/23/21 04:15 Glucose 174 mg/dL (65-99) H 03/23/21 04:15 POC Glucose (mg/dL) 159 mg/dL (65-99) H 03/23/21 05:24 Calcium 8.3 mg/dL (8.5-10.1) L 03/23/21 04:15 Corrected Calcium 9.5 mg/dL (8.5-10.1) 03/23/21 04:15 Magnesium 2.1 mg/dL (1.7-2.9) 03/21/21 16:20 Total Bilirubin 0.60 mg/dL (0.2-1.0) 03/23/21 04:15 AST 55 Units/L (15-37) H 03/23/21 04:15 ALT 34 Units/L (12-78) 03/23/21 04:15 Alkaline Phosphatase 70 Units/L (46-116) 03/23/21 04:15 Ammonia 31 umol/L (11-32) 03/22/21 09:10 Troponin I < 0.02 ng/mL (0-1.5) 03/21/21 16:20 Total Protein 5.3 g/dL (6.4-8.2) L 03/23/21 04:15 Albumin 2.5 g/dL (3.4-5.0) L 03/23/21 04:15 Globulin 2.8 g/dL (2.5-4.5) 03/23/21 04:15 Albumin/Globulin Ratio 0.9 Ratio (1.1-2.1) L 03/23/21 04:15 Lipase 187 Units/L (73-393) 03/21/21 16:20 Specimen Type Catherized urine 03/21/21 16:30 Urine Color Yellow (YELLOW) 03/21/21 16:30 Urine Appearance Cloudy (CLEAR) 03/21/21 16:30 Urine pH 5.0 (5.0 - 8.0) 03/21/21 16:30 Ur Specific [place] 1.015 (1.000-1.030) 03/21/21 16:30 Urine Protein 3+ (NEGATIVE) 03/21/21 16:30 Urine Glucose (UA) Negative (NEGATIVE) 03/21/21 16:30 Urine Ketones Negative (NEGATIVE) 03/21/21 16:30 Urine Occult Blood 2+ (NEGATIVE) 03/21/21 16:30 Urine Nitrite Negative (NEGATIVE) 03/21/21 16:30 Urine Bilirubin Negative (NEGATIVE) 03/21/21 16:30 Urine Urobilinogen Normal (NORMAL) 03/21/21 16:30 Ur Leukocyte Esterase 2+ (NEGATIVE) 03/21/21 16:30 Urine RBC 10-20 /HPF (0-3) A 03/21/21 16:30 Urine WBC 20-30 /HPF (0-5) A 03/21/21 16:30 Ur Squamous Epith Cells Moderate /HPF (NEGATIVE) 03/21/21 16:30 Amorphous Sediment 1+ /HPF (NEGATIVE) 03/21/21 16:30 Urine Bacteria 1+ /HPF (NEGATIVE) 03/21/21 16:30 Urine Yeast Moderate /HPF (NEGATIVE) 03/21/21 16:30 Ur Culture Indicated? Yes/culture set up 03/21/21 16:30 SARS CoV-2 RNA Rapid YOCASTA Negative (NEGATIVE) 03/21/21 17:53 Plan (1) Acute UTI: Status: Acute (2) Nausea and vomiting: Status: Acute Qualifiers: Vomiting Intractability: intractable Vomiting type: unspecified Qualified Code(s): R11.2 - Nausea with vomiting, unspecified (3) AMS (altered mental status): Status: Acute Qualifiers: Altered mental status type: delirium Qualified Code(s): R41.0 - Disorientation, unspecified (4) Thrombocytopenia: Status: Chronic (5) CHF (congestive heart failure): Status: Chronic Qualifiers: Heart failure chronicity: chronic Heart failure type: unspecified Qualified Code(s): I50.9 - Heart failure, unspecified (6) CAD (coronary artery disease): Status: Chronic Qualifiers: Associated angina: unspecified whether angina present Coronary Disease- Associated Artery/Lesion type: bypass graft [place] vs. transplanted heart: [place] heart Qualified Code(s): I25.810 - Atherosclerosis of coronary artery bypass graft(s) without angina pectoris (7) Hypertension: Status: Chronic Qualifiers: Hypertension type: essential hypertension Qualified Code(s): I10 - Essential (primary) hypertension (8) Diabetes mellitus: Status: Chronic Qualifiers: Diabetes mellitus complication status: with other specified complication Diabetes mellitus supervisor intermediates insulin use: with supervisor intermediates use Diabetes mellitus type: type 2 Qualified Code(s): E11.69 - Type 2 diabetes mellitus with other specified complication; Z79.4 - skilled nursing (current) use of insulin (9) Cirrhosis: Status: Chronic Qualifiers: Ascites presence: without ascites Hepatic cirrhosis type: unspecified hepatic cirrhosis Qualified Code(s): K74.60 - Unspecified cirrhosis of liver (10) Right sided weakness: Status: Chronic (11) CVA (cerebral vascular accident): Status: Chronic Qualifiers: CVA mechanism: unspecified Qualified Code(s): I63.9 - Cerebral infarction, unspecified (12) Hx of CABG: Status: Chronic (13) Anemia: Status: Chronic Qualifiers: Anemia type: unspecified type Qualified Code(s): D64.9 - Anemia, unspecified (14) Erosive gastritis: Status: Chronic (15) AVM (arteriovenous malformation): Status: Acute
[2021-03-23] MEDS: LIPITOR TAB 20 MG PO SCH (20:11)
[2021-03-23] MEDS: SNACK - Diabetic Appropriate PO SCH (20:49)
[2021-03-24 04:46] LABS: BASOPHILS % (AUTO) 0.9 % (0.2-1.0); EOSINOPHILS # (AUTO) 0.1 x10^3/uL (0.0-0.2); EOSINOPHILS % (AUTO) 5.7 % (0.9-2.9); HEMATOCRIT 24.2 % (36.0-47.0); HEMOGLOBIN 7.6 g/dL (12.0-16.0); LYMPHOCYTES # (AUTO) 0.5 X10^3/uL (1.3-2.9); LYMPHOCYTES % (AUTO) 24.6 % (21.0-51.0); MEAN CORPUSCULAR HEMOGLOBIN 25.5 pg (27.0-34.0); MEAN CORPUSCULAR HGB CONC 31.2 g/dL (33.0-35.0); MEAN CORPUSCULAR VOLUME 81.8 fL (80.0-100.0); MEAN PLATELET VOLUME 9.2 fL (7.4-11.0); MONOCYTES # (AUTO) 0.2 x10^3/uL (0.3-0.8); MONOCYTES % (AUTO) 8.9 % (0.0-13.0); NEUTROPHILS # (AUTO) 1.3 x10^3/uL (2.2-4.8); NEUTROPHILS % (AUTO) 59.9 % (42.0-75.0); PLATELET COUNT 58 X10^3/uL (150.0-450.0); RED BLOOD COUNT 2.96 X10^6/uL (3.5-5.4); RED CELL DISTRIBUTION WIDTH 21.1 % (11.6-16.5); WHITE BLOOD COUNT 2.1 X10^3/uL (3.6-10.0)
[2021-03-24 05:03] LABS: ALBUMIN 2.6 g/dL (3.4-5.0); CALCIUM 8.4 mg/dL (8.5-10.1); CARBON DIOXIDE 27.8 mmol/L (21-32); COR CA(FOR HYPOALB) 9.5 mg/dL (8.5-10.1); CREATININE 1.74 mg/dL (0.55-1.02); TOTAL PROTEIN 5.5 g/dL (6.4-8.2)
[2021-03-24 05:12] LABS: HYPOCHROMASIA SLIGHT; MICROCYTOSIS 1+; PLATELET MORPHOLOGY COMMENT NORMAL (NORMAL)
[2021-03-24 05:13] LABS: ANISOCYTOSIS 1+
[2021-03-24] MEDS: ZOFRAN INJ 4 MG VIAL IVP PRN ×2 (07:55→17:23)
[2021-03-24] MEDS ORDERED: LEXAPRO ONE (08:06)
[2021-03-24] MEDS: DIFLUCAN 200 MG IV PREMIX* 100 MG/50 ML BAG IV SCH (08:15)
[2021-03-24] MEDS: PROTONIX INJ 40 MG VIAL IVP SCH ×2 (08:15→20:24)
[2021-03-24] MEDS: PEPCID 20 MG IV PREMIX* 20 MG/50 ML BAG IV SCH (08:15)
[2021-03-24] MEDS: ROCEPHIN 1 GRAM IV PREMIX 1 G/50 ML IV.SOLN. IV SCH (08:15)
[2021-03-24] MEDS: JANUVIA PO SCH (08:16)
[2021-03-24] MEDS: LEXAPRO PO SCH (08:16)
[2021-03-24] MEDS: COREG TAB 3.125 MG PO SCH ×2 (08:16→20:23)
[2021-03-24] MEDS: ALDACTONE TAB 25 MG PO SCH (08:17)
[2021-03-24] MEDS: ALBUMIN HUMAN 25%- 100 ML 100 ML IV SCH (08:40)
[2021-03-24] MEDS: LASIX IVP SCH ×2 (09:53→17:48)
[2021-03-24] MEDS: ZYVOX 600MG IV 600 MG/300 ML BAG IV SCH ×2 (10:10→20:24)
[2021-03-24] MEDS: D5 1/2 NS 1000 ML 1,000 ML IV SCH ×2 (10:10→23:45)
--- NOTE | 2021-03-24 10:23 | PCM.PROG ---
Progress Note Progress Note for Day of Date of Exam: 03/24/21 Subjective Subjective: Patient seen at bedside, no acute events overnight. Patient states she feels sick to her stomach this morning. She did eat a little bit of breakfast. She is currently being treated for UTI, ascites due to cirrhosis. She reports epigastric abdominal pain. Denies vomiting or diarrhea, BM yesterday. Patient reports some cough. Labs: WBC 2.1 Hgb 7.6 Plt 58 Na: 148 Cl 112 BUN/Cr: 24/1.74 Glucose 130 CTAP: cirrhosis, moderate volume ascites CXR: negative Urine Cx: enterococcus faecium Plan: Will switch Rocephin to Zyvox. Patient is allergic to PCNs. Add D51/2NS at 50 cc/hr. Continue albumin, lasix and aldactone. Continue IV pantoprazole. Will add Carafate TIDWM. Continue home medications. Monitor H/H. Will add duonebs prn. CM to discuss options with family, they had mentioned placing patient in correction. Monitor AM labs and imaging. Past Medical Family Social History Past Med/Fam/Surg Hx: No changes since H&P Allergies: Allergies Penicillins Adverse Reaction (Verified 10/09/20 13:08) Sulfa (Sulfonamide Antibiotics) Adverse Reaction (Verified 10/09/20 13:08) Review of Systems ROS: No change since H&P Vital Signs and I&O's Vital Signs: Temperature 98.3 F Pulse Rate [Right Brachial] 67 Pulse Rate 70 Respiratory Rate 20 Blood Pressure [Right Arm] 176/74 Blood Pressure [Left Arm] 149/68 Blood Pressure 186/73 O2 Sat by Pulse Oximetry 96 Intake and Output: Intake & Output 03/21/21 03/22/21 03/23/21 03/24/21 23:59 23:59 23:59 23:59 Intake Total 813 / 813 4168 / 4168 2032 410 / 410 Balance 813 / 813 4168 / 4168 2032 410 / 410 Physical Exam Oriented: Normal Eyes: Normal Ear: Normal Nose: Normal Throat: Normal Respiratory: Generalized and Diminished Cardiovascular: Normal and Edema (BLE 2+ PITTING EDEMA) Auscultation: Bowel Sounds: Normal Tenderness: Epigastric, Mild and Other (ABDOMINAL DISTENTION ) Skin: Decreased [place] Musculoskeletal: Normal Psychiatric: Normal Mood Description: Calm Affect: Normal Speech Pattern: Clear and Appropriate Laboratory and Diagnostics Result Diagrams: 03/24/21 04:10 03/24/21 04:10 Labs: 03/21/21 16:30 Urine,Catheterized Urine Culture - Final Enterococcus Faecium Laboratory WBC 2.1 X10^3/uL (3.6-10.0) L 03/24/21 04:10 RBC 2.96 X10^6/uL (3.5-5.4) L 03/24/21 04:10 Hgb 7.6 g/dL (12.0-16.0) L 03/24/21 04:10 Hct 24.2 % (36.0-47.0) L 03/24/21 04:10 MCV 81.8 fL (80.0-100.0) 03/24/21 04:10 MCH 25.5 pg (27.0-34.0) L 03/24/21 04:10 MCHC 31.2 g/dL (33.0-35.0) L 03/24/21 04:10 RDW 21.1 % (11.6-16.5) H 03/24/21 04:10 Plt Count 58 X10^3/uL (150.0-450.0) L 03/24/21 04:10 Plt Count Comment Decreased (ADEQUATE) A 03/24/21 04:10 MPV 9.2 fL (7.4-11.0) 03/24/21 04:10 Neut % (Auto) 59.9 % (42.0-75.0) 03/24/21 04:10 Lymph % (Auto) 24.6 % (21.0-51.0) 03/24/21 04:10 [place] % (Auto) 8.9 % (0.0-13.0) 03/24/21 04:10 Eos % (Auto) 5.7 % (0.9-2.9) H 03/24/21 04:10 Baso % (Auto) 0.9 % (0.2-1.0) 03/24/21 04:10 Neut # (Auto) 1.3 x10^3/uL (2.2-4.8) L 03/24/21 04:10 Lymph # (Auto) 0.5 X10^3/uL (1.3-2.9) L 03/24/21 04:10 [place] # (Auto) 0.2 x10^3/uL (0.3-0.8) L 03/24/21 04:10 Eos # (Auto) 0.1 x10^3/uL (0.0-0.2) 03/24/21 04:10 Baso # (Auto) 0.0 X10^3/uL (0.0-0.1) 03/24/21 04:10 Absolute Nucleated RBC 0.6 /100WBC 03/24/21 04:10 Total Counted 25 03/24/21 04:10 Neutrophils % (Manual) 64 % (39-76) 03/24/21 04:10 Lymphocytes % (Manual) 28 % (13-43) 03/24/21 04:10 Eosinophils % (Manual) 8 % (0-6) H 03/24/21 04:10 Plt Morphology Comment Normal (NORMAL) 03/24/21 04:10 RBC Morphology Abnormal (NORMAL) A 03/24/21 04:10 Hypochromasia Slight A 03/24/21 04:10 Poikilocytosis Slight A 03/21/21 16:20 Anisocytosis 1+ A 03/24/21 04:10 Microcytosis 1+ A 03/24/21 04:10 Sodium 147 mmol/L (136-145) H 03/24/21 04:10 Corrected Sodium 148 mmol/L (136-145) H 03/24/21 04:10 Potassium 4.2 mmol/L (3.5-5.1) 03/24/21 04:10 Chloride 112 mmol/L (98-107) H 03/24/21 04:10 Carbon Dioxide 27.8 mmol/L (21-32) 03/24/21 04:10 BUN 24 mg/dL (7-18) H 03/24/21 04:10 Creatinine 1.74 mg/dL (0.55-1.02) H 03/24/21 04:10 Est GFR (MDRD) Af Amer 36 (>60) L 03/24/21 04:10 Est GFR (MDRD) Non-Af 29 (>60) L 03/24/21 04:10 Glucose 130 mg/dL (65-99) H 03/24/21 04:10 POC Glucose (mg/dL) 139 mg/dL (65-99) H 03/23/21 19:47 Calcium 8.4 mg/dL (8.5-10.1) L 03/24/21 04:10 Corrected Calcium 9.5 mg/dL (8.5-10.1) 03/24/21 04:10 Magnesium 2.1 mg/dL (1.7-2.9) 03/21/21 16:20 Total Bilirubin 0.70 mg/dL (0.2-1.0) 03/24/21 04:10 AST 39 Units/L (15-37) H 03/24/21 04:10 ALT 34 Units/L (12-78) 03/24/21 04:10 Alkaline Phosphatase 74 Units/L (46-116) 03/24/21 04:10 Ammonia 31 umol/L (11-32) 03/22/21 09:10 Troponin I < 0.02 ng/mL (0-1.5) 03/21/21 16:20 Total Protein 5.5 g/dL (6.4-8.2) L 03/24/21 04:10 Albumin 2.6 g/dL (3.4-5.0) L 03/24/21 04:10 Globulin 2.9 g/dL (2.5-4.5) 03/24/21 04:10 Albumin/Globulin Ratio 0.9 Ratio (1.1-2.1) L 03/24/21 04:10 Lipase 187 Units/L (73-393) 03/21/21 16:20 Specimen Type Catherized urine 03/21/21 16:30 Urine Color Yellow (YELLOW) 03/21/21 16:30 Urine Appearance Cloudy (CLEAR) 03/21/21 16:30 Urine pH 5.0 (5.0 - 8.0) 03/21/21 16:30 Ur Specific [place] 1.015 (1.000-1.030) 03/21/21 16:30 Urine Protein 3+ (NEGATIVE) 03/21/21 16:30 Urine Glucose (UA) Negative (NEGATIVE) 03/21/21 16:30 Urine Ketones Negative (NEGATIVE) 03/21/21 16:30 Urine Occult Blood 2+ (NEGATIVE) 03/21/21 16:30 Urine Nitrite Negative (NEGATIVE) 03/21/21 16:30 Urine Bilirubin Negative (NEGATIVE) 03/21/21 16:30 Urine Urobilinogen Normal (NORMAL) 03/21/21 16:30 Ur Leukocyte Esterase 2+ (NEGATIVE) 03/21/21 16:30 Urine RBC 10-20 /HPF (0-3) A 03/21/21 16:30 Urine WBC 20-30 /HPF (0-5) A 03/21/21 16:30 Ur Squamous Epith Cells Moderate /HPF (NEGATIVE) 03/21/21 16:30 Amorphous Sediment 1+ /HPF (NEGATIVE) 03/21/21 16:30 Urine Bacteria 1+ /HPF (NEGATIVE) 03/21/21 16:30 Urine Yeast Moderate /HPF (NEGATIVE) 03/21/21 16:30 Ur Culture Indicated? Yes/culture set up 03/21/21 16:30 SARS CoV-2 RNA Rapid YOCASTA Negative (NEGATIVE) 03/21/21 17:53 Plan (1) Acute UTI: Status: Acute Plan: ADMIT, NORMAL SALINE AT 75ML/HR, ROCEPHIN 1G IV DAILY, DIFLUCAN 100MG IV DAILY, ALBUMIN 25% IV DAILY, LASIX 20MG IV BID, ALDACTONE 25MG IV DAILY, PEPCID 20MG IV DAILY, PROTONIX 40MG IV BID, HUMULIN R SLIDING SCALE, OTBS ACHS, POTASSIUM AND MAGNESIUM SLIDING SCALES, AND HER HOME MEDICATIONS WERE RESU MED (2) Nausea and vomiting: Status: Acute Qualifiers: Vomiting Intractability: intractable Vomiting type: unspecified Qualified Code(s): R11.2 - Nausea with vomiting, unspecified (3) AMS (altered mental status): Status: Acute Qualifiers: Altered mental status type: delirium Qualified Code(s): R41.0 - Disorientation, unspecified (4) Thrombocytopenia: Status: Chronic (5) CHF (congestive heart failure): Status: Chronic Qualifiers: Heart failure chronicity: chronic Heart failure type: unspecified Qualified Code(s): I50.9 - Heart failure, unspecified (6) CAD (coronary artery disease): Status: Chronic Qualifiers: Associated angina: unspecified whether angina present Coronary Disease-Associated Artery/Lesion type: bypass graft [place] vs. transplanted heart: [place] heart Qualified Code(s): I25.810 - Atherosclerosis of coronary artery bypass graft(s) without angina pectoris (7) Hypertension: Status: Chronic Qualifiers: Hypertension type: essential hypertension Qualified Code(s): I10 - Essential (primary) hypertension (8) Diabetes mellitus: Status: Chronic Qualifiers: Diabetes mellitus complication status: with other specified complication Diabetes mellitus terminal operations supervisor insulin use: with terminal operations supervisor use Diabetes mellitus type: type 2 Qualified Code(s): E11.69 - Type 2 diabetes mellitus with other specified complication; Z79.4 - terminal press operator (current) use of insulin (9) Cirrhosis: Status: Chronic Qualifiers: Ascites presence: without ascites Hepatic cirrhosis type: unspecified hepatic cirrhosis Qualified Code(s): K74.60 - Unspecified cirrhosis of liver (10) Right sided weakness: Status: Chronic (11) CVA (cerebral vascular accident): Status: Chronic Qualifiers: CVA mechanism: unspecified Qualified Code(s): I63.9 - Cerebral infarction, unspecified (12) Hx of CABG: Status: Chronic (13) Anemia: Status: Chronic Qualifiers: Anemia type: unspecified type Qualified Code(s): D64.9 - Anemia, unspecified (14) Erosive gastritis: Status: Chronic (15) AVM (arteriovenous malformation): Status: Acute
[2021-03-24] MEDS: CARAFATE PO SCH ×3 (10:45→20:23)
[2021-03-24 17:54] LABS: GIARDIA LAMBLIA ANTIGEN POSITIVE (NEGATIVE)
[2021-03-24 17:55] LABS: CRYPTOSPORIDIUM PARVUM ANTIGEN POSITIVE (NEGATIVE)
[2021-03-24] MEDS ORDERED: PHARMACY CONSULT - VANCOMYCIN XX SCH (18:00)
[2021-03-24] MEDS: SNACK - Diabetic Appropriate PO SCH (20:07)
[2021-03-24] MEDS: LIPITOR TAB 20 MG PO SCH (20:23)
[2021-03-24] MEDS: VANCOMYCIN HCL 250 MG CAP PO SCH (20:24)
[2021-03-24] MEDS: DUONEB 0.5 MG/3 MG (3 mL) NEB SCH (21:32)
[2021-03-25] MEDS: VANCOMYCIN HCL 250 MG CAP PO SCH ×4 (03:10→20:49)
[2021-03-25 05:19] LABS: BASOPHILS % (AUTO) 0.7 % (0.2-1.0); EOSINOPHILS # (AUTO) 0.2 x10^3/uL (0.0-0.2); EOSINOPHILS % (AUTO) 6.4 % (0.9-2.9); HEMOGLOBIN 7.8 g/dL (12.0-16.0); LYMPHOCYTES # (AUTO) 0.5 X10^3/uL (1.3-2.9); LYMPHOCYTES % (AUTO) 22.7 % (21.0-51.0); MEAN CORPUSCULAR HEMOGLOBIN 25.7 pg (27.0-34.0); MEAN CORPUSCULAR HGB CONC 31.3 g/dL (33.0-35.0); MEAN CORPUSCULAR VOLUME 82.2 fL (80.0-100.0); MEAN PLATELET VOLUME 9.6 fL (7.4-11.0); MONOCYTES # (AUTO) 0.2 x10^3/uL (0.3-0.8); MONOCYTES % (AUTO) 8.2 % (0.0-13.0); NEUTROPHILS # (AUTO) 1.5 x10^3/uL (2.2-4.8); PLATELET COUNT 58 X10^3/uL (150.0-450.0); RED BLOOD COUNT 3.04 X10^6/uL (3.5-5.4); RED CELL DISTRIBUTION WIDTH 21.6 % (11.6-16.5); WHITE BLOOD COUNT 2.3 X10^3/uL (3.6-10.0)
[2021-03-25] MEDS: CARAFATE PO SCH ×4 (05:36→20:47)
[2021-03-25 05:39] LABS: ALBUMIN 2.7 g/dL (3.4-5.0); CALCIUM 8.3 mg/dL (8.5-10.1); CARBON DIOXIDE 30.3 mmol/L (21-32); COR CA(FOR HYPOALB) 9.3 mg/dL (8.5-10.1); CREATININE 1.73 mg/dL (0.55-1.02); TOTAL PROTEIN 5.5 g/dL (6.4-8.2)
[2021-03-25 06:08] LABS: ANISOCYTOSIS 1+; PLATELET MORPHOLOGY COMMENT NORMAL (NORMAL)
[2021-03-25] MEDS ORDERED: LEXAPRO ONE (08:03)
[2021-03-25] MEDS: PROTONIX INJ 40 MG VIAL IVP SCH ×2 (08:14→20:48)
[2021-03-25] MEDS: ALDACTONE TAB 25 MG PO SCH (08:15)
[2021-03-25] MEDS: JANUVIA PO SCH (08:15)
[2021-03-25] MEDS: ALBUMIN HUMAN 25%- 100 ML 100 ML IV SCH (08:17)
[2021-03-25] MEDS: LEXAPRO PO SCH (08:17)
[2021-03-25] MEDS: PEPCID 20 MG IV PREMIX* 20 MG/50 ML BAG IV SCH (08:17)
[2021-03-25] MEDS: ZYVOX 600MG IV 600 MG/300 ML BAG IV SCH ×2 (08:17→20:49)
[2021-03-25] MEDS: COREG TAB 3.125 MG PO SCH ×2 (08:17→20:48)
[2021-03-25] MEDS: DIFLUCAN 100 MG IV (MIX by PHARMACY)* 100 MG/50 ML BAG IV SCH (08:47)
[2021-03-25] MEDS: LASIX IVP SCH ×2 (08:47→16:17)
[2021-03-25] MEDS: DUONEB 0.5 MG/3 MG (3 mL) NEB SCH ×2 (08:55→21:30)
--- NOTE | 2021-03-25 11:11 | PCM.PROG ---
Progress Note - Progress Note for Day of Date of Exam: 03/25/21 - Subjective Subjective: WAS ADMITTED FOR TREATMENT OF ACUTE UTI, ABDOMINAL PAIN, ASCUTES, NAUSEA AND VOMITING, AMS, THROMBOCYTOPENIA, AND ANEMIA. SHE HAS A HX OF CHF, CAD, HTN, DM II, CIRRHOSIS, CVA WITH RIGHT SIDED WEAKNESS. OVER THE WEEKEND, SHE REPORTED DIARRHEA. STOOL STUDIES WERE COLLECTED AND REVEALED THAT SHE WAS POSITIVE FOR C-DIFF, OCCULT BLOOD, CRYPTOSPORID PARVUM, AND GIARDIA LAMBLIA. URINE CULTURE REVEALED GROWTH OF ENTEROCOCCUS FAECIUM. TODAY, SHE IS SITTING UP IN BED ON MORNING ROUNDS. SHE CONTINUES WITH COMPLAINTS OF DIFFUSE ABDOMINAL PAIN AND DIARRHEA. ON EXAMINATION, HEART IS REGULAR IN RATE AND RHYTHM. BILATERAL LUNGS ARE NOTED WITH DIMINISHED LUNG SOUNDS THROUGHOUT. ABDOMEN IS DISTENDED AND NOTED WITH DIFFUSE TENDERNESS TO PALPATION. HYPERACTIVE BOWEL SOUNDS NOTED. 2+ PITTING EDEMA NOTED TO BILATERAL LOWER EXTREMITIES. HER VITALS THIS MORNING ARE: 98.6-82-18-95%RA-169/69. LABS WERE OBTAINED. ABNORMAL LAB VALUES INCLUDE THE FOLLOWING? WBC 2.3, RBC 3.04, HGB 7.8, HCT 25.0, PLT COUNT 58, BUN 21, CREATININE 1.73, GLUCOSE 163, CALCIUM 8.3, TOTAL PROTEIN 5.5, ALBUMIN 2.7. STOOL CULTURE IS PENDING. SHE IS CURRENTLY RECEIVING D51/2 NORMAL SALINE AT 50 ML/HR, ZYVOX 600MG IV Q12H, VANCOMYCIN 250MG PO Q6H, DIFLUCAN 100MG IV DAILY, ALBUMIN 25% IV DAILY, LASIX 20MG IV BID, ALDACTONE 25MG IV DAILY, ZOFRAN 4MG IV Q6H PRN, CARAFATE 1G PO ACHS, PEPCID 20MG IV DAILY, PROTONIX 40MG IV BID, DUONEBS BID, HUMULIN R SLIDING SCALE, OTBS ACHS, POTASSIUM AND MAGNESIUM SLIDING SCALES, AND HER HOME MEDICATIONS WERE RESUMED. TODAY, WE WILL START FLAGYL 500 MG PO BID. OTHERWISE, WE WILL CONTINUE WITH CURRENT PLAN OF CARE TODAY. WE PLAN TO FOLLOW UP WITH AM LABS AND CONTINUE TO MONITOR. PATIENT HAS REQUESTED PLACEMENT AT [facility] BECAUSE SHE IS NO LONGER ABLE TO CARE FOR HERSELF AT HOME. WE HAVE DISCUSSED THIS WITH CASE MANAGEMENT. TIME SPENT ON CLINICAL ASSESSMENT, REVIEWING LABS AND IMAGING, DECISION MAKING, AND DOCUMENTATION GREATER THAN 45 MINUTES. - Past Medical Family Social History Past Med/Fam/Surg Hx: No changes since H&P Allergies: Allergies Penicillins Adverse Reaction (Verified 10/09/20 13:08) Sulfa (Sulfonamide Antibiotics) Adverse Reaction (Verified 10/09/20 13:08) - Review of Systems ROS: No change since H&P - Vital Signs and I&O's Vital Signs: Temperature 98.6 F Pulse Rate [Right Brachial] 82 Pulse Rate 72 Respiratory Rate 18 Blood Pressure [Right Arm] 169/69 Blood Pressure [Left Arm] 149/68 Blood Pressure 186/73 O2 Sat by Pulse Oximetry 98 Intake and Output: Intake & Output 03/22/21 03/23/21 03/24/21 03/25/21 11:59 11:59 11:59 11:59 Intake Total 2284 / 2284 3120 / 3120 2019 2405 / 2405 Balance 2284 / 2284 3120 / 3120 2019 2405 / 2405 - Physical Exam Oriented: Normal Eyes: Normal Ear: Normal Nose: Normal Throat: Normal Respiratory: Generalized, Diminished Cardiovascular: Normal, Edema (BLE 2+ PITTING EDEMA) : Normal Auscultation: Bowel Sounds: Normal Palpation: Normal Tenderness: Diffuse, Mild, Other (ABDOMINAL DISTENTION) Skin: Decreased Turgur Musculoskeletal: Normal Psychiatric: Normal Mood Description: Calm Affect: Normal Speech Pattern: Clear, Appropriate - Laboratory and Diagnostics Result Diagrams: 03/25/21 04:20 03/25/21 04:20 Labs: 03/24/21 16:15 Stool Stool Culture - Preliminary 03/24/21 16:15 Stool - Final 03/21/21 16:30 Urine,Catheterized Urine Culture - Final Enterococcus Faecium Laboratory WBC 2.3 X10^3/uL (3.6-10.0) L 03/25/21 04:20 RBC 3.04 X10^6/uL (3.5-5.4) L 03/25/21 04:20 Hgb 7.8 g/dL (12.0-16.0) L 03/25/21 04:20 Hct 25.0 % (36.0-47.0) L 03/25/21 04:20 MCV 82.2 fL (80.0-100.0) 03/25/21 04:20 MCH 25.7 pg (27.0-34.0) L 03/25/21 04:20 MCHC 31.3 g/dL (33.0-35.0) L 03/25/21 04:20 RDW 21.6 % (11.6-16.5) H 03/25/21 04:20 Plt Count 58 X10^3/uL (150.0-450.0) L 03/25/21 04:20 Plt Count Comment Decreased (ADEQUATE) A 03/25/21 04:20 MPV 9.6 fL (7.4-11.0) 03/25/21 04:20 Neut % (Auto) 62.0 % (42.0-75.0) 03/25/21 04:20 Lymph % (Auto) 22.7 % (21.0-51.0) 03/25/21 04:20 [place] % (Auto) 8.2 % (0.0-13.0) 03/25/21 04:20 Eos % (Auto) 6.4 % (0.9-2.9) H 03/25/21 04:20 Baso % (Auto) 0.7 % (0.2-1.0) 03/25/21 04:20 Neut # (Auto) 1.5 x10^3/uL (2.2-4.8) L 03/25/21 04:20 Lymph # (Auto) 0.5 X10^3/uL (1.3-2.9) L 03/25/21 04:20 [place] # (Auto) 0.2 x10^3/uL (0.3-0.8) L 03/25/21 04:20 Eos # (Auto) 0.2 x10^3/uL (0.0-0.2) 03/25/21 04:20 Baso # (Auto) 0.0 X10^3/uL (0.0-0.1) 03/25/21 04:20 Absolute Nucleated RBC 0.0 /100WBC 03/25/21 04:20 Total Counted 25 03/25/21 04:20 Neutrophils % (Manual) 69 % (39-76) 03/25/21 04:20 Lymphocytes % (Manual) 27 % (13-43) 03/25/21 04:20 Monocytes % (Manual) 4 % (4-9) 03/25/21 04:20 Eosinophils % (Manual) 8 % (0-6) H 03/24/21 04:10 Plt Morphology Comment Normal (NORMAL) 03/25/21 04:20 RBC Morphology Abnormal (NORMAL) A 03/25/21 04:20 Hypochromasia Slight A 03/24/21 04:10 Poikilocytosis Slight A 03/21/21 16:20 Anisocytosis 1+ A 03/25/21 04:20 Microcytosis 1+ A 03/24/21 04:10 Macrocytosis Slight A 03/25/21 04:20 Sodium 143 mmol/L (136-145) 03/25/21 04:20 Corrected Sodium 145 mmol/L (136-145) 03/25/21 04:20 Potassium 3.6 mmol/L (3.5-5.1) 03/25/21 04:20 Chloride 107 mmol/L (98-107) 03/25/21 04:20 Carbon Dioxide 30.3 mmol/L (21-32) 03/25/21 04:20 BUN 21 mg/dL (7-18) H 03/25/21 04:20 Creatinine 1.73 mg/dL (0.55-1.02) H 03/25/21 04:20 Est GFR (MDRD) Af Amer 36 (>60) L 03/25/21 04:20 Est GFR (MDRD) Non-Af 30 (>60) L 03/25/21 04:20 Glucose 163 mg/dL (65-99) H 03/25/21 04:20 POC Glucose (mg/dL) 231 mg/dL (65-99) H 03/25/21 10:59 Calcium 8.3 mg/dL (8.5-10.1) L 03/25/21 04:20 Corrected Calcium 9.3 mg/dL (8.5-10.1) 03/25/21 04:20 Magnesium 2.1 mg/dL (1.7-2.9) 03/21/21 16:20 Total Bilirubin 1.00 mg/dL (0.2-1.0) 03/25/21 04:20 AST 23 Units/L (15-37) 03/25/21 04:20 ALT 26 Units/L (12-78) 03/25/21 04:20 Alkaline Phosphatase 75 Units/L (46-116) 03/25/21 04:20 Ammonia 31 umol/L (11-32) 03/22/21 09:10 Troponin I < 0.02 ng/mL (0-1.5) 03/21/21 16:20 Total Protein 5.5 g/dL (6.4-8.2) L 03/25/21 04:20 Albumin 2.7 g/dL (3.4-5.0) L 03/25/21 04:20 Globulin 2.8 g/dL (2.5-4.5) 03/25/21 04:20 Albumin/Globulin Ratio 1.0 Ratio (1.1-2.1) L 03/25/21 04:20 Lipase 187 Units/L (73-393) 03/21/21 16:20 Specimen Type Catherized urine 03/21/21 16:30 Urine Color Yellow (YELLOW) 03/21/21 16:30 Urine Appearance Cloudy (CLEAR) 03/21/21 16:30 Urine pH 5.0 (5.0 - 8.0) 03/21/21 16:30 Ur Specific [place] 1.015 (1.000-1.030) 03/21/21 16:30 Urine Protein 3+ (NEGATIVE) 03/21/21 16:30 Urine Glucose (UA) Negative (NEGATIVE) 03/21/21 16:30 Urine Ketones Negative (NEGATIVE) 03/21/21 16:30 Urine Occult Blood 2+ (NEGATIVE) 03/21/21 16:30 Urine Nitrite Negative (NEGATIVE) 03/21/21 16:30 Urine Bilirubin Negative (NEGATIVE) 03/21/21 16:30 Urine Urobilinogen Normal (NORMAL) 03/21/21 16:30 Ur Leukocyte Esterase 2+ (NEGATIVE) 03/21/21 16:30 Urine RBC 10-20 /HPF (0-3) A 03/21/21 16:30 Urine WBC 20-30 /HPF (0-5) A 03/21/21 16:30 Ur Squamous Epith Cells Moderate /HPF (NEGATIVE) 03/21/21 16:30 Amorphous Sediment 1+ /HPF (NEGATIVE) 03/21/21 16:30 Urine Bacteria 1+ /HPF (NEGATIVE) 03/21/21 16:30 Urine Yeast Moderate /HPF (NEGATIVE) 03/21/21 16:30 Ur Culture Indicated? Yes/culture set up 03/21/21 16:30 Stool Description 100g soft dk brown 03/24/21 16:15 Stool Description 100g soft dk brown 03/24/21 16:15 Stl Occult Blood (IFOB) Positive (NEGATIVE) A 03/24/21 16:15 Stool for White Cells Positive (NEGATIVE) A 03/24/21 16:15 Stl C. diff Tox B Gene Positive (NEGATIVE) A 03/24/21 16:15 Stl C. diff [id number] Presumptive negative (NEGATIVE) 03/24/21 16:15 C. difficile Toxin A&B Positive (NEGATIVE) A 03/24/21 16:15 Cryptosporid parvum Ag Positive (NEGATIVE) A 03/24/21 16:15 Giardia lamblia Ag Positive (NEGATIVE) A 03/24/21 16:15 SARS CoV-2 RNA Rapid YOCASTA Negative (NEGATIVE) 03/21/21 17:53 - Plan (1) Acute UTI Status: Acute Plan: D51/2 NORMAL SALINE AT 50 ML/HR, ZYVOX 600MG IV Q12H, VANCOMYCIN 250MG PO Q6H, DIFLUCAN 100MG IV DAILY, ALBUMIN 25% IV DAILY, LASIX 20MG IV BID, ALDACTONE 25MG IV DAILY, ZOFRAN 4MG IV Q6H PRN, CARAFATE 1G PO ACHS, PEPCID 20MG IV DAILY, PROTONIX 40MG IV BID, FLAGYL 500MG PO Q6H, DUONEBS BID, HUMULIN R SLIDING SCALE, OTBS ACHS, POTASSIUM AND MAGNESIUM SLIDING SCALES, AND HER HOME MEDICATIONS WERE RESUMED. (2) Nausea and vomiting Status: Acute Qualifiers: Vomiting type: unspecified Vomiting Intractability: intractable Qualified Code(s): R11.2 - Nausea with vomiting, unspecified (3) AMS (altered mental status) Status: Acute Qualifiers: Altered mental status type: delirium Qualified Code(s): R41.0 - Disorientation, unspecified (4) Thrombocytopenia Status: Chronic (5) CHF (congestive heart failure) Status: Chronic Qualifiers: Heart failure type: unspecified Heart failure chronicity: chronic Qualified Code(s): I50.9 - Heart failure, unspecified (6) CAD (coronary artery disease) Status: Chronic Qualifiers: Coronary Disease-Associated Artery/Lesion type: bypass graft [place] vs. transplanted heart: [place] heart Associated angina: unspecified whether angina present Qualified Code(s): I25.810 - Atherosclerosis of coronary artery bypass graft(s) without angina pectoris (7) Hypertension Status: Chronic Qualifiers: Hypertension type: essential hypertension Qualified Code(s): I10 - Essential (primary) hypertension (8) Diabetes mellitus Status: Chronic Qualifiers: Diabetes mellitus type: type 2 Diabetes mellitus needlemaker insulin use: with chcf use Diabetes mellitus complication status: with other specified complication Qualified Code(s): E11.69 - Type 2 diabetes mellitus with other specified complication; Z79.4 - alf (current) use of insulin (9) Cirrhosis Status: Chronic Qualifiers: Hepatic cirrhosis type: unspecified hepatic cirrhosis Ascites presence: without ascites Qualified Code(s): K74.60 - Unspecified cirrhosis of liver (10) Right sided weakness Status: Chronic (11) CVA (cerebral vascular accident) Status: Chronic Qualifiers: CVA mechanism: unspecified Qualified Code(s): I63.9 - Cerebral infarction, unspecified (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
[2021-03-25] MEDS: HumuLIN R SUBCUT PRN (11:13)
[2021-03-25] MEDS: FLAGYL TAB 500 MG PO SCH ×2 (11:14→20:48)
[2021-03-25] MEDS: D5 1/2 NS 1000 ML 1,000 ML IV SCH (11:45)
[2021-03-25] MEDS: SNACK - Diabetic Appropriate PO SCH (20:11)
[2021-03-25] MEDS: LIPITOR TAB 20 MG PO SCH (20:48)
[2021-03-26] MEDS: D5 1/2 NS 1000 ML 1,000 ML IV SCH ×2 (00:52→14:10)
[2021-03-26] MEDS: VANCOMYCIN HCL 250 MG CAP PO SCH ×4 (03:09→20:49)
[2021-03-26] MEDS: CARAFATE PO SCH ×4 (05:37→20:49)
[2021-03-26 06:03] LABS: BASOPHILS % (AUTO) 0.5 % (0.2-1.0); EOSINOPHILS # (AUTO) 0.1 x10^3/uL (0.0-0.2); EOSINOPHILS % (AUTO) 6.2 % (0.9-2.9); HEMATOCRIT 24.4 % (36.0-47.0); HEMOGLOBIN 7.8 g/dL (12.0-16.0); LYMPHOCYTES # (AUTO) 0.5 X10^3/uL (1.3-2.9); LYMPHOCYTES % (AUTO) 21.6 % (21.0-51.0); MEAN CORPUSCULAR HEMOGLOBIN 26.2 pg (27.0-34.0); MEAN CORPUSCULAR VOLUME 81.8 fL (80.0-100.0); MONOCYTES # (AUTO) 0.2 x10^3/uL (0.3-0.8); MONOCYTES % (AUTO) 9.2 % (0.0-13.0); NEUTROPHILS # (AUTO) 1.4 x10^3/uL (2.2-4.8); NEUTROPHILS % (AUTO) 62.5 % (42.0-75.0); PLATELET COUNT 53 X10^3/uL (150.0-450.0); RED BLOOD COUNT 2.98 X10^6/uL (3.5-5.4); RED CELL DISTRIBUTION WIDTH 21.8 % (11.6-16.5); WHITE BLOOD COUNT 2.3 X10^3/uL (3.6-10.0)
[2021-03-26 06:52] LABS: ALBUMIN 2.8 g/dL (3.4-5.0); CALCIUM 8.4 mg/dL (8.5-10.1); COR CA(FOR HYPOALB) 9.4 mg/dL (8.5-10.1); CREATININE 1.77 mg/dL (0.55-1.02); TOTAL PROTEIN 5.4 g/dL (6.4-8.2)
[2021-03-26 06:53] LABS: ANISOCYTOSIS 1+; PLATELET MORPHOLOGY COMMENT NORMAL (NORMAL)
[2021-03-26] MEDS ORDERED: LEXAPRO ONE (08:14)
[2021-03-26] MEDS: ZYVOX 600MG IV 600 MG/300 ML BAG IV SCH ×2 (08:36→21:23)
[2021-03-26] MEDS: DIFLUCAN 100 MG IV (MIX by PHARMACY)* 100 MG/50 ML BAG IV SCH (08:36)
[2021-03-26] MEDS: ALBUMIN HUMAN 25%- 100 ML 100 ML IV SCH (08:37)
[2021-03-26] MEDS: PROTONIX INJ 40 MG VIAL IVP SCH ×2 (08:37→20:50)
[2021-03-26] MEDS: PEPCID 20 MG IV PREMIX* 20 MG/50 ML BAG IV SCH (08:37)
[2021-03-26] MEDS: LEXAPRO PO SCH (08:38)
[2021-03-26] MEDS: JANUVIA PO SCH (08:38)
[2021-03-26] MEDS: FLAGYL TAB 500 MG PO SCH (08:38)
[2021-03-26] MEDS: COREG TAB 3.125 MG PO SCH ×2 (08:39→20:49)
[2021-03-26] MEDS: ALDACTONE TAB 25 MG PO SCH (08:40)
[2021-03-26] MEDS: DUONEB 0.5 MG/3 MG (3 mL) NEB SCH ×2 (09:32→20:30)
--- NOTE | 2021-03-26 10:48 | RAD ---
HISTORYABDOMINAL PAINSTUDYKUB x-ray abdomen one viewCOMPARISONCT 03/21/2021FINDINGSMild small and large bowel air is seen without bowel dilation. No constipation is seen. Likely phleboliths are seen in the pelvis as suggested on CT. Other vascular calcifications are seen in the abdomen.IMPRESSIONNo acute abnormality is seen.Electronically signed by: Charli Calles (March 26, 2021 10:45:52)
[2021-03-26 11:36] LABS: MICROCYTOSIS SLIGHT
--- NOTE | 2021-03-26 11:54 | PCM.PROG ---
Progress Note - Progress Note for Day of Date of Exam: 03/26/21 - Subjective Subjective: WAS ADMITTED FOR TREATMENT OF ACUTE UTI, ABDOMINAL PAIN, ASCUTES, NAUSEA AND VOMITING, AMS, THROMBOCYTOPENIA, AND ANEMIA. SHE HAS A HX OF CHF, CAD, HTN, DM II, CIRRHOSIS, CVA WITH RIGHT SIDED WEAKNESS. OVER THE WEEKEND, SHE REPORTED DIARRHEA. STOOL STUDIES WERE COLLECTED AND REVEALED THAT SHE WAS POSITIVE FOR C-DIFF, OCCULT BLOOD, CRYPTOSPORID PARVUM, AND GIARDIA LAMBLIA. URINE CULTURE REVEALED GROWTH OF ENTEROCOCCUS FAECIUM. TODAY, SHE IS LYING IN BED ON MORNING ROUNDS. SHE CONTINUES WITH COMPLAINTS OF DIFFUSE ABDOMINAL PAIN AND DIARRHEA. SHE ALSO REPORTS NAUSEA AFTER EATING. ON EXAMINATION, HEART IS REGULAR IN RATE AND RHYTHM. BILATERAL LUNGS ARE NOTED WITH DIMINISHED LUNG SOUNDS THROUGHOUT. ABDOMEN IS DISTENDED AND NOTED WITH DIFFUSE TENDERNESS TO PALPATION. HYPERACTIVE BOWEL SOUNDS NOTED. 1+ PITTING EDEMA NOTED TO BILATERAL LOWER EXTREMITIES. HER VITALS THIS MORNING ARE: 98.2-68-20-97%-168/67. LABS WERE OBTAINED. ABNORMAL LAB VALUES INCLUDE THE FOLLOWING: WBC 2.3, RBC 2.98, HGB 7.8, HCT 24.4, PLT COUNT 53, BUN 19, CREATININE 1.77, GLUCOSE 173, CALCIUM 8.4, TOTAL PROTEIN 5.4, ALBUMIN 2.8. STOOL CULTURE IS PENDING. SHE IS CURRENTLY RECEIVING D51/2 NORMAL SALINE AT 50 ML/HR, ZYVOX 600MG IV Q12H, VANCOMYCIN 250MG PO Q6H, FLAGYL 500MG PO BID, DIFLUCAN 100MG IV DAILY, ALBUMIN 25% IV DAILY, LASIX 20MG IV BID, ALDACTONE 25MG IV DAILY, ZOFRAN 4MG IV Q6H PRN, CARAFATE 1G PO ACHS, PEPCID 20MG IV DAILY, PROTONIX 40MG IV BID, DUONEBS BID, HUMULIN R SLIDING SCALE, OTBS ACHS, POTASSIUM AND MAGNESIUM SLIDING SCALES, AND HER HOME MEDICATIONS WERE RESUMED. TODAY, WE WILL HOLD HER LASIX DUE TO ELEVATED CREATININE AND THE FLAGYL DUE TO INCREASED NAUSEA. OTHERWISE, WE WILL CONTINUE WITH CURRENT PLAN OF CARE TODAY. WE PLAN TO FOLLOW UP WITH AM LABS AND CONTINUE TO MONITOR. PATIENT HAS REQUESTED PLACEMENT AT [facility] BECAUSE SHE IS NO LONGER ABLE TO CARE FOR HERSELF AT HOME. WE HAVE DISCUSSED THIS WITH CASE MANAGEMENT. TIME SPENT ON CLINICAL ASSESSMENT, REVIEWING LABS AND IMAGING, DECISION MAKING, AND DOCUMENTATION GREATER THAN 45 MINUTES. - Past Medical Family Social History Past Med/Fam/Surg Hx: No changes since H&P Allergies: Allergies Penicillins Adverse Reaction (Verified 10/09/20 13:08) Sulfa (Sulfonamide Antibiotics) Adverse Reaction (Verified 10/09/20 13:08) - Review of Systems ROS: No change since H&P - Vital Signs and I&O's Vital Signs: Temperature 98.2 F Pulse Rate [Right Brachial] 68 Pulse Rate 70 Respiratory Rate 20 Blood Pressure [Right Arm] 168/67 Blood Pressure [Left Arm] 149/68 Blood Pressure 186/73 O2 Sat by Pulse Oximetry 97 Intake and Output: Intake & Output 03/23/21 03/24/21 03/25/21 03/26/21 11:59 11:59 11:59 11:59 Intake Total 3120 / 3120 2019 2405 / 2405 2462 / 2462 Balance 3120 / 3120 2019 2405 / 2405 2462 / 2462 - Physical Exam Oriented: Normal Eyes: Normal Ear: Normal Nose: Normal Throat: Normal Respiratory: Generalized, Diminished Cardiovascular: Normal, Edema (BLE 1+ PITTING EDEMA ) : Normal Auscultation: Bowel Sounds: Normal Palpation: Normal Tenderness: Diffuse, Mild, Other (ABDOMINAL DISTENTION) Skin: Decreased Turgur Musculoskeletal: Normal Psychiatric: Normal Mood Description: Calm Affect: Normal Speech Pattern: Clear, Appropriate - Laboratory and Diagnostics Result Diagrams: 03/26/21 05:18 03/26/21 05:18 Labs: 03/24/21 16:15 Stool Stool Culture - Final 03/24/21 16:15 Stool - Final 03/21/21 16:30 Urine,Catheterized Urine Culture - Final Enterococcus Faecium Laboratory WBC 2.3 X10^3/uL (3.6-10.0) L 03/26/21 05:18 RBC 2.98 X10^6/uL (3.5-5.4) L 03/26/21 05:18 Hgb 7.8 g/dL (12.0-16.0) L 03/26/21 05:18 Hct 24.4 % (36.0-47.0) L 03/26/21 05:18 MCV 81.8 fL (80.0-100.0) 03/26/21 05:18 MCH 26.2 pg (27.0-34.0) L 03/26/21 05:18 MCHC 32.0 g/dL (33.0-35.0) L 03/26/21 05:18 RDW 21.8 % (11.6-16.5) H 03/26/21 05:18 Plt Count 53 X10^3/uL (150.0-450.0) L 03/26/21 05:18 Plt Count Comment Decreased (ADEQUATE) A 03/26/21 05:18 MPV 9.0 fL (7.4-11.0) 03/26/21 05:18 Neut % (Auto) 62.5 % (42.0-75.0) 03/26/21 05:18 Lymph % (Auto) 21.6 % (21.0-51.0) 03/26/21 05:18 [place] % (Auto) 9.2 % (0.0-13.0) 03/26/21 05:18 Eos % (Auto) 6.2 % (0.9-2.9) H 03/26/21 05:18 Baso % (Auto) 0.5 % (0.2-1.0) 03/26/21 05:18 Neut # (Auto) 1.4 x10^3/uL (2.2-4.8) L 03/26/21 05:18 Lymph # (Auto) 0.5 X10^3/uL (1.3-2.9) L 03/26/21 05:18 [place] # (Auto) 0.2 x10^3/uL (0.3-0.8) L 03/26/21 05:18 Eos # (Auto) 0.1 x10^3/uL (0.0-0.2) 03/26/21 05:18 Baso # (Auto) 0.0 X10^3/uL (0.0-0.1) 03/26/21 05:18 Absolute Nucleated RBC 0.1 /100WBC 03/26/21 05:18 Total Counted 100 03/26/21 05:18 Neutrophils % (Manual) 68 % (39-76) 03/26/21 05:18 Lymphocytes % (Manual) 22 % (13-43) 03/26/21 05:18 Monocytes % (Manual) 4 % (4-9) 03/26/21 05:18 Eosinophils % (Manual) 6 % (0-6) 03/26/21 05:18 Plt Morphology Comment Normal (NORMAL) 03/26/21 05:18 RBC Morphology Abnormal (NORMAL) A 03/26/21 05:18 Hypochromasia Slight A 03/24/21 04:10 Poikilocytosis Slight A 03/21/21 16:20 Anisocytosis 1+ A 03/26/21 05:18 Microcytosis Slight A 03/25/21 04:20 Macrocytosis Computer Systems Technician 03/25/21 04:20 Sodium 144 mmol/L (136-145) 03/26/21 05:18 Corrected Sodium 146 mmol/L (136-145) H 03/26/21 05:18 Potassium 3.5 mmol/L (3.5-5.1) 03/26/21 05:18 Chloride 107 mmol/L (98-107) 03/26/21 05:18 Carbon Dioxide 30.0 mmol/L (21-32) 03/26/21 05:18 BUN 19 mg/dL (7-18) H 03/26/21 05:18 Creatinine 1.77 mg/dL (0.55-1.02) H 03/26/21 05:18 Est GFR (MDRD) Af Amer 35 (>60) L 03/26/21 05:18 Est GFR (MDRD) Non-Af 29 (>60) L 03/26/21 05:18 Glucose 173 mg/dL (65-99) H 03/26/21 05:18 POC Glucose (mg/dL) 175 mg/dL (65-99) H 03/26/21 11:45 Calcium 8.4 mg/dL (8.5-10.1) L 03/26/21 05:18 Corrected Calcium 9.4 mg/dL (8.5-10.1) 03/26/21 05:18 Magnesium 2.1 mg/dL (1.7-2.9) 03/21/21 16:20 Total Bilirubin 0.80 mg/dL (0.2-1.0) 03/26/21 05:18 AST 16 Units/L (15-37) 03/26/21 05:18 ALT 17 Units/L (12-78) 03/26/21 05:18 Alkaline Phosphatase 73 Units/L (46-116) 03/26/21 05:18 Ammonia 31 umol/L (11-32) 03/22/21 09:10 Troponin I < 0.02 ng/mL (0-1.5) 03/21/21 16:20 Total Protein 5.4 g/dL (6.4-8.2) L 03/26/21 05:18 Albumin 2.8 g/dL (3.4-5.0) L 03/26/21 05:18 Globulin 2.6 g/dL (2.5-4.5) 03/26/21 05:18 Albumin/Globulin Ratio 1.1 Ratio (1.1-2.1) 03/26/21 05:18 Lipase 187 Units/L (73-393) 03/21/21 16:20 Specimen Type Catherized urine 03/21/21 16:30 Urine Color Yellow (YELLOW) 03/21/21 16:30 Urine Appearance Cloudy (CLEAR) 03/21/21 16:30 Urine pH 5.0 (5.0 - 8.0) 03/21/21 16:30 Ur Specific [place] 1.015 (1.000-1.030) 03/21/21 16:30 Urine Protein 3+ (NEGATIVE) 03/21/21 16:30 Urine Glucose (UA) Negative (NEGATIVE) 03/21/21 16:30 Urine Ketones Negative (NEGATIVE) 03/21/21 16:30 Urine Occult Blood 2+ (NEGATIVE) 03/21/21 16:30 Urine Nitrite Negative (NEGATIVE) 03/21/21 16:30 Urine Bilirubin Negative (NEGATIVE) 03/21/21 16:30 Urine Urobilinogen Normal (NORMAL) 03/21/21 16:30 Ur Leukocyte Esterase 2+ (NEGATIVE) 03/21/21 16:30 Urine RBC 10-20 /HPF (0-3) A 03/21/21 16:30 Urine WBC 20-30 /HPF (0-5) A 03/21/21 16:30 Ur Squamous Epith Cells Moderate /HPF (NEGATIVE) 03/21/21 16:30 Amorphous Sediment 1+ /HPF (NEGATIVE) 03/21/21 16:30 Urine Bacteria 1+ /HPF (NEGATIVE) 03/21/21 16:30 Urine Yeast Moderate /HPF (NEGATIVE) 03/21/21 16:30 Ur Culture Indicated? Yes/culture set up 03/21/21 16:30 Stool Description 100g soft dk brown 03/24/21 16:15 Stool Description 100g soft dk brown 03/24/21 16:15 Stl Occult Blood (IFOB) Positive (NEGATIVE) A 03/24/21 16:15 Stool for White Cells Positive (NEGATIVE) A 03/24/21 16:15 Stl C. diff Tox B Gene Positive (NEGATIVE) A 03/24/21 16:15 Stl C. diff [id number] Presumptive negative (NEGATIVE) 03/24/21 16:15 C. difficile Toxin A&B Positive (NEGATIVE) A 03/24/21 16:15 Cryptosporid parvum Ag Positive (NEGATIVE) A 03/24/21 16:15 Giardia lamblia Ag Positive (NEGATIVE) A 03/24/21 16:15 SARS CoV-2 RNA Rapid YOCASTA Negative (NEGATIVE) 03/21/21 17:53 - Plan (1) Acute UTI Status: Acute Plan: D51/2 NORMAL SALINE AT 50 ML/HR, ZYVOX 600MG IV Q12H, VANCOMYCIN 250MG PO Q6H, DIFLUCAN 100MG IV DAILY, ALBUMIN 25% IV DAILY, ALDACTONE 25MG IV DAILY, ZOFRAN 4MG IV Q6H PRN, CARAFATE 1G PO ACHS, PEPCID 20MG IV DAILY, PROTONIX 40MG IV BID, FLAGYL 500MG PO Q6H, DUONEBS BID, HUMULIN R SLIDING SCALE, OTBS ACHS, POTASSIUM AND MAGNESIUM SLIDING SCALES, AND HER HOME MEDICATIONS WERE RESUMED. (2) Nausea and vomiting Status: Acute Qualifiers: Vomiting type: unspecified Vomiting Intractability: intractable Qualified Code(s): R11.2 - Nausea with vomiting, unspecified (3) AMS (altered mental status) Status: Acute Qualifiers: Altered mental status type: delirium Qualified Code(s): R41.0 - Dis orientation, unspecified (4) Thrombocytopenia Status: Chronic (5) CHF (congestive heart failure) Status: Chronic Qualifiers: Heart failure type: unspecified Heart failure chronicity: chronic Qualified Code(s): I50.9 - Heart failure, unspecified (6) CAD (coronary artery disease) Status: Chronic Qualifiers: Coronary Disease-Associated Artery/Lesion type: bypass graft [place] vs. transplanted heart: [place] heart Associated angina: unspecified whether angina present Qualified Code(s): I25.810 - Atherosclerosis of coronary artery bypass graft(s) without angina pectoris (7) Hypertension Status: Chronic Qualifiers: Hypertension type: essential hypertension Qualified Code(s): I10 - Essential (primary) hypertension (8) Diabetes mellitus Status: Chronic Qualifiers: Diabetes mellitus type: type 2 Diabetes mellitus senior care insulin use: with superintendent terminal use Diabetes mellitus complication status: with other specified complication Qualified Code(s): E11.69 - Type 2 diabetes mellitus with other specified complication; Z79.4 - termite control technician (current) use of insulin (9) Cirrhosis Status: Chronic Qualifiers: Hepatic cirrhosis type: unspecified hepatic cirrhosis Ascites presence: without ascites Qualified Code(s): K74.60 - Unspecified cirrhosis of liver (10) Right sided weakness Status: Chronic (11) CVA (cerebral vascular accident) Status: Chronic Qualifiers: CVA mechanism: unspecified Qualified Code(s): I63.9 - Cerebral infarction, unspecified (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
[2021-03-26] MEDS: K-DUR TAB 20 MEQ PO PRN (20:49)
[2021-03-26] MEDS: LIPITOR TAB 20 MG PO SCH (21:24)
[2021-03-26] MEDS: SNACK - Diabetic Appropriate PO SCH (21:24)
[2021-03-27] MEDS: D5 1/2 NS 1000 ML 1,000 ML IV SCH ×2 (03:50→20:50)
[2021-03-27] MEDS: VANCOMYCIN HCL 250 MG CAP PO SCH ×4 (03:50→20:49)
[2021-03-27] MEDS: CARAFATE PO SCH ×4 (05:33→20:49)
[2021-03-27 06:27] LABS: BASOPHILS % (AUTO) 0.5 % (0.2-1.0); EOSINOPHILS # (AUTO) 0.2 x10^3/uL (0.0-0.2); EOSINOPHILS % (AUTO) 6.2 % (0.9-2.9); HEMATOCRIT 23.9 % (36.0-47.0); HEMOGLOBIN 7.6 g/dL (12.0-16.0); LYMPHOCYTES # (AUTO) 0.4 X10^3/uL (1.3-2.9); LYMPHOCYTES % (AUTO) 16.7 % (21.0-51.0); MEAN CORPUSCULAR HEMOGLOBIN 26.3 pg (27.0-34.0); MEAN CORPUSCULAR HGB CONC 31.9 g/dL (33.0-35.0); MEAN CORPUSCULAR VOLUME 82.4 fL (80.0-100.0); MEAN PLATELET VOLUME 9.3 fL (7.4-11.0); MONOCYTES # (AUTO) 0.2 x10^3/uL (0.3-0.8); MONOCYTES % (AUTO) 8.6 % (0.0-13.0); NEUTROPHILS # (AUTO) 1.8 x10^3/uL (2.2-4.8); PLATELET COUNT 55 X10^3/uL (150.0-450.0); RED CELL DISTRIBUTION WIDTH 21.8 % (11.6-16.5); WHITE BLOOD COUNT 2.7 X10^3/uL (3.6-10.0)
[2021-03-27 06:58] LABS: ALBUMIN 2.8 g/dL (3.4-5.0); CALCIUM 8.2 mg/dL (8.5-10.1); CARBON DIOXIDE 29.1 mmol/L (21-32); COR CA(FOR HYPOALB) 9.2 mg/dL (8.5-10.1); CREATININE 1.63 mg/dL (0.55-1.02); TOTAL PROTEIN 5.4 g/dL (6.4-8.2)
[2021-03-27 07:08] LABS: ANISOCYTOSIS 1+; PLATELET MORPHOLOGY COMMENT NORMAL (NORMAL)
[2021-03-27] MEDS ORDERED: LEXAPRO ONE (07:52)
[2021-03-27] MEDS ORDERED: FLAGYL TAB 250 MG PO ONE (07:52)
[2021-03-27] MEDS: DIFLUCAN 100 MG IV (MIX by PHARMACY)* 100 MG/50 ML BAG IV SCH (08:37)
[2021-03-27] MEDS: ALBUMIN HUMAN 25%- 100 ML 100 ML IV SCH (08:37)
[2021-03-27] MEDS: ZYVOX 600MG IV 600 MG/300 ML BAG IV SCH ×2 (08:37→20:51)
[2021-03-27] MEDS: PEPCID 20 MG IV PREMIX* 20 MG/50 ML BAG IV SCH (08:37)
[2021-03-27] MEDS: FLAGYL TAB 250 MG PO SCH ×2 (08:38→20:50)
[2021-03-27] MEDS: ALDACTONE TAB 25 MG PO SCH (08:38)
[2021-03-27] MEDS: LEXAPRO PO SCH (08:38)
[2021-03-27] MEDS: PROTONIX INJ 40 MG VIAL IVP SCH ×2 (08:38→20:49)
[2021-03-27] MEDS: JANUVIA PO SCH (08:39)
[2021-03-27] MEDS: COREG TAB 3.125 MG PO SCH ×2 (08:39→20:49)
[2021-03-27] MEDS: DUONEB 0.5 MG/3 MG (3 mL) NEB SCH ×2 (08:48→20:21)
--- NOTE | 2021-03-27 13:42 | PCM.PROG ---
Progress Note - Progress Note for Day of Date of Exam: 03/27/21 - Subjective Subjective: WAS ADMITTED FOR TREATMENT OF ACUTE UTI, ABDOMINAL PAIN, ASCUTES, NAUSEA AND VOMITING, AMS, THROMBOCYTOPENIA, AND ANEMIA. SHE HAS A HX OF CHF, CAD, HTN, DM II, CIRRHOSIS, CVA WITH RIGHT SIDED WEAKNESS. STOOL STUDIES REVEALED THAT SHE WAS POSITIVE FOR C-DIFF, OCCULT BLOOD, CRYPTOSPORID PARVUM, AND GIARDIA LAMBLIA. URINE CULTURE REVEALED GROWTH OF ENTEROCOCCUS FAECIUM. TODAY, SHE IS LYING IN BED ON MORNING ROUNDS. SHE CONTINUES WITH COMPLAINTS OF NAUSEA AFTER EATING. SHE REPORTS SOME IMPROVEMENT IN ABDOMINAL PAIN. ON EXAMINATION, HEART IS REGULAR IN RATE AND RHYTHM. BILATERAL LUNGS ARE NOTED WITH DIMINISHED LUNG SOUNDS THROUGHOUT. ABDOMEN IS DISTENDED AND NOTED WITH MILD, DIFFUSE TENDERNESS TO PALPATION. HYPERACTIVE BOWEL SOUNDS NOTED. TRACE EDEMA NOTED TO LOWER EXTREMITIES. HER VITALS THIS MORNING ARE: 98.0-64-20-98%-153/65. LABS WERE OBTAINED. ABNORMAL LAB VALUES INCLUDE THE FOLLOWING: WBC 2.7, RBC 2.90, HGB 7.6, HCT 23.9, PLT COUNT 55, CREATININE 1.63, GLUCOSE 181, CALCIUM 8.2, TOTAL PROTEIN 5.4, ALBUMIN 2.8. SHE IS CURRENTLY RECEIVING D51/2 NORMAL SALINE AT 50 ML/HR, ZYVOX 600MG IV Q12H, VANCOMYCIN 250MG PO Q6H, DIFLUCAN 100MG IV DAILY, ALBUMIN 25% IV DAILY, ALDACTONE 25MG IV DAILY, ZOFRAN 4MG IV Q6H PRN, CARAFATE 1G PO ACHS, PEPCID 20MG IV DAILY, PROTONIX 40MG IV BID, DUONEBS BID, HUMULIN R SLIDING SCALE, OTBS ACHS, POTASSIUM AND MAGNESIUM SLIDING SCALES, AND HER HOME MEDICATIONS WERE RESUMED. TODAY, WE WILL RESUME FLAGYL AT 250MG PO BID. PATIENT WILL NEED TO REMAIN ON ORAL VANCOMYCIN AND FLAGYL FOR A MINIMUM OF 14 DAYS FOR TREATMENT OF C-DIFF, CRYPTOSPORID PARVUM, AND GIARDIA LAMBLIA. OTHERWISE, WE WILL CONTINUE WITH CURRENT PLAN OF CARE TODAY. WE PLAN TO FOLLOW UP WITH AM LABS AND CONTINUE TO MONITOR. PATIENT HAS REQUESTED PLACEMENT AT [facility] BECAUSE SHE IS NO LONGER ABLE TO CARE FOR HERSELF AT HOME. PRECERT IS PENDING. TIME SPENT ON CLINICAL ASSESSMENT, REVIEWING LABS AND IMAGING, DECISION MAKING, AND DOCUMENTATION GREATER THAN 45 MINUTES. - Past Medical Family Social History Past Med/Fam/Surg Hx: No changes since H&P Allergies: Allergies Penicillins Adverse Reaction (Verified 10/09/20 13:08) Sulfa (Sulfonamide Antibiotics) Adverse Reaction (Verified 10/09/20 13:08) - Review of Systems ROS: No change since H&P - Vital Signs and I&O's Vital Signs: Temperature 98.0 F Pulse Rate [Right Brachial] 64 Pulse Rate 72 Respiratory Rate 20 Blood Pressure [Right Arm] 153/65 Blood Pressure [Left Arm] 149/68 Blood Pressure 186/73 O2 Sat by Pulse Oximetry 98 Intake and Output: Intake & Output 03/25/21 03/26/21 03/27/21 03/28/21 11:59 11:59 11:59 11:59 Intake Total 2405 / 2405 2462 / 2462 1730 / 1730 Balance 2405 / 2405 2462 / 2462 1730 / 1730 - Physical Exam Oriented: Normal Eyes: Normal Ear: Normal Nose: Normal Throat: Normal Respiratory: Generalized, Diminished Cardiovascular: Normal, Edema (BLE 1+ PITTING EDEMA ) : Normal Auscultation: Bowel Sounds: Normal Tenderness: Diffuse, Mild, Other (ABDOMINAL DISTENTION) Skin: Decreased Turgur Musculoskeletal: Normal Psychiatric: Normal Mood Description: Calm Affect: Normal Speech Pattern: Clear, Appropriate - Laboratory and Diagnostics Result Diagrams: 03/27/21 05:48 03/27/21 05:48 Labs: 03/24/21 16:15 Stool Stool Culture - Final 03/24/21 16:15 Stool - Final 03/21/21 16:30 Urine,Catheterized Urine Culture - Final Enterococcus Faecium Laboratory WBC 2.7 X10^3/uL (3.6-10.0) L 03/27/21 05:48 RBC 2.90 X10^6/uL (3.5-5.4) L 03/27/21 05:48 Hgb 7.6 g/dL (12.0-16.0) L 03/27/21 05:48 Hct 23.9 % (36.0-47.0) L 03/27/21 05:48 MCV 82.4 fL (80.0-100.0) 03/27/21 05:48 MCH 26.3 pg (27.0-34.0) L 03/27/21 05:48 MCHC 31.9 g/dL (33.0-35.0) L 03/27/21 05:48 RDW 21.8 % (11.6-16.5) H 03/27/21 05:48 Plt Count 55 X10^3/uL (150.0-450.0) L 03/27/21 05:48 Plt Count Comment Decreased (ADEQUATE) A 03/27/21 05:48 MPV 9.3 fL (7.4-11.0) 03/27/21 05:48 Neut % (Auto) 68.0 % (42.0-75.0) 03/27/21 05:48 Lymph % (Auto) 16.7 % (21.0-51.0) L 03/27/21 05:48 [place] % (Auto) 8.6 % (0.0-13.0) 03/27/21 05:48 Eos % (Auto) 6.2 % (0.9-2.9) H 03/27/21 05:48 Baso % (Auto) 0.5 % (0.2-1.0) 03/27/21 05:48 Neut # (Auto) 1.8 x10^3/uL (2.2-4.8) L 03/27/21 05:48 Lymph # (Auto) 0.4 X10^3/uL (1.3-2.9) L 03/27/21 05:48 [place] # (Auto) 0.2 x10^3/uL (0.3-0.8) L 03/27/21 05:48 Eos # (Auto) 0.2 x10^3/uL (0.0-0.2) 03/27/21 05:48 Baso # (Auto) 0.0 X10^3/uL (0.0-0.1) 03/27/21 05:48 Absolute Nucleated RBC 0.1 /100WBC 03/27/21 05:48 Total Counted 100 03/26/21 05:18 Neutrophils % (Manual) 68 % (39-76) 03/26/21 05:18 Lymphocytes % (Manual) 22 % (13-43) 03/26/21 05:18 Monocytes % (Manual) 4 % (4-9) 03/26/21 05:18 Eosinophils % (Manual) 6 % (0-6) 03/26/21 05:18 Plt Morphology Comment Normal (NORMAL) 03/27/21 05:48 RBC Morphology Abnormal (NORMAL) A 03/27/21 05:48 Hypochromasia Slight A 03/24/21 04:10 Poikilocytosis Slight A 03/21/21 16:20 Anisocytosis 1+ A 03/27/21 05:48 Microcytosis Slight A 03/25/21 04:20 Macrocytosis Senior Erp Consultant 03/25/21 04:20 Sodium 142 mmol/L (136-145) 03/27/21 05:48 Corrected Sodium 144 mmol/L (136-145) 03/27/21 05:48 Potassium 3.9 mmol/L (3.5-5.1) 03/27/21 05:48 Chloride 107 mmol/L (98-107) 03/27/21 05:48 Carbon Dioxide 29.1 mmol/L (21-32) 03/27/21 05:48 BUN 17 mg/dL (7-18) 03/27/21 05:48 Creatinine 1.63 mg/dL (0.55-1.02) H 03/27/21 05:48 Est GFR (MDRD) Af Amer 38 (>60) L 03/27/21 05:48 Est GFR (MDRD) Non-Af 32 (>60) L 03/27/21 05:48 Glucose 181 mg/dL (65-99) H 03/27/21 05:48 POC Glucose (mg/dL) 162 mg/dL (65-99) H 03/27/21 05:36 Calcium 8.2 mg/dL (8.5-10.1) L 03/27/21 05:48 Corrected Calcium 9.2 mg/dL (8.5-10.1) 03/27/21 05:48 Magnesium 2.1 mg/dL (1.7-2.9) 03/21/21 16:20 Total Bilirubin 0.80 mg/dL (0.2-1.0) 03/27/21 05:48 AST 12 Units/L (15-37) L 03/27/21 05:48 ALT 19 Units/L (12-78) 03/27/21 05:48 Alkaline Phosphatase 68 Units/L (46-116) 03/27/21 05:48 Ammonia 31 umol/L (11-32) 03/22/21 09:10 Troponin I < 0.02 ng/mL (0-1.5) 03/21/21 16:20 Total Protein 5.4 g/dL (6.4-8.2) L 03/27/21 05:48 Albumin 2.8 g/dL (3.4-5.0) L 03/27/21 05:48 Globulin 2.6 g/dL (2.5-4.5) 03/27/21 05:48 Albumin/Globulin Ratio 1.1 Ratio (1.1-2.1) 03/27/21 05:48 Lipase 187 Units/L (73-393) 03/21/21 16:20 Specimen Type Catherized urine 03/21/21 16:30 Urine Color Yellow (YELLOW) 03/21/21 16:30 Urine Appearance Cloudy (CLEAR) 03/21/21 16:30 Urine pH 5.0 (5.0 - 8.0) 03/21/21 16:30 Ur Specific [place] 1.015 (1.000-1.030) 03/21/21 16:30 Urine Protein 3+ (NEGATIVE) 03/21/21 16:30 Urine Glucose (UA) Negative (NEGATIVE) 03/21/21 16:30 Urine Ketones Negative (NEGATIVE) 03/21/21 16:30 Urine Occult Blood 2+ (NEGATIVE) 03/21/21 16:30 Urine Nitrite Negative (NEGATIVE) 03/21/21 16:30 Urine Bilirubin Negative (NEGATIVE) 03/21/21 16:30 Urine Urobilinogen Normal (NORMAL) 03/21/21 16:30 Ur Leukocyte Esterase 2+ (NEGATIVE) 03/21/21 16:30 Urine RBC 10-20 /HPF (0-3) A 03/21/21 16:30 Urine WBC 20-30 /HPF (0-5) A 03/21/21 16:30 Ur Squamous Epith Cells Moderate /HPF (NEGATIVE) 03/21/21 16:30 Amorphous Sediment 1+ /HPF (NEGATIVE) 03/21/21 16:30 Urine Bacteria 1+ /HPF (NEGATIVE) 03/21/21 16:30 Urine Yeast Moderate /HPF (NEGATIVE) 03/21/21 16:30 Ur Culture Indicated? Yes/culture set up 03/21/21 16:30 Stool Description 100g soft dk brown 03/24/21 16:15 Stool Description 100g soft dk brown 03/24/21 16:15 Stl Occult Blood (IFOB) Positive (NEGATIVE) A 03/24/21 16:15 Stool for White Cells Positive (NEGATIVE) A 03/24/21 16:15 Stl C. diff Tox B Gene Positive (NEGATIVE) A 03/24/21 16:15 Stl C. diff [id number] Presumptive negative (NEGATIVE) 03/24/21 16:15 C. difficile Toxin A&B Positive (NEGATIVE) A 03/24/21 16:15 Cryptosporid parvum Ag Positive (NEGATIVE) A 03/24/21 16:15 Giardia lamblia Ag Positive (NEGATIVE) A 03/24/21 16:15 SARS CoV-2 RNA Rapid YOCASTA Negative (NEGATIVE) 03/21/21 17:53 - Plan (1) Acute UTI Status: Acute Plan: D51/2 NORMAL SALINE AT 50 ML/HR, ZYVOX 600MG IV Q12H, VANCOMYCIN 250MG PO Q6H, DIFLUCAN 100MG IV DAILY, ALBUMIN 25% IV DAILY, ALDACTONE 25MG IV DAILY, ZOFRAN 4MG IV Q6H PRN, CARAFATE 1G PO ACHS, PEPCID 20MG IV DAILY, PROTONIX 40MG IV BID, FLAGYL 500MG PO Q6H, DUONEBS BID, HUMULIN R SLIDING SCALE, OTBS ACHS, POTASSIUM AND MAGNESIUM SLIDING SCALES, AND HER HOME MEDICATIONS WERE RESUMED. (2) Nausea and vomiting Status: Acute Qualifiers: Vomiting type: unspecified Vomiting Intractability: intractable Qualified Code(s): R11.2 - Nausea with vomiting, unspecified (3) AMS (altered mental status) Status: Acute Qualifiers: Altered mental status type: delirium Qualified Code(s): R41.0 - Disorientation, unspecified (4) Thrombocytopenia Status: Chronic (5) CHF (congestive heart failure) Status: Chronic Qualifiers: Heart failure type: unspecified Heart failure chronicity: chronic Qualified Code(s): I50.9 - Heart failure, unspecified (6) CAD (coronary artery disease) Status: Chronic Qualifiers: Coronary Disease-Associated Artery/Lesion type: bypass graft [place] vs. tr ansplanted heart: [place] heart Associated angina: unspecified whether angina present Qualified Code(s): I25.810 - Atherosclerosis of coronary artery bypass graft(s) without angina pectoris (7) Hypertension Status: Chronic Qualifiers: Hypertension type: essential hypertension Qualified Code(s): I10 - Essential (primary) hypertension (8) Diabetes mellitus Status: Chronic Qualifiers: Diabetes mellitus type: type 2 Diabetes mellitus long-term insulin use: with middle or intermediate school principal use Diabetes mellitus complication status: with other specified complication Qualified Code(s): E11.69 - Type 2 diabetes mellitus with other specified complication; Z79.4 - superintendent terminal (current) use of insulin (9) Cirrhosis Status: Chronic Qualifiers: Hepatic cirrhosis type: unspecified hepatic cirrhosis Ascites presence: without ascites Qualified Code(s): K74.60 - Unspecified cirrhosis of liver (10) Right sided weakness Status: Chronic (11) CVA (cerebral vascular accident) Status: Chronic Qualifiers: CVA mechanism: unspecified Qualified Code(s): I63.9 - Cerebral infarction, unspecified (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
[2021-03-27] MEDS: PREPARATION H OINT RECTAL PRN ×2 (18:35→21:53)
[2021-03-27] MEDS: LIPITOR TAB 20 MG PO SCH (20:50)
[2021-03-27] MEDS: SNACK - Diabetic Appropriate PO SCH (20:50)
[2021-03-28] MEDS: VANCOMYCIN HCL 250 MG CAP PO SCH ×4 (03:24→20:21)
[2021-03-28] MEDS: D5 1/2 NS 1000 ML 1,000 ML IV SCH ×2 (05:04→20:23)
[2021-03-28] MEDS: CARAFATE PO SCH ×4 (05:33→20:20)
[2021-03-28 06:10] LABS: BASOPHILS % (AUTO) 0.7 % (0.2-1.0); EOSINOPHILS # (AUTO) 0.2 x10^3/uL (0.0-0.2); EOSINOPHILS % (AUTO) 4.6 % (0.9-2.9); HEMATOCRIT 22.8 % (36.0-47.0); HEMOGLOBIN 7.4 g/dL (12.0-16.0); LYMPHOCYTES # (AUTO) 0.5 X10^3/uL (1.3-2.9); LYMPHOCYTES % (AUTO) 12.4 % (21.0-51.0); MEAN CORPUSCULAR HEMOGLOBIN 26.6 pg (27.0-34.0); MEAN CORPUSCULAR HGB CONC 32.5 g/dL (33.0-35.0); MEAN CORPUSCULAR VOLUME 81.7 fL (80.0-100.0); MEAN PLATELET VOLUME 9.3 fL (7.4-11.0); MONOCYTES # (AUTO) 0.2 x10^3/uL (0.3-0.8); MONOCYTES % (AUTO) 6.6 % (0.0-13.0); NEUTROPHILS # (AUTO) 2.8 x10^3/uL (2.2-4.8); NEUTROPHILS % (AUTO) 75.7 % (42.0-75.0); PLATELET COUNT 52 X10^3/uL (150.0-450.0); RED BLOOD COUNT 2.79 X10^6/uL (3.5-5.4); RED CELL DISTRIBUTION WIDTH 21.6 % (11.6-16.5); WHITE BLOOD COUNT 3.7 X10^3/uL (3.6-10.0)
[2021-03-28 06:26] LABS: ALBUMIN 2.9 g/dL (3.4-5.0); CALCIUM 8.3 mg/dL (8.5-10.1); CARBON DIOXIDE 28.1 mmol/L (21-32); COR CA(FOR HYPOALB) 9.2 mg/dL (8.5-10.1); CREATININE 1.59 mg/dL (0.55-1.02); TOTAL PROTEIN 5.4 g/dL (6.4-8.2)
[2021-03-28 06:52] LABS: ANISOCYTOSIS 1+; HYPOCHROMASIA SLIGHT; PLATELET MORPHOLOGY COMMENT NORMAL (NORMAL)
[2021-03-28] MEDS ORDERED: LEXAPRO ONE (07:52)
[2021-03-28] MEDS: PEPCID 20 MG IV PREMIX* 20 MG/50 ML BAG IV SCH (08:12)
[2021-03-28] MEDS: ZYVOX 600MG IV 600 MG/300 ML BAG IV SCH ×2 (08:12→20:21)
[2021-03-28] MEDS: DIFLUCAN 100 MG IV (MIX by PHARMACY)* 100 MG/50 ML BAG IV SCH (08:12)
[2021-03-28] MEDS: ALBUMIN HUMAN 25%- 100 ML 100 ML IV SCH (08:12)
[2021-03-28] MEDS: ALDACTONE TAB 25 MG PO SCH (08:13)
[2021-03-28] MEDS: FLAGYL TAB 250 MG PO SCH ×2 (08:13→20:21)
[2021-03-28] MEDS: LEXAPRO PO SCH (08:13)
[2021-03-28] MEDS: COREG TAB 3.125 MG PO SCH ×2 (08:13→20:20)
[2021-03-28] MEDS: JANUVIA PO SCH (08:14)
[2021-03-28] MEDS: PROTONIX INJ 40 MG VIAL IVP SCH ×2 (08:14→20:21)
[2021-03-28] MEDS: DUONEB 0.5 MG/3 MG (3 mL) NEB SCH ×2 (09:09→21:30)
[2021-03-28] MEDS: HumuLIN R SUBCUT PRN (11:58)
--- NOTE | 2021-03-28 12:08 | PCM.PROG ---
Progress Note - Progress Note for Day of Date of Exam: 03/28/21 - Subjective Subjective: WAS ADMITTED FOR TREATMENT OF ACUTE UTI, ABDOMINAL PAIN, ASCUTES, NAUSEA AND VOMITING, AMS, THROMBOCYTOPENIA, AND ANEMIA. SHE HAS A HX OF CHF, CAD, HTN, DM II, CIRRHOSIS, CVA WITH RIGHT SIDED WEAKNESS. STOOL STUDIES REVEALED THAT SHE WAS POSITIVE FOR C-DIFF, OCCULT BLOOD, CRYPTOSPORID PARVUM, AND GIARDIA LAMBLIA. URINE CULTURE REVEALED GROWTH OF ENTEROCOCCUS FAECIUM. TODAY, SHE IS LYING IN BED ON MORNING ROUNDS. SHE CONTINUES WITH COMPLAINTS OF NAUSEA AT TIMES. SHE ALSO REPORTS GENERALIZED WEAKNESS. SHE REPORTS SOME IMPROVEMENT IN ABDOMINAL PAIN. ON EXAMINATION, HEART IS REGULAR IN RATE AND RHYTHM. BILATERAL LUNGS ARE NOTED WITH DIMINISHED LUNG SOUNDS THROUGHOUT. ABDOMEN IS DISTENDED AND NOTED WITH MILD, DIFFUSE TENDERNESS TO PALPATION. NORMAL BOWEL SOUNDS NOTED IN ALL QUADRANTS. TRACE EDEMA NOTED TO LOWER EXTREMITIES. HER VITALS THIS MORNING ARE: 98.7-71-22-96%-147/67. LABS WERE OBTAINED. ABNORMAL LAB VALUES INCLUDE THE FOLLOWING: RBC 2.79, HGB 7.4, HCT 22.8, CREATININE 1.59, GLUCOSE 191, CALCIUM 8.3, AST 10, TOTAL PROTEIN 5.4, ALBUMIN 2.9. SHE IS CURRENTLY RECEIVING D51/2 NORMAL SALINE AT 50 ML/HR, ZYVOX 600MG IV Q12H, VANCOMYCIN 250MG PO Q6H, FLAGYL 250MG PO BID, DIFLUCAN 100MG IV DAILY, ALBUMIN 25% IV DAILY, ALDACTONE 25MG IV DAILY, ZOFRAN 4MG IV Q6H PRN, CARAFATE 1G PO ACHS, PEPCID 20MG IV DAILY, PROTONIX 40MG IV BID, DUONEBS BID, HUMULIN R SLIDING SCALE, OTBS ACHS, POTASSIUM AND MAGNESIUM SLIDING SCALES, AND HER HOME MEDICATIONS WERE RESUMED. PATIENT WILL NEED TO REMAIN ON ORAL VANCOMYCIN AND FLAGYL FOR A MINIMUM OF 14 DAYS FOR TREATMENT OF C-DIFF, CRY PTOSPORID PARVUM, AND GIARDIA LAMBLIA. TODAY, WE WILL TYPE AND SCREEN, THEN TRANSFER TWO UNITS OF PRBC. OTHERWISE, WE WILL CONTINUE WITH CURRENT PLAN OF CARE TODAY. WE PLAN TO FOLLOW UP WITH AM LABS AND CONTINUE TO MONITOR. PATIENT HAS REQUESTED PLACEMENT AT [facility] BECAUSE SHE IS NO LONGER ABLE TO CARE FOR HERSELF AT HOME. PRECERT IS PENDING. TIME SPENT ON CLINICAL ASSESSMENT, REVIEWING LABS AND IMAGING, DECISION MAKING, AND DOCUMENTATION GREATER THAN 45 MINUTES. - Past Medical Family Social History Past Med/Fam/Surg Hx: No changes since H&P Allergies: Allergies Penicillins Adverse Reaction (Verified 10/09/20 13:08) Sulfa (Sulfonamide Antibiotics) Adverse Reaction (Verified 10/09/20 13:08) - Review of Systems ROS: No change since H&P - Vital Signs and I&O's Vital Signs: Temperature 98.7 F Pulse Rate [Right Brachial] 71 Pulse Rate 78 Respiratory Rate 22 Blood Pressure [Right Arm] 147/67 Blood Pressure [Left Arm] 168/68 Blood Pressure 186/73 O2 Sat by Pulse Oximetry 96 Intake and Output: Intake & Output 03/26/21 03/27/21 03/28/21 03/29/21 11:59 11:59 11:59 11:59 Intake Total 2462 / 2462 1730 / 1730 1640 / 1640 Balance 2462 / 2462 1730 / 1730 1640 / 1640 - Physical Exam Oriented: Normal Eyes: Normal Ear: Normal Nose: Normal Throat: Normal Respiratory: Generalized, Diminished Cardiovascular: Normal, Edema (TRACE EDEMA ) : Normal Auscultation: Bowel Sounds: Normal Tenderness: Diffuse, Mild, Other (ABDOMINAL DISTENTION) Skin: Decreased Turgur Musculoskeletal: Normal Psychiatric: Normal Mood Description: Calm Affect: Normal Speech Pattern: Clear, Appropriate - Laboratory and Diagnostics Result Diagrams: 03/28/21 05:30 03/28/21 05:30 Labs: 03/24/21 16:15 Stool Stool Culture - Final 03/24/21 16:15 Stool - Final 03/21/21 16:30 Urine,Catheterized Urine Culture - Final Enterococcus Faecium Laboratory WBC 3.7 X10^3/uL (3.6-10.0) 03/28/21 05:30 RBC 2.79 X10^6/uL (3.5-5.4) L 03/28/21 05:30 Hgb 7.4 g/dL (12.0-16.0) L 03/28/21 05:30 Hct 22.8 % (36.0-47.0) L 03/28/21 05:30 MCV 81.7 fL (80.0-100.0) 03/28/21 05:30 MCH 26.6 pg (27.0-34.0) L 03/28/21 05:30 MCHC 32.5 g/dL (33.0-35.0) L 03/28/21 05:30 RDW 21.6 % (11.6-16.5) H 03/28/21 05:30 Plt Count 52 X10^3/uL (150.0-450.0) L 03/28/21 05:30 Plt Count Comment Decreased (ADEQUATE) A 03/28/21 05:30 MPV 9.3 fL (7.4-11.0) 03/28/21 05:30 Neut % (Auto) 75.7 % (42.0-75.0) H 03/28/21 05:30 Lymph % (Auto) 12.4 % (21.0-51.0) L 03/28/21 05:30 [place] % (Auto) 6.6 % (0.0-13.0) 03/28/21 05:30 Eos % (Auto) 4.6 % (0.9-2.9) H 03/28/21 05:30 Baso % (Auto) 0.7 % (0.2-1.0) 03/28/21 05:30 Neut # (Auto) 2.8 x10^3/uL (2.2-4.8) 03/28/21 05:30 Lymph # (Auto) 0.5 X10^3/uL (1.3-2.9) L 03/28/21 05:30 [place] # (Auto) 0.2 x10^3/uL (0.3-0.8) L 03/28/21 05:30 Eos # (Auto) 0.2 x10^3/uL (0.0-0.2) 03/28/21 05:30 Baso # (Auto) 0.0 X10^3/uL (0.0-0.1) 03/28/21 05:30 Absolute Nucleated RBC 0.0 /100WBC 03/28/21 05:30 Total Counted 100 03/26/21 05:18 Neutrophils % (Manual) 68 % (39-76) 03/26/21 05:18 Lymphocytes % (Manual) 22 % (13-43) 03/26/21 05:18 Monocytes % (Manual) 4 % (4-9) 03/26/21 05:18 Eosinophils % (Manual) 6 % (0-6) 03/26/21 05:18 Plt Morphology Comment Normal (NORMAL) 03/28/21 05:30 RBC Morphology Abnormal (NORMAL) A 03/28/21 05:30 Hypochromasia Slight A 03/28/21 05:30 Poikilocytosis Slight A 03/21/21 16:20 Anisocytosis 1+ A 03/28/21 05:30 Microcytosis Slight A 03/25/21 04:20 Macrocytosis Contact Finger Assembler 03/25/21 04:20 Sodium 140 mmol/L (136-145) 03/28/21 05:30 Corrected Sodium 142 mmol/L (136-145) 03/28/21 05:30 Potassium 4.2 mmol/L (3.5-5.1) 03/28/21 05:30 Chloride 106 mmol/L (98-107) 03/28/21 05:30 Carbon Dioxide 28.1 mmol/L (21-32) 03/28/21 05:30 BUN 17 mg/dL (7-18) 03/28/21 05:30 Creatinine 1.59 mg/dL (0.55-1.02) H 03/28/21 05:30 Est GFR (MDRD) Af Amer 39 (>60) L 03/28/21 05:30 Est GFR (MDRD) Non-Af 33 (>60) L 03/28/21 05:30 Glucose 191 mg/dL (65-99) H 03/28/21 05:30 POC Glucose (mg/dL) 222 mg/dL (65-99) H 03/28/21 11:44 Calcium 8.3 mg/dL (8.5-10.1) L 03/28/21 05:30 Corrected Calcium 9.2 mg/dL (8.5-10.1) 03/28/21 05:30 Magnesium 2.1 mg/dL (1.7-2.9) 03/21/21 16:20 Total Bilirubin 0.80 mg/dL (0.2-1.0) 03/28/21 05:30 AST 10 Units/L (15-37) L 03/28/21 05:30 ALT 13 Units/L (12-78) 03/28/21 05:30 Alkaline Phosphatase 63 Units/L (46-116) 03/28/21 05:30 Ammonia 31 umol/L (11-32) 03/22/21 09:10 Troponin I < 0.02 ng/mL (0-1.5) 03/21/21 16:20 Total Protein 5.4 g/dL (6.4-8.2) L 03/28/21 05:30 Albumin 2.9 g/dL (3.4-5.0) L 03/28/21 05:30 Globulin 2.5 g/dL (2.5-4.5) 03/28/21 05:30 Albumin/Globulin Ratio 1.2 Ratio (1.1-2.1) 03/28/21 05:30 Lipase 187 Units/L (73-393) 03/21/21 16:20 Specimen Type Catherized urine 03/21/21 16:30 Urine Color Yellow (YELLOW) 03/21/21 16:30 Urine Appearance Cloudy (CLEAR) 03/21/21 16:30 Urine pH 5.0 (5.0 - 8.0) 03/21/21 16:30 Ur Specific [place] 1.015 (1.000-1.030) 03/21/21 16:30 Urine Protein 3+ (NEGATIVE) 03/21/21 16:30 Urine Glucose (UA) Negative (NEGATIVE) 03/21/21 16:30 Urine Ketones Negative (NEGATIVE) 03/21/21 16:30 Urine Occult Blood 2+ (NEGATIVE) 03/21/21 16:30 Urine Nitrite Negative (NEGATIVE) 03/21/21 16:30 Urine Bilirubin Negative (NEGATIVE) 03/21/21 16:30 Urine Urobilinogen Normal (NORMAL) 03/21/21 16:30 Ur Leukocyte Esterase 2+ (NEGATIVE) 03/21/21 16:30 Urine RBC 10-20 /HPF (0-3) A 03/21/21 16:30 Urine WBC 20-30 /HPF (0-5) A 03/21/21 16:30 Ur Squamous Epith Cells Moderate /HPF (NEGATIVE) 03/21/21 16:30 Amorphous Sediment 1+ /HPF (NEGATIVE) 03/21/21 16:30 Urine Bacteria 1+ /HPF (NEGATIVE) 03/21/21 16:30 Urine Yeast Moderate /HPF (NEGATIVE) 03/21/21 16:30 Ur Culture Indicated? Yes/culture set up 03/21/21 16:30 Stool Description 100g soft dk brown 03/24/21 16:15 Stool Description 100g soft dk brown 03/24/21 16:15 Stl Occult Blood (IFOB) Positive (NEGATIVE) A 03/24/21 16:15 Stool for White Cells Positive (NEGATIVE) A 03/24/21 16:15 Stl C. diff Tox B Gene Positive (NEGATIVE) A 03/24/21 16:15 Stl C. diff [id number] Presumptive negative (NEGATIVE) 03/24/21 16:15 C. difficile Toxin A&B Positive (NEGATIVE) A 03/24/21 16:15 Cryptosporid parvum Ag Positive (NEGATIVE) A 03/24/21 16:15 Giardia lamblia Ag Positive (NEGATIVE) A 03/24/21 16:15 SARS CoV-2 RNA Rapid YOCASTA Negative (NEGATIVE) 03/21/21 17:53 - Plan (1) Acute UTI Status: Acute Plan: D51/2 NORMAL SALINE AT 50 ML/HR, ZYVOX 600MG IV Q12H, VANCOMYCIN 250MG PO Q6H, FLAGYL 250MG PO BID, DIFLUCAN 100MG IV DAILY, ALBUMIN 25% IV DAILY, ALDACTONE 25MG IV DAILY, ZOFRAN 4MG IV Q6H PRN, CARAFATE 1G PO ACHS, PEPCID 20MG IV DAILY, PROTONIX 40MG IV BID, DUONEBS BID, HUMULIN R SLIDING SCALE, OTBS ACHS, POTASSIUM AND MAGNESIUM SLIDING SCALES, AND HER HOME MEDICATIONS WERE RESUMED. (2) Nausea and vomiting Status: Acute Qualifiers: Vomiting type: unspecified Vomiting Intractability: intractable Qualified Code(s): R11.2 - Nausea with vomiting, unspecified (3) AMS (altered mental status) Status: Acute Qualifiers: Altered mental status type: delirium Qualified Code(s): R41.0 - Disorientation, unspecified (4) Thrombocytopenia Status: Chronic (5) CHF (congestive heart failure) Status: Chronic Qualifiers: Heart failure type: unspecified Heart failure chronicity: chronic Qualified Code(s): I50.9 - Heart failure, unspecified (6) CAD (coronary artery disease) Status: Chronic Qualifiers: Coronary Disease-Associated Artery/Lesion type: bypass graft [place] vs. transplanted heart: [place] heart Associated angina: unspecified whether angina present Qualified Code(s): I25.810 - Atherosclerosis of coronary artery bypass graft(s) without angina pectoris (7) Hypertension Status: Chronic Qualifiers: Hypertension type: essential hypertension Qualified Code(s): I10 - Essential (primary) hypertension (8) Diabetes mellitus Status: Chronic Qualifiers: Diabetes mellitus type: type 2 Diabetes mellitus terminal operator insulin use: with shelter use Diabetes mellitus complication status: with other specified complication Qualified Code(s): E11.69 - Type 2 diabetes mellitus with other specified complication; Z79.4 - terminal operator (current) use of insulin (9) Cirrhosis Status: Chronic Qualifiers: Hepatic cirrhosis type: unspecified hepatic cirrhosis Ascites presence: without ascites Qualified Code(s): K74.60 - Unspecified cirrhosis of liver (10) Right sided weakness Status: Chronic (11) CVA (cerebral vascular accident) Status: Chronic Qualifiers: CVA mechanism: unspecified Qualified Code(s): I63.9 - Cerebral infarction, unspecified (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 Plan: TYPE AND SCREEN, TRANSFUSE 2 UNITS PRBC
[2021-03-28] MEDS: LIPITOR TAB 20 MG PO SCH (20:20)
[2021-03-28] MEDS: SNACK - Diabetic Appropriate PO SCH (20:22)
[2021-03-28] MEDS ORDERED: NS 500 ML IV 500 ML IV ONE (21:46)
[2021-03-29] MEDS: VANCOMYCIN HCL 250 MG CAP PO SCH ×2 (03:16→08:32)
[2021-03-29 04:37] LABS: BASOPHILS % (AUTO) 0.7 % (0.2-1.0); EOSINOPHILS # (AUTO) 0.2 x10^3/uL (0.0-0.2); EOSINOPHILS % (AUTO) 5.4 % (0.9-2.9); HEMATOCRIT 29.1 % (36.0-47.0); HEMOGLOBIN 9.3 g/dL (12.0-16.0); LYMPHOCYTES # (AUTO) 0.5 X10^3/uL (1.3-2.9); LYMPHOCYTES % (AUTO) 15.4 % (21.0-51.0); MEAN CORPUSCULAR HEMOGLOBIN 26.6 pg (27.0-34.0); MEAN CORPUSCULAR HGB CONC 31.8 g/dL (33.0-35.0); MEAN CORPUSCULAR VOLUME 83.6 fL (80.0-100.0); MEAN PLATELET VOLUME 9.3 fL (7.4-11.0); MONOCYTES # (AUTO) 0.3 x10^3/uL (0.3-0.8); MONOCYTES % (AUTO) 7.3 % (0.0-13.0); NEUTROPHILS # (AUTO) 2.5 x10^3/uL (2.2-4.8); NEUTROPHILS % (AUTO) 71.2 % (42.0-75.0); PLATELET COUNT 48 X10^3/uL (150.0-450.0); RED BLOOD COUNT 3.48 X10^6/uL (3.5-5.4); RED CELL DISTRIBUTION WIDTH 20.2 % (11.6-16.5); WHITE BLOOD COUNT 3.5 X10^3/uL (3.6-10.0)
[2021-03-29 04:50] LABS: CALCIUM 8.4 mg/dL (8.5-10.1); COR CA(FOR HYPOALB) 9.2 mg/dL (8.5-10.1); CREATININE 1.55 mg/dL (0.55-1.02); TOTAL PROTEIN 5.5 g/dL (6.4-8.2)
[2021-03-29 05:22] LABS: PLATELET MORPHOLOGY COMMENT NORMAL (NORMAL)
[2021-03-29 05:23] LABS: ANISOCYTOSIS 1+; MICROCYTOSIS SLIGHT
[2021-03-29] MEDS: CARAFATE PO SCH ×2 (05:58→12:04)
[2021-03-29] MEDS ORDERED: LEXAPRO ONE (07:47)
[2021-03-29] MEDS: ALDACTONE TAB 25 MG PO SCH (08:30)
[2021-03-29] MEDS: PROTONIX INJ 40 MG VIAL IVP SCH (08:30)
[2021-03-29] MEDS: COREG TAB 3.125 MG PO SCH (08:31)
[2021-03-29] MEDS: FLAGYL TAB 250 MG PO SCH ×2 (08:31→10:30)
[2021-03-29] MEDS: JANUVIA PO SCH (08:32)
[2021-03-29] MEDS: LEXAPRO PO SCH (08:32)
[2021-03-29] MEDS: ZYVOX 600MG IV 600 MG/300 ML BAG IV SCH (08:34)
[2021-03-29] MEDS: ZOFRAN INJ 4 MG VIAL IVP PRN (08:41)
[2021-03-29] MEDS: DUONEB 0.5 MG/3 MG (3 mL) NEB SCH (09:15)
[2021-03-29] MEDS: DIFLUCAN 100 MG IV (MIX by PHARMACY)* 100 MG/50 ML BAG IV SCH (10:15)
[2021-03-29] MEDS ORDERED: PROCRIT or EPOGEN VIAL 10,000 UNITS SC ONE (11:21)
[2021-03-29] MEDS: PEPCID 20 MG IV PREMIX* 20 MG/50 ML BAG IV SCH (12:03)
[2021-03-29 13:15] VITALS: BP 161/70
== END 2021-03-29 13:30 | DRG 690 ==
LOC: ER 15:49 → MED/SURG 15:49
PROVIDERS: ADMIT Internal Medicine; ATTEND Internal Medicine
DX: D64.9 Anemia, unspecified; Z79.4 Long term (current) use of insulin; Q27.30 Arteriovenous malformation, site unspecified; B95.2 Enterococcus as the cause of diseases classified elsewhere; A04.72 Enterocolitis due to Clostridium difficile, not specified as recurrent; Z66 Do not resuscitate; K29.60 Other gastritis without bleeding; E11.65 Type 2 diabetes mellitus with hyperglycemia; R26.89 Other abnormalities of gait and mobility; I69.951 Hemiplegia and hemiparesis following unspecified cerebrovascular disease affecting right dominant side; R94.31 Abnormal electrocardiogram [ECG] [EKG]; R11.2 Nausea with vomiting, unspecified; R41.0 Disorientation, unspecified; I25.810 Atherosclerosis of coronary artery bypass graft(s) without angina pectoris; N39.0 Urinary tract infection, site not specified; R18.8 Other ascites; D69.6 Thrombocytopenia, unspecified; Z95.1 Presence of aortocoronary bypass graft; I10 Essential (primary) hypertension; Z20.822 Contact with and (suspected) exposure to COVID-19

== ENCOUNTER 2021-05-07 09:56 | Inpatient (IN) ==
[2021-05-07] MEDS ORDERED: NS 1000 ML 1,000 ML IV ONE (10:07)
[2021-05-07] MEDS ORDERED: ROCEPHIN 1 GRAM IV PREMIX 1 G/50 ML IV.SOLN. IV ONE ×2 (10:08→10:28)
[2021-05-07] MEDS ORDERED: VANCOMYCIN IV *PREMIX 1 G/200 ML BAG 1 G/200 ML PIGGYBACK IV ONE ×2 (10:08→12:33)
[2021-05-07] MEDS ORDERED: NS 1000 ML 1,000 ML ONE (10:18)
--- NOTE | 2021-05-07 10:27 | RAD ---
CHEST, 1 VIEWHISTORY: AMS, LETHARGYStudy: Single view of the chest.Comparison:March 21, 2021Findings:The cardiomediastinal silhouette is normal.New hazy opacity at the left lung base with obscuration of the lateral left hemidiaphragm. Bilateral hyper expansion also present and unchanged. Median sternotomy wires in place. Osseous structures demonstrate no acute abnormality.IMPRESSION:1. Findings suggestive of airspace opacity at the left lung base for which acute infection not excluded.Electronically signed by: ALIVIA AVELAR (May 07, 2021 10:25:21)
--- NOTE | 2021-05-07 10:29 | DR.AMS ---
HPI Time Seen Time Seen by Provider: 05/07/21 10:00 PCP Primary Care Physician: RAMIRO HPI Comment HPI Comment: Patient sent from [place] for lethargy. Patient found to be lethargic by [facility] staff this morning. Patient is in no acute respiratory distress, but does not respond to voice. Complaint Chief Complaint:: [facility] STAFF CALL AND REPORT THAT PT. WAS LETHARGIC. THEY STATE PT. WAS FINE LAST NIGHT BEFORE GOING TO BED AND WHEN THEY CHECKED ON PT. THIS MORNING, SHE HAD AMS. UPON ARRIVAL TO THE ER, PT. RESPONDS ONLY TO PAINFUL STIMULI. B/P [employer]LECT[employer]ACHINE [employer] @ [facility] WAS 70/42, O2 SAT: 99%, RATE OF 16, HR: 52, TEMP: 98.6. COVID-19 Coronavirus risk:travel/contact w/high risk person: No Has patient experienced Coronavirus symptoms: No Source History Provided: [facility] Mode of Arrival Mode of Arrival: Stretcher Timing Onset of Chief Complaint: 05/07/21 PMH PMH Past Medical History: Yes Past Medical History: Anemia, CHF, Coronary Artery Disease, CVA, Dementia, Depression, Diabetes, Dyslipidemia, GERD, Hypertension and Renal Disease Past Medical History Comment: CIRRHOSIS Past Surgical History: Yes Surgical History: Appendectomy, CABG/Valve Surgery, Cholecystectomy and Hysterectomy Family History History of Family Medical Conditions: Yes Family Medical History: Cancer and Coronary Artery Disease Social History Does patient currently use any type of tobacco product: No Have you used tobacco products in the last 12 months: No Type of Tobacco Use: None Does any household member use tobacco: No Alcohol Use: None Do you use any recreational Drugs:: No Lives Where: [facility] Travel Risk Coronavirus risk:travel/contact w/high risk person: No Has patient experienced Coronavirus symptoms: No Infectious screening In the last 2 months have you had wt loss of >10#?: NO Have you had fever, night sweats or hemotysis?: No Have you traveled outside the country in the last 6 months?: No Isolation: Standard ROS Review of Systems Constitutional: See HPI Unable to Obtain Due To: Altered mental status PE Vitals Vital Signs: Temp Pulse Resp BP BP Pulse Ox 05/07/21 12:45 61 14 125/58 05/07/21 12:30 62 14 124/58 100 05/07/21 12:16 65 15 125/57 100 05/07/21 12:15 64 15 100 05/07/21 12:00 61 14 100 05/07/21 11:45 59 L 15 98/51 100 05/07/21 11:30 60 14 92/53 100 05/07/21 11:15 59 L 15 86/47 100 05/07/21 11:00 61 14 82/44 100 05/07/21 10:45 61 15 85/46 100 05/07/21 10:34 64 15 87/47 100 05/07/21 10:30 64 15 100 05/07/21 10:16 63 16 100 05/07/21 10:15 88/38 05/07/21 10:13 66 15 100 05/07/21 10:07 65 16 100 05/07/21 10:06 96.9 F L 63 16 86/40 100 05/07/21 10:00 99/53 05/07/21 09:58 87/50 03/29/21 12:00 161/70 General Limitations: No Limitations General Appearance: In No Apparent Distress and Lethargic Head Head Exam: Normal Inspection, Atraumatic and Normocephalic Eyes Eye exam: Normal Appearance and EOMI Neck Neck Exam: Normal Inspection and Trachea Midline Chest Chest Inspection: Normal Inspection and Symmetric Chest Wall Rise Respiratory Respiratory Exam: Normal Lung Sounds Bilat Respiratory Exam: Bilateral: Clear to Auscultation Cardiovascular Cardiovascular Exam: Regular Rate, Normal Rhythm and Normal Heart Sounds Abdominal Exam Abdominal Exam: Normal Inspection, Normal Bowel Sounds, Soft and Other (urine in [place] is cloudy) Extremities Extremities Exam: Normal Inspection COURSE Consultation Called: 12:26 Consultation Comments: Called Dr. Smiley. Awaiting callback. [id number]. Spoke with Dr. Smiley who accepts her for admission. [facility] Labs Reviewed Laboratory Results Reviewed?: Yes Result Diagrams: 05/07/21 10:06 05/07/21 10:15 Laboratory: WBC 2.7 X10^3/uL (3.6-10.0) L 05/07/21 10:06 RBC 2.69 X10^6/uL (3.5-5.4) L 05/07/21 10:06 Hgb 7.2 g/dL (12.0-16.0) L 05/07/21 10:06 Hct 22.9 % (36.0-47.0) L 05/07/21 10:06 MCV 85.0 fL (80.0-100.0) 05/07/21 10:06 MCH 26.8 pg (27.0-34.0) L 05/07/21 10:06 MCHC 31.5 g/dL (33.0-35.0) L 05/07/21 10:06 RDW 20.0 % (11.6-16.5) H 05/07/21 10:06 Plt Count 78 X10^3/uL (150.0-450.0) L 05/07/21 10:06 MPV 9.8 fL (7.4-11.0) 05/07/21 10:06 Neut % (Auto) 61.2 % (42.0-75.0) 05/07/21 10:06 Lymph % (Auto) 21.4 % (21.0-51.0) 05/07/21 10:06 [place] % (Auto) 9.6 % (0.0-13.0) 05/07/21 10:06 Eos % (Auto) 7.0 % (0.9-2.9) H 05/07/21 10:06 Baso % (Auto) 0.8 % (0.2-1.0) 05/07/21 10:06 Neut # (Auto) 1.6 x10^3/uL (2.2-4.8) L 05/07/21 10:06 Lymph # (Auto) 0.6 X10^3/uL (1.3-2.9) L 05/07/21 10:06 [place] # (Auto) 0.3 x10^3/uL (0.3-0.8) 05/07/21 10:06 Eos # (Auto) 0.2 x10^3/uL (0.0-0.2) 05/07/21 10:06 Baso # (Auto) 0.0 X10^3/uL (0.0-0.1) 05/07/21 10:06 Absolute Nucleated RBC 0.1 /100WBC 05/07/21 10:06 Sample Site Lbra 05/07/21 10:27 ABG pH 7.450 (7.35-7.45) 05/07/21 10:27 ABG pCO2 42.0 mmHg (35.0-45.0) 05/07/21 10:27 ABG pO2 146.0 mmHg (80.0-100.0) H 05/07/21 10:27 ABG HCO3 29.2 mmol/L (22-26) H 05/07/21 10:27 ABG O2 Saturation 99.0 % (90-100) 05/07/21 10:27 ABG Base Excess 4.7 mmol/L (-2.0-2.0) H 05/07/21 10:27 Norberto Test N/a 05/07/21 10:27 A-a Gradient 1.0 mmHg 05/07/21 10:27 FiO2 28.0 05/07/21 10:27 Blood Gas Comments Pt carol well elj 05/07/21 10:27 Sodium 146 mmol/L (136-145) H 05/07/21 10:15 Corrected Sodium TNP 05/07/21 10:15 Potassium 5.0 mmol/L (3.5-5.1) 05/07/21 10:15 Chloride 111 mmol/L (98-107) H 05/07/21 10:15 Carbon Dioxide 31.0 mmol/L (21-32) 05/07/21 10:15 BUN 39 mg/dL (7-18) H 05/07/21 10:15 Creatinine 1.87 mg/dL (0.55-1.02) H 05/07/21 10:15 Est GFR (MDRD) Af Amer 33 (>60) L 05/07/21 10:15 Est GFR (MDRD) Non-Af 27 (>60) L 05/07/21 10:15 Glucose 98 mg/dL (65-99) 05/07/21 10:15 Lactic Acid 0.9 mmol/L (0.4-2.0) 05/07/21 10:15 Calcium 8.4 mg/dL (8.5-10.1) L 05/07/21 10:15 Corrected Calcium 9.6 mg/dL (8.5-10.1) 05/07/21 10:15 Total Bilirubin 0.90 mg/dL (0.2-1.0) 05/07/21 10:15 AST 20 Units/L (15-37) 05/07/21 10:15 ALT 17 Units/L (12-78) 05/07/21 10:15 Alkaline Phosphatase 115 Units/L (46-116) 05/07/21 10:15 Creatine Kinase 24 Units/L (26-192) L 05/07/21 10:15 CK-MB (CK-2) < 1.0 ng/mL (0-4.0) 05/07/21 10:15 CK/CKMB % Calc 4.2 % (<4) 05/07/21 10:15 Troponin I < 0.02 ng/mL (0-1.5) 05/07/21 10:15 Total Protein 5.9 g/dL (6.4-8.2) L 05/07/21 10:15 Albumin 2.5 g/dL (3.4-5.0) L 05/07/21 10:15 Globulin 3.4 g/dL (2.5-4.5) 05/07/21 10:15 Albumin/Globulin Ratio 0.7 Ratio (1.1-2.1) L 05/07/21 10:15 Specimen Type Catherized urine 05/07/21 10:05 Urine Color Yellow (YELLOW) 05/07/21 10:05 Urine Appearance Hazy (CLEAR) 05/07/21 10:05 Urine pH 5.0 (5.0 - 8.0) 05/07/21 10:05 Ur Specific [place] 1.015 (1.000-1.030) 05/07/21 10:05 Urine Protein 3+ (NEGATIVE) 05/07/21 10:05 Urine Glucose (UA) Negative (NEGATIVE) 05/07/21 10:05 Urine Ketones Negative (NEGATIVE) 05/07/21 10:05 Urine Occult Blood 2+ (NEGATIVE) 05/07/21 10:05 Urine Nitrite Negative (NEGATIVE) 05/07/21 10:05 Urine Bilirubin Negative (NEGATIVE) 05/07/21 10:05 Urine Urobilinogen Normal (NORMAL) 05/07/21 10:05 Ur Leukocyte Esterase 3+ (NEGATIVE) 05/07/21 10:05 Urine RBC 3-5 /HPF (0-3) A 05/07/21 10:05 Urine WBC 20-30 /HPF (0-5) A 05/07/21 10:05 Ur Squamous Epith Cells Rare /HPF (NEGATIVE) 05/07/21 10:05 Amorphous Sediment 1+ /HPF (NEGATIVE) 05/07/21 10:05 Urine Bacteria 3+ /HPF (NEGATIVE) 05/07/21 10:05 Ur Culture Indicated? Yes/culture set up 05/07/21 10:05 XRAY X-ray Results: CHEST, 1 VIEW HISTORY: AMS, LETHARGY Study: Single view of the chest. Comparison:March 21, 2021 Findings: The cardiomediastinal silhouette is normal.New hazy opacity at the left lung base with obscuration of the lateral left hemidiaphragm. Bilateral hyper expansion also present and unchanged. Median sternotomy wires in place. Osseous structures demonstrate no acute abnormality. IMPRESSION: 1. Findings suggestive of airspace opacity at the left lung base for which acute infection not excluded. Electronically signed by: ALIVIA AVELAR (May 07, 2021 10:25:21) Opioid Opioid Risk Tool Age (Justo box if 16-45): No History of Preadolescent Sexual Abuse: No Total: 0 Total Score Risk Category: Low Risk Copyright: Tera GONZALES predicting aberrant behaviors Diagnosis Discharge Problem: Acute UTI, Pneumonia
[2021-05-07 10:34] LABS: ABG BASE EXCESS 4.7 mmol/L (-2.0-2.0); ABG HCO3 29.2 mmol/L (22-26)
[2021-05-07 10:41] LABS: BASOPHILS % (AUTO) 0.8 % (0.2-1.0); EOSINOPHILS # (AUTO) 0.2 x10^3/uL (0.0-0.2); HEMATOCRIT 22.9 % (36.0-47.0); HEMOGLOBIN 7.2 g/dL (12.0-16.0); LYMPHOCYTES # (AUTO) 0.6 X10^3/uL (1.3-2.9); LYMPHOCYTES % (AUTO) 21.4 % (21.0-51.0); MEAN CORPUSCULAR HEMOGLOBIN 26.8 pg (27.0-34.0); MEAN CORPUSCULAR HGB CONC 31.5 g/dL (33.0-35.0); MEAN PLATELET VOLUME 9.8 fL (7.4-11.0); MONOCYTES # (AUTO) 0.3 x10^3/uL (0.3-0.8); MONOCYTES % (AUTO) 9.6 % (0.0-13.0); NEUTROPHILS # (AUTO) 1.6 x10^3/uL (2.2-4.8); NEUTROPHILS % (AUTO) 61.2 % (42.0-75.0); PLATELET COUNT 78 X10^3/uL (150.0-450.0); RED BLOOD COUNT 2.69 X10^6/uL (3.5-5.4); WHITE BLOOD COUNT 2.7 X10^3/uL (3.6-10.0)
[2021-05-07 10:48] LABS: BILIRUBIN,URINE NEGATIVE (NEGATIVE); BLOOD/HEMOGLOBIN,URINE 2+ (NEGATIVE); GLUCOSE, URINE NEGATIVE (NEGATIVE); KETONES,URINE NEGATIVE (NEGATIVE); LEUKOCYTE ESTERASE ,URINE 3+ (NEGATIVE); NITRITES,URINE NEGATIVE (NEGATIVE); PROTEIN,URINE 3+ (NEGATIVE); UROBILINOGEN,URINE NORMAL (NORMAL)
[2021-05-07 10:52] LABS: APPEARANCE,URINE HAZY (CLEAR); COLOR,URINE YELLOW (YELLOW)
[2021-05-07 10:57] LABS: LACTIC ACID 0.9 mmol/L (0.4-2.0)
[2021-05-07 11:04] LABS: ALANINE AMINOTRANSFERASE 17 Units/L (12-78); ALBUMIN 2.5 g/dL (3.4-5.0); ALKALINE PHOSPHATASE 115 Units/L (46-116); ASPARTATE AMINO TRANSFERASE 20 Units/L (15-37); BLOOD UREA NITROGEN 39 mg/dL (7-18); CALCIUM 8.4 mg/dL (8.5-10.1); CHLORIDE 111 mmol/L (98-107); CKMB % 4.2 % (<4); COR CA(FOR HYPOALB) 9.6 mg/dL (8.5-10.1); CREATINE KINASE 24 Units/L (26-192); CREATINE KINASE MB < 1.0 ng/mL (0-4.0); CREATININE 1.87 mg/dL (0.55-1.02); SODIUM 146 mmol/L (136-145); TOTAL PROTEIN 5.9 g/dL (6.4-8.2); TROPONIN I < 0.02 ng/mL (0-1.5); eGFR NON BLACK RACES 27 (>60)
[2021-05-07 11:37] LABS: BACTERIA,URINE 3+ /HPF (NEGATIVE); SQUAMOUS EPITHELIAL CELL,UR RARE /HPF (NEGATIVE)
[2021-05-07 11:38] LABS: AMORPHOUS SEDIMENT,UR 1+ /HPF (NEGATIVE)
[2021-05-07] MEDS ORDERED: TUSSIONEX PENNKINETIC SUSP PO PRN (13:14)
[2021-05-07] MEDS ORDERED: NS 1/2 1000 ML IV 1,000 ML IV ONE (14:47)
[2021-05-07] MEDS: ROBITUSSIN DM PO SCH ×3 (14:57→20:22)
[2021-05-07] MEDS: LEVAQUIN PREMIX IV 750 MG 750 MG/150 ML BAG IV SCH (14:58)
[2021-05-07] MEDS: NS 1/2 1000 ML IV 1,000 ML IV SCH (14:58)
[2021-05-07] MEDS ORDERED: PROCRIT or EPOGEN VIAL 10,000 UNITS IVP SCH (15:13)
[2021-05-07 15:29] VITALS: BMI 25.0
[2021-05-07] MEDS ORDERED: DUONEB 0.5 MG/3 MG (3 mL) NEB ONE (15:38)
[2021-05-07] MEDS: DUONEB 0.5 MG/3 MG (3 mL) NEB SCH ×2 (16:53→20:15)
[2021-05-07] MEDS ORDERED: PULMICORT NEB TX 0.5 MG NEB ONE (19:41)
[2021-05-07] MEDS: PULMICORT NEB TX 0.5 MG NEB SCH (20:16)
[2021-05-07] MEDS ORDERED: D50W ABBOJECT SYR IV ONE ×2 (21:53→21:57)
[2021-05-07] MEDS ORDERED: HumuLIN R SUBCUT PRN (21:54)
[2021-05-07] MEDS ORDERED: D50W ABBOJECT SYR ONE (22:00)
[2021-05-08] MEDS: DUONEB 0.5 MG/3 MG (3 mL) NEB SCH ×6 (00:05→20:20)
[2021-05-08] MEDS ORDERED: NS 1/2 1000 ML IV 1,000 ML IV ONE ×3 (05:13→20:46)
[2021-05-08] MEDS: NS 1/2 1000 ML IV 1,000 ML IV SCH ×3 (05:15→22:22)
[2021-05-08 06:24] LABS: BASOPHILS % (AUTO) 0.5 % (0.2-1.0); EOSINOPHILS # (AUTO) 0.1 x10^3/uL (0.0-0.2); EOSINOPHILS % (AUTO) 3.4 % (0.9-2.9); HEMATOCRIT 24.3 % (36.0-47.0); HEMOGLOBIN 7.7 g/dL (12.0-16.0); LYMPHOCYTES # (AUTO) 0.5 X10^3/uL (1.3-2.9); LYMPHOCYTES % (AUTO) 13.3 % (21.0-51.0); MEAN CORPUSCULAR HEMOGLOBIN 26.8 pg (27.0-34.0); MEAN CORPUSCULAR HGB CONC 31.6 g/dL (33.0-35.0); MEAN CORPUSCULAR VOLUME 84.9 fL (80.0-100.0); MEAN PLATELET VOLUME 9.7 fL (7.4-11.0); MONOCYTES # (AUTO) 0.3 x10^3/uL (0.3-0.8); MONOCYTES % (AUTO) 8.3 % (0.0-13.0); NEUTROPHILS % (AUTO) 74.5 % (42.0-75.0); PLATELET COUNT 54 X10^3/uL (150.0-450.0); RED BLOOD COUNT 2.86 X10^6/uL (3.5-5.4); RED CELL DISTRIBUTION WIDTH 19.8 % (11.6-16.5); WHITE BLOOD COUNT 4.1 X10^3/uL (3.6-10.0)
[2021-05-08 06:51] LABS: ALANINE AMINOTRANSFERASE 17 Units/L (12-78); ALBUMIN 2.5 g/dL (3.4-5.0); ALKALINE PHOSPHATASE 119 Units/L (46-116); ASPARTATE AMINO TRANSFERASE 19 Units/L (15-37); BLOOD UREA NITROGEN 41 mg/dL (7-18); CALCIUM 8.4 mg/dL (8.5-10.1); CARBON DIOXIDE 23.7 mmol/L (21-32); CHLORIDE 111 mmol/L (98-107); COR CA(FOR HYPOALB) 9.6 mg/dL (8.5-10.1); CREATININE 1.87 mg/dL (0.55-1.02); SODIUM 144 mmol/L (136-145); TOTAL PROTEIN 6.1 g/dL (6.4-8.2); eGFR NON BLACK RACES 27 (>60)
--- NOTE | 2021-05-08 07:56 | RAD ---
HISTORYSOBSTUDYCHEST, 1 [id number] left pleural effusion probably not changed significantly.Abnormal opacity in the left lung base could be pneumonia or atelectasis. This is not changed.The upper left lung and right lung are clear.Heart is probably large when accounting for technique. Vascular calcifications are present compatible with atherosclerosis.Bones are unremarkable.Median sternotomy wires are present. Fixation hardware is present in the cervical spine.IMPRESSION1. Unchanged left effusion2. Unchanged left basilar atelectasis or pneumoniaElectronically signed by: Srinivasan Bailey (May 08, 2021 07:54:52)
[2021-05-08] MEDS: PULMICORT NEB TX 0.5 MG NEB SCH ×2 (08:51→20:20)
[2021-05-08] MEDS ORDERED: PHARMACY CONSULT LTC MEDICATIONS XX SCH (10:00)
--- NOTE | 2021-05-08 10:29 | DR.H&P ---
H&P - History & Physical for Day of: H&P Date: 05/07/21 - Chief Complaint Chief Complaint: LETHARGIC, AMS, HYPOTENSION - History of Present Illness History of Present Illness: IS A 85 YEAR OLD PATIENT OF OURS. SHE IS A RESIDENT OF [facility]. SHE PRESENTED TO THE ER WITH STAFF REPORTING THAT PATIENT WAS FOUND TO BE LETHARGIC ON MORNING ROUNDS. THEY REPORT THAT SHE WAS ALERT AND IN HER NORMAL STATE THE NIGHT BEFORE. ON ARRIVAL TO THE ER, PATIENT IS LYING IN BED WITH EYES CLOSED. SHE IS DIFFICULT TO AROUSE, BUT DOES OPEN EYES AND MOAN TO PAINFUL STIMULI. SHE IS IN NO RESPIRATORY DISTRESS. HER PMH INCLUDES: ANEMIA, CHF, CAD, CVA, DEMENTIA, DEPRESSION, DIABETES, DYSLIPIDEMIA, GERD, HTN, RENAL DISEASE, AND CIRRHOSIS. [facility] STAFF REPORTS THAT PRIOR TO ARRIVAL, HER BLOOD PRESSURE WAS 70/42. ON ARRIVAL TO THE ER, VITALS WERE 96.9-63-16-100%-86/40. LABS WERE OBTAINED. ABNROMAL LAB VALUES INCLUDE THE FOLLOWING: WBC 2.7, RBC 2.69, HGB 7.2, HCT 22.9, PLT COUNT 78, SODIUM 146, CHLORIDE 111, BUN 39, CREATININE 1.87, GLUCOSE 46, CALCIUM 8.4, CREATINE KINASE 24, TOTAL PROTEIN 5.9, ALBUMIN 2.5. A URINALYSIS WAS OBTAINED AND REVEALED: WBC 20-30, RBC 3-5, BACTERIA 3+, LEUKOCYTES 3+, OCCULT BLOOD 3+, PROTEIN 3+. COVID-19 NEGATIVE. BLOOD AND URINE CULTURES WERE SET UP. EKG REVEALED: SINUS RHYTHM WITH HR 66. A CHEST XRAY WAS OBTAINED AND REVEALED: 1. Findings suggestive of airspace opacity at the left lung base for which acute infection not excluded. IN THE ER, SHE WAS GIVEN A NORMAL SALINE BOLUS, ROCEPHIN 1G IV X 1, VANCOMYCIN 1G IV X 1, AN AMP OF D50w. HER GLUCOSE INCREASED TO 136. BLOOD PRESSURE INCREASED TO 125/57. SHE WAS ADMITTED TO THE HOSPITAL FOR FURTHER EVALUATION AND TREATMENT OF LEFT BASILAR PNEUMONIA, URINARY TRACT INFECTION, HYPOGLYCEMIA, AND AMS. SHE WAS STARTED ON 1/2NS AT 75 ML/HR, LEVAQUIN 750MG IV Q48H, DUONEBS Q4H, PULMICORT NEBS BID, TUSSIONEX 5ML PO Q12H PRN COUGH, ROBITUSSIN DM 10ML PO QID, OTBS ACHS, HUMULIN R SLIDING SCALE. WE WILL REVIEW HER HOME MEDICATIONS AND RESUME APPROPRIATE. OTHERWISE, WE WILL FOLLOW UP WITH AM LABS AND CHEST XRAY AND CONTINUE TO MONITOR. TIME SPENT ON CLINICAL ASSESSMENT, REVIEWING LABS AND IMAGING, DECISION MAKING, AND DOCUMENTATION GREATER THAN 75 MINUTES. - Past Medical History Past Medical History: Coronary Artery Disease, Hypertension, Dyslipidemia, Diabetes, Renal Disease, Dementia, Depression, Anemia, CVA, GERD, CHF Additional Medical History: CIRRHOSIS - Past Surgical History Surgical History: Appendectomy, CABG/Valve Surgery, Cholecystectomy, Hysterectomy - Family History Family Medical History: Cancer, Coronary Artery Disease - Social History Does patient currently use any type of tobacco product: No Have you used tobacco products in the last 12 months: No Type of Tobacco Use: None Does any household member use tobacco: No Alcohol Use: None Drug Use: None - Medications Home Medications: Penicillins Adverse Reaction (Verified 10/09/20 13:08) Sulfa (Sulfonamide Antibiotics) Adverse Reaction (Verified 10/09/20 13:08) CONTINUE taking the following medications ondansetron HCl [Zofran] 4 mg PO Q6H PRN 05/07/21 [History] sitagliptin [Januvia] 50 mg PO DAILY 05/07/21 [History] spironolactone 25 mg PO DAILY 05/07/21 [History] sucralfate 1 g PO ACHS 05/07/21 [History] - Review of Systems Constitutional: See HPI, Weakness Eyes: No Symptoms Reported ENT: No Symptoms Reported Respiratory: No Symptoms Reported Cardiovascular: No Symptoms Reported Gastrointestinal: No Symptoms Reported Genitourinary: No Symptoms Reported Musculoskeletal: No Symptoms Reported Skin: No Symptoms Reported Neurological: See HPI, Weakness, Change in Speech - Physical Exam Vital Signs: Temperature 98.4 F Pulse Rate [Right Radial] 91 Pulse Rate 83 Respiratory Rate 18 Blood Pressure [Right Arm] 110/48 Blood Pressure 100/53 O2 Sat by Pulse Oximetry 98 Oriented: Unable to test Eyes: Normal Ear: Normal Nose: Normal Throat: Normal Respiratory: Wheezes Throughout Cardiovascular: Normal : Normal Auscultation: Bowel Sounds: Normal Palpation: Normal Tenderness: Normal Skin: Decreased Turgur Musculoskeletal: Normal Psychiatric: Other (LETHARGIC ) Mood Description: Flat Affect: Flat Speech Pattern: Unclear, Inappropriate - Assessment/Plan (1) Pneumonia Qualifiers: Pneumonia type: due to unspecified organism Laterality: left Lung location: lower lobe of lung Qualified Code(s): J18.9 - Pneumonia, unspecified organism Status: Acute Plan: ADMIT, SUPPLEMENTAL OXYGEN, 1/2NS AT 75 ML/HR, LEVAQUIN 750MG IV Q48H, DUONEBS Q4H, PULMICORT NEBS BID, TUSSIONEX 5ML PO Q12H PRN COUGH, ROBITUSSIN DM 10ML PO QID, OTBS ACHS, HUMULIN R SLIDING SCALE. (2) Acute UTI Status: Acute (3) Acute on chronic kidney failure Qualifiers: Acute renal failure type: unspecified Chronic kidney disease stage: stage 3 (moderate) Chronic kidney disease stage 3 subtype: unspecified whether 3a or 3b Qualified Code(s): N17.9 - Acute kidney failure, unspecified; N18.30 - Chronic kidney disease, stage 3 unspecified Status: Acute (4) Hypoglycemia Status: Acute Plan: OTBS ACHS (5) AMS (altered mental status) Qualifiers: Altered mental status type: transient alteration of awareness Qualified Code(s): R40.4 - Transient alteration of awareness Status: Acute (6) CHF (congestive heart failure) Qualifiers: Heart failure type: unspecified Heart failure chronicity: chronic Qualified Code(s): I50.9 - Heart failure, unspecified Status: Chronic (7) Hypertension Qualifiers: Hypertension type: essential hypertension Qualified Code(s): I10 - Essential (primary) hypertension Status: Chronic (8) Diabetes mellitus Qualifiers: Diabetes mellitus type: type 2 Diabetes mellitus longterm insulin use: with longterm use Diabetes mellitus complication status: with other specified complication Qualified Code(s): E11.69 - Type 2 diabetes mellitus with other specified complication; Z79.4 - penitentiary (current) use of insulin Status: Chronic (9) Cirrhosis Qualifiers: Hepatic cirrhosis type: unspecified hepatic cirrhosis Ascites presence: without ascites Qualified Code(s): K74.60 - Unspecified cirrhosis of liver Status: Chronic (10) Anemia Qualifiers: Anemia type: unspecified type Qualified Code(s): D64.9 - Anemia, unspecified Status: Chronic - Allergies Allergies/Adverse Reactions: Allergies Allergy/AdvReac Type Severity Reaction Status Date / Time Penicillins AdvReac Verified 11/17/20 13:08 Sulfa (Sulfonamide AdvReac Verified 10/09/20 13:08 Antibiotics)
--- NOTE | 2021-05-08 11:01 | PCM.PROG ---
Progress Note - Progress Note for Day of Date of Exam: 05/08/21 - Subjective Subjective: WAS ADMITTED FOR TREATMENT OF LEFT BASILAR PNEUMONIA, URINARY TRACT INFECTION, ACUTE ON CHRONIC RENAL FAILURE, HYPOGLYCEMIA, AND AMS. TODAY, SHE IS ALERT AND LYING IN BED ON MORNING ROUNDS. SHE ANSWERS QUESTIONS APPROPRIATELY, BUT SPEECH DOES APPEAR TO BE SLIGHTLY DELAYED AND SLURRED. STAFF REPORTS THAT SHE IS HAVING DIFFICULTY SWALLOWING HER FOOD THIS MORNING. ON EXAMINATION, HEART IS REGULAR IN RATE AND RHYTHM. BILATERAL LUNGS ARE NOTED WITH SCATTERED WHEEZING THROUGHOUT. ABDOMEN IS ROUND, SOFT, AND NON-TENDER WITH NORMAL BOWEL SOUNDS NOTED IN ALL QUADRANTS. HER VITALS THIS MORNING WERE 98.4-91-18-100%-110/48. LABS WERE OBTAINED. ABNROMAL LAB VALUES INCLUDE THE FOLLOWING: RBC 2.86, HGB 7.7, HCT 24.3, PLT COUNT 54, CHLORIDE 111, BUN 41, CREATININE 1.87, GLUCOSE 101, CALCIUM 8.4, ALK PHOS 119, TOTAL PROTEIN 6.1, ALBUMIN 2.5. BLOOD AND URINE CULTURES ARE PENDING. A CHEST XRAY WAS OBTAINED AND REVEALED: 1. Unchanged left effusion 2. Unchanged left basilar atelectasis or p neumonia. SHE IS CURRENTLY RECEIVING 1/2NS AT 75 ML/HR, LEVAQUIN 750MG IV Q48H, DUONEBS Q4H, PULMICORT NEBS BID, TUSSIONEX 5ML PO Q12H PRN COUGH, ROBITUSSIN DM 10ML PO QID, OTBS ACHS, HUMULIN R SLIDING SCALE. WE WILL REVIEW HER HOME MEDICATIONS AND RESUME APPROPRIATE. WE WILL OBTAIN A BRAIN CT WITHOUT CONTRAST TO RULE OUT ACUTE PROCESS AND ORDER A SPEECH THERAPY EVALUATION. OTHERWISE, WE WILL FOLLOW UP WITH AM LABS AND CHEST XRAY AND CONTINUE TO MONITOR. TIME SPENT ON CLINICAL ASSESSMENT, REVIEWING LABS AND IMAGING, DECISION MAKING, AND DOCUMENTATION GREATER THAN 75 MINUTES. - Past Medical Family Social History Allergies: Allergies Penicillins Adverse Reaction (Verified 10/09/20 13:08) Sulfa (Sulfonamide Antibiotics) Adverse Reaction (Verified 10/09/20 13:08) - Vital Signs and I&O's Vital Signs: Temperature 98.4 F Pulse Rate [Right Radial] 91 Pulse Rate 83 Respiratory Rate 18 Blood Pressure [Right Arm] 110/48 Blood Pressure 100/53 O2 Sat by Pulse Oximetry 98 Intake and Output: Intake & Output 05/05/21 05/06/21 05/07/21 05/08/21 11:59 11:59 11:59 11:59 Intake Total 800 / 800 Output Total 525 / 525 Balance 275 / 275 - Physical Exam Oriented: Person, Place Eyes: Normal Ear: Normal Nose: Normal Throat: Normal Respiratory: Generalized, Wheezes Cardiovascular: Normal : Normal Auscultation: Bowel Sounds: Normal Palpation: Normal Tenderness: Normal Skin: Decreased Turgur Musculoskeletal: Normal Psychiatric: Other (LETHARGIC ) Mood Description: Flat Affect: Flat Speech Pattern: Unclear, Inappropriate - Laboratory and Diagnostics Result Diagrams: 05/08/21 05:45 05/08/21 05:45 Labs: 05/07/21 10:05 Urine,Catheterized Urine Culture - Preliminary Laboratory WBC 4.1 X10^3/uL (3.6-10.0) 05/08/21 05:45 RBC 2.86 X10^6/uL (3.5-5.4) L 05/08/21 05:45 Hgb 7.7 g/dL (12.0-16.0) L 05/08/21 05:45 Hct 24.3 % (36.0-47.0) L 05/08/21 05:45 MCV 84.9 fL (80.0-100.0) 05/08/21 05:45 MCH 26.8 pg (27.0-34.0) L 05/08/21 05:45 MCHC 31.6 g/dL (33.0-35.0) L 05/08/21 05:45 RDW 19.8 % (11.6-16.5) H 05/08/21 05:45 Plt Count 54 X10^3/uL (150.0-450.0) L 05/08/21 05:45 MPV 9.7 fL (7.4-11.0) 05/08/21 05:45 Neut % (Auto) 74.5 % (42.0-75.0) 05/08/21 05:45 Lymph % (Auto) 13.3 % (21.0-51.0) L 05/08/21 05:45 [place] % (Auto) 8.3 % (0.0-13.0) 05/08/21 05:45 Eos % (Auto) 3.4 % (0.9-2.9) H 05/08/21 05:45 Baso % (Auto) 0.5 % (0.2-1.0) 05/08/21 05:45 Neut # (Auto) 3.0 x10^3/uL (2.2-4.8) 05/08/21 05:45 Lymph # (Auto) 0.5 X10^3/uL (1.3-2.9) L 05/08/21 05:45 [place] # (Auto) 0.3 x10^3/uL (0.3-0.8) 05/08/21 05:45 Eos # (Auto) 0.1 x10^3/uL (0.0-0.2) 05/08/21 05:45 Baso # (Auto) 0.0 X10^3/uL (0.0-0.1) 05/08/21 05:45 Absolute Nucleated RBC 0.1 /100WBC 05/08/21 05:45 Sample Site Lbra 05/07/21 10:27 ABG pH 7.450 (7.35-7.45) 05/07/21 10:27 ABG pCO2 42.0 mmHg (35.0-45.0) 05/07/21 10:27 ABG pO2 146.0 mmHg (80.0-100.0) H 05/07/21 10:27 ABG HCO3 29.2 mmol/L (22-26) H 05/07/21 10:27 ABG O2 Saturation 99.0 % (90-100) 05/07/21 10:27 ABG Base Excess 4.7 mmol/L (-2.0-2.0) H 05/07/21 10:27 Norberto Test N/a 05/07/21 10:27 A-a Gradient 1.0 mmHg 05/07/21 10:27 FiO2 28.0 05/07/21 10:27 Blood Gas Comments Pt carol well elj 05/07/21 10:27 Sodium 144 mmol/L (136-145) 05/08/21 05:45 Corrected Sodium TNP 05/08/21 05:45 Potassium 5.1 mmol/L (3.5-5.1) 05/08/21 05:45 Chloride 111 mmol/L (98-107) H 05/08/21 05:45 Carbon Dioxide 23.7 mmol/L (21-32) 05/08/21 05:45 BUN 41 mg/dL (7-18) H 05/08/21 05:45 Creatinine 1.87 mg/dL (0.55-1.02) H 05/08/21 05:45 Est GFR (MDRD) Af Amer 33 (>60) L 05/08/21 05:45 Est GFR (MDRD) Non-Af 27 (>60) L 05/08/21 05:45 Glucose 101 mg/dL (65-99) H 05/08/21 05:45 POC Glucose (mg/dL) 102 mg/dL (65-99) H 05/08/21 05:18 Lactic Acid 0.9 mmol/L (0.4-2.0) 05/07/21 10:15 Calcium 8.4 mg/dL (8.5-10.1) L 05/08/21 05:45 Corrected Calcium 9.6 mg/dL (8.5-10.1) 05/08/21 05:45 Total Bilirubin 0.50 mg/dL (0.2-1.0) 05/08/21 05:45 AST 19 Units/L (15-37) 05/08/21 05:45 ALT 17 Units/L (12-78) 05/08/21 05:45 Alkaline Phosphatase 119 Units/L (46-116) H 05/08/21 05:45 Creatine Kinase 24 Units/L (26-192) L 05/07/21 10:15 CK-MB (CK-2) < 1.0 ng/mL (0-4.0) 05/07/21 10:15 CK/CKMB % Calc 4.2 % (<4) 05/07/21 10:15 Troponin I < 0.02 ng/mL (0-1.5) 05/07/21 10:15 Total Protein 6.1 g/dL (6.4-8.2) L 05/08/21 05:45 Albumin 2.5 g/dL (3.4-5.0) L 05/08/21 05:45 Globulin 3.6 g/dL (2.5-4.5) 05/08/21 05:45 Albumin/Globulin Ratio 0.7 Ratio (1.1-2.1) L 05/08/21 05:45 Specimen Type Catherized urine 05/07/21 10:05 Urine Color Yellow (YELLOW) 05/07/21 10:05 Urine Appearance Hazy (CLEAR) 05/07/21 10:05 Urine pH 5.0 (5.0 - 8.0) 05/07/21 10:05 Ur Specific [place] 1.015 (1.000-1.030) 05/07/21 10:05 Urine Protein 3+ (NEGATIVE) 05/07/21 10:05 Urine Glucose (UA) Negative (NEGATIVE) 05/07/21 10:05 Urine Ketones Negative (NEGATIVE) 05/07/21 10:05 Urine Occult Blood 2+ (NEGATIVE) 05/07/21 10:05 Urine Nitrite Negative (NEGATIVE) 05/07/21 10:05 Urine Bilirubin Negative (NEGATIVE) 05/07/21 10:05 Urine Urobilinogen Normal (NORMAL) 05/07/21 10:05 Ur Leukocyte Esterase 3+ (NEGATIVE) 05/07/21 10:05 Urine RBC 3-5 /HPF (0-3) A 05/07/21 10:05 Urine WBC 20-30 /HPF (0-5) A 05/07/21 10:05 Ur Squamous Epith Cells Rare /HPF (NEGATIVE) 05/07/21 10:05 Amorphous Sediment 1+ /HPF (NEGATIVE) 05/07/21 10:05 Urine Bacteria 3+ /HPF (NEGATIVE) 05/07/21 10:05 Ur Culture Indicated? Yes/culture set up 05/07/21 10:05 SARS CoV-2 RNA Rapid YOCASTA Negative (NEGATIVE) 05/07/21 13:11 - Plan (1) Pneumonia Status: Acute Qualifiers: Pneumonia type: due to unspecified organism Laterality: left Lung location: lower lobe of lung Qualified Code(s): J18.9 - Pneumonia, unspecified organism Plan: ADMIT, SUPPLEMENTAL OXYGEN, 1/2NS AT 75 ML/HR, LEVAQUIN 750MG IV Q48H, DUONEBS Q4H, PULMICORT NEBS BID, TUSSIONEX 5ML PO Q12H PRN COUGH, ROBITUSSIN DM 10ML PO QID, OTBS ACHS, HUMULIN R SLIDING SCALE. (2) Acute UTI Status: Acute (3) Acute on chronic kidney failure Status: Acute Qualifiers: Acute renal failure type: unspecified Chronic kidney disease stage: stage 3 (moderate) Chronic kidney disease stage 3 subtype: unspecified whether 3a or 3b Qualified Code(s): N17.9 - Acute kidney failure, unspecified; N18.30 - Chronic kidney disease, stage 3 unspecified (4) Dysphagia Status: Acute (5) Hypoglycemia Status: Resolved Plan: OTBS ACHS (6) AMS (altered mental status) Status: Acute Qualifiers: Altered mental status type: transient alteration of awareness Qualified Code(s): R40.4 - Transient alteration of awareness (7) CHF (congestive heart failure) Status: Chronic Qualifiers: Heart failure type: unspecified Heart failure chronicity: chronic Qualified Code(s): I50.9 - Heart failure, unspecified (8) Hypertension Status: Chronic Qualifiers: Hypertension type: essential hypertension Qualified Code(s): I10 - Essential (primary) hypertension (9) Diabetes mellitus Status: Chronic Qualifiers: Diabetes mellitus type: type 2 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
--- NOTE | 2021-05-08 11:49 | CT ---
HISTORYAMS diabetes mellitus, hypertension, and coronary artery disease.STUDYBRAIN W/O CONCOMPARISONHead CT 02/26/2021TECHNIQUEMultiple CT axial images of the head were obtained without IV contrast. Coronal and sagittal images were reconstructed. Dose reduction techniques included Automated Exposure Control (AEC) and adjustment of mA and kV.FINDINGSMultiple lacunar infarcts are present. 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 As best as I can determine, there has been no change from the prior study.Other bhatt and white matter have normal differentiation. No mass, shift, or hemorrhage.Cerebellar tonsils are at an appropriate level. No fluid in the sinuses or mucosal thickening to suggest sinusitis. There is no mastoid effusion.IMPRESSION1. No acute findingElectronically signed by: Srinivasan Bailey (May 08, 2021 11:47:52)
[2021-05-08] MEDS: ROBITUSSIN DM PO SCH ×4 (14:49→22:22)
[2021-05-08] MEDS: SNACK - Diabetic Appropriate PO SCH (21:05)
[2021-05-09] MEDS: DUONEB 0.5 MG/3 MG (3 mL) NEB SCH ×6 (00:10→20:24)
[2021-05-09 05:26] LABS: BASOPHILS % (AUTO) 0.6 % (0.2-1.0); EOSINOPHILS # (AUTO) 0.2 x10^3/uL (0.0-0.2); HEMATOCRIT 22.3 % (36.0-47.0); HEMOGLOBIN 7.2 g/dL (12.0-16.0); LYMPHOCYTES # (AUTO) 0.6 X10^3/uL (1.3-2.9); LYMPHOCYTES % (AUTO) 17.7 % (21.0-51.0); MEAN CORPUSCULAR HEMOGLOBIN 26.9 pg (27.0-34.0); MEAN CORPUSCULAR HGB CONC 32.2 g/dL (33.0-35.0); MEAN CORPUSCULAR VOLUME 83.8 fL (80.0-100.0); MEAN PLATELET VOLUME 9.6 fL (7.4-11.0); MONOCYTES # (AUTO) 0.3 x10^3/uL (0.3-0.8); MONOCYTES % (AUTO) 9.7 % (0.0-13.0); NEUTROPHILS # (AUTO) 2.1 x10^3/uL (2.2-4.8); PLATELET COUNT 52 X10^3/uL (150.0-450.0); RED BLOOD COUNT 2.66 X10^6/uL (3.5-5.4); WHITE BLOOD COUNT 3.1 X10^3/uL (3.6-10.0)
[2021-05-09 05:40] LABS: ALBUMIN 2.5 g/dL (3.4-5.0); CALCIUM 8.3 mg/dL (8.5-10.1); COR CA(FOR HYPOALB) 9.5 mg/dL (8.5-10.1); CREATININE 1.54 mg/dL (0.55-1.02)
--- NOTE | 2021-05-09 06:05 | RAD ---
HISTORYShortness of breathSTUDYChest AP [id number]/16/2021FINDINGSPatient is status post median sternotomy and CABG. Heart remains enlarged. The aorta is calcified. The tamy are normal. No congestive heart failure is noted. No defin ite acute infiltrates or pleural effusions are identified. Bony thorax is unremarkable.IMPRESSIONCard iomegaly without congestive heart failure, unchanged when no infiltratesElectronically signed by: SUNG ROLLE (May 09, 2021 06:02:47)
[2021-05-09 06:09] LABS: GIANT PLATELET FEW; HYPOCHROMASIA SLIGHT; MICROCYTOSIS 1+; PLATELET MORPHOLOGY COMMENT ABNORMAL (NORMAL)
[2021-05-09] MEDS: PULMICORT NEB TX 0.5 MG NEB SCH ×2 (08:39→20:24)
[2021-05-09] MEDS ORDERED: TYLENOL 325 MG TAB PO PRN (09:54)
[2021-05-09] MEDS ORDERED: NS 500 ML IV 500 ML IV ONE (09:54)
[2021-05-09] MEDS ORDERED: BENADRYL INJ 50 MG VIAL IVP PRN (09:54)
[2021-05-09] MEDS: ROBITUSSIN DM PO SCH ×3 (10:20→21:59)
[2021-05-09] MEDS ORDERED: ZOFRAN TAB 4 MG PO PRN (10:23)
--- NOTE | 2021-05-09 10:23 | PCM.PROG ---
Progress Note - Progress Note for Day of Date of Exam: 05/09/21 - Subjective Subjective: WAS ADMITTED FOR TREATMENT OF LEFT BASILAR PNEUMONIA, URINARY TRACT INFECTION, ACUTE ON CHRONIC RENAL FAILURE, HYPOGLYCEMIA, AND AMS. TODAY, SHE IS LYING IN BED WITH EYES CLOSED ON MORNING ROUNDS. SHE AWAKENS TO VERBAL STIMULI. SHE RESPONDS APPROPRIATELY. STAFF REPORTS THAT SHE CONTINUES WITH DIFFICULTY SWALLOWING. ON EXAMINATION, HEART IS REGULAR IN RATE AND RHYTHM. BILATERAL LUNGS ARE NOTED WITH SCATTERED WHEEZING THROUGHOUT. ABDOMEN IS ROUND, SOFT, AND NON-TENDER WITH NORMAL BOWEL SOUNDS NOTED IN ALL QUADRANTS. HER VITALS THIS MORNING WERE 97.2-80-18-99%-163/72. LABS WERE OBTAINED. ABNROMAL LAB VALUES INCLUDE THE FOLLOWING: RBC WBC 3.1, RBC 2.66, HGB 7.2, HCT 22.3, PLT COUNT 52, CHLORIDE 113, BUN 33, CREATININE 1.54, GLUCOSE 171, CALCIUM 8.3, ALK PHOS 123, TOTAL PROTEIN 6.0, ALBUMIN 2.5. BLOOD CULTURES ARE PENDING. URINE CULTURE IS POSITIVE FOR E.COLI. A CHEST XRAY WAS OBTAINED AND REVEALED: Cardiomegaly without congestive heart failure, unchanged when no infiltrates. BRAIN CT WAS OBTAINED YESTERDAY AND REVEALED NO ACUTE FINDINGS. SHE IS CURRENTLY RECEIVING 1/2NS AT 75 ML/HR, LEVAQUIN 750MG IV Q48H, DUONEBS Q4H, PULMICORT NEBS BID, TUSSIONEX 5ML PO Q12H PRN COUGH, ROBITUSSIN DM 10ML PO QID, OTBS ACHS, HUMULIN R SLIDING SCALE. HER HOME MEDICATIONS WERE RESUMED. SPEECH THERAPY WILL CONSULT WITH HER TODAY. WE WILL TRANSFUSE TWO UNITS OF PRBC TODAY DUE TO ANEMIA. OTHERWISE, WE WILL FOLLOW UP WITH AM LABS AND CHEST XRAY AND CONTINUE TO MONITOR. TIME SPENT ON CLINICAL ASSESSMENT, REVIEWING LABS AND IMAGING, DECISION MAKING, AND DOCUMENTATION GREATER THAN 75 MINUTES. - Past Medical Family Social History Past Med/Fam/Surg Hx: No changes since H&P Allergies: Allergies Penicillins Adverse Reaction (Verified 10/09/20 13:08) Sulfa (Sulfonamide Antibiotics) Adverse Reaction (Verified 10/09/20 13:08) - Review of Systems ROS: No change since H&P - Vital Signs and I&O's Vital Signs: Temperature 97.2 F Pulse Rate [Right Radial] 80 Pulse Rate 84 Respiratory Rate 18 Blood Pressure [Left Arm] 163/72 Blood Pressure [Right Arm] 161/72 Blood Pressure 100/53 O2 Sat by Pulse Oximetry 98 Intake and Output: Intake & Output 05/06/21 05/07/21 05/08/21 05/09/21 11:59 11:59 11:59 11:59 Intake Total 800 / 800 2146 / 2146 Output Total 525 / 525 1675 / 1675 Balance 275 / 275 471 / 471 - Physical Exam Oriented: Person, Place Eyes: Normal Ear: Normal Nose: Normal Throat: Normal Respiratory: Generalized, Wheezes Cardiovascular: Normal : Normal Auscultation: Bowel Sounds: Normal Palpation: Normal Tenderness: Normal Skin: Decreased Turgur Musculoskeletal: Normal Psychiatric: Other (LETHARGIC ) Mood Description: Flat Affect: Flat Speech Pattern: Clear, Appropriate - Laboratory and Diagnostics Result Diagrams: 05/09/21 04:05 05/09/21 04:05 Labs: 05/07/21 10:33 Blood Blood Culture - Preliminary 05/07/21 10:15 Blood Blood Culture - Preliminary 05/07/21 10:05 Urine,Catheterized Urine Culture - Preliminary Escherichia Coli Laboratory WBC 3.1 X10^3/uL (3.6-10.0) L 05/09/21 04:05 RBC 2.66 X10^6/uL (3.5-5.4) L 05/09/21 04:05 Hgb 7.2 g/dL (12.0-16.0) L 05/09/21 04:05 Hct 22.3 % (36.0-47.0) L 05/09/21 04:05 MCV 83.8 fL (80.0-100.0) 05/09/21 04:05 MCH 26.9 pg (27.0-34.0) L 05/09/21 04:05 MCHC 32.2 g/dL (33.0-35.0) L 05/09/21 04:05 RDW 20.0 % (11.6-16.5) H 05/09/21 04:05 Plt Count 52 X10^3/uL (150.0-450.0) L 05/09/21 04:05 Plt Count Comment Decreased (ADEQUATE) A 05/09/21 04:05 MPV 9.6 fL (7.4-11.0) 05/09/21 04:05 Neut % (Auto) 66.0 % (42.0-75.0) 05/09/21 04:05 Lymph % (Auto) 17.7 % (21.0-51.0) L 05/09/21 04:05 Posey % (Auto) 9.7 % (0.0-13.0) 05/09/21 04:05 Eos % (Auto) 6.0 % (0.9-2.9) H 05/09/21 04:05 Baso % (Auto) 0.6 % (0.2-1.0) 05/09/21 04:05 Neut # (Auto) 2.1 x10^3/uL (2.2-4.8) L 05/09/21 04:05 Lymph # (Auto) 0.6 X10^3/uL (1.3-2.9) L 05/09/21 04:05 Posey # (Auto) 0.3 x10^3/uL (0.3-0.8) 05/09/21 04:05 Eos # (Auto) 0.2 x10^3/uL (0.0-0.2) 05/09/21 04:05 Baso # (Auto) 0.0 X10^3/uL (0.0-0.1) 05/09/21 04:05 Absolute Nucleated RBC 0.0 /100WBC 05/09/21 04:05 Plt Clumps, EDTA Rare 05/09/21 04:05 Giant Platelets Few 05/09/21 04:05 Plt Morphology Comment Abnormal (NORMAL) A 05/09/21 04:05 RBC Morphology Abnormal (NORMAL) A 05/09/21 04:05 Hypochromasia Slight A 05/09/21 04:05 Microcytosis 1+ A 05/09/21 04:05 Sample Site Lbra 05/07/21 10:27 ABG pH 7.450 (7.35-7.45) 05/07/21 10:27 ABG pCO2 42.0 mmHg (35.0-45.0) 05/07/21 10:27 ABG pO2 146.0 mmHg (80.0-100.0) H 05/07/21 10:27 ABG HCO3 29.2 mmol/L (22-26) H 05/07/21 10:27 ABG O2 Saturation 99.0 % (90-100) 05/07/21 10:27 ABG Base Excess 4.7 mmol/L (-2.0-2.0) H 05/07/21 10:27 Norberto Test N/a 05/07/21 10:27 A-a Gradient 1.0 mmHg 05/07/21 10:27 FiO2 28.0 05/07/21 10:27 Blood Gas Comments Pt carol well elj 05/07/21 10:27 Sodium 145 mmol/L (136-145) 05/09/21 04:05 Corrected Sodium 147 mmol/L (136-145) H 05/09/21 04:05 Potassium 5.0 mmol/L (3.5-5.1) 05/09/21 04:05 Chloride 113 mmol/L (98-107) H 05/09/21 04:05 Carbon Dioxide 24.0 mmol/L (21-32) 05/09/21 04:05 BUN 33 mg/dL (7-18) H 05/09/21 04:05 Creatinine 1.54 mg/dL (0.55-1.02) H 05/09/21 04:05 Est GFR (MDRD) Af Amer 41 (>60) L 05/09/21 04:05 Est GFR (MDRD) Non-Af 34 (>60) L 05/09/21 04:05 Glucose 171 mg/dL (65-99) H 05/09/21 04:05 POC Glucose (mg/dL) 152 mg/dL (65-99) H 05/08/21 21:19 Lactic Acid 0.9 mmol/L (0.4-2.0) 05/07/21 10:15 Calcium 8.3 mg/dL (8.5-10.1) L 05/09/21 04:05 Corrected Calcium 9.5 mg/dL (8.5-10.1) 05/09/21 04:05 Total Bilirubin 0.40 mg/dL (0.2-1.0) 05/09/21 04:05 AST 16 Units/L (15-37) 05/09/21 04:05 ALT 16 Units/L (12-78) 05/09/21 04:05 Alkaline Phosphatase 123 Units/L (46-116) H 05/09/21 04:05 Creatine Kinase 24 Units/L (26-192) L 05/07/21 10:15 CK-MB (CK-2) < 1.0 ng/mL (0-4.0) 05/07/21 10:15 CK/CKMB % Calc 4.2 % (<4) 05/07/21 10:15 Troponin I < 0.02 ng/mL (0-1.5) 05/07/21 10:15 Total Protein 6.0 g/dL (6.4-8.2) L 05/09/21 04:05 Albumin 2.5 g/dL (3.4-5.0) L 05/09/21 04:05 Globulin 3.5 g/dL (2.5-4.5) 05/09/21 04:05 Albumin/Globulin Ratio 0.7 Ratio (1.1-2.1) L 05/09/21 04:05 Specimen Type Catherized urine 05/07/21 10:05 Urine Color Yellow (YELLOW) 05/07/21 10:05 Urine Appearance Hazy (CLEAR) 05/07/21 10:05 Urine pH 5.0 (5.0 - 8.0) 05/07/21 10:[address] [place] 1.015 (1.000-1.030) 05/07/21 10:05 Urine Protein 3+ (NEGATIVE) 05/07/21 10:05 Urine Glucose (UA) Negative (NEGATIVE) 05/07/21 10:05 Urine Ketones Negative (NEGATIVE) 05/07/21 10:05 Urine Occult Blood 2+ (NEGATIVE) 05/07/21 10:05 Urine Nitrite Negative (NEGATIVE) 05/07/21 10:05 Urine Bilirubin Negative (NEGATIVE) 05/07/21 10:05 Urine Urobilinogen Normal (NORMAL) 05/07/21 10:05 Ur Leukocyte Esterase 3+ (NEGATIVE) 05/07/21 10:05 Urine RBC 3-5 /HPF (0-3) A 05/07/21 10:05 Urine WBC 20-30 /HPF (0-5) A 05/07/21 10:05 Ur Squamous Epith Cells Rare /HPF (NEGATIVE) 05/07/21 10:05 Amorphous Sediment 1+ /HPF (NEGATIVE) 05/07/21 10:05 Urine Bacteria 3+ /HPF (NEGATIVE) 05/07/21 10:05 Ur Culture Indicated? Yes/culture set up 05/07/21 10:05 SARS CoV-2 RNA Rapid YOCASTA Negative (NEGATIVE) 05/07/21 13:11 - Plan (1) Pneumonia Status: Acute Qualifiers: Pneumonia type: due to unspecified organism Laterality: left Lung location: lower lobe of lung Qualified Code(s): J18.9 - Pneumonia, unspecified organism Plan: SUPPLEMENTAL OXYGEN, 1/2NS AT 75 ML/HR, LEVAQUIN 750MG IV Q48H, DUONEBS Q4H, PULMICORT NEBS BID, TUSSIONEX 5ML PO Q12H PRN COUGH, ROBITUSSIN DM 10ML PO QID, OTBS ACHS, HUMULIN R SLIDING SCALE. (2) Acute UTI Status: Acute (3) Acute on chronic kidney failure Status: Acute Qualifiers: Acute renal failure type: unspecified Chronic kidney disease stage: stage 3 (moderate) Chronic kidney disease stage 3 subtype: unspecified whether 3a or 3b Qualified Code(s): N17.9 - Acute kidney failure, unspecified; N18.30 - Chronic kidney disease, stage 3 unspecified (4) Dysphagia Status: Acute Qualifiers: Dysphagia type: unspecified Qualified Code(s): R13.10 - Dysphagia, unspecified (5) Hypoglycemia Status: Resolved Plan: OTBS ACHS (6) AMS (altered mental status) Status: Acute Qualifiers: Altered mental status type: transient alteration of awareness Qualified Code(s): R40.4 - Transient alteration of awareness (7) CHF (congestive heart failure) Status: Chronic Qualifiers: Heart failure type: unspecified Heart failure chronicity: chronic Qu alified Code(s): I50.9 - Heart failure, unspecified (8) Hypertension Status: Chronic Qualifiers: Hypertension type: essential hypertension Qualified Code(s): I10 - Essential (primary) hypertension (9) Diabetes mellitus Status: Chronic Qualifiers: Diabetes mellitus type: type 2 Diabetes mellitus half-way insulin use: with terminal gauger supervisor use Diabetes mellitus complication status: with other specified complication Qualified Code(s): E11.69 - Type 2 diabetes mellitus with other specified complication; Z79.4 - skilled nursing (current) use of insulin (10) Cirrhosis Status: Chronic Qualifiers: Hepatic cirrhosis type: unspecified hepatic cirrhosis Ascites presence: without ascites Qualified Code(s): K74.60 - Unspecified cirrhosis of liver (11) Anemia Status: Chronic Qualifiers: Anemia type: unspecified type Qualified Code(s): D64.9 - Anemia, unspecified Plan: TRANSFUSE 2 UNITS PRBC
[2021-05-09] MEDS: FORTAZ or TAZICEF VIAL INJ 1 G in NS 100 ML IV + SPIKE MINIBAG* 100 ML IV SCH ×2 (10:35→22:01)
[2021-05-09] MEDS: CARAFATE PO SCH ×3 (10:56→22:01)
[2021-05-09] MEDS: ALDACTONE TAB 25 MG PO SCH (10:56)
[2021-05-09] MEDS: PEPCID TAB 40 MG PO SCH ×2 (10:56→22:00)
[2021-05-09] MEDS: COREG TAB 3.125 MG PO SCH ×2 (10:56→21:15)
[2021-05-09] MEDS: PROTONIX TAB 40 MG PO SCH ×2 (10:56→22:00)
[2021-05-09] MEDS ORDERED: MILK OF MAGNESIA PO PRN (11:22)
[2021-05-09] MEDS ORDERED: COLACE CAP 100 MG PO PRN (11:22)
[2021-05-09] MEDS: NS 1/2 1000 ML IV 1,000 ML IV SCH ×2 (11:41→22:00)
[2021-05-09] MEDS ORDERED: LIPITOR TAB 20 MG PO SCH (21:00)
[2021-05-09] MEDS: LEVAQUIN PREMIX IV 750 MG 750 MG/150 ML BAG IV SCH (21:58)
[2021-05-09] MEDS: COLACE CAP 100 MG PO SCH (21:59)
[2021-05-09] MEDS: SNACK - Diabetic Appropriate PO SCH (21:59)
[2021-05-09] MEDS: MILK OF MAGNESIA PO SCH (22:01)
[2021-05-09 22:04] LABS: HEMATOCRIT 30.9 % (36.0-47.0); HEMOGLOBIN 10.1 g/dL (12.0-16.0)
[2021-05-10] MEDS: DUONEB 0.5 MG/3 MG (3 mL) NEB SCH ×3 (00:30→08:10)
[2021-05-10] MEDS ORDERED: NS 1/2 1000 ML IV 1,000 ML IV ONE (03:15)
[2021-05-10] MEDS: NS 1/2 1000 ML IV 1,000 ML IV SCH (04:06)
[2021-05-10] MEDS: CARAFATE PO SCH ×2 (05:46→11:48)
[2021-05-10 05:49] LABS: ALBUMIN 2.3 g/dL (3.4-5.0); CALCIUM 8.2 mg/dL (8.5-10.1); CARBON DIOXIDE 25.3 mmol/L (21-32); COR CA(FOR HYPOALB) 9.6 mg/dL (8.5-10.1); CREATININE 1.36 mg/dL (0.55-1.02); TOTAL PROTEIN 5.9 g/dL (6.4-8.2)
[2021-05-10 06:21] LABS: BASOPHILS % (AUTO) 0.4 % (0.2-1.0); EOSINOPHILS # (AUTO) 0.3 x10^3/uL (0.0-0.2); EOSINOPHILS % (AUTO) 6.3 % (0.9-2.9); HEMATOCRIT 30.4 % (36.0-47.0); HEMOGLOBIN 10.1 g/dL (12.0-16.0); LYMPHOCYTES # (AUTO) 0.6 X10^3/uL (1.3-2.9); LYMPHOCYTES % (AUTO) 12.8 % (21.0-51.0); MEAN CORPUSCULAR HEMOGLOBIN 27.9 pg (27.0-34.0); MEAN CORPUSCULAR VOLUME 84.5 fL (80.0-100.0); MEAN PLATELET VOLUME 9.5 fL (7.4-11.0); MONOCYTES # (AUTO) 0.4 x10^3/uL (0.3-0.8); MONOCYTES % (AUTO) 7.8 % (0.0-13.0); NEUTROPHILS # (AUTO) 3.6 x10^3/uL (2.2-4.8); NEUTROPHILS % (AUTO) 72.7 % (42.0-75.0); PLATELET COUNT 40 X10^3/uL (150.0-450.0); RED CELL DISTRIBUTION WIDTH 18.3 % (11.6-16.5)
--- NOTE | 2021-05-10 06:25 | RAD ---
HISTORYShortness of breathSTUDYChest AP [id number]/17/2021FINDINGSPatient is status post median sternotomy and CABG. Patient is rot ated slightly to the right. The heart is enlarged. No congestive heart failure is noted. No infiltrat es or pleural effusions are identified. Bony thorax is unremarkable.IMPRESSIONCardiomegaly without co ngestive heart failureNo infiltratesElectronically signed by: MEKA ROLLE (May 10, 2021 06:23:56)
[2021-05-10 06:57] LABS: PLATELET MORPHOLOGY COMMENT NORMAL (NORMAL)
[2021-05-10] MEDS: PULMICORT NEB TX 0.5 MG NEB SCH (08:10)
[2021-05-10] MEDS ORDERED: LEXAPRO ONE (08:53)
[2021-05-10] MEDS ORDERED: LEXAPRO PO SCH (09:00)
[2021-05-10] MEDS: ALDACTONE TAB 25 MG PO SCH (09:14)
[2021-05-10] MEDS: PEPCID TAB 40 MG PO SCH (09:15)
[2021-05-10] MEDS: COREG TAB 3.125 MG PO SCH (09:15)
[2021-05-10] MEDS: ROBITUSSIN DM PO SCH (09:15)
[2021-05-10] MEDS: PROTONIX TAB 40 MG PO SCH (09:15)
[2021-05-10] MEDS: FORTAZ or TAZICEF VIAL INJ 1 G in NS 100 ML IV + SPIKE MINIBAG* 100 ML IV SCH (09:19)
--- NOTE | 2021-05-10 09:24 | W.DIS.FURT ---
Summary of Discharge Admission Diagnosis Patient Problems (Updated 05/09/21 @ 10:23 by Ac Smiley) Hypoglycemia (Resolved) E16.2 Dysphagia (Acute) R13.10 AMS (altered mental status) (Acute) R41.82 CHF (congestive heart failure) (Chronic) I50.9 Hypertension (Chronic) I10 Diabetes mellitus (Chronic) E11.9 Cirrhosis (Chronic) K74.60 Pneumonia (Acute) J18.9 Acute UTI (Acute) N39.0 Acute on chronic kidney failure (Acute) N17.9, N18.9 Anemia (Chronic) D64.9 Vital Signs: Vital Signs (72 hours) 05/07/21 09:58 05/07/21 10:00 05/07/21 10:06 Temperature 96.9 F L Pulse Rate 63 Pulse Rate [Right Radial] Respiratory Rate 16 Blood Pressure 87/50 99/53 86/40 Blood Pressure [Left Arm] Blood Pressure [Right Arm] O2 Sat by Pulse Oximetry 100 05/07/21 10:07 05/07/21 10:13 05/07/21 10:15 Temperature Pulse Rate 65 66 Pulse Rate [Right Radial] Respiratory Rate 16 15 Blood Pressure 88/38 Blood Pressure [Left Arm] Blood Pressure [Right Arm] O2 Sat by Pulse Oximetry 100 100 05/07/21 10:16 05/07/21 10:30 05/07/21 10:34 Temperature Pulse Rate 63 64 64 Pulse Rate [Right Radial] Respiratory Rate 16 15 15 Blood Pressure 87/47 Blood Pressure [Left Arm] Blood Pressure [Right Arm] O2 Sat by Pulse Oximetry 100 100 100 05/07/21 10:45 05/07/21 11:00 05/07/21 11:15 Temperature Pulse Rate 61 61 59 L Pulse Rate [Right Radial] Respiratory Rate 15 14 15 Blood Pressure 85/46 82/44 86/47 Blood Pressure [Left Arm] Blood Pressure [Right Arm] O2 Sat by Pulse Oximetry 100 100 100 05/07/21 11:30 05/07/21 11:45 05/07/21 12:00 Temperature Pulse Rate 60 59 L 61 Pulse Rate [Right Radial] Respiratory Rate 14 15 14 Blood Pressure 92/53 98/51 Blood Pressure [Left Arm] Blood Pressure [Right Arm] O2 Sat by Pulse Oximetry 100 100 100 05/07/21 12:15 05/07/21 12:16 05/07/21 12:30 Temperature Pulse Rate 64 65 62 Pulse Rate [Right Radial] Respiratory Rate 15 15 14 Blood Pressure 125/57 124/58 Blood Pressure [Left Arm] Blood Pressure [Right Arm] O2 Sat by Pulse Oximetry 100 100 100 05/07/21 12:45 05/07/21 13:00 05/07/21 13:15 Temperature Pulse Rate 61 58 L 60 Pulse Rate [Right Radial] Respiratory Rate 14 14 14 Blood Pressure 125/58 120/53 109/55 Blood Pressure [Left Arm] Blood Pressure [Right Arm] O2 Sat by Pulse Oximetry 99 100 05/07/21 13:30 05/07/21 13:45 05/07/21 14:00 Temperature Pulse Rate 59 L 59 L 60 Pulse Rate [Right Radial] Respiratory Rate 13 15 15 Blood Pressure 106/55 104/54 104/55 Blood Pressure [Left Arm] Blood Pressure [Right Arm] O2 Sat by Pulse Oximetry 05/07/21 14:15 05/07/21 14:18 05/07/21 14:30 Temperature Pulse Rate 61 60 59 L Pulse Rate [Right Radial] Respiratory Rate 15 15 14 Blood Pressure 111/53 104/55 100/53 Blood Pressure [Left Arm] Blood Pressure [Right Arm] O2 Sat by Pulse Oximetry 100 05/07/21 14:45 05/07/21 16:00 05/07/21 16:53 Temperature 97.1 F L 98.1 F Pulse Rate 59 L Pulse Rate [Right Radial] 57 L 61 Respiratory Rate 16 16 Blood Pressure Blood Pressure [Left Arm] Blood Pressure [Right Arm] 100/53 109/55 O2 Sat by Pulse Oximetry 99 100 100 05/07/21 20:00 05/07/21 20:15 05/08/21 00:00 Temperature 97.4 F L 97.5 F L Pulse Rate 64 Pulse Rate [Right Radial] 63 72 Respiratory Rate 18 18 Blood Pressure Blood Pressure [Left Arm] Blood Pressure [Right Arm] 152/67 154/68 O2 Sat by Pulse Oximetry 100 98 98 05/08/21 04:00 05/08/21 07:56 05/08/21 08:51 Temperature 97.8 F 98.4 F Pulse Rate 83 Pulse Rate [Right Radial] 83 91 H Respiratory Rate 16 18 Blood Pressure Blood Pressure [Left Arm] Blood Pressure [Right Arm] 122/59 110/48 O2 Sat by Pulse Oximetry 100 100 98 05/08/21 12:00 05/08/21 15:59 05/08/21 20:00 Temperature 98.6 F 97.8 F 98.7 F Pulse Rate Pulse Rate [Right Radial] 93 H 90 86 Respiratory Rate 18 18 18 Blood Pressure Blood Pressure [Left Arm] Blood Pressure [Right Arm] 152/68 172/71 136/58 O2 Sat by Pulse Oximetry 98 94 L 100 05/08/21 20:20 05/09/21 00:00 05/09/21 00:10 Temperature 98.9 F Pulse Rate 87 83 Pulse Rate [Right Radial] 82 Respiratory Rate 20 Blood Pressure Blood Pressure [Left Arm] Blood Pressure [Right Arm] 154/70 O2 Sat by Pulse Oximetry 98 100 96 05/09/21 04:00 05/09/21 05:50 05/09/21 08:00 Temperature 98.8 F 97.2 F L Pulse Rate 79 Pulse Rate [Right Radial] 81 80 Respiratory Rate 18 18 Blood Pressure Blood Pressure [Left Arm] 163/72 Blood Pressure [Right Arm] 161/72 O2 Sat by Pulse Oximetry 100 98 99 05/09/21 08:39 05/09/21 11:49 05/09/21 12:29 Temperature 98.5 F Pulse Rate 84 Pulse Rate [Right Radial] 81 Respiratory Rate 18 18 Blood Pressure Blood Pressure [Left Arm] 148/63 Blood Pressure [Right Arm] O2 Sat by Pulse Oximetry 98 100 05/09/21 12:33 05/09/21 13:29 05/09/21 16:00 Temperature 98.7 F Pulse Rate 81 Pulse Rate [Right Radial] 74 Respiratory Rate 18 18 Blood Pressure Blood Pressure [Left Arm] 137/65 Blood Pressure [Right Arm] O2 Sat by Pulse Oximetry 99 99 05/09/21 18:00 05/09/21 20:00 05/09/21 20:24 Temperature 98.9 F Pulse Rate 79 87 Pulse Rate [Right Radial] 82 Respiratory Rate 18 Blood Pressure Blood Pressure [Left Arm] 152/65 Blood Pressure [Right Arm] O2 Sat by Pulse Oximetry 99 100 100 05/10/21 00:00 05/10/21 00:30 05/10/21 04:00 Temperature 98.1 F 99.0 F Pulse Rate 82 Pulse Rate [Right Radial] 82 81 Respiratory Rate 18 20 Blood Pressure Blood Pressure [Left Arm] 154/69 164/71 Blood Pressure [Right Arm] O2 Sat by Pulse Oximetry 100 100 96 05/10/21 05:10 05/10/21 08:00 Temperature 98.7 F Pulse Rate 85 Pulse Rate [Right Radial] 86 Respiratory Rate 18 Blood Pressure Blood Pressure [Left Arm] 181/75 Blood Pressure [Right Arm] O2 Sat by Pulse Oximetry 96 95 Labs: Laboratory Last Values WBC 5.0 X10^3/uL (3.6-10.0) 05/10/21 04:30 RBC 3.60 X10^6/uL (3.5-5.4) 05/10/21 04:30 Hgb 10.1 g/dL (12.0-16.0) L 05/10/21 04:30 Hct 30.4 % (36.0-47.0) L 05/10/21 04:30 MCV 84.5 fL (80.0-100.0) 05/10/21 04:30 MCH 27.9 pg (27.0-34.0) 05/10/21 04:30 MCHC 33.0 g/dL (33.0-35.0) 05/10/21 04:30 RDW 18.3 % (11.6-16.5) H 05/10/21 04:30 Plt Count 40 X10^3/uL (150.0-450.0) L 05/10/21 04:30 Plt Count Comment Decreased (ADEQUATE) A 05/10/21 04:30 MPV 9.5 fL (7.4-11.0) 05/10/21 04:30 Neut % (Auto) 72.7 % (42.0-75.0) 05/10/21 04:30 Lymph % (Auto) 12.8 % (21.0-51.0) L 05/10/21 04:30 [place] % (Auto) 7.8 % (0.0-13.0) 05/10/21 04:30 Eos % (Auto) 6.3 % (0.9-2.9) H 05/10/21 04:30 Baso % (Auto) 0.4 % (0.2-1.0) 05/10/21 04:30 Neut # (Auto) 3.6 x10^3/uL (2.2-4.8) 05/10/21 04:30 Lymph # (Auto) 0.6 X10^3/uL (1.3-2.9) L 05/10/21 04:30 [place] # (Auto) 0.4 x10^3/uL (0.3-0.8) 05/10/21 04:30 Eos # (Auto) 0.3 x10^3/uL (0.0-0.2) H 05/10/21 04:30 Baso # (Auto) 0.0 X10^3/uL (0.0-0.1) 05/10/21 04:30 Absolute Nucleated RBC 0.0 /100WBC 05/10/21 04:30 Plt Clumps, EDTA Few 05/10/21 04:30 Giant Platelets Few 05/09/21 04:05 Plt Morphology Comment Normal (NORMAL) 05/10/21 04:30 RBC Morphology Normal (NORMAL) 05/10/21 04:30 Hypochromasia Slight A 05/09/21 04:05 Microcytosis 1+ A 05/09/21 04:05 Sample Site [facility] 05/07/21 10:27 ABG pH 7.450 (7.35-7.45) 05/07/21 10:27 ABG pCO2 42.0 mmHg (35.0-45.0) 05/07/21 10:27 ABG pO2 146.0 mmHg (80.0-100.0) H 05/07/21 10:27 ABG HCO3 29.2 mmol/L (22-26) H 05/07/21 10:27 ABG O2 Saturation 99.0 % (90-100) 05/07/21 10:27 ABG Base Excess 4.7 mmol/L (-2.0-2.0) H 05/07/21 10:27 Norberto Test N/a 05/07/21 10:27 A-a Gradient 1.0 mmHg 05/07/21 10:27 FiO2 28.0 05/07/21 10:27 Blood Gas Comments Pt carol well elj 05/07/21 10:27 Sodium 146 mmol/L (136-145) H 05/10/21 04:30 Corrected Sodium 147 mmol/L (136-145) H 05/10/21 04:30 Potassium 5.0 mmol/L (3.5-5.1) 05/10/21 04:30 Chloride 114 mmol/L (98-107) H 05/10/21 04:30 Carbon Dioxide 25.3 mmol/L (21-32) 05/10/21 04:30 BUN 28 mg/dL (7-18) H 05/10/21 04:30 Creatinine 1.36 mg/dL (0.55-1.02) H 05/10/21 04:30 Est GFR (MDRD) Af Amer 47 (>60) L 05/10/21 04:30 Est GFR (MDRD) Non-Af 39 (>60) L 05/10/21 04:30 Glucose 132 mg/dL (65-99) H 05/10/21 04:30 POC Glucose (mg/dL) 151 mg/dL (65-99) H 05/10/21 05:04 Lactic Acid 0.9 mmol/L (0.4-2.0) 05/07/21 10:15 Calcium 8.2 mg/dL (8.5-10.1) L 05/10/21 04:30 Corrected Calcium 9.6 mg/dL (8.5-10.1) 05/10/21 04:30 Total Bilirubin 1.30 mg/dL (0.2-1.0) H 05/10/21 04:30 AST 19 Units/L (15-37) 05/10/21 04:30 ALT 15 Units/L (12-78) 05/10/21 04:30 Alkaline Phosphatase 128 Units/L (46-116) H 05/10/21 04:30 Ammonia 24 umol/L (11-32) 05/09/21 10:41 Creatine Kinase 24 Units/L (26-192) L 05/07/21 10:15 CK-MB (CK-2) < 1.0 ng/mL (0-4.0) 05/07/21 10:15 CK/CKMB % Calc 4.2 % (<4) 05/07/21 10:15 Troponin I < 0.02 ng/mL (0-1.5) 05/07/21 10:15 Total Protein 5.9 g/dL (6.4-8.2) L 05/10/21 04:30 Albumin 2.3 g/dL (3.4-5.0) L 05/10/21 04:30 Globulin 3.6 g/dL (2.5-4.5) 05/10/21 04:30 Albumin/Globulin Ratio 0.6 Ratio (1.1-2.1) L 05/10/21 04:30 Specimen Type Catherized urine 05/07/21 10:05 Urine Color Yellow (YELLOW) 05/07/21 10:05 Urine Appearance Hazy (CLEAR) 05/07/21 10:05 Urine pH 5.0 (5.0 - 8.0) 05/07/21 10:05 Ur Specific [place] 1.015 (1.000-1.030) 05/07/21 10:05 Urine Protein 3+ (NEGATIVE) 05/07/21 10:05 Urine Glucose (UA) Negative (NEGATIVE) 05/07/21 10:05 Urine Ketones Negative (NEGATIVE) 05/07/21 10:05 Urine Occult Blood 2+ (NEGATIVE) 05/07/21 10:05 Urine Nitrite Negative (NEGATIVE) 05/07/21 10:05 Urine Bilirubin Negative (NEGATIVE) 05/07/21 10:05 Urine Urobilinogen Normal (NORMAL) 05/07/21 10:05 Ur Leukocyte Esterase 3+ (NEGATIVE) 05/07/21 10:05 Urine RBC 3-5 /HPF (0-3) A 05/07/21 10:05 Urine WBC 20-30 /HPF (0-5) A 05/07/21 10:05 Ur Squamous Epith Cells Rare /HPF (NEGATIVE) 05/07/21 10:05 Amorphous Sediment 1+ /HPF (NEGATIVE) 05/07/21 10:05 Urine Bacteria 3+ /HPF (NEGATIVE) 05/07/21 10:05 Ur Culture Indicated? Yes/culture set up 05/07/21 10:05 SARS CoV-2 RNA Rapid YOCASTA Negative (NEGATIVE) 05/07/21 13:11 Blood Type A POSITIVE 05/09/21 10:10 Antibody Screen Negative 05/09/21 10:10 Crossmatch See Detail 05/09/21 10:10 Reason For Visit: ACUTE PNEUMONIA,UTI Discharge Diagnosis All Active Problems (Updated 05/09/21 @ 10:23 by Ac Smiley) Urinary tract infection (Acute) Dysphagia (Acute) AVM (arteriovenous malformation) (Acute) AMS (altered mental status) (Acute) Acute dehydration (Acute) Nausea and vomiting (Acute) CHF (congestive heart failure) (Chronic) CAD (coronary artery disease) (Chronic) Hypertension (Chronic) Diabetes mellitus (Chronic) Abdominal pain (Acute) Thrombocytopenia (Chronic) Portal vein thrombosis (Chronic) Cirrhosis (Chronic) Hypernatremia (Acute) Carotid stenosis (Acute) Pneumonia (Acute) Hypokalemia (Acute) Lacunar stroke (Chronic) Right sided weakness (Chronic) CVA (cerebral vascular accident) (Chronic) Hx of peptic ulcer (Chronic) Erosive gastritis (Chronic) Hx of CABG (Chronic) Iron deficiency anemia (Acute) GERD (gastroesophageal reflux disease) (Chronic) Generalized weakness (Acute) Acute UTI (Acute) Numbness and tingling of right arm (Chronic) MAHAD (acute kidney injury) (Acute) Acute on chronic kidney failure (Acute) Anemia (Chronic) Plan of Treatment: Continue with present treatment and follow up plan. Pt is to keep follow up appointment as instructed and take medications as ordered. Discharge Medications Discharge Medications: Penicillins Adverse Reaction (Verified 10/09/20 13:08) Sulfa (Sulfonamide Antibiotics) Adverse Reaction (Verified 10/09/20 13:08) CONTINUE taking the following medications ondansetron HCl [Zofran] 4 mg PO Q6H PRN 05/07/21 [History] sitagliptin [Januvia] 50 mg PO DAILY 05/07/21 [History] spironolactone 25 mg PO DAILY 05/07/21 [History] sucralfate 1 g PO ACHS 05/07/21 [History] epoetin nirmala [Procrit] See Rx Instructions .ROUTE .COMPLEX 05/08/21 [History] Discharge Plan Discharge Plan Condition: Stable Health Concerns: Post Hospitalization: new medications and changes needed to prevent readmission or further decline. Pt educated and given instructions on all concerns. Plan of Treatment: Continue with present treatment and follow up plan. Pt is to keep follow up appointment as instructed and take medications as ordered. Prescriptions: Continued famotidine [Pepcid] 40 MG tablet 40 mg PO BID Qty: 60 RF: 3 pantoprazole [pantoprazole] 40 MG tablet,delayed release (DR/EC) 40 mg PO BID Qty: 60 RF: 3 furosemide 20 mg Tablet 20 mg PO BID Qty: 60 RF: 3 sucralfate 1 gram Tablet 1 g PO ACHS RF: 0 spironolactone 25 mg Tablet 25 mg PO DAILY RF: 0 Januvia 50 mg tablet 50 mg PO DAILY RF: 0 ondansetron HCl [Zofran] 4 mg tablet 4 mg PO Q6H PRN (Reason: Nausea) RF: 0 Procrit 10,000 unit/mL Solution See Rx Instructions .ROUTE .COMPLEX RF: 0 atorvastatin 20 mg Tablet 20 mg PO HS RF: 0 carvedilol [Coreg] 3.125 mg Tablet 3.125 mg PO BID RF: 0 escitalopram oxalate 5 mg Tablet 5 mg PO DAILY RF: 0 Levemir FlexTouch U-100 Insuln 100 unit/mL (3 mL) insulin pen 10 unit SUBCUT DAILY RF: 0 Orders to Discharge Patient Discharge Orders: Discharge (Routine); Ordered 05/10/21 Ordered By: Tana Quigley Follow ups/Referrals Follow ups/Referrals: Ac Smiley [Primary Care Provider] - 1 WEEK Instructions Activity Restrictions/Additional Instructions: Levaquin 750 mg daily x 5 days Keflex 500 mg twice a day x 5 days Repeat CBC and BMP on 05/11/21 and 05/13/21
[2021-05-10] MEDS ORDERED: LEVAQUIN TAB 750 MG PO SCH (10:00)
[2021-05-10] MEDS: MILK OF MAGNESIA PO SCH (10:39)
[2021-05-10] MEDS: COLACE CAP 100 MG PO SCH (10:39)
[2021-05-10] MEDS ORDERED: PROCRIT or EPOGEN VIAL 10,000 UNITS SC SCH (11:00)
[2021-05-10 13:35] VITALS: BP 198/83
[2021-05-10] MEDS ORDERED: KEFLEX CAP 500 MG PO SCH (21:00)
== END 2021-05-10 12:00 | DRG 194 ==
LOC: ER 09:56 → MED/SURG 13:09
PROVIDERS: ADMIT Internal Medicine; ATTEND Internal Medicine
DX: R26.89 Other abnormalities of gait and mobility; B96.1 Klebsiella pneumoniae [K. pneumoniae] as the cause of diseases classified elsewhere; E11.649 Type 2 diabetes mellitus with hypoglycemia without coma; K21.9 Gastro-esophageal reflux disease without esophagitis; R40.4 Transient alteration of awareness; D64.89 Other specified anemias; I12.9 Hypertensive chronic kidney disease with stage 1 through stage 4 chronic kidney disease, or unspecified chronic kidney disease; R06.02 Shortness of breath; R94.31 Abnormal electrocardiogram [ECG] [EKG]; Z20.822 Contact with and (suspected) exposure to COVID-19; J18.8 Other pneumonia, unspecified organism; I25.10 Atherosclerotic heart disease of native coronary artery without angina pectoris; R13.11 Dysphagia, oral phase; Z79.4 Long term (current) use of insulin; I95.89 Other hypotension; N39.0 Urinary tract infection, site not specified; B96.29 Other Escherichia coli [E. coli] as the cause of diseases classified elsewhere; N17.8 Other acute kidney failure; N18.30 Chronic kidney disease, stage 3 unspecified; K74.69 Other cirrhosis of liver; I50.9 Heart failure, unspecified; E78.2 Mixed hyperlipidemia

== ENCOUNTER 2021-10-28 16:39 | Observation (INO) ==
[2021-10-28] MEDS ORDERED: BENADRYL INJ 50 MG VIAL IVP PRN (22:02)
[2021-10-28] MEDS ORDERED: NS 500 ML IV 500 ML IV ONE (22:02)
[2021-10-28] MEDS ORDERED: TYLENOL 325 MG TAB PO PRN (22:02)
[2021-10-28] MEDS ORDERED: PEPCID 20 MG IV PREMIX* 20 MG/50 ML BAG IV SCH (22:02)
[2021-10-28 22:46] VITALS: BMI 26.4
[2021-10-28] MEDS ORDERED: PHARMACY CONSULT LTC MEDICATIONS XX SCH (23:00)
[2021-10-28] MEDS ORDERED: NS 100 ML IV 100 ML ONE (23:46)
[2021-10-28] MEDS: PROTONIX INJ 40 MG VIAL IVP SCH (23:53)
[2021-10-29] MEDS ORDERED: NS 250 ML IV 250 ML IV ONE ×2 (00:03→16:43)
[2021-10-29] MEDS: NS 1,000 ML IV 1,000 ML IV SCH ×4 (04:58→21:04)
[2021-10-29 06:14] LABS: BASOPHILS % (AUTO) 0.8 % (0.2-1.0); EOSINOPHILS # (AUTO) 0.4 x10^3/uL (0.0-0.2); EOSINOPHILS % (AUTO) 12.4 % (0.9-2.9); HEMATOCRIT 24.6 % (36.0-47.0); HEMOGLOBIN 7.7 g/dL (12.0-16.0); LYMPHOCYTES # (AUTO) 0.7 X10^3/uL (1.3-2.9); LYMPHOCYTES % (AUTO) 21.9 % (21.0-51.0); MEAN CORPUSCULAR HEMOGLOBIN 23.5 pg (27.0-34.0); MEAN CORPUSCULAR HGB CONC 31.5 g/dL (33.0-35.0); MEAN CORPUSCULAR VOLUME 74.7 fL (80.0-100.0); MONOCYTES # (AUTO) 0.3 x10^3/uL (0.3-0.8); NEUTROPHILS # (AUTO) 1.7 x10^3/uL (2.2-4.8); NEUTROPHILS % (AUTO) 55.9 % (42.0-75.0); PLATELET COUNT 92 X10^3/uL (150.0-450.0); RED BLOOD COUNT 3.29 X10^6/uL (3.5-5.4); RED CELL DISTRIBUTION WIDTH 19.6 % (11.6-16.5)
[2021-10-29 06:30] LABS: ALANINE AMINOTRANSFERASE 27 Units/L (12-78); ALBUMIN 2.4 g/dL (3.4-5.0); ALKALINE PHOSPHATASE 145 Units/L (46-116); ASPARTATE AMINO TRANSFERASE 22 Units/L (15-37); BLOOD UREA NITROGEN 64 mg/dL (7-18); CALCIUM 8.4 mg/dL (8.5-10.1); CARBON DIOXIDE 26.9 mmol/L (21-32); CHLORIDE 109 mmol/L (98-107); COR CA(FOR HYPOALB) 9.7 mg/dL (8.5-10.1); CREATININE 1.76 mg/dL (0.55-1.02); SODIUM 144 mmol/L (136-145); TOTAL PROTEIN 6.3 g/dL (6.4-8.2); eGFR NON BLACK RACES 29 (>60)
[2021-10-29 07:10] LABS: MICROCYTOSIS SLIGHT; PLATELET MORPHOLOGY COMMENT NORMAL (NORMAL)
[2021-10-29] MEDS: PROTONIX INJ 40 MG VIAL IVP SCH ×2 (08:23→21:07)
[2021-10-29] MEDS: PEPCID 20 MG IV PREMIX* 20 MG/50 ML BAG IV SCH (08:23)
--- NOTE | 2021-10-29 12:56 | DR.H&P ---
H&P - History & Physical for Day of: H&P Date: 10/28/21 - Chief Complaint Chief Complaint: WEAKNESS, BLOOD IN STOOL, LOW HEMOGLOBIN - History of Present Illness History of Present Illness: IS A 86 YEAR OLD PATIENT OF OURS. SHE IS A RESIDENT OF [facility]. PATIENT WAS A DIRECT ADMIT TO THE HOSPTIAL FOR TREATMENT OF ANEMIA AND GI BLEED. OUTPATIENT LABS REVEALED AN ABNORMALLY LOW HEMOGLOBIN OF 6.9. HER STOOLS WERE POSITIVE FOR OCCULT BLOOD ON 10/24, 10/26, AND 10/27. SHE HAS BEEN RECEIVING OUTPATIENT PROCRIT INJECTIONS ON THURSDAY, THURSDAY, AND FRIDAYS. PATIENT DOES ADMIT TO GENERALIZED WEAKNESS. HER PMH INCLUDES CVA, CAD, HTN, CABG, PUD, CIRRHOSIS, ARTHRITIS, DM I, ANEMIA, RENAL DISEASE, DYSLIPIDEMIA, APPENDECTOMY, CABG, CHOLECYSTECTOMY, AND HYSTERECTOMY. ON ARRIVAL TO THE HOSPITAL, VITALS WERE 98.6-81-18-93%-118/52. BLOOD WAS OBTAINED FOR TYPE AND SCREEN/CROSSMATCH. SHE WAS TRANSFUSED WITH ONE UNIT OF PACKED RED BLOOD CELLS. SHE WAS STARTED ON NORMAL SALINE AT 75 ML/HR, PEPCID 20MG IV DAILY, PROTONIX 40MG IV BID, AND HER HOME MEDICATIONS OF LIPITOR, COREG, NEURONTIN, AND CARAFATE WERE RESUMED. OTHERWISE, WE PLANNED TO FOLLOW UP WITH AM LABS AND CONTINUE TO MONITOR. TODAY, REPEAT LABS REVEALED HGB OF 7.7, HCT 24.6, PLT COUNT 92, BUN 64, CREATININE 1.76. WE WILL TRANSFUSE ONE ADDITIONAL UNIT OF PACKED RED BLOOD CELLS. WE WILL CONTINUE TO MONITOR HEMOGLOBIN AFTER THAT. TIME SPENT ON CLINICAL ASSESSMENT, REVIEWING LABS AND IMAGING, DECISION MAKING, AND DOCUMENTATION GREATER THAN 75 MINUTES. - Past Medical History Past Medical History: Coronary Artery Disease, Hypertension, Dyslipidemia, Diabetes, Renal Disease, Dementia, Depression, Anemia, CVA, GERD, CHF Additional Medical History: CIRRHOSIS - Past Surgical History Surgical History: Appendectomy, CABG/Valve Surgery, Cholecystectomy, Hysterectomy - Family History Family Medical History: Cancer, Coronary Artery Disease - Social History Type of Tobacco Use: None Does any household member use tobacco: No Alcohol Use: None Drug Use: None - Medications Home Medications: Penicillins Adverse Reaction (Verified 10/09/20 13:08) Sulfa (Sulfonamide Antibiotics) Adverse Reaction (Verified 10/09/20 13:08) CONTINUE taking the following medications famotidine [Pepcid] 20 mg PO DAILY 10/28/21 [History] furosemide 40 mg PO BID 10/28/21 [History] gabapentin 100 mg PO DAILYHS 10/28/21 [History] - Review of Systems Constitutional: Weakness Eyes: No Symptoms Reported ENT: No Symptoms Reported Respiratory: No Symptoms Reported Cardiovascular: No Symptoms Reported Gastrointestinal: Melena Genitourinary: No Symptoms Reported Musculoskeletal: No Symptoms Reported Skin: No Symptoms Reported Neurological: Weakness - Physical Exam Vital Signs: Temperature 98.1 F Pulse Rate [Left] 88 Respiratory Rate 18 Blood Pressure [Left Arm] 153/71 O2 Sat by Pulse Oximetry 94 Oriented: Normal Eyes: Normal Ear: Normal Nose: Normal Throat: Normal Respiratory: Clear Throughout Cardiovascular: Normal : Normal Auscultation: Bowel Sounds: Normal Palpation: Normal Tenderness: Normal Skin: Normal Musculoskeletal: Normal Psychiatric: Normal Mood Description: Calm Affect: Normal Speech Pattern: Clear - Assessment/Plan (1) Anemia Qualifiers: Anemia type: iron deficiency Iron deficiency anemia type: chronic blood loss Qualified Code(s): 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 (2) GI bleed Qualifiers: GI bleed type/associated pathology: melena Qualified Code(s): K92.1 - Melena Status: Acute - Allergies Allergies/Adverse Reactions: Allergies Allergy/AdvReac Type Severity Reaction Status Date / Time Penicillins AdvReac Verified 10/09/20 13:08 Sulfa (Sulfonamide AdvReac Verified 10/09/20 13:08 Antibiotics)
[2021-10-29] MEDS: CARAFATE PO SCH ×3 (13:37→21:09)
[2021-10-29 15:06] LABS: CRYPTOSPORIDIUM PARVUM ANTIGEN NEGATIVE (NEGATIVE); GIARDIA LAMBLIA ANTIGEN NEGATIVE (NEGATIVE)
[2021-10-29] MEDS ORDERED: NovoLIN R (or HumuLIN R) ONE (16:45)
[2021-10-29] MEDS: NovoLIN R (or HumuLIN R) SUBCUT PRN ×2 (17:18→21:11)
[2021-10-29] MEDS ORDERED: SNACK - Diabetic Appropriate PO SCH (20:00)
[2021-10-29] MEDS ORDERED: LIPITOR TAB 20 MG PO SCH (21:00)
[2021-10-29] MEDS ORDERED: NEURONTIN CAP 100 MG PO SCH (21:00)
[2021-10-29] MEDS: COREG TAB 3.125 MG PO SCH (21:08)
[2021-10-30 06:29] LABS: BASOPHILS % (AUTO) 0.5 % (0.2-1.0); EOSINOPHILS # (AUTO) 0.3 x10^3/uL (0.0-0.2); EOSINOPHILS % (AUTO) 10.2 % (0.9-2.9); HEMATOCRIT 29.6 % (36.0-47.0); HEMOGLOBIN 9.3 g/dL (12.0-16.0); LYMPHOCYTES # (AUTO) 0.6 X10^3/uL (1.3-2.9); LYMPHOCYTES % (AUTO) 17.9 % (21.0-51.0); MEAN CORPUSCULAR HEMOGLOBIN 24.4 pg (27.0-34.0); MEAN CORPUSCULAR HGB CONC 31.5 g/dL (33.0-35.0); MEAN CORPUSCULAR VOLUME 77.5 fL (80.0-100.0); MEAN PLATELET VOLUME 9.6 fL (7.4-11.0); MONOCYTES # (AUTO) 0.3 x10^3/uL (0.3-0.8); MONOCYTES % (AUTO) 8.2 % (0.0-13.0); NEUTROPHILS # (AUTO) 2.1 x10^3/uL (2.2-4.8); NEUTROPHILS % (AUTO) 63.2 % (42.0-75.0); PLATELET COUNT 87 X10^3/uL (150.0-450.0); RED BLOOD COUNT 3.82 X10^6/uL (3.5-5.4); RED CELL DISTRIBUTION WIDTH 20.9 % (11.6-16.5); WHITE BLOOD COUNT 3.4 X10^3/uL (3.6-10.0)
[2021-10-30 06:56] LABS: ALBUMIN 2.4 g/dL (3.4-5.0); CALCIUM 8.2 mg/dL (8.5-10.1); CARBON DIOXIDE 25.1 mmol/L (21-32); COR CA(FOR HYPOALB) 9.5 mg/dL (8.5-10.1); CREATININE 1.5 mg/dL (0.55-1.02); TOTAL PROTEIN 6.2 g/dL (6.4-8.2)
[2021-10-30 07:32] LABS: PLATELET MORPHOLOGY COMMENT NORMAL (NORMAL)
[2021-10-30 07:33] LABS: ANISOCYTOSIS 1+; HYPOCHROMASIA SLIGHT; MICROCYTOSIS SLIGHT
[2021-10-30 08:14] VITALS: BP 175/73
[2021-10-30] MEDS: COREG TAB 3.125 MG PO SCH (08:34)
[2021-10-30] MEDS: PEPCID 20 MG IV PREMIX* 20 MG/50 ML BAG IV SCH (08:34)
[2021-10-30] MEDS: PROTONIX INJ 40 MG VIAL IVP SCH (08:34)
[2021-10-30] MEDS ORDERED: PROCRIT or EPOGEN VIAL 10,000 UNITS SC ONE (08:41)
[2021-10-30] MEDS ORDERED: LEVSIN/MAALOX/LIDOC VISC PO SCH (09:00)
== END 2021-10-30 13:45 ==
LOC: MED/SURG
PROVIDERS: ADMIT Internal Medicine; ATTEND Internal Medicine
DX: I10 Essential (primary) hypertension; K21.9 Gastro-esophageal reflux disease without esophagitis; R53.1 Weakness; E78.2 Mixed hyperlipidemia; Z86.73 Personal history of transient ischemic attack (TIA), and cerebral infarction without residual deficits; E10.65 Type 1 diabetes mellitus with hyperglycemia; K92.1 Melena; I25.10 Atherosclerotic heart disease of native coronary artery without angina pectoris; D50.8 Other iron deficiency anemias

== ENCOUNTER 2021-11-30 15:23 | Inpatient (IN) ==
[2021-11-30 15:46] VITALS: BMI 24.6
[2021-11-30 16:02] LABS: BILIRUBIN,URINE NEGATIVE (NEGATIVE); BLOOD/HEMOGLOBIN,URINE 5+ (NEGATIVE); GLUCOSE, URINE NEGATIVE (NEGATIVE); KETONES,URINE NEGATIVE (NEGATIVE); LEUKOCYTE ESTERASE ,URINE 3+ (NEGATIVE); NITRITES,URINE POSITIVE (NEGATIVE); PROTEIN,URINE 3+ (NEGATIVE); UROBILINOGEN,URINE NORMAL (NORMAL)
[2021-11-30 16:18] LABS: BASOPHILS % (AUTO) 0.7 % (0.2-1.0); EOSINOPHILS # (AUTO) 0.3 x10^3/uL (0.0-0.2); EOSINOPHILS % (AUTO) 9.2 % (0.9-2.9); HEMATOCRIT 32.5 % (36.0-47.0); HEMOGLOBIN 10.5 g/dL (12.0-16.0); LYMPHOCYTES # (AUTO) 0.6 X10^3/uL (1.3-2.9); LYMPHOCYTES % (AUTO) 21.7 % (21.0-51.0); MEAN CORPUSCULAR HEMOGLOBIN 26.3 pg (27.0-34.0); MEAN CORPUSCULAR HGB CONC 32.3 g/dL (33.0-35.0); MEAN CORPUSCULAR VOLUME 81.4 fL (80.0-100.0); MEAN PLATELET VOLUME 10.2 fL (7.4-11.0); MONOCYTES # (AUTO) 0.2 x10^3/uL (0.3-0.8); MONOCYTES % (AUTO) 7.9 % (0.0-13.0); NEUTROPHILS # (AUTO) 1.7 x10^3/uL (2.2-4.8); NEUTROPHILS % (AUTO) 60.5 % (42.0-75.0); PLATELET COUNT 52 X10^3/uL (150.0-450.0); RED BLOOD COUNT 3.99 X10^6/uL (3.5-5.4); RED CELL DISTRIBUTION WIDTH 23.6 % (11.6-16.5); WHITE BLOOD COUNT 2.7 X10^3/uL (3.6-10.0)
[2021-11-30 16:22] LABS: COLOR,URINE YELLOW (YELLOW)
[2021-11-30 16:23] LABS: APPEARANCE,URINE TURBID (CLEAR)
[2021-11-30 16:24] LABS: BACTERIA,URINE 3+ /HPF (NEGATIVE); SQUAMOUS EPITHELIAL CELL,UR FEW /HPF (NEGATIVE)
[2021-11-30 16:27] LABS: ALBUMIN 2.7 g/dL (3.4-5.0); CARBON DIOXIDE 28.4 mmol/L (21-32); CREATININE 1.74 mg/dL (0.55-1.02); TOTAL PROTEIN 6.9 g/dL (6.4-8.2)
[2021-11-30 16:52] LABS: HYPOCHROMASIA SLIGHT; PLATELET MORPHOLOGY COMMENT NORMAL (NORMAL)
[2021-11-30 16:53] LABS: ANISOCYTOSIS 2+
--- NOTE | 2021-11-30 16:55 | ED.ABDFE ---
HPI Time Seen Time Seen by Provider: 11/30/21 15:59 PCP Primary Care Physician: RAMIRO HPI Comment HPI Comment: Acccording to [facility] staff and patient she has began experiencing pain in the belly today moderate intensity .Pt did have UTI symptom s for which she is being currently treated with cipro.pain worsend and patient was brought to ER for evaluation Complaint Doctors Chief Complaint Comments: pain in the belly Chief Complaint:: TONH STAFF CALLS AND STATES PT. C/O ACUTE SEVERE ABDOMINAL PAIN WELL ABDOMINAL DISTENTION. PT. IS ON CIPRO FOR UTI X 3 DAYS. PT. ALSO RECENTLY HAD A EVANS CATHETER. PT. C/O DYSURIA. STAFF REPORT PT. HAS ALSO HAD A POOR APPETITE. COVID-19 Coronavirus risk:travel/contact w/high risk person: No Has patient experienced Coronavirus symptoms: No Reviewed Nurses Notes Review: Yes Source History Provided: Patient and Retirement Mode of arrival Mode of Arrival: Stretcher Timing Onset of Chief Complaint: 11/30/21 Came on: Gradually Duration Since Onset: Since Onset Duration: Days Location Location: Diffuse Severity Severity: Moderate Quality Quality: Aching Context History of: UTI Modifying factors Worsening Factors: Movement Improving Factors: Nothing Associated signs and symptoms Associated Signs and Symptoms: Nausea PMH PMH Past Medical History: Yes Past Medical History: Anemia, CHF, Coronary Artery Disease, CVA, Dementia, Depression, Diabetes, Dyslipidemia, GERD, Hypertension and Renal Disease Past Surgical History: Yes Surgical History: Appendectomy, CABG/Valve Surgery, Cholecystectomy and Hysterectomy Family History History of Family Medical Conditions: Yes Family Medical History: Cancer and Coronary Artery Disease Social History Does patient currently use any type of tobacco product: No Have you used tobacco products in the last 12 months: No Type of Tobacco Use: None Does any household member use tobacco: No Alcohol Use: None Do you use any recreational Drugs:: No Lives Where: Retirement Travel Risk Coronavirus risk:travel/contact w/high risk person: No Has patient experienced Coronavirus symptoms: No Infectious screening In the last 2 months have you had wt loss of >10#?: NO Have you had fever, night sweats or hemotysis?: No Have you traveled outside the country in the last 6 months?: No Isolation: Standard ROS Review of Systems Constitutional: Chills Eyes: See HPI ENTM: See HPI Respiratoy: No Symptoms Reported Cardiovascular: No Symptoms Reported Gastrointestinal/Abdominal: See HPI Genitourinary: See HPI Neurological: No Symptoms Reported Integumentary: No Symptoms Reported Hematologic/Lymphatic: No Symptoms Reported Endocrine: Decreased Appetite PE Vital Signs Vitals: Temperature 97.9 F Pulse Rate 82 Respiratory Rate 28 Blood Pressure [Left Arm] 175/73 Blood Pressure 166/72 O2 Sat by Pulse Oximetry 98 General Limitations: Language Barrier and Other (due to previous CVA) General Appearance: Alert Head Head Exam: Atraumatic Eyes Eye exam: PERRL ENT ENT Exam: Mucous Membranes Dry Neck Neck Exam: Full ROM Chest Chest Inspection: Symmetric Chest Wall Rise Respiratory Respiratory Exam: Normal Lung Sounds Bilat Respiratory Exam: Bilateral: Clear to Auscultation Abdominal Exam Abdominal Exam: Distention, Tenderness, Rigidity and Hypoactive Bowel Sounds Abdominal Tenderness: Diffuse Extremeties Extremities Exam: Full ROM Neurologic Neurological Exam: Alert Skin Skin Exam: Warm MDM Differential Diagnosis Other differential diagnosis: urosepsis COURSE Treatment Treatment: cbc,cmp,urinalysis,CT Consultation Consultation Comments: spoke with Dr Huerta .agreed to accept colleen for admission to hospital [facility] Labs Reviewed Laboratory Results Reviewed?: Yes Result Diagrams: 11/30/21 16:08 11/30/21 16:08 Laboratory: WBC 2.7 X10^3/uL (3.6-10.0) L 11/30/21 16:08 RBC 3.99 X10^6/uL (3.5-5.4) 11/30/21 16:08 Hgb 10.5 g/dL (12.0-16.0) L 11/30/21 16:08 Hct 32.5 % (36.0-47.0) L 11/30/21 16:08 MCV 81.4 fL (80.0-100.0) 11/30/21 16:08 MCH 26.3 pg (27.0-34.0) L 11/30/21 16:08 MCHC 32.3 g/dL (33.0-35.0) L 11/30/21 16:08 RDW 23.6 % (11.6-16.5) H 11/30/21 16:08 Plt Count 52 X10^3/uL (150.0-450.0) L 11/30/21 16:08 Plt Count Comment Decreased (ADEQUATE) A 11/30/21 16:08 MPV 10.2 fL (7.4-11.0) 11/30/21 16:08 Neut % (Auto) 60.5 % (42.0-75.0) 11/30/21 16:08 Lymph % (Auto) 21.7 % (21.0-51.0) 11/30/21 16:08 [place] % (Auto) 7.9 % (0.0-13.0) 11/30/21 16:08 Eos % (Auto) 9.2 % (0.9-2.9) H 11/30/21 16:08 Baso % (Auto) 0.7 % (0.2-1.0) 11/30/21 16:08 Neut # (Auto) 1.7 x10^3/uL (2.2-4.8) L 11/30/21 16:08 Lymph # (Auto) 0.6 X10^3/uL (1.3-2.9) L 11/30/21 16:08 [place] # (Auto) 0.2 x10^3/uL (0.3-0.8) L 11/30/21 16:08 Eos # (Auto) 0.3 x10^3/uL (0.0-0.2) H 11/30/21 16:08 Baso # (Auto) 0.0 X10^3/uL (0.0-0.1) 11/30/21 16:08 Absolute Nucleated RBC 0.2 /100WBC 11/30/21 16:08 Plt Morphology Comment Normal (NORMAL) 11/30/21 16:08 RBC Morphology Abnormal (NORMAL) A 11/30/21 16:08 Hypochromasia Slight A 11/30/21 16:08 Anisocytosis 2+ A 11/30/21 16:08 Sodium 143 mmol/L (136-145) 11/30/21 16:08 Corrected Sodium 144 mmol/L (136-145) 11/30/21 16:08 Potassium 4.3 mmol/L (3.5-5.1) 11/30/21 16:08 Chloride 109 mmol/L (98-107) H 11/30/21 16:08 Carbon Dioxide 28.4 mmol/L (21-32) 11/30/21 16:08 BUN 52 mg/dL (7-18) H 11/30/21 16:08 Creatinine 1.74 mg/dL (0.55-1.02) H 11/30/21 16:08 Est GFR (MDRD) Af Amer 36 (>60) L 11/30/21 16:08 Est GFR (MDRD) Non-Af 29 (>60) L 11/30/21 16:08 Glucose 153 mg/dL (65-99) H 11/30/21 16:08 Calcium 9.0 mg/dL (8.5-10.1) 11/30/21 16:08 Corrected Calcium 10.0 mg/dL (8.5-10.1) 11/30/21 16:08 Total Bilirubin 0.50 mg/dL (0.2-1.0) 11/30/21 16:08 AST 23 Units/L (15-37) 11/30/21 16:08 ALT 25 Units/L (12-78) 11/30/21 16:08 Alkaline Phosphatase 117 Units/L (46-116) H 11/30/21 16:08 Total Protein 6.9 g/dL (6.4-8.2) 11/30/21 16:08 Albumin 2.7 g/dL (3.4-5.0) L 11/30/21 16:08 Globulin 4.2 g/dL (2.5-4.5) 11/30/21 16:08 Albumin/Globulin Ratio 0.6 Ratio (1.1-2.1) L 11/30/21 16:08 Specimen Type Catherized urine 11/30/21 13:50 Urine Color Yellow (YELLOW) 11/30/21 13:50 Urine Appearance Turbid (CLEAR) 11/30/21 13:50 Urine pH 7.0 (5.0 - 8.0) 11/30/21 13:50 Ur Specific [place] 1.010 (1.000-1.030) 11/30/21 13:50 Urine Protein 3+ (NEGATIVE) 11/30/21 13:50 Urine Glucose (UA) Negative (NEGATIVE) 11/30/21 13:50 Urine Ketones Negative (NEGATIVE) 11/30/21 13:50 Urine Occult Blood 5+ (NEGATIVE) 11/30/21 13:50 Urine Nitrite Positive (NEGATIVE) 11/30/21 13:50 Urine Bilirubin Negative (NEGATIVE) 11/30/21 13:50 Urine Urobilinogen Normal (NORMAL) 11/30/21 13:50 Ur Leukocyte Esterase 3+ (NEGATIVE) 11/30/21 13:50 Urine RBC 10-20 /HPF (0-3) A 11/30/21 13:50 Urine WBC Tntc /HPF (0-5) A 11/30/21 13:50 Ur Squamous Epith Cells Few /HPF (NEGATIVE) 11/30/21 13:50 Amorphous Sediment 1+ /HPF (NEGATIVE) 11/30/21 13:50 Urine Bacteria 3+ /HPF (NEGATIVE) 11/30/21 13:50 Urine Mucus Moderate /HPF (NEGATIVE) 11/30/21 13:50 Ur Culture Indicated? Yes/culture set up 11/30/21 13:50 SARS CoV-2 RNA Rapid YOCASTA Negative (NEGATIVE) 11/30/21 16:58 Opioid Opioid Risk Tool Age (Justo box if 16-45): No History of Preadolescent Sexual Abuse: No Total: 0 Total Score Risk Category: Low Risk Copyright: Tera GONZALES predicting aberrant behaviors Diagnosis Discharge Problem: Sepsis due to urinary tract infection, MAHAD (acute kidney injury), Abdominal pain
[2021-11-30] MEDS ORDERED: MAXIPIME VIAL 1 GRAM 1 G in NS 50 ML IV + SPIKE MINIBAG* 50 ML IV SCH (18:00)
[2021-11-30] MEDS ORDERED: MAXIPIME VIAL 1 GRAM ONE (18:25)
[2021-11-30] MEDS ORDERED: NS 1,000 ML IV 1,000 ML ONE (18:25)
[2021-11-30] MEDS ORDERED: NS 50 ML IV + SPIKE MINIBAG* 50 ML IV ONE (18:25)
[2021-11-30] MEDS: NS 1,000 ML IV 1,000 ML IV SCH (18:31)
[2021-11-30] MEDS: MERREM VIAL 500 MG in NS 50 ML IV + SPIKE MINIBAG* 50 ML IV SCH ×3 (18:40→20:01)
--- NOTE | 2021-11-30 19:03 | CT ---
HISTORYABD DISTENTIONSTUDYABDOMEN/PELVIS W/O CONCOMPARISONApril 2020TECHNIQUENon-contrasted axial CT images of the abdomen and pelvis were obtained and reformatted into coronal and sagittal planes for further evaluation.Radiation dose: 560.20 mGy-cm total DLPFINDINGSLung bases are clear.Stomach appears normal.Lobulated margin of the liver is consistent with cirrhosis.Mild splenomegaly.Pancreas and adrenal glands are unremarkable.Status post cholecystectomy.No significant change in the caliber of the biliary ducts when compared to the previous exam.Atherosclerotic changes to the abdominal aorta and iliac vessels without aneurysm.Right kidney and ureter are unremarkable.No significant change in the appearance of the left kidney and ureter when compared to the previous exam.Urinary bladder appears normal.Colonic diverticulosis without diverticulitis.Anastomotic sutures in bowel in the anterior right paracentral mid abdomen.Remainder of the bowel is unremarkable.Reproductive structures are unremarkable.No evidence of acute appendicitis.No pneumoperitoneum.No significant fluid collection.No adenopathy.No acute osseous abnormality.IMPRESSION1. No acute intra-abdominal abnormality detected.2. Cirrhosis with mild splenomegaly. No ascites.3. Colonic diverticulosis without diverticulitis.Electronically signed by: Kishan Tello (Nov 30, 2021 19:01:42)
[2021-11-30] MEDS: SNACK - Diabetic Appropriate PO SCH (20:34)
[2021-11-30] MEDS: COREG TAB 3.125 MG PO SCH (20:35)
[2021-11-30] MEDS ORDERED: LIPITOR TAB 20 MG PO SCH (21:00)
[2021-11-30] MEDS ORDERED: PHARMACY CONSULT LTC MEDICATIONS XX SCH (22:00)
[2021-12-01] MEDS: NS 1,000 ML IV 1,000 ML IV SCH ×2 (06:00→20:42)
[2021-12-01 06:16] LABS: ALANINE AMINOTRANSFERASE 20 Units/L (12-78); ALBUMIN 2.4 g/dL (3.4-5.0); ALKALINE PHOSPHATASE 102 Units/L (46-116); ASPARTATE AMINO TRANSFERASE 19 Units/L (15-37); BLOOD UREA NITROGEN 42 mg/dL (7-18); CALCIUM 8.7 mg/dL (8.5-10.1); CARBON DIOXIDE 26.8 mmol/L (21-32); CHLORIDE 112 mmol/L (98-107); CREATININE 1.51 mg/dL (0.55-1.02); SODIUM 145 mmol/L (136-145); TOTAL PROTEIN 6.3 g/dL (6.4-8.2); eGFR NON BLACK RACES 35 (>60)
[2021-12-01 06:17] LABS: BASOPHILS % (AUTO) 0.6 % (0.2-1.0); EOSINOPHILS # (AUTO) 0.2 x10^3/uL (0.0-0.2); HEMATOCRIT 31.1 % (36.0-47.0); HEMOGLOBIN 10.1 g/dL (12.0-16.0); LYMPHOCYTES # (AUTO) 0.5 X10^3/uL (1.3-2.9); LYMPHOCYTES % (AUTO) 24.5 % (21.0-51.0); MEAN CORPUSCULAR HEMOGLOBIN 26.1 pg (27.0-34.0); MEAN CORPUSCULAR HGB CONC 32.4 g/dL (33.0-35.0); MEAN CORPUSCULAR VOLUME 80.6 fL (80.0-100.0); MEAN PLATELET VOLUME 9.4 fL (7.4-11.0); MONOCYTES # (AUTO) 0.2 x10^3/uL (0.3-0.8); MONOCYTES % (AUTO) 8.9 % (0.0-13.0); NEUTROPHILS # (AUTO) 1.3 x10^3/uL (2.2-4.8); PLATELET COUNT 43 X10^3/uL (150.0-450.0); RED BLOOD COUNT 3.85 X10^6/uL (3.5-5.4); RED CELL DISTRIBUTION WIDTH 23.3 % (11.6-16.5); WHITE BLOOD COUNT 2.2 X10^3/uL (3.6-10.0)
[2021-12-01 06:53] LABS: PLATELET MORPHOLOGY COMMENT NORMAL (NORMAL)
[2021-12-01 06:54] LABS: ANISOCYTOSIS 2+; HYPOCHROMASIA SLIGHT; MICROCYTOSIS SLIGHT; OVALOCYTES PRESENT
[2021-12-01] MEDS: MERREM VIAL 500 MG in NS 50 ML IV + SPIKE MINIBAG* 50 ML IV SCH ×2 (09:00→20:41)
[2021-12-01] MEDS ORDERED: LEVEMIR SC SCH (09:00)
[2021-12-01] MEDS: PEPCID TAB 40 MG PO SCH (10:00)
--- NOTE | 2021-12-01 10:48 | DR.H&P ---
H&P History & Physical for Day of: H&P Date: 12/01/21 Chief Complaint Chief Complaint: abdominal pain, weakness Allergies Allergies Allergy/AdvReac Type Severity Reaction Status Date / Time Penicillins AdvReac Verified 11/30/21 15:41 Sulfa (Sulfonamide AdvReac Verified 11/30/21 15:41 Antibiotics) History of Present Illness History of Present Illness: Ms Eubanks is a 86y/o female who is a resident of [facility] presented with worsening abdominal pain, weakness and poor appetite. She was being treated for UTI at the [facility] for he past few days. She reports abdominal pain with distension. Denies N/V/D. Serrano was placed in the [place]. She is currently awake and alert, feels slightly better. CTAP on admission did now show any acute process, showed cirrhosis. Patient does have a hx of ESBL UTI. She was started on IV fluids and Meropenem. Labs and imaging reviewed Plan: continue hydration with NS, continue Merrem. Follow urine Cx. Renal function improving. Start SSI, hold levemir for now as patient has not been eati ng much. Resume home medications. Monitor AM labs/imaging. Past Medical History Past Medical History: Anemia, CHF, Coronary Artery Disease, CVA, Dementia, Depression, Diabetes, Dyslipidemia, GERD, Hypertension and Renal Disease Additional Medical History: CIRRHOSIS Past Surgical History Surgical History: Appendectomy, CABG/Valve Surgery, Cholecystectomy and Hysterectomy Family History Family Medical History: Cancer and Coronary Artery Disease Social History Does patient currently use any type of tobacco product: No Have you used tobacco products in the last 12 months: No Type of Tobacco Use: None Does any household member use tobacco: No Alcohol Use: None Drug Use: None Prescription drug monitoring program results: PDMP reviewed and no concerns identified Medications Home Medications: Penicillins Adverse Reaction (Verified 11/30/21 15:41) Sulfa (Sulfonamide Antibiotics) Adverse Reaction (Verified 11/30/21 15:41) CONTINUE taking the following medications docusate sodium [Colace] 100 mg PO BID 11/30/21 [History] insulin regular human [Novolin R Regular U-100 Insuln] See Rx Instructions .ROUTE .COMPLEX 11/30/21 [History] iron-folic acid-mv, min cmb#15 [Ferrocite Plus] 1 cap PO DAILY 11/30/21 [History] nut.tx.gluc.intol,lac-free,soy [Glucerna] 1 ea PO TID 11/30/21 [History] qrrlektbh-fazlicjz-odrnv-w.pet [Preparation H Maximum Strength] 1 applic MS Q4H PRN 11/30/21 [History] sitagliptin [Januvia] 25 mg PO DAILY 11/30/21 [History] Labs Result Diagrams: 12/01/21 05:40 12/01/21 05:40 Labs: 11/30/21 13:50 Urine,Catheterized Urine Culture - Preliminary Laboratory WBC 2.2 X10^3/uL (3.6-10.0) L 12/01/21 05:40 RBC 3.85 X10^6/uL (3.5-5.4) 12/01/21 05:40 Hgb 10.1 g/dL (12.0-16.0) L 12/01/21 05:40 Hct 31.1 % (36.0-47.0) L 12/01/21 05:40 MCV 80.6 fL (80.0-100.0) 12/01/21 05:40 MCH 26.1 pg (27.0-34.0) L 12/01/21 05:40 MCHC 32.4 g/dL (33.0-35.0) L 12/01/21 05:40 RDW 23.3 % (11.6-16.5) H 12/01/21 05:40 Plt Count 43 X10^3/uL (150.0-450.0) L 12/01/21 05:40 Plt Count Comment Decreased (ADEQUATE) A 12/01/21 05:40 MPV 9.4 fL (7.4-11.0) 12/01/21 05:40 Neut % (Auto) 57.0 % (42.0-75.0) 12/01/21 05:40 Lymph % (Auto) 24.5 % (21.0-51.0) 12/01/21 05:40 [place] % (Auto) 8.9 % (0.0-13.0) 12/01/21 05:40 Eos % (Auto) 9.0 % (0.9-2.9) H 12/01/21 05:40 Baso % (Auto) 0.6 % (0.2-1.0) 12/01/21 05:40 Neut # (Auto) 1.3 x10^3/uL (2.2-4.8) L 12/01/21 05:40 Lymph # (Auto) 0.5 X10^3/uL (1.3-2.9) L 12/01/21 05:40 [place] # (Auto) 0.2 x10^3/uL (0.3-0.8) L 12/01/21 05:40 Eos # (Auto) 0.2 x10^3/uL (0.0-0.2) 12/01/21 05:40 Baso # (Auto) 0.0 X10^3/uL (0.0-0.1) 12/01/21 05:40 Absolute Nucleated RBC 0.2 /100WBC 12/01/21 05:40 Total Counted 50 12/01/21 05:40 Neutrophils % (Manual) 60 % (39-76) 12/01/21 05:40 Lymphocytes % (Manual) 28 % (13-43) 12/01/21 05:40 Monocytes % (Manual) 6 % (4-9) 12/01/21 05:40 Eosinophils % (Manual) 6 % (0-6) 12/01/21 05:40 Plt Morphology Comment Normal (NORMAL) 12/01/21 05:40 RBC Morphology Abnormal (NORMAL) A 12/01/21 05:40 Dimorphic RBCs Slight 12/01/21 05:40 Hypochromasia Slight A 12/01/21 05:40 Anisocytosis 2+ A 12/01/21 05:40 Microcytosis Slight A 12/01/21 05:40 Ovalocytes Present 12/01/21 05:40 Sodium 145 mmol/L (136-145) 12/01/21 05:40 Corrected Sodium TNP 12/01/21 05:40 Potassium 3.9 mmol/L (3.5-5.1) 12/01/21 05:40 Chloride 112 mmol/L (98-107) H 12/01/21 05:40 Carbon Dioxide 26.8 mmol/L (21-32) 12/01/21 05:40 BUN 42 mg/dL (7-18) H 12/01/21 05:40 Creatinine 1.51 mg/dL (0.55-1.02) H 12/01/21 05:40 Est GFR (MDRD) Af Amer 42 (>60) L 12/01/21 05:40 Est GFR (MDRD) Non-Af 35 (>60) L 12/01/21 05:40 Glucose 95 mg/dL (65-99) 12/01/21 05:40 POC Glucose (mg/dL) 91 mg/dL (65-99) 12/01/21 05:39 Calcium 8.7 mg/dL (8.5-10.1) 12/01/21 05:40 Corrected Calcium 10.0 mg/dL (8.5-10.1) 12/01/21 05:40 Total Bilirubin 0.60 mg/dL (0.2-1.0) 12/01/21 05:40 AST 19 Units/L (15-37) 12/01/21 05:40 ALT 20 Units/L (12-78) 12/01/21 05:40 Alkaline Phosphatase 102 Units/L (46-116) 12/01/21 05:40 Total Protein 6.3 g/dL (6.4-8.2) L 12/01/21 05:40 Albumin 2.4 g/dL (3.4-5.0) L 12/01/21 05:40 Globulin 3.9 g/dL (2.5-4.5) 12/01/21 05:40 Albumin/Globulin Ratio 0.6 Ratio (1.1-2.1) L 12/01/21 05:40 Specimen Type Catherized urine 11/30/21 13:50 Urine Color Yellow (YELLOW) 11/30/21 13:50 Urine Appearance Turbid (CLEAR) 11/30/21 13:50 Urine pH 7.0 (5.0 - 8.0) 11/30/21 13:50 Ur Specific [place] 1.010 (1.000-1.030) 11/30/21 13:50 Urine Protein 3+ (NEGATIVE) 11/30/21 13:50 Urine Glucose (UA) Negative (NEGATIVE) 11/30/21 13:50 Urine Ketones Negative (NEGATIVE) 11/30/21 13:50 Urine Occult Blood 5+ (NEGATIVE) 11/30/21 13:50 Urine Nitrite Positive (NEGATIVE) 11/30/21 13:50 Urine Bilirubin Negative (NEGATIVE) 11/30/21 13:50 Urine Urobilinogen Normal (NORMAL) 11/30/21 13:50 Ur Leukocyte Esterase 3+ (NEGATIVE) 11/30/21 13:50 Urine RBC 10-20 /HPF (0-3) A 11/30/21 13:50 Urine WBC Tntc /HPF (0-5) A 11/30/21 13:50 Ur Squamous Epith Cells Few /HPF (NEGATIVE) 11/30/21 13:50 Amorphous Sediment 1+ /HPF (NEGATIVE) 11/30/21 13:50 Urine Bacteria 3+ /HPF (NEGATIVE) 11/30/21 13:50 Urine Mucus Moderate /HPF (NEGATIVE) 11/30/21 13:50 Ur Culture Indicated? Yes/culture set up 11/30/21 13:50 SARS CoV-2 RNA Rapid YOCASTA Negative (NEGATIVE) 11/30/21 16:58 Review of Systems Constitutional: Weakness and Malaise Eyes: No Symptoms Reported ENT: No Symptoms Reported Respiratory: No Symptoms Reported Cardiovascular: No Symptoms Reported Gastrointestinal: Abdominal Pain Genitourinary: No Symptoms Reported Musculoskeletal: No Symptoms Reported Skin: No Symptoms Reported Neurological: No Symptoms Reported Physical Exam Vital Signs: Temperature 97.8 F Pulse Rate [Left Radial] 85 Pulse Rate 82 Respiratory Rate 20 Blood Pressure [Left Arm] 176/72 Blood Pressure 166/72 O2 Sat by Pulse Oximetry 97 Oriented: Normal Eyes: Normal Ear: Normal Nose: Normal Throat: Dry Respiratory: Diminished Throughout Cardiovascular: Normal Auscultation: Bowel Sounds: Normal Palpation: Normal Tenderness: Diffuse, Periumbilical and Mild Skin: Decreased Turgur Musculoskeletal: Normal Psychiatric: Normal Mood Description: Calm Affect: Normal Speech Pattern: Clear and Appropriate Assessment/Plan (1) Sepsis due to urinary tract infection: Status: Acute (2) Abdominal pain: Qualifiers: Abdominal location: lower abdomen, unspecified Qualified Code(s): R10.30 - Lower abdominal pain, unspecified Status: Acute (3) Thrombocytopenia: Status: Chronic (4) Dehydration: Status: Acute (5) MAHAD (acute kidney injury): Status: Acute (6) Cirrhosis: Qualifiers: Hepatic cirrhosis type: unspecified hepatic cirrhosis Ascites presence: without ascites Qualified Code(s): K74.60 - Unspecified cirrhosis of liver Status: Chronic (7) CAD (coronary artery disease): Qualifiers: Coronary Disease-Associated Artery/Lesion type: bypass graft [place] vs. transplanted heart: [place] heart Associated angina: unspecified whether angina present Qualified Code(s): I25.810 - Atherosclerosis of coronary artery bypass graft(s) without angina pectoris Status: Chronic (8) CHF (congestive heart failure): Qualifiers: Heart failure type: unspecified Heart failure chronicity: chronic Qualified Code(s): I50.9 - Heart failure, unspecified Status: Chronic (9) Hypertension: Qualifiers: Hypertension type: essential hypertension Qualified Code(s): I10 - Essential (primary) hypertension Status: Chronic (10) Diabetes mellitus: Qualifiers: Diabetes mellitus type: type 2 Diabetes mellitus keno terminal operator insulin use: with [facility] use Diabetes mellitus complication status: with other specified complication Qualified Code(s): E11.69 - Type 2 diabetes mellitus with other specified complication; Z79.4 - intermediate (current) use of insulin Status: Chronic Review H&P Reviewed: Yes Patient was examined?: Yes
[2021-12-01] MEDS: COREG TAB 3.125 MG PO SCH ×2 (10:54→20:40)
[2021-12-01] MEDS: CARAFATE PO SCH ×3 (11:30→20:41)
[2021-12-01] MEDS ORDERED: PREPARATION H OINT RECTAL PRN (15:58)
[2021-12-01] MEDS ORDERED: TUCKS MEDICATED PAD TOP PRN (15:58)
[2021-12-01] MEDS: NovoLIN R (or HumuLIN R) SUBCUT PRN ×2 (17:27→20:42)
[2021-12-01] MEDS ORDERED: LIPITOR TAB 20 MG ONE (19:23)
[2021-12-01] MEDS ORDERED: NEURONTIN CAP 100 MG ONE (19:24)
[2021-12-01] MEDS: LIPITOR TAB 20 MG PO SCH (20:40)
[2021-12-01] MEDS: NEURONTIN CAP 100 MG PO SCH (20:40)
[2021-12-01] MEDS: SNACK - Diabetic Appropriate PO SCH (20:41)
[2021-12-01] MEDS: PROTONIX TAB 40 MG PO SCH (20:44)
[2021-12-02] MEDS: CARAFATE PO SCH ×4 (05:38→21:28)
[2021-12-02 06:24] LABS: BASOPHILS % (AUTO) 0.5 % (0.2-1.0); EOSINOPHILS # (AUTO) 0.2 x10^3/uL (0.0-0.2); EOSINOPHILS % (AUTO) 7.6 % (0.9-2.9); HEMATOCRIT 31.1 % (36.0-47.0); HEMOGLOBIN 10.1 g/dL (12.0-16.0); LYMPHOCYTES # (AUTO) 0.5 X10^3/uL (1.3-2.9); LYMPHOCYTES % (AUTO) 23.8 % (21.0-51.0); MEAN CORPUSCULAR HEMOGLOBIN 26.6 pg (27.0-34.0); MEAN CORPUSCULAR HGB CONC 32.5 g/dL (33.0-35.0); MEAN CORPUSCULAR VOLUME 81.8 fL (80.0-100.0); MEAN PLATELET VOLUME 9.4 fL (7.4-11.0); MONOCYTES # (AUTO) 0.2 x10^3/uL (0.3-0.8); MONOCYTES % (AUTO) 8.3 % (0.0-13.0); NEUTROPHILS # (AUTO) 1.4 x10^3/uL (2.2-4.8); NEUTROPHILS % (AUTO) 59.8 % (42.0-75.0); PLATELET COUNT 39 X10^3/uL (150.0-450.0); RED CELL DISTRIBUTION WIDTH 23.1 % (11.6-16.5); WHITE BLOOD COUNT 2.3 X10^3/uL (3.6-10.0)
[2021-12-02 06:30] LABS: CALCIUM 8.3 mg/dL (8.5-10.1); CARBON DIOXIDE 23.9 mmol/L (21-32); CREATININE 1.35 mg/dL (0.55-1.02); MAGNESIUM 1.8 mg/dL (1.7-2.9)
[2021-12-02 07:13] LABS: BAND NEUTROPHILS % 2 % (0-10); PLATELET MORPHOLOGY COMMENT NORMAL (NORMAL)
[2021-12-02 07:20] LABS: ANISOCYTOSIS 2+; HYPOCHROMASIA SLIGHT
[2021-12-02] MEDS: COREG TAB 3.125 MG PO SCH ×2 (09:09→21:28)
[2021-12-02] MEDS: PEPCID TAB 40 MG PO SCH (09:10)
[2021-12-02] MEDS: MERREM VIAL 500 MG in NS 50 ML IV + SPIKE MINIBAG* 50 ML IV SCH ×2 (09:10→21:28)
[2021-12-02] MEDS: PROTONIX TAB 40 MG PO SCH ×2 (09:10→21:28)
[2021-12-02] MEDS: HEMOCYTE-PLUS PO SCH (09:10)
[2021-12-02] MEDS: D5 1/2 NS 1,000 ML 1,000 ML IV SCH ×2 (09:14→21:29)
[2021-12-02] MEDS: TYLENOL 325 MG TAB PO PRN (14:21)
[2021-12-02] MEDS: NovoLIN R (or HumuLIN R) SUBCUT PRN ×2 (17:25→21:29)
[2021-12-02] MEDS: SNACK - Diabetic Appropriate PO SCH (21:00)
[2021-12-02] MEDS: LIPITOR TAB 20 MG PO SCH (21:28)
[2021-12-02] MEDS: NEURONTIN CAP 100 MG PO SCH (21:29)
--- NOTE | 2021-12-02 22:12 | PCM.PROG ---
Progress Note Progress Note for Day of Date of Exam: 12/02/21 Subjective Subjective: Patient seen at bedside, no events overnight. She states she feels better. She still has decreased appetite and has not been eating much. She states her abdominal pain is better. Denies fever or chills. Labs/imaging reviewed Plan: continue current treatment with IV Merrem, follow urine culture. Will start D5 1/2 NS at 75cc/hr for hypernatremia. Renal function improving. PT/OT as tolerated. Monitor AM labs/imaging. Past Medical Family Social History Past Med/Fam/Surg Hx: No changes since H&P Allergies: Allergies Penicillins Adverse Reaction (Verified 11/30/21 15:41) Sulfa (Sulfonamide Antibiotics) Adverse Reaction (Verified 11/30/21 15:41) Review of Systems ROS: No change since H&P Vital Signs and I&O's Vital Signs: Temperature 99.0 F Pulse Rate [Left Radial] 78 Pulse Rate 82 Respiratory Rate 24 Blood Pressure [Left Arm] 183/77 Blood Pressure 166/72 O2 Sat by Pulse Oximetry 97 Intake and Output: Intake & Output 11/29/21 11/30/21 12/01/21 12/02/21 23:59 23:59 23:59 23:59 Intake Total 250 / 250 2096 / 2096 1520 / 1520 Output Total 1475 / 1475 1025 / 1025 Balance 250 / 250 621 / 621 495 / 495 Physical Exam Oriented: Normal Eyes: Normal Ear: Normal Nose: Normal Throat: Dry Respiratory: Generalized and Diminished Cardiovascular: Normal Auscultation: Bowel Sounds: Normal Tenderness: Periumbilical and Mild Skin: Decreased Turgur Musculoskeletal: Normal Psychiatric: Normal Mood Description: Calm Affect: Normal Speech Pattern: Clear and Appropriate Laboratory and Diagnostics Result Diagrams: 12/02/21 05:17 12/02/21 05:10 Labs: 11/30/21 13:50 Urine,Catheterized Urine Culture - Final Escherichia Coli Laboratory WBC 2.3 X10^3/uL (3.6-10.0) L 12/02/21 05:17 RBC 3.80 X10^6/uL (3.5-5.4) 12/02/21 05:17 Hgb 10.1 g/dL (12.0-16.0) L 12/02/21 05:17 Hct 31.1 % (36.0-47.0) L 12/02/21 05:17 MCV 81.8 fL (80.0-100.0) 12/02/21 05:17 MCH 26.6 pg (27.0-34.0) L 12/02/21 05:17 MCHC 32.5 g/dL (33.0-35.0) L 12/02/21 05:17 RDW 23.1 % (11.6-16.5) H 12/02/21 05:17 Plt Count 39 X10^3/uL (150.0-450.0) L 12/02/21 05:17 Plt Count Comment Decreased (ADEQUATE) A 12/02/21 05:17 MPV 9.4 fL (7.4-11.0) 12/02/21 05:17 Neut % (Auto) 59.8 % (42.0-75.0) 12/02/21 05:17 Lymph % (Auto) 23.8 % (21.0-51.0) 12/02/21 05:17 [place] % (Auto) 8.3 % (0.0-13.0) 12/02/21 05:17 Eos % (Auto) 7.6 % (0.9-2.9) H 12/02/21 05:17 Baso % (Auto) 0.5 % (0.2-1.0) 12/02/21 05:17 Neut # (Auto) 1.4 x10^3/uL (2.2-4.8) L 12/02/21 05:17 Lymph # (Auto) 0.5 X10^3/uL (1.3-2.9) L 12/02/21 05:17 [place] # (Auto) 0.2 x10^3/uL (0.3-0.8) L 12/02/21 05:17 Eos # (Auto) 0.2 x10^3/uL (0.0-0.2) 12/02/21 05:17 Baso # (Auto) 0.0 X10^3/uL (0.0-0.1) 12/02/21 05:17 Absolute Nucleated RBC 0.1 /100WBC 12/02/21 05:17 Total Counted 100 12/02/21 05:17 Neutrophils % (Manual) 57 % (39-76) 12/02/21 05:17 Band Neutrophils % 2 % (0-10) 12/02/21 05:17 Lymphocytes % (Manual) 26 % (13-43) 12/02/21 05:17 Monocytes % (Manual) 10 % (4-9) H 12/02/21 05:17 Eosinophils % (Manual) 5 % (0-6) 12/02/21 05:17 Plt Morphology Comment Normal (NORMAL) 12/02/21 05:17 RBC Morphology Abnormal (NORMAL) A 12/02/21 05:17 Dimorphic RBCs Slight 12/02/21 05:17 Hypochromasia Slight A 12/02/21 05:17 Anisocytosis 2+ A 12/02/21 05:17 Microcytosis Slight A 12/01/21 05:40 Ovalocytes Present 12/01/21 05:40 Sodium 149 mmol/L (136-145) H 12/02/21 05:10 Corrected Sodium 150 mmol/L (136-145) H 12/02/21 05:10 Potassium 3.8 mmol/L (3.5-5.1) 12/02/21 05:10 Chloride 116 mmol/L (98-107) H* 12/02/21 05:10 Carbon Dioxide 23.9 mmol/L (21-32) 12/02/21 05:10 BUN 34 mg/dL (7-18) H 12/02/21 05:10 Creatinine 1.35 mg/dL (0.55-1.02) H 12/02/21 05:10 Est GFR (MDRD) Af Amer 48 (>60) L 12/02/21 05:10 Est GFR (MDRD) Non-Af 39 (>60) L 12/02/21 05:10 Glucose 121 mg/dL (65-99) H 12/02/21 05:10 POC Glucose (mg/dL) 239 mg/dL (65-99) H 12/02/21 19:59 Calcium 8.3 mg/dL (8.5-10.1) L 12/02/21 05:10 Corrected Calcium 10.0 mg/dL (8.5-10.1) 12/01/21 05:40 Magnesium 1.8 mg/dL (1.7-2.9) 12/02/21 05:10 Total Bilirubin 0.60 mg/dL (0.2-1.0) 12/01/21 05:40 AST 19 Units/L (15-37) 12/01/21 05:40 ALT 20 Units/L (12-78) 12/01/21 05:40 Alkaline Phosphatase 102 Units/L (46-116) 12/01/21 05:40 Total Protein 6.3 g/dL (6.4-8.2) L 12/01/21 05:40 Albumin 2.4 g/dL (3.4-5.0) L 12/01/21 05:40 Globulin 3.9 g/dL (2.5-4.5) 12/01/21 05:40 Albumin/Globulin Ratio 0.6 Ratio (1.1-2.1) L 12/01/21 05:40 Specimen Type Catherized urine 11/30/21 13:50 Urine Color Yellow (YELLOW) 11/30/21 13:50 Urine Appearance Turbid (CLEAR) 11/30/21 13:50 Urine pH 7.0 (5.0 - 8.0) 11/30/21 13:50 Ur Specific [place] 1.010 (1.000-1.030) 11/30/21 13:50 Urine Protein 3+ (NEGATIVE) 11/30/21 13:50 Urine Glucose (UA) Negative (NEGATIVE) 11/30/21 13:50 Urine Ketones Negative (NEGATIVE) 11/30/21 13:50 Urine Occult Blood 5+ (NEGATIVE) 11/30/21 13:50 Urine Nitrite Positive (NEGATIVE) 11/30/21 13:50 Urine Bilirubin Negative (NEGATIVE) 11/30/21 13:50 Urine Urobilinogen Normal (NORMAL) 11/30/21 13:50 Ur Leukocyte Esterase 3+ (NEGATIVE) 11/30/21 13:50 Urine RBC 10-20 /HPF (0-3) A 11/30/21 13:50 Urine WBC Tntc /HPF (0-5) A 11/30/21 13:50 Ur Squamous Epith Cells Few /HPF (NEGATIVE) 11/30/21 13:50 Amorphous Sediment 1+ /HPF (NEGATIVE) 11/30/21 13:50 Urine Bacteria 3+ /HPF (NEGATIVE) 11/30/21 13:50 Urine Mucus Moderate /HPF (NEGATIVE) 11/30/21 13:50 Ur Culture Indicated? Yes/culture set up 11/30/21 13:50 SARS CoV-2 RNA Rapid YOCASTA Negative (NEGATIVE) 11/30/21 16:58 Plan (1) Sepsis due to urinary tract infection: Status: Acute (2) Abdominal pain: Status: Acute Qualifiers: Abdominal location: lower abdomen, unspecified Qualified Code(s): R10.30 - Lower abdominal pain, unspecified (3) Thrombocytopenia: Status: Chronic (4) Dehydration: Status: Acute (5) MAHAD (acute kidney injury): Status: Acute (6) Cirrhosis: Status: Chronic Qualifiers: Ascites presence: without ascites Hepatic cirrhosis type: unspecified hepatic cirrhosis Qualified Code(s): K74.60 - Unspecified cirrhosis of liver (7) CAD (coronary artery disease): Status: Chronic Qualifiers: Associated angina: unspecified whether angina present Coronary Disease- Associated Artery/Lesion type: bypass graft [place] vs. transplanted heart: [place] heart Qualified Code(s): I25.810 - Atherosclerosis of coronary artery bypass graft(s) without angina pectoris (8) CHF (congestive heart failure): Status: Chronic Qualifiers: Heart failure chronicity: chronic Heart failure type: unspecified Qualified Code(s): I50.9 - Heart failure, unspecified (9) Hypertension: Status: Chronic Qualifiers: Hypertension type: essential hypertension Qualified Code(s): I10 - Essential (primary) hypertension (10) Diabetes mellitus: Status: Chronic Qualifiers: Diabetes mellitus complication status: with other specified complication Diabetes mellitus residential insulin use: with termite treater helper use Diabetes mellitus type: type 2 Qualified Code(s): E11.69 - Type 2 diabetes mellitus with other specified complication; Z79.4 - long term care phlebotomist (current) use of insulin
[2021-12-03] MEDS: CARAFATE PO SCH ×4 (05:55→20:51)
[2021-12-03 06:13] LABS: BASOPHILS % (AUTO) 0.4 % (0.2-1.0); EOSINOPHILS # (AUTO) 0.2 x10^3/uL (0.0-0.2); EOSINOPHILS % (AUTO) 8.2 % (0.9-2.9); HEMATOCRIT 29.9 % (36.0-47.0); HEMOGLOBIN 9.7 g/dL (12.0-16.0); LYMPHOCYTES # (AUTO) 0.5 X10^3/uL (1.3-2.9); LYMPHOCYTES % (AUTO) 25.2 % (21.0-51.0); MEAN CORPUSCULAR HEMOGLOBIN 26.6 pg (27.0-34.0); MEAN CORPUSCULAR HGB CONC 32.4 g/dL (33.0-35.0); MEAN CORPUSCULAR VOLUME 82.1 fL (80.0-100.0); MONOCYTES # (AUTO) 0.2 x10^3/uL (0.3-0.8); MONOCYTES % (AUTO) 7.8 % (0.0-13.0); NEUTROPHILS # (AUTO) 1.2 x10^3/uL (2.2-4.8); NEUTROPHILS % (AUTO) 58.4 % (42.0-75.0); PLATELET COUNT 46 X10^3/uL (150.0-450.0); RED BLOOD COUNT 3.64 X10^6/uL (3.5-5.4); RED CELL DISTRIBUTION WIDTH 22.7 % (11.6-16.5); WHITE BLOOD COUNT 2.1 X10^3/uL (3.6-10.0)
[2021-12-03 06:22] LABS: CALCIUM 8.1 mg/dL (8.5-10.1); CARBON DIOXIDE 22.9 mmol/L (21-32); CREATININE 1.23 mg/dL (0.55-1.02); MAGNESIUM 1.8 mg/dL (1.7-2.9)
[2021-12-03 07:28] LABS: ANISOCYTOSIS 2+; BAND NEUTROPHILS % 4 % (0-10); PLATELET MORPHOLOGY COMMENT NORMAL (NORMAL)
[2021-12-03 07:29] LABS: HYPOCHROMASIA SLIGHT
[2021-12-03] MEDS: PROTONIX TAB 40 MG PO SCH ×2 (09:17→20:50)
[2021-12-03] MEDS: MERREM VIAL 500 MG in NS 50 ML IV + SPIKE MINIBAG* 50 ML IV SCH ×2 (09:17→20:51)
[2021-12-03] MEDS: COREG TAB 3.125 MG PO SCH ×2 (09:17→20:50)
[2021-12-03] MEDS: PEPCID TAB 40 MG PO SCH (09:17)
[2021-12-03] MEDS: HEMOCYTE-PLUS PO SCH (09:17)
[2021-12-03] MEDS: NovoLIN R (or HumuLIN R) SUBCUT PRN ×2 (12:14→17:29)
[2021-12-03] MEDS: D5 1/2 NS 1,000 ML 1,000 ML IV SCH (13:35)
--- NOTE | 2021-12-03 16:13 | PCM.PROG ---
Progress Note Progress Note for Day of Date of Exam: 12/03/21 Subjective Subjective: Patient seen at bedside, no events overnight. She states her abdominal pain is better. Denies fever or chills. She is still not eating as much. Labs/imaging reviewed Urine Cx: ESBL E.coli Plan: continue current treatment with IV Merrem. Continue D5 1/2 NS at 75cc/hr for hypernatremia. Renal function improving. PT/OT as tolerated. Monitor AM labs/imaging. Past Medical Family Social History Past Med/Fam/Surg Hx: No changes since H&P Allergies: Allergies Penicillins Adverse Reaction (Verified 11/30/21 15:41) Sulfa (Sulfonamide Antibiotics) Adverse Reaction (Verified 11/30/21 15:41) Review of Systems ROS: No change since H&P Vital Signs and I&O's Vital Signs: Temperature 97.8 F Pulse Rate [Left Radial] 77 Pulse Rate 82 Respiratory Rate 30 Blood Pressure [Left Arm] 176/76 Blood Pressure 166/72 O2 Sat by Pulse Oximetry 99 Intake and Output: Intake & Output 11/30/21 12/01/21 12/02/21 12/03/21 23:59 23:59 23:59 23:59 Intake Total 250 / 250 2096 / 2096 2360 / 2360 726 / 726 Output Total 1475 / 1475 1325 / 1325 250 / 250 Balance 250 / 250 621 / 621 1035 / 1035 476 / 476 Physical Exam Oriented: Normal Eyes: Normal Ear: Normal Nose: Normal Throat: Dry Respiratory: Generalized and Diminished Cardiovascular: Normal Auscultation: Bowel Sounds: Normal Tenderness: Periumbilical and Mild Skin: Decreased Turgur Musculoskeletal: Normal Psychiatric: Normal Mood Description: Calm Affect: Normal Speech Pattern: Clear and Appropriate Laboratory and Diagnostics Result Diagrams: 12/03/21 05:22 12/03/21 05:22 Labs: 11/30/21 13:50 Urine,Catheterized Urine Culture - Final Escherichia Coli Laboratory WBC 2.1 X10^3/uL (3.6-10.0) L 12/03/21 05:22 RBC 3.64 X10^6/uL (3.5-5.4) 12/03/21 05:22 Hgb 9.7 g/dL (12.0-16.0) L 12/03/21 05:22 Hct 29.9 % (36.0-47.0) L 12/03/21 05:22 MCV 82.1 fL (80.0-100.0) 12/03/21 05:22 MCH 26.6 pg (27.0-34.0) L 12/03/21 05:22 MCHC 32.4 g/dL (33.0-35.0) L 12/03/21 05:22 RDW 22.7 % (11.6-16.5) H 12/03/21 05:22 Plt Count 46 X10^3/uL (150.0-450.0) L 12/03/21 05: Plt Count Comment Decreased (ADEQUATE) A 12/03/21 05: MPV 10.0 fL (7.4-11.0) 12/03/21 05:22 Neut % (Auto) 58.4 % (42.0-75.0) 12/03/21 05:22 Lymph % (Auto) 25.2 % (21.0-51.0) 12/03/21 05:22 [place] % (Auto) 7.8 % (0.0-13.0) 12/03/21 05:22 Eos % (Auto) 8.2 % (0.9-2.9) H 12/03/21 05:22 Baso % (Auto) 0.4 % (0.2-1.0) 12/03/21 05:22 Neut # (Auto) 1.2 x10^3/uL (2.2-4.8) L 12/03/21 05:22 Lymph # (Auto) 0.5 X10^3/uL (1.3-2.9) L 12/03/21 05:22 [place] # (Auto) 0.2 x10^3/uL (0.3-0.8) L 12/03/21 05:22 Eos # (Auto) 0.2 x10^3/uL (0.0-0.2) 12/03/21 05:22 Baso # (Auto) 0.0 X10^3/uL (0.0-0.1) 12/03/21 05:22 Absolute Nucleated RBC 0.2 /100WBC 12/03/21 05:22 Total Counted 25 01/11/22 05:22 Neutrophils % (Manual) 64 % (39-76) 12/03/21 05:22 Band Neutrophils % 4 % (0-10) 12/03/21 05:22 Lymphocytes % (Manual) 28 % (13-43) 12/03/21 05:22 Monocytes % (Manual) 4 % (4-9) 12/03/21 05:22 Eosinophils % (Manual) 5 % (0-6) 12/02/21 05:17 Plt Morphology Comment Normal (NORMAL) 12/03/21 05:22 RBC Morphology Abnormal (NORMAL) A 12/03/21 05:22 Dimorphic RBCs Slight 12/02/21 05:17 Hypochromasia Slight A 12/03/21 05:22 Anisocytosis 2+ A 12/03/21 05:22 Microcytosis Slight A 12/01/21 05:40 Ovalocytes Present 12/01/21 05:40 Sodium 146 mmol/L (136-145) H 12/03/21 05:22 Corrected Sodium 147 mmol/L (136-145) H 12/03/21 05:22 Potassium 4.0 mmol/L (3.5-5.1) 12/03/21 05:22 Chloride 115 mmol/L (98-107) H* 12/03/21 05:22 Carbon Dioxide 22.9 mmol/L (21-32) 12/03/21 05:22 BUN 26 mg/dL (7-18) H 12/03/21 05:22 Creatinine 1.23 mg/dL (0.55-1.02) H 12/03/21 05:22 Est GFR (MDRD) Af Amer 53 (>60) L 12/03/21 05:22 Est GFR (MDRD) Non-Af 44 (>60) L 12/03/21 05:22 Glucose 159 mg/dL (65-99) H 12/03/21 05:22 POC Glucose (mg/dL) 224 mg/dL (65-99) H 12/03/21 11:56 Calcium 8.1 mg/dL (8.5-10.1) L 12/03/21 05:22 Corrected Calcium 10.0 mg/dL (8.5-10.1) 12/01/21 05:40 Magnesium 1.8 mg/dL (1.7-2.9) 12/03/21 05:22 Total Bilirubin 0.60 mg/dL (0.2-1.0) 12/01/21 05:40 AST 19 Units/L (15-37) 12/01/21 05:40 ALT 20 Units/L (12-78) 12/01/21 05:40 Alkaline Phosphatase 102 Units/L (46-116) 12/01/21 05:40 Total Protein 6.3 g/dL (6.4-8.2) L 12/01/21 05:40 Albumin 2.4 g/dL (3.4-5.0) L 12/01/21 05:40 Globulin 3.9 g/dL (2.5-4.5) 12/01/21 05:40 Albumin/Globulin Ratio 0.6 Ratio (1.1-2.1) L 12/01/21 05:40 Specimen Type Catherized urine 11/30/21 13:50 Urine Color Yellow (YELLOW) 11/30/21 13:50 Urine Appearance Turbid (CLEAR) 11/30/21 13:50 Urine pH 7.0 (5.0 - 8.0) 11/30/21 13:50 Ur Specific [place] 1.010 (1.000-1.030) 11/30/21 13:50 Urine Protein 3+ (NEGATIVE) 11/30/21 13:50 Urine Glucose (UA) Negative (NEGATIVE) 11/30/21 13:50 Urine Ketones Negative (NEGATIVE) 11/30/21 13:50 Urine Occult Blood 5+ (NEGATIVE) 11/30/21 13:50 Urine Nitrite Positive (NEGATIVE) 11/30/21 13:50 Urine Bilirubin Negative (NEGATIVE) 11/30/21 13:50 Urine Urobilinogen Normal (NORMAL) 11/30/21 13:50 Ur Leukocyte Esterase 3+ (NEGATIVE) 11/30/21 13:50 Urine RBC 10-20 /HPF (0-3) A 11/30/21 13:50 Urine WBC Tntc /HPF (0-5) A 11/30/21 13:50 Ur Squamous Epith Cells Few /HPF (NEGATIVE) 11/30/21 13:50 Amorphous Sediment 1+ /HPF (NEGATIVE) 11/30/21 13:50 Urine Bacteria 3+ /HPF (NEGATIVE) 11/30/21 13:50 Urine Mucus Moderate /HPF (NEGATIVE) 11/30/21 13:50 Ur Culture Indicated? Yes/culture set up 11/30/21 13:50 SARS CoV-2 RNA Rapid YOCASTA Negative (NEGATIVE) 11/30/21 16:58 Plan (1) Sepsis due to urinary tract infection: Status: Acute (2) Abdominal pain: Status: Acute Qualifiers: Abdominal location: lower abdomen, unspecified Qualified Code(s): R10.30 - Lower abdominal pain, unspecified (3) Thrombocytopenia: Status: Chronic (4) Dehydration: Status: Acute (5) MAHAD (acute kidney injury): Status: Acute (6) Cirrhosis: Status: Chronic Qualifiers: Ascites presence: without ascites Hepatic cirrhosis type: unspecified hepatic cirrhosis Qualified Code(s): K74.60 - Unspecified cirrhosis of liver (7) CAD (coronary artery disease): Status: Chronic Qualifiers: Associated angina: unspecified whether angina present Coronary Disease- Associated Artery/Lesion type: bypass graft [place] vs. transplanted heart: [place] heart Qualified Code(s): I25.810 - Atherosclerosis of coronary artery bypass graft(s) without angina pectoris (8) CHF (congestive heart failure): Status: Chronic Qualifiers: Heart failure chronicity: chronic Heart failure type: unspecified Qualified Code(s): I50.9 - Heart failure, unspecified (9) Hypertension: Status: Chronic Qualifiers: Hypertension type: essential hypertension Qualified Code(s): I10 - Essential (primary) hypertension (10) Diabetes mellitus: Status: Chronic Qualifiers: Diabetes mellitus complication status: with other specified complication Diabetes mellitus watermelon inspector insulin use: with senior care use Diabetes mellitus type: type 2 Qualified Code(s): E11.69 - Type 2 diabetes mellitus with other specified complication; Z79.4 - intermediate (current) use of insulin
[2021-12-03] MEDS: TYLENOL 325 MG TAB PO PRN (16:41)
[2021-12-03] MEDS: SNACK - Diabetic Appropriate PO SCH (20:50)
[2021-12-03] MEDS: NEURONTIN CAP 100 MG PO SCH (20:50)
[2021-12-03] MEDS: LIPITOR TAB 20 MG PO SCH (20:51)
[2021-12-04] MEDS: D5 1/2 NS 1,000 ML 1,000 ML IV SCH ×2 (03:37→15:57)
[2021-12-04] MEDS: CARAFATE PO SCH ×4 (06:23→21:44)
[2021-12-04 06:37] LABS: BASOPHILS % (AUTO) 0.4 % (0.2-1.0); EOSINOPHILS # (AUTO) 0.2 x10^3/uL (0.0-0.2); EOSINOPHILS % (AUTO) 8.4 % (0.9-2.9); HEMATOCRIT 30.4 % (36.0-47.0); LYMPHOCYTES # (AUTO) 0.6 X10^3/uL (1.3-2.9); MEAN CORPUSCULAR HEMOGLOBIN 26.9 pg (27.0-34.0); MEAN CORPUSCULAR HGB CONC 32.8 g/dL (33.0-35.0); MEAN CORPUSCULAR VOLUME 81.9 fL (80.0-100.0); MEAN PLATELET VOLUME 9.5 fL (7.4-11.0); MONOCYTES # (AUTO) 0.2 x10^3/uL (0.3-0.8); MONOCYTES % (AUTO) 8.1 % (0.0-13.0); NEUTROPHILS # (AUTO) 1.7 x10^3/uL (2.2-4.8); NEUTROPHILS % (AUTO) 61.1 % (42.0-75.0); PLATELET COUNT 47 X10^3/uL (150.0-450.0); RED BLOOD COUNT 3.72 X10^6/uL (3.5-5.4); RED CELL DISTRIBUTION WIDTH 22.5 % (11.6-16.5); WHITE BLOOD COUNT 2.8 X10^3/uL (3.6-10.0)
[2021-12-04 06:44] LABS: ALBUMIN 2.1 g/dL (3.4-5.0); CALCIUM 7.7 mg/dL (8.5-10.1); CARBON DIOXIDE 24.2 mmol/L (21-32); COR CA(FOR HYPOALB) 9.2 mg/dL (8.5-10.1); CREATININE 1.19 mg/dL (0.55-1.02); TOTAL PROTEIN 5.7 g/dL (6.4-8.2)
[2021-12-04 08:13] LABS: ANISOCYTOSIS 2+; PLATELET MORPHOLOGY COMMENT NORMAL (NORMAL)
[2021-12-04 08:14] LABS: HYPOCHROMASIA SLIGHT
[2021-12-04] MEDS: PROTONIX TAB 40 MG PO SCH ×2 (08:47→21:45)
[2021-12-04] MEDS: COLACE CAP 100 MG PO SCH ×2 (08:47→21:44)
[2021-12-04] MEDS: MERREM VIAL 500 MG in NS 50 ML IV + SPIKE MINIBAG* 50 ML IV SCH ×2 (08:47→21:45)
[2021-12-04] MEDS: PEPCID TAB 40 MG PO SCH (08:47)
[2021-12-04] MEDS: HEMOCYTE-PLUS PO SCH (08:48)
[2021-12-04] MEDS: COREG TAB 3.125 MG PO SCH ×2 (08:48→21:45)
--- NOTE | 2021-12-04 13:54 | PCM.PROG ---
Progress Note - Progress Note for Day of Date of Exam: 12/04/21 - Subjective Subjective: WAS ADMITTED ON 11/30/21 FOR TREATMENT OF UROSEPSIS, ABDOMINAL PAIN, THROMBOCYTOPENIA, DEHYDRATION, MAHAD. SHE HAS A PMH OF CIRRHOSIS, CAD, CHF, HTN, DM II. TODAY, SHE IS ALERT AND ORIENTED, LYING IN BED ON MORNING ROUNDS. SHE DENIES ABDOMINAL PAIN THIS MORNING. SHE DOES REPORT HAVING A DECREASED APPETITE. ON EXAMINATION, HEART IS REGULAR IN RATE AND RHYTHM. BILATERAL LUNGS ARE NOTED WITH DIMINISHED LUNG SOUNDS THROUGHOUT. ABDOMEN IS ROUND, SOFT, AND NON-TENDER WITH NORMAL BOWEL SOUNDS NOTED IN ALL QUADRANTS. HER VITALS THIS MORNING ARE: 98.2-70-20-98%-177/74. LABS WERE OBTAINED. ABNORMAL LAB VALUES INCLUDE THE FOLLOWING: WBC 2.8, HGB 10.0, HCT 30.4, PLT COUNT 47, SODIUM 146, CHLORIDE 115, BUN 22, CREATININE 1.19, GLUCOSE 150, CALCIUM 7.7, TOTAL PROTEIN 5.7, ALBUMIN 2.1. URINE CULTURE REVEALS GROWTH OF E.COLI. SHE IS CURRENTLY RECEIVING D5/12NS AT 75 ML/HR, MEROPENEM 500MG IV Q12H, HUMULIN R SLIDING SCALE, LIPITOR 20MG PO HS, COREG 3.125MG PO BID, COLACE 200MG PO BID, PEPCID 20MG PO DAILY, NEURONTIN 100MG PO DAILY HS, HEMOCYTE PLUS DAILY, PROTONIX 40MG PO BID, PREPARATION H TID PRN, AND CARAFATE 1G PO ACHS. WE WILL CONTINUE WITH CURRENT PLAN OF CARE TODAY. OTHERWISE, WE PLAN TO FOLLOW UP WITH AM LABS AND CONTINUE TO MONITOR. TIME SPENT ON CLINICAL ASSESSMENT, REVIEWING LABS AND IMAGING, DECISION MAKING, AND DOCUMENTATION WAS GREATER THAN 45 MINUTES. - Past Medical Family Social History Past Med/Fam/Surg Hx: No changes since H&P Allergies: Allergies Penicillins Adverse Reaction (Verified 11/30/21 15:41) Sulfa (Sulfonamide Antibiotics) Adverse Reaction (Verified 11/30/21 15:41) - Review of Systems ROS: No change since H&P - Vital Signs and I&O's Vital Signs: Temperature 98.2 F Pulse Rate [Left Radial] 70 Pulse Rate 82 Respiratory Rate 20 Blood Pressure [Left Arm] 177/74 Blood Pressure 166/72 O2 Sat by Pulse Oximetry 98 Intake and Output: Intake & Output 12/02/21 12/03/21 12/04/21 12/05/21 11:59 11:59 11:59 11:59 Intake Total 1979 / 1979 2166 / 2166 2314 / 2314 Output Total 1075 / 1075 1000 / 1000 1625 / 1625 Balance 905 / 905 1166 / 1166 689 / 689 - Physical Exam Oriented: Normal Eyes: Normal Ear: Normal Nose: Normal Throat: Dry Respiratory: Generalized, Diminished Cardiovascular: Normal : Normal Auscultation: Bowel Sounds: Normal Palpation: Normal Tenderness: Normal Skin: Decreased Turgur Musculoskeletal: Normal Psychiatric: Normal Mood Description: Calm Affect: Normal Speech Pattern: Clear, Appropriate - Laboratory and Diagnostics Result Diagrams: 12/04/21 05:26 12/04/21 05:26 Labs: 11/30/21 13:50 Urine,Catheterized Urine Culture - Final Escherichia Coli Laboratory WBC 2.8 X10^3/uL (3.6-10.0) L 12/04/21 05:26 RBC 3.72 X10^6/uL (3.5-5.4) 12/04/21 05:26 Hgb 10.0 g/dL (12.0-16.0) L 12/04/21 05:26 Hct 30.4 % (36.0-47.0) L 12/04/21 05:26 MCV 81.9 fL (80.0-100.0) 12/04/21 05:26 MCH 26.9 pg (27.0-34.0) L 12/04/21 05:26 MCHC 32.8 g/dL (33.0-35.0) L 12/04/21 05:26 RDW 22.5 % (11.6-16.5) H 12/04/21 05:26 Plt Count 47 X10^3/uL (150.0-450.0) L 12/04/21 05:26 Plt Count Comment Decreased (ADEQUATE) A 12/04/21 05:26 MPV 9.5 fL (7.4-11.0) 12/04/21 05:26 Neut % (Auto) 61.1 % (42.0-75.0) 12/04/21 05:26 Lymph % (Auto) 22.0 % (21.0-51.0) 12/04/21 05:26 [place] % (Auto) 8.1 % (0.0-13.0) 12/04/21 05:26 Eos % (Auto) 8.4 % (0.9-2.9) H 12/04/21 05:26 Baso % (Auto) 0.4 % (0.2-1.0) 12/04/21 05:26 Neut # (Auto) 1.7 x10^3/uL (2.2-4.8) L 12/04/21 05:26 Lymph # (Auto) 0.6 X10^3/uL (1.3-2.9) L 12/04/21 05:26 [place] # (Auto) 0.2 x10^3/uL (0.3-0.8) L 12/04/21 05:26 Eos # (Auto) 0.2 x10^3/uL (0.0-0.2) 12/04/21 05:26 Baso # (Auto) 0.0 X10^3/uL (0.0-0.1) 12/04/21 05:26 Absolute Nucleated RBC 0.1 /100WBC 12/04/21 05:26 Total Counted 25 12/03/21 05:22 Neutrophils % (Manual) 64 % (39-76) 12/03/21 05:22 Band Neutrophils % 4 % (0-10) 12/03/21 05:22 Lymphocytes % (Manual) 28 % (13-43) 12/03/21 05:22 Monocytes % (Manual) 4 % (4-9) 12/03/21 05:22 Eosinophils % (Manual) 5 % (0-6) 12/02/21 05:17 Plt Morphology Comment Normal (NORMAL) 12/04/21 05:26 RBC Morphology Abnormal (NORMAL) A 12/04/21 05:26 Dimorphic RBCs Slight 12/02/21 05:17 Hypochromasia Slight A 12/04/21 05:26 Anisocytosis 2+ A 12/04/21 05:26 Microcytosis Slight A 12/01/21 05:40 Ovalocytes Present 12/01/21 05:40 Sodium 146 mmol/L (136-145) H 12/04/21 05:26 Corrected Sodium 147 mmol/L (136-145) H 12/04/21 05:26 Potassium 4.4 mmol/L (3.5-5.1) 12/04/21 05:26 Chloride 115 mmol/L (98-107) H* 12/04/21 05:26 Carbon Dioxide 24.2 mmol/L (21-32) 12/04/21 05:26 BUN 22 mg/dL (7-18) H 12/04/21 05:26 Creatinine 1.19 mg/dL (0.55-1.02) H 12/04/21 05:26 Est GFR (MDRD) Af Amer 55 (>60) L 12/04/21 05:26 Est GFR (MDRD) Non-Af 45 (>60) L 12/04/21 05:26 Glucose 150 mg/dL (65-99) H 12/04/21 05:26 POC Glucose (mg/dL) 153 mg/dL (65-99) H 12/04/21 11:44 Calcium 7.7 mg/dL (8.5-10.1) L 12/04/21 05:26 Corrected Calcium 9.2 mg/dL (8.5-10.1) 12/04/21 05:26 Magnesium 1.8 mg/dL (1.7-2.9) 12/03/21 05:22 Total Bilirubin 0.60 mg/dL (0.2-1.0) 12/04/21 05:26 AST 19 Units/L (15-37) 12/04/21 05:26 ALT 16 Units/L (12-78) 12/04/21 05:26 Alkaline Phosphatase 94 Units/L (46-116) 12/04/21 05:26 Total Protein 5.7 g/dL (6.4-8.2) L 12/04/21 05:26 Albumin 2.1 g/dL (3.4-5.0) L 12/04/21 05:26 Globulin 3.6 g/dL (2.5-4.5) 12/04/21 05:26 Albumin/Globulin Ratio 0.6 Ratio (1.1-2.1) L 12/04/21 05:26 Specimen Type Catherized urine 11/30/21 13:50 Urine Color Yellow (YELLOW) 11/30/21 13:50 Urine Appearance Turbid (CLEAR) 11/30/21 13:50 Urine pH 7.0 (5.0 - 8.0) 11/30/21 13:50 Ur Specific [place] 1.010 (1.000-1.030) 11/30/21 13:50 Urine Protein 3+ (NEGATIVE) 11/30/21 13:50 Urine Glucose (UA) Negative (NEGATIVE) 11/30/21 13:50 Urine Ketones Negative (NEGATIVE) 11/30/21 13:50 Urine Occult Blood 5+ (NEGATIVE) 11/30/21 13:50 Urine Nitrite Positive (NEGATIVE) 11/30/21 13:50 Urine Bilirubin Negative (NEGATIVE) 11/30/21 13:50 Urine Urobilinogen Normal (NORMAL) 11/30/21 13:50 Ur Leukocyte Esterase 3+ (NEGATIVE) 11/30/21 13:50 Urine RBC 10-20 /HPF (0-3) A 11/30/21 13:50 Urine WBC Tntc /HPF (0-5) A 11/30/21 13:50 Ur Squamous Epith Cells Few /HPF (NEGATIVE) 11/30/21 13:50 Amorphous Sediment 1+ /HPF (NEGATIVE) 11/30/21 13:50 Urine Bacteria 3+ /HPF (NEGATIVE) 11/30/21 13:50 Urine Mucus Moderate /HPF (NEGATIVE) 11/30/21 13:50 Ur Culture Indicated? Yes/culture set up 11/30/21 13:50 SARS CoV-2 RNA Rapid YOCASTA Negative (NEGATIVE) 11/30/21 16:58 - Plan (1) Sepsis due to urinary tract infection Status: Acute Plan: D5/12NS AT 75 ML/HR, MEROPENEM 500MG IV Q12H, HUMULIN R SLIDING SCALE, LIPITOR 20MG PO HS, COREG 3.125MG PO BID, COLACE 200MG PO BID, PEPCID 20MG PO DAILY, NEURONTIN 100MG PO DAILY HS, HEMOCYTE PLUS DAILY, PROTONIX 40MG PO BID, PREPARATION H TID PRN, AND CARAFATE 1G PO ACHS. (2) Abdominal pain Status: Acute Qualifiers: Abdominal location: lower abdomen, unspecified Qualified Code(s): R10.30 - Lower abdominal pain, unspecified (3) Thrombocytopenia Status: Chronic (4) Acute dehydration Status: Acute (5) MAHAD (acute kidney injury) Status: Acute (6) Cirrhosis Status: Chronic Qualifiers: Hepatic cirrhosis type: unspecified hepatic cirrhosis Ascites presence: unspecified Qualified Code(s): K74.60 - Unspecified cirrhosis of liver (7) CAD (coronary artery disease) Status: Chronic Qualifiers: Coronary Disease-Associated Artery/Lesion type: [place] artery [place] vs. transplanted heart: [place] heart Associated angina: unspecified whether angina present Qualified Code(s): I25.10 - Atherosclerotic heart disease of [place] coronary artery without angina pectoris (8) CHF (congestive heart failure) Status: Chronic Qualifiers: Heart failure type: unspecified Heart failure chronicity: chronic Qualified Code(s): I50.9 - Heart failure, unspecified (9) Diabetes mellitus Status: Chronic Qualifiers: Diabetes mellitus type: type 2 Diabetes mellitus fpc insulin use: with fpc use Diabetes mellitus complication status: with hyperglycemia Qualified Code(s): E11.65 - Type 2 diabetes mellitus with hyperglycemia; Z79.4 - FDC (current) use of insulin (10) Hypertension Status: Chronic Qualifiers: Hypertension type: primary hypertension Qualified Code(s): I10 - Essential (primary) hypertension
[2021-12-04] MEDS: NovoLIN R (or HumuLIN R) SUBCUT PRN (17:30)
[2021-12-04] MEDS: SNACK - Diabetic Appropriate PO SCH (21:44)
[2021-12-04] MEDS: LIPITOR TAB 20 MG PO SCH (21:45)
[2021-12-04] MEDS: NEURONTIN CAP 100 MG PO SCH (21:45)
[2021-12-05] MEDS: D5 1/2 NS 1,000 ML 1,000 ML IV SCH (01:48)
[2021-12-05] MEDS: CARAFATE PO SCH (05:45)
[2021-12-05 06:14] LABS: BASOPHILS % (AUTO) 0.5 % (0.2-1.0); EOSINOPHILS # (AUTO) 0.2 x10^3/uL (0.0-0.2); EOSINOPHILS % (AUTO) 8.3 % (0.9-2.9); HEMATOCRIT 30.3 % (36.0-47.0); HEMOGLOBIN 9.9 g/dL (12.0-16.0); LYMPHOCYTES # (AUTO) 0.7 X10^3/uL (1.3-2.9); LYMPHOCYTES % (AUTO) 23.9 % (21.0-51.0); MEAN CORPUSCULAR HEMOGLOBIN 26.8 pg (27.0-34.0); MEAN CORPUSCULAR HGB CONC 32.6 g/dL (33.0-35.0); MEAN CORPUSCULAR VOLUME 82.3 fL (80.0-100.0); MEAN PLATELET VOLUME 9.3 fL (7.4-11.0); MONOCYTES # (AUTO) 0.2 x10^3/uL (0.3-0.8); MONOCYTES % (AUTO) 8.6 % (0.0-13.0); NEUTROPHILS # (AUTO) 1.6 x10^3/uL (2.2-4.8); NEUTROPHILS % (AUTO) 58.7 % (42.0-75.0); PLATELET COUNT 47 X10^3/uL (150.0-450.0); RED BLOOD COUNT 3.69 X10^6/uL (3.5-5.4); RED CELL DISTRIBUTION WIDTH 22.5 % (11.6-16.5); WHITE BLOOD COUNT 2.8 X10^3/uL (3.6-10.0)
[2021-12-05 06:40] LABS: ALBUMIN 2.1 g/dL (3.4-5.0); CALCIUM 7.8 mg/dL (8.5-10.1); CARBON DIOXIDE 22.8 mmol/L (21-32); COR CA(FOR HYPOALB) 9.3 mg/dL (8.5-10.1); CREATININE 1.17 mg/dL (0.55-1.02); TOTAL PROTEIN 5.7 g/dL (6.4-8.2)
[2021-12-05 07:46] LABS: HYPOCHROMASIA SLIGHT; PLATELET MORPHOLOGY COMMENT NORMAL (NORMAL)
[2021-12-05 07:47] LABS: ANISOCYTOSIS 2+
[2021-12-05] MEDS ORDERED: INVANZ INJ 1 GM VIAL 1 GM in NS 100 ML IV + SPIKE MINIBAG* 100 ML IV ONE (08:46)
[2021-12-05] MEDS: PEPCID TAB 40 MG PO SCH (09:20)
[2021-12-05] MEDS: PROTONIX TAB 40 MG PO SCH (09:22)
[2021-12-05] MEDS: COLACE CAP 100 MG PO SCH (09:22)
[2021-12-05] MEDS: COREG TAB 3.125 MG PO SCH (09:23)
[2021-12-05] MEDS: HEMOCYTE-PLUS PO SCH (09:23)
[2021-12-05 10:54] VITALS: BP 170/71
== END 2021-12-05 12:10 | DRG 872 ==
LOC: ER 15:23 → MED/SURG 18:29
PROVIDERS: ADMIT Family Medicine; ATTEND Internal Medicine
DX: Z20.822 Contact with and (suspected) exposure to COVID-19; I50.9 Heart failure, unspecified; I25.810 Atherosclerosis of coronary artery bypass graft(s) without angina pectoris; R10.30 Lower abdominal pain, unspecified; D69.6 Thrombocytopenia, unspecified; A41.89 Other specified sepsis; I11.0 Hypertensive heart disease with heart failure; N17.8 Other acute kidney failure; R26.89 Other abnormalities of gait and mobility; B96.29 Other Escherichia coli [E. coli] as the cause of diseases classified elsewhere; Z79.4 Long term (current) use of insulin; N39.0 Urinary tract infection, site not specified; E11.65 Type 2 diabetes mellitus with hyperglycemia; K74.60 Unspecified cirrhosis of liver; E78.2 Mixed hyperlipidemia; K21.9 Gastro-esophageal reflux disease without esophagitis; E86.0 Dehydration

== ENCOUNTER 2023-05-26 08:06 | Inpatient (IN) ==
[2023-05-26] MEDS ORDERED: SOLU-Medrol 125 MG VIAL ONE (08:09)
--- NOTE | 2023-05-26 08:13 | DR.GENAD ---
HPI Time Seen Time Seen by Provider: 05/26/23 08:13 HPI Comment HPI Comment: Brought in by NH staff with unresponsiveness anywhere from a few minutes to a 2-3 hours; lab says pt was like this at 0600 when bloodwork was obtained; however, nurses report change noted during breakfast; she is not verbal but is usually alert but is now very somnolent and opens eyes with aggressive stimulation; tongue is hanging out and appears to be enlarged; it can be pushed back and remains for a few minutes COVID-19 Coronavirus risk:travel/contact w/high risk person: No Has patient experienced Coronavirus symptoms: No PMH PMH Past Medical History: Anemia, CHF, Coronary Artery Disease, CVA, Dementia, Depression, Diabetes, Dyslipidemia, GERD, Hypertension and Renal Disease Past Surgical History: Yes Surgical History: Appendectomy, CABG/Valve Surgery, Cholecystectomy and Hysterectomy Family History Family Medical History: Cancer and Coronary Artery Disease Social History Do you use any recreational Drugs:: No Travel Risk Coronavirus risk:travel/contact w/high risk person: No Has patient experienced Coronavirus symptoms: No ROS Review of Systems Unable to Obtain Due To: Medical urgency (unresponsive) PE Vital Signs Vitals: Vital Signs Temperature 97.7 F Pulse Rate 74 Pulse Rate 76 Pulse Rate 84 Pulse Rate 74 Pulse Rate 77 Pulse Rate 81 Pulse Rate 83 Pulse Rate 79 Pulse Rate 78 Pulse Rate 78 Pulse Rate 81 Pulse Rate 79 Pulse Rate 79 Pulse Rate 77 Respiratory Rate 36 Respiratory Rate 32 Respiratory Rate 21 Respiratory Rate 18 Respiratory Rate 34 Respiratory Rate 26 Respiratory Rate 22 Respiratory Rate 18 Respiratory Rate 33 Respiratory Rate 22 Respiratory Rate 26 Respiratory Rate 42 Respiratory Rate 23 Respiratory Rate 16 Blood Pressure 203/86 Blood Pressure 190/81 Blood Pressure 195/85 Blood Pressure 193/89 Blood Pressure 205/88 Blood Pressure 203/84 Blood Pressure 206/88 Blood Pressure 183/79 O2 Sat by Pulse Oximetry 100 O2 Sat by Pulse Oximetry 100 O2 Sat by Pulse Oximetry 97 O2 Sat by Pulse Oximetry 100 O2 Sat by Pulse Oximetry 100 O2 Sat by Pulse Oximetry 100 O2 Sat by Pulse Oximetry 100 O2 Sat by Pulse Oximetry 100 O2 Sat by Pulse Oximetry 99 O2 Sat by Pulse Oximetry 100 O2 Sat by Pulse Oximetry 100 O2 Sat by Pulse Oximetry 96 General Limitations: Other (unresponsive) Head Head Exam: Normal Inspection ENT ENT Exam: Normal Exam External Ear Exam: Normal External Inspection TM/Canal Exam: Bilateral: Normal Nose Exam: Normal Nose Exam Mouth Exam: Tongue Swelling Throat Exam: Normal Inspection Neck Neck Exam: Normal Inspection Chest Chest Inspection: Normal Inspection Respiratory Respiratory Exam: Normal Lung Sounds Bilat Respiratory Exam: Bilateral: Clear to Auscultation Cardiovascular Cardiovascular Exam: Irregular Rhythm Abdominal Exam Abdominal Exam: Normal Inspection, Normal Bowel Sounds and Soft Extremities Extremities Exam: Normal Inspection Back Back Exam: Normal Inspection Neurologic Neurological Exam: Other (unresponsive except to painful stimuli, gaze to right, tongue enlarged/protruding but can be pushed back, no drooling) Skin Skin Exam: Warm, Dry, Intact and Normal Color COURSE Consultation Call Returned: 10:23 (Dr Smiley accepts admission.) [facility]OR Labs Reviewed Result Diagrams: 05/26/23 08:34 05/26/23 08:34 Laboratory: WBC 4.9 X10^3/uL (3.6-10.0) 05/26/23 08:34 RBC 3.81 X10^6/uL (3.5-5.4) 05/26/23 08:34 Hgb 10.2 g/dL (12.0-16.0) L 05/26/23 08:34 Hct 31.9 % (36.0-47.0) L 05/26/23 08:34 MCV 83.6 fL (80.0-100.0) 05/26/23 08:34 MCH 26.9 pg (27.0-34.0) L 05/26/23 08:34 MCHC 32.1 g/dL (33.0-35.0) L 05/26/23 08:34 RDW 16.6 % (11.6-16.5) H 05/26/23 08:34 Plt Count 108 X10^3/uL (150.0-450.0) L 05/26/23 08:34 MPV 8.4 fL (7.4-11.0) 05/26/23 08:34 Neut % (Auto) 79.6 % (42.0-75.0) H 05/26/23 08:34 Lymph % (Auto) 12.7 % (21.0-51.0) L 05/26/23 08:34 [place] % (Auto) 4.7 % (0.0-13.0) 05/26/23 08:34 Eos % (Auto) 3.0 % (0.9-2.9) H 05/26/23 08:34 Baso % (Auto) 0 % (0.2-1.0) L 05/26/23 08:34 Neut # (Auto) 3.9 x10^3/uL (2.2-4.8) 05/26/23 08:34 Lymph # (Auto) 0.6 X10^3/uL (1.3-2.9) L 05/26/23 08:34 [place] # (Auto) 0.2 x10^3/uL (0.3-0.8) L 05/26/23 08:34 Eos # (Auto) 0.1 x10^3/uL (0.0-0.2) 05/26/23 08:34 Baso # (Auto) 0.0 X10^3/uL (0.0-0.1) 05/26/23 08:34 Absolute Nucleated RBC 0.1 /100WBC 05/26/23 08:34 Sodium 147 mmol/L (136-145) H 05/26/23 08:34 Sodium Cancelled 05/26/23 08:34 Corrected Sodium Cancelled 05/26/23 08:34 Corrected Sodium TNP 05/26/23 08:34 Potassium 4.5 mmol/L (3.5-5.1) 05/26/23 08:34 Potassium Cancelled 05/26/23 08:34 Chloride 110 mmol/L (98-107) H 05/26/23 08:34 Chloride Cancelled 05/26/23 08:34 Carbon Dioxide 30.4 mmol/L (21-32) 05/26/23 08:34 Carbon Dioxide Cancelled 05/26/23 08:34 BUN 70 mg/dL (7-18) H 05/26/23 08:34 BUN Cancelled 05/26/23 08:34 Creatinine 1.66 mg/dL (0.55-1.02) H 05/26/23 08:34 Creatinine Cancelled 05/26/23 08:34 Est GFR (MDRD) Af Amer 37 (>60) L 05/26/23 08:34 Est GFR (MDRD) Af Amer Cancelled 05/26/23 08:34 Est GFR (MDRD) Non-Af 31 (>60) L 05/26/23 08:34 Est GFR (MDRD) Non-Af Cancelled 05/26/23 08:34 Glucose 107 mg/dL (65-99) H 05/26/23 08:34 Glucose Cancelled 05/26/23 08:34 POC Glucose (mg/dL) 101 mg/dL (65-99) H 05/26/23 08:11 Lactic Acid 1.1 mmol/L (0.4-2.0) 05/26/23 08:34 Calcium 8.9 mg/dL (8.5-10.1) 05/26/23 08:34 Calcium Cancelled 05/26/23 08:34 Corrected Calcium Cancelled 05/26/23 08:34 Total Bilirubin Cancelled 05/26/23 08:34 AST Cancelled 05/26/23 08:34 ALT Cancelled 05/26/23 08:34 Alkaline Phosphatase Cancelled 05/26/23 08:34 Ammonia 32 umol/L (11-32) 05/26/23 08:34 Creatine Kinase 23 Units/L (26-192) L 05/26/23 08:34 Troponin I High Sens 39.1 ng/L (4.0-60.0) 05/26/23 08:34 Total Protein Cancelled 05/26/23 08:34 Albumin Cancelled 05/26/23 08:34 Globulin Cancelled 05/26/23 08:34 Albumin/Globulin Ratio Cancelled 05/26/23 08:34 Specimen Type Catherized urine 05/26/23 08:55 Urine Color Yellow (YELLOW) 05/26/23 08:55 Urine Appearance Cloudy (CLEAR) 05/26/23 08:55 Urine pH 8.0 (5.0 - 8.0) 05/26/23 08:55 Ur Specific [place] 1.015 (1.000-1.030) 05/26/23 08:55 Urine Protein 3+ (NEGATIVE) 05/26/23 08:55 Urine Glucose (UA) Negative (NEGATIVE) 05/26/23 08:55 Urine Ketones Negative (NEGATIVE) 05/26/23 08:55 Urine Blood 4+ (NEGATIVE) 05/26/23 08:55 Urine Nitrite Negative (NEGATIVE) 05/26/23 08:55 Urine Bilirubin Negative (NEGATIVE) 05/26/23 08:55 Urine Urobilinogen 1+ (NORMAL) 05/26/23 08:55 Ur Leukocyte Esterase 3+ (NEGATIVE) 05/26/23 08:55 Urine RBC 5-10 /HPF (0-3) A 05/26/23 08:55 Urine WBC 20-30 /HPF (0-5) A 05/26/23 08:55 Ur Squamous Epith Cells Rare /HPF (NEGATIVE) 05/26/23 08:55 Amorphous Sediment 2+ /HPF (NEGATIVE) 05/26/23 08:55 Urine Bacteria 2+ /HPF (NEGATIVE) 05/26/23 08:55 Ur Culture Indicated? Yes/culture set up 05/26/23 08:55 Other Results Comments: Pt dehydrated w/acute cva, cystitis, sinusitis; multiple discussions with son Terry; pt remains full code; add abx, fluids, lovenox and admit. XRAY X-ray Results: ct head: Hypodense region in the right parietal lobe likely representing an acute posterior right MCA territory infarct superimposed on a chronic right parietal infarction. Old bilateral basal ganglia infarctions. Advanced global cerebral volume loss and chronic small vessel ischemic disease. Findings suggestive of acute sinusitis. Opioid Opioid Risk Tool Age (Justo box if 16-45): No History of Preadolescent Sexual Abuse: No Total: 0 Total Score Risk Category: Low Risk Copyright: Tera GONZALES predicting aberrant behaviors Discharge Plan Diagnosis Discharge Problem: Acute cerebrovascular accident (CVA), Cystitis, Sinusitis, Acute dehydration, Atrial fibrillation Discharge Plan Patient Disposition: ADMITTED INPATIENT Condition: Stable
[2023-05-26] MEDS ORDERED: SOLU-Medrol 125 MG VIAL IVP ONE (08:14)
--- NOTE | 2023-05-26 08:17 | EKG ---
Test Reason : unresponsive Blood Pressure : */* mmHG Vent. Rate : 74 BPM Atrial Rate : * BPM P-R Int : * ms QRS Dur : 152 ms QT Int : 454 ms P-R-T Axes : * -66 138 degrees QTc Int : 503 ms Atrial fibrillation Left axis deviation Right bundle branch block Left ventricular hypertrophy with repolarization abnormality ( R in aVL , Romhilt-Clemente ) Anteroseptal infarct , age undetermined Abnormal ECG No previous ECGs available Confirmed by Sami Almeida ([id number]) on 05/26/2023 5:50:04 PM Referred By: Confirmed By: Sami Almeida
[2023-05-26 08:20] VITALS: BMI 25.4
[2023-05-26 08:50] LABS: BASOPHILS % (AUTO) 0 % (0.2-1.0); EOSINOPHILS # (AUTO) 0.1 x10^3/uL (0.0-0.2); HEMATOCRIT 31.9 % (36.0-47.0); HEMOGLOBIN 10.2 g/dL (12.0-16.0); LYMPHOCYTES # (AUTO) 0.6 X10^3/uL (1.3-2.9); LYMPHOCYTES % (AUTO) 12.7 % (21.0-51.0); MEAN CORPUSCULAR HEMOGLOBIN 26.9 pg (27.0-34.0); MEAN CORPUSCULAR HGB CONC 32.1 g/dL (33.0-35.0); MEAN CORPUSCULAR VOLUME 83.6 fL (80.0-100.0); MEAN PLATELET VOLUME 8.4 fL (7.4-11.0); MONOCYTES # (AUTO) 0.2 x10^3/uL (0.3-0.8); MONOCYTES % (AUTO) 4.7 % (0.0-13.0); NEUTROPHILS # (AUTO) 3.9 x10^3/uL (2.2-4.8); NEUTROPHILS % (AUTO) 79.6 % (42.0-75.0); PLATELET COUNT 108 X10^3/uL (150.0-450.0); RED BLOOD COUNT 3.81 X10^6/uL (3.5-5.4); RED CELL DISTRIBUTION WIDTH 16.6 % (11.6-16.5); WHITE BLOOD COUNT 4.9 X10^3/uL (3.6-10.0)
[2023-05-26 09:06] LABS: LACTIC ACID 1.1 mmol/L (0.4-2.0)
[2023-05-26 09:08] LABS: BILIRUBIN,URINE NEGATIVE (NEGATIVE); BLOOD/HEMOGLOBIN,URINE 4+ (NEGATIVE); GLUCOSE, URINE NEGATIVE (NEGATIVE); KETONES,URINE NEGATIVE (NEGATIVE); LEUKOCYTE ESTERASE ,URINE 3+ (NEGATIVE); NITRITES,URINE NEGATIVE (NEGATIVE); PROTEIN,URINE 3+ (NEGATIVE); UROBILINOGEN,URINE 1+ (NORMAL)
[2023-05-26 09:11] LABS: BLOOD UREA NITROGEN 70 mg/dL (7-18); CALCIUM 8.9 mg/dL (8.5-10.1); CARBON DIOXIDE 30.4 mmol/L (21-32); CHLORIDE 110 mmol/L (98-107); CREATININE 1.66 mg/dL (0.55-1.02); GLUCOSE 107 mg/dL (65-99); POTASSIUM 4.5 mmol/L (3.5-5.1); SODIUM 147 mmol/L (136-145); eGFR NON BLACK RACES 31 (>60)
[2023-05-26 09:11] LABS: APPEARANCE,URINE CLOUDY (CLEAR); COLOR,URINE YELLOW (YELLOW)
[2023-05-26 09:12] LABS: CREATINE KINASE 23 Units/L (26-192)
[2023-05-26 09:14] LABS: BACTERIA,URINE 2+ /HPF (NEGATIVE); SQUAMOUS EPITHELIAL CELL,UR RARE /HPF (NEGATIVE)
--- NOTE | 2023-05-26 09:34 | CT ---
HISTORYPer fpc staff pt was eating breakfast when she suddenly became unresponsive and her tongue was hanging out of her mouth.STUDYBRAIN W/O CONCOMPARISONNoneTECHNIQUEMult iple axial images of the head without contrast. Dose reduction techniques including Automated Exposure Control (AEC) and adjustment of mA and kV were utilized.Contrast: NoneFINDINGSAdvanced global volume loss. There is a large hypodense region in the right parietal lobe/posterior right MCA territory likely representing an acute infarct superimposed on a chronic right parietal infarction. Old bilateral basal ganglia infarctions. There are patchy and confluent white matter hypodensities that are nonspecific and likely represent advanced chronic microangiopathy. No focal mass lesion or midline shift. Advanced atherosclerotic calcifications intracranial vasculature. Bilateral lens replacements. Frothy debris is seen in the right maxillary and right sphenoid sinuses. Air-fluid levels with frothy debris are seen in the left maxillary and left sinuses. Mild mucosal thickening in the ethmoid air cells. The mastoid air cells are clear. The calvarium is intact. C1 is within normal limits.IMPRESSIONHypodense region in the right parietal lobe likely representing a acute posterior right MCA territory infarct superimposed on a chronic right parietal infarction.Old bilateral basal ganglia infarctions.Advanced global cerebral volume loss and chronic small vessel ischemic disease.Findings suggestive of acute sinusitis.Electronically signed by: Patrice Holcomb (May 26, 2023 09:32:51)
[2023-05-26] MEDS ORDERED: LOPRESSOR INJ 5 MG AMP IVP PRN (09:55)
[2023-05-26] MEDS ORDERED: ROCEPHIN VIAL 1 GRAM ONE (09:58)
[2023-05-26] MEDS ORDERED: LOPRESSOR INJ 5 MG AMP ONE (09:58)
[2023-05-26] MEDS ORDERED: NS 1,000 ML IV 1,000 ML ONE (09:58)
[2023-05-26] MEDS ORDERED: NS 50 ML IV 50 ML IV ONE (09:59)
[2023-05-26] MEDS ORDERED: LOVENOX INJ 100 MG SYR SC SCH (10:00)
[2023-05-26] MEDS ORDERED: NovoLIN R (or HumuLIN R) SUBCUT PRN (10:00)
[2023-05-26] MEDS ORDERED: LOVENOX INJ 100 MG SYR SC ONE (10:00)
[2023-05-26] MEDS: NS 1,000 ML IV 1,000 ML IV SCH (10:11)
[2023-05-26] MEDS: ROCEPHIN VIAL 1 GRAM 1 G in NS 100 ML IV 100 ML IV SCH (10:16)
[2023-05-26] MEDS: APRESOLINE INJ 20 MG VIAL IVP SCH ×3 (10:59→23:23)
[2023-05-26] MEDS: ATIVAN INJ 2 MG VIAL IVP PRN (11:30)
[2023-05-26] MEDS: DUONEB 0.5 MG/3 MG (3 mL) NEB SCH ×2 (13:40→20:20)
[2023-05-26] MEDS: PHARMACY CONSULT LTC MEDICATIONS XX SCH ×2 (13:41→15:02)
[2023-05-26] MEDS ORDERED: MORPHINE SULFATE INJ 2 MG INJ IVP ONE (13:45)
[2023-05-27] MEDS: NS 1,000 ML IV 1,000 ML IV SCH ×5 (03:30→20:16)
[2023-05-27 05:44] LABS: BASOPHILS % (AUTO) 0.1 % (0.2-1.0); HEMATOCRIT 31.4 % (36.0-47.0); HEMOGLOBIN 10.1 g/dL (12.0-16.0); LYMPHOCYTES # (AUTO) 0.7 X10^3/uL (1.3-2.9); LYMPHOCYTES % (AUTO) 12.2 % (21.0-51.0); MEAN CORPUSCULAR HEMOGLOBIN 26.8 pg (27.0-34.0); MEAN CORPUSCULAR VOLUME 83.8 fL (80.0-100.0); MONOCYTES # (AUTO) 0.4 x10^3/uL (0.3-0.8); MONOCYTES % (AUTO) 7.9 % (0.0-13.0); NEUTROPHILS # (AUTO) 4.5 x10^3/uL (2.2-4.8); NEUTROPHILS % (AUTO) 79.8 % (42.0-75.0); PLATELET COUNT 140 X10^3/uL (150.0-450.0); RED BLOOD COUNT 3.75 X10^6/uL (3.5-5.4); RED CELL DISTRIBUTION WIDTH 16.8 % (11.6-16.5); WHITE BLOOD COUNT 5.6 X10^3/uL (3.6-10.0)
[2023-05-27 05:50] LABS: CALCIUM 8.7 mg/dL (8.5-10.1); CREATININE 1.96 mg/dL (0.55-1.02); POTASSIUM 4.7 mmol/L (3.5-5.1)
[2023-05-27] MEDS: DUONEB 0.5 MG/3 MG (3 mL) NEB SCH ×3 (06:00→20:35)
[2023-05-27] MEDS: APRESOLINE INJ 20 MG VIAL IVP SCH ×4 (06:48→21:52)
[2023-05-27] MEDS: LOVENOX INJ 60 MG SYR SC SCH (08:24)
[2023-05-27] MEDS: ROCEPHIN VIAL 1 GRAM 1 G in NS 100 ML IV 100 ML IV SCH (08:24)
--- NOTE | 2023-05-27 09:51 | DR.H&P ---
H&P - History & Physical for Day of: H&P Date: 05/26/23 - Chief Complaint Chief Complaint: UNRESPONSIVE - History of Present Illness History of Present Illness: IS A 87 YEAR OLD PATIENT OF OURS. SHE IS A RESIDENT OF [facility]. SHE WAS BROUGHT TO THE ER FROM THE PRISON WITH REPORTS OF PATIENT BEING UNRESPONSIVE. SHE WAS LAST SEEN IN HER NORMAL STATE 2-3 HOURS PRIOR TO ARRIVAL. PATIENT IS NOT USUALLY VERBAL, BUT IS USUALLY ALERT. UPON ARRIVAL TO THE ER, SHE WAS VERY SOMNOLENT. SHE DID OPEN EYES WITH AGGRESSIVE STIMULATION. TONGUE WAS HANING OUT OF MOUTH AND APPEARED TO BE ENLARGED. SHE WAS UNABLE TO FOLLOW INSTRUCTIONS OR RESPOND VERBALLY. HER PMH INCLUDES: ANEMIA, CHF, CAD, CVA, DEMENTIA, DEPRESSION, DM II, DYSLIPIDEMIA, GERD, HTN, RENAL DISEASE, APPENDECTOMY, CABG, CHOLECYSTECTOMY, AND HYSTERECTOMY. ON ARRIVAL TO THE ER, HER VITALS WERE: 98.1-77-16-96%-183/79. LABS WERE OBTAINED. WBC 4.9, RBC 3.81, HGB 10.2, HCT 31.9, PLT COUNT 108, SODIUM 147, POTASSIUM 4.5, CHLORIDE 110, BUN 70, CREATININE 1.66, GLUCOSE 107, LACTIC ACID 1.1, CALCIUM 8.9, CREATINE KINASE 23, TROPONIN 39.1, AMMONIA 32. URINALYSIS WAS OBTAINED AND REVEALED: WBC 20-30, RBC 5-10, LEUKOCYTES 3+, BACTERIA 2+. A URINE CULTURE WAS SET UP. A BRAIN CT WAS OBTAINED AND REVEALED: Hypodense region in the right parietal lobe likely representing an acute posterior right MCA territory infarct superimposed on a chronic right parietal infarction. Old bilateral basal ganglia infarctions. Advanced global cerebral volume loss and chronic small vessel ischemic disease. Findings suggestive of acute sinusitis. EKG WAS OBTAINED AND REVEALED: ATRIAL FIBRILLATION WITH HR 74 BPM. IN THE ER, SHE WAS GIVEN SOLU-MEDROL 125MG IV X 1, LOVENOX 100MG SC X 1 DSOE. SHE WAS ADMITTED TO THE HOSPITAL FOR FURTEHR EVALUATION AND TREATMENT OF ACUTE CVA, UTI, ACUTE SINUSITIS, ACUTE BRONCHITIS, ATRIAL FIBRILLATION, HTN, DM II. SHE WAS STARTED ON NORMAL SALINE AT 125 ML/HR, DUONEBS TID, ROCEPHIN 1G IV DAILY, LOVENOX 60MG SC DAILY, HYDRALAZINE 10MG IV Q6H, LOPRESSOR 5MG IV Q12H PRN, OTBS ACHS, HUMULIN R SLIDING SCALE, ATIVAN 1MG IV Q6H PRN. WE WILL HAVE PHYSICAL AND OCCUPATIONAL THERAPIES EVALUATE HER. PATIENT IS UNABLE TO TAKE ORAL MEDICATIONS DUE TO HER MENTAL STATUS. HER FAMILY REFUSED PLACEMENT OF A PEG TUBE. OTHERWISE, WE WILL FOLLOW UP WITH AM LABS AND CONTINUE TO MONITOR. TIME SPENT ON CLINICAL ASSESSMENT, REVIEWING LABS AND IMAGING, DECISION MAKING, AND DOCUMENTATION GREATER THAN 75 MINUTES. - Past Medical History Past Medical History: Coronary Artery Disease, Hypertension, Dyslipidemia, Diabetes, Renal Disease, Dementia, Depression, Anemia, CVA, GERD, CHF Additional Medical History: CIRRHOSIS - Past Surgical History Surgical History: Appendectomy, CABG/Valve Surgery, Cholecystectomy, Hysterectomy - Family History Family Medical History: Cancer, Coronary Artery Disease - Social History Does patient currently use any type of tobacco product: No Have you used tobacco products in the last 12 months: No Type of Tobacco Use: None Alcohol Use: None Drug Use: None - Review of Systems Constitutional: Weakness Eyes: No Symptoms Reported ENT: No Symptoms Reported Respiratory: No Symptoms Reported Cardiovascular: No Symptoms Reported Gastrointestinal: No Symptoms Reported Genitourinary: No Symptoms Reported Musculoskeletal: No Symptoms Reported Skin: No Symptoms Reported Neurological: See HPI, Other (UNRESPONSIVE ) - Physical Exam Vital Signs: Vital Signs Temperature 97.9 F Temperature 98.5 F Pulse Rate 84 Pulse Rate 87 Pulse Rate 82 Pulse Rate 83 Pulse Rate 80 Pulse Rate 83 Pulse Rate 84 Pulse Rate 83 Pulse Rate 89 Pulse Rate 86 Pulse Rate 89 Pulse Rate 88 Pulse Rate 89 Pulse Rate 88 Pulse Rate 89 Pulse Rate 95 Pulse Rate 98 Pulse Rate 93 Pulse Rate 87 Pulse Rate 80 Pulse Rate 84 Pulse Rate 82 Pulse Rate 89 Pulse Rate 83 Pulse Rate 85 Pulse Rate 92 Pulse Rate 86 Pulse Rate 85 Pulse Rate 87 Pulse Rate 90 Pulse Rate 90 Pulse Rate 90 Pulse Rate 90 Pulse Rate 83 Pulse Rate 91 Pulse Rate 90 Pulse Rate 90 Pulse Rate 90 Respiratory Rate 34 Respiratory Rate 37 Respiratory Rate 16 Respiratory Rate 24 Respiratory Rate 21 Respiratory Rate 21 Respiratory Rate 21 Respiratory Rate 23 Respiratory Rate 23 Respiratory Rate 23 Respiratory Rate 21 Respiratory Rate 22 Respiratory Rate 23 Respiratory Rate 23 Respiratory Rate 25 Respiratory Rate 22 Respiratory Rate 23 Respiratory Rate 22 Respiratory Rate 25 Respiratory Rate 17 Respiratory Rate 22 Respiratory Rate 23 Respiratory Rate 22 Respiratory Rate 21 Respiratory Rate 21 Respiratory Rate 22 Respiratory Rate 22 Respiratory Rate 23 Respiratory Rate 26 Respiratory Rate 21 Respiratory Rate 22 Respiratory Rate 14 Respiratory Rate 14 Respiratory Rate 28 Respiratory Rate 26 Respiratory Rate 29 Respiratory Rate 23 Respiratory Rate 23 Blood Pressure 146/64 Blood Pressure 157/124 Blood Pressure 150/115 Blood Pressure 149/61 Blood Pressure 160/72 Blood Pressure 138/79 Blood Pressure 169/79 Blood Pressure 160/72 Blood Pressure 157/78 Blood Pressure 146/90 Blood Pressure 144/58 Blood Pressure 144/65 Blood Pressure 144/56 Blood Pressure 144/65 Blood Pressure 140/54 Blood Pressure 150/53 Blood Pressure 140/54 Blood Pressure 144/62 Blood Pressure 131/62 Blood Pressure 131/62 Blood Pressure 154/63 Blood Pressure 133/62 O2 Sat by Pulse Oximetry 99 O2 Sat by Pulse Oximetry 98 O2 Sat by Pulse Oximetry 99 O2 Sat by Pulse Oximetry 99 O2 Sat by Pulse Oximetry 100 O2 Sat by Pulse Oximetry 99 O2 Sat by Pulse Oximetry 100 O2 Sat by Pulse Oximetry 99 O2 Sat by Pulse Oximetry 99 O2 Sat by Pulse Oximetry 99 O2 Sat by Pulse Oximetry 99 O2 Sat by Pulse Oximetry 99 O2 Sat by Pulse Oximetry 98 O2 Sat by Pulse Oximetry 99 O2 Sat by Pulse Oximetry 98 O2 Sat by Pulse Oximetry 100 O2 Sat by Pulse Oximetry 98 O2 Sat by Pulse Oximetry 98 O2 Sat by Pulse Oximetry 99 O2 Sat by Pulse Oximetry 100 O2 Sat by Pulse Oximetry 100 O2 Sat by Pulse Oximetry 100 O2 Sat by Pulse Oximetry 99 O2 Sat by Pulse Oximetry 100 O2 Sat by Pulse Oximetry 100 O2 Sat by Pulse Oximetry 98 O2 Sat by Pulse Oximetry 98 O2 Sat by Pulse Oximetry 100 O2 Sat by Pulse Oximetry 97 O2 Sat by Pulse Oximetry 98 O2 Sat by Pulse Oximetry 98 O2 Sat by Pulse Oximetry 100 O2 Sat by Pulse Oximetry 100 O2 Sat by Pulse Oximetry 100 O2 Sat by Pulse Oximetry 100 O2 Sat by Pulse Oximetry 100 O2 Sat by Pulse Oximetry 100 O2 Sat by Pulse Oximetry 100 Oriented: Unable to test Eyes: Normal Ear: Normal Nose: Normal Throat: Normal Respiratory: Rhonchi Throughout Cardiovascular: Normal : Normal Auscultation: Bowel Sounds: Normal Palpation: Normal Tenderness: Normal Skin: Normal Musculoskeletal: Normal Psychiatric: Normal Mood Description: Calm Affect: Normal Speech Pattern: Clear - Assessment/Plan (1) Acute cerebrovascular accident (CVA) Status: Acute Plan: ADMIT, PT/OT, NORMAL SALINE AT 125 ML/HR, DUONEBS TID, ROCEPHIN 1G IV DAILY, LOVENOX 60MG SC DAILY, HYDRALAZINE 10MG IV Q6H, LOPRESSOR 5MG IV Q12H PRN, OTBS ACHS, HUMULIN R SLIDING SCALE, ATIVAN 1MG IV Q6H PRN (2) Acute bronchitis Qualifiers: Bronchitis organism: unspecified organism Qualified Code(s): J20.9 - Acute bronchitis, unspecified Status: Acute (3) Cystitis Status: Acute (4) Sinusitis Qualifiers: Sinusitis location: unspecified location Chronicity: acute Recurrence: not specified as recurrent Qualified Code(s): J01.90 - Acute sinusitis, unspecified Status: Acute (5) Acute dehydration Status: Acute (6) Atrial fibrillation Qualifiers: Atrial fibrillation type: unspecified Qualified Code(s): I48.91 - Unspecified atrial fibrillation Status: Acute (7) Essential hypertension Status: Chronic (8) Diabetes mellitus, type II Qualifiers: Diabetes mellitus salvage determiner insulin use: with half-way use Diabetes mellitus complication status: with hyperglycemia Qualified Code(s): E11.65 - Type 2 diabetes mellitus with hyperglycemia; Z79.4 - retirement (current) use of insulin Status: Chronic (9) CAD (coronary artery disease) Qualifiers: Coronary Disease-Associated Artery/Lesion type: bypass graft [place] vs. transplanted heart: [place] heart Associated angina: unspecified whether angina present Qualified Code(s): I25.810 - Atherosclerosis of coronary artery bypass graft(s) without angina pectoris Status: Chronic - Allergies Allergies/Adverse Reactions: Allergies Allergy/AdvReac Type Severity Reaction Status Date / Time Penicillins Allergy Unknown Verified 05/26/23 09:58 Sulfa (Sulfonamide Allergy Unknown Verified 05/26/23 09:58 Antibiotics) - Medications Home Medications: Home Medications Medication Instructions Recorded Confirmed atorvastatin 20 mg tablet 20 mg PO HS 06/24/20 05/26/23 carvedilol 3.125 mg tablet (Coreg) 3.125 mg PO BID 06/24/20 05/26/23 insulin detemir U-100 100 unit/mL 20 unit subcut DAILY 08/19/20 05/26/23 (3 mL) subcutaneous pen (Levemir FlexTouch U-100 Insulin) epoetin nirmala 10,000 unit/mL See Rx Instructions .Route .COMPLEX 05/08/21 05/26/23 injection solution (Procrit) famotidine 40 mg tablet (Pepcid) 20 mg PO DAILY 10/28/21 05/26/23 gabapentin 100 mg capsule 100 mg PO DAILYHS 10/28/21 05/26/23 insulin regular human 100 unit/mL See Rx Instructions .Route .COMPLEX 11/30/21 05/26/23 injection solution (Novolin R Regular U-100 Insulin) sitagliptin phosphate 25 mg tablet 25 mg PO DAILY 11/30/21 05/26/23 (Januvia) dicyclomine 10 mg capsule 20 mg PO Q6H PRN 09/11/22 05/26/23 tramadol 50 mg tablet 50 mg PO Q6H PRN 09/11/22 05/26/23 amino acids-protein hydrolysate 30 ea PO BID 05/26/23 05/26/23 oral liquid guaifenesin 100 mg/5 mL oral liquid 200 mg PO QID 05/26/23 05/26/23 ipratropium 0.5 mg-albuterol 3 mg 3 ml inhalation TID PRN 05/26/23 05/26/23 (2.5 mg base)/3 mL nebulization soln iron-folic acid-multivitamin, 1 cap PO DAILY 05/26/23 05/26/23 mineral comb#15 106 mg iron-1 mg capsule peg [id number] 1 1 drp ophthalmic (eye) BID PRN 05/26/23 05/26/23 %-0.2 %-0.2 % eye drops (Artificial Tears ([id number])) Previous Rx's Medication Instructions Recorded pantoprazole 40 mg tablet,delayed 40 mg PO BID #60 tabs 03/29/21 release furosemide 40 mg tablet 40 mg PO QAM #30 tabs 10/30/21
[2023-05-27] MEDS: ATIVAN INJ 2 MG VIAL IVP PRN (20:16)
--- NOTE | 2023-05-27 20:41 | PCM.PROG ---
Progress Note - Progress Note for Day of Date of Exam: 05/27/23 - Subjective Subjective: IS CURRENTLY INPATIENT STATUS FOR TREATMENT OF ACUTE CVA, ACUTE BRONCHITIS, CYSTITIS, ACUTE SINUSITIS, ACUTE DEHYDRATION. SHE HAS A PMH OF ATRIAL FIBRILLATION, HTN, DM II, AND CAD. TODAY, SHE IS LYING IN BED WITH EYES OPEN ON MORNING ROUNDS. SHE DOES NOT RESPOND VERBALLY AND IS UNABLE TO FOLLOW COMMANDS. NURSING STAFF REPORTS THAT SHE IS UNABLE TO EAT, DRINK, OR TAKE HER MEDICATIONS. ON EXAMINATION, HEART IS REGULAR IN RATE AND RHYTHM. BILATERAL LUNGS ARE NOTED WITH RHONCHI THROUGHOUT. ABDOMEN IS FLAT, SOFT, AND NON-TENDER WITH NORMAL BOWEL SOUNDS NOTED IN ALL QUADRANTS. DIFFUSE MUSCLE ATROPHY NOTED. A EVANS CATHETER IS NOTED TO BEDSIDE DRAINAGE. HER VITALS THIS MORNING ARE: 97.9-87-27-98%-146/64. LABS WERE OBTAINED. WBC 5.6, RBC 3.75, HGB 10.1, HCT 31.4, PLT COUNT 140, SODIUM 149, POTASSIUM 4.7, CHLORIDE 111, BUN 80, CREATININE 1.96, GLUCOSE 187, CALCIUM 8.7. A URINE CULTURE IS PENDING. SPEECH THERAPY EVALUATED PATIENT TODAY AND RECOMMENDS THAT PATIENT REMAIN NPO AND SUGGESTS ALTERNATE MEANS OF NUTRITION. PATIENTS FAMILY MEMBERS REFUSE PLACEMENT OF A PEG TUBE. SHE IS CURRENTLY RECEIVING NORMAL SALINE AT 125 ML/HR, DUONEBS TID, ROCEPHIN 1G IV DAILY, LOVENOX 60MG SC DAILY, HYDRALAZINE 10MG IV Q6H, LOPRESSOR 5MG IV Q12H PRN, OTBS ACHS, HUMULIN R SLIDING SCALE, ATIVAN 1MG IV Q6H PRN. WE WILL CONTINUE WITH CURRENT PLAN OF CARE TODAY. PHYSICAL THERAPY WILL EVALUATE HER. OTHERWISE, WE PLAN TO FOLLOW UP WITH AM LABS AND CONTINUE TO MONITOR. TIME SPENT ON CLINICAL ASSESSMENT, REVIEWING LABS AND IMAGING, DECISION MAKING, AND DOCUMENTATION GREATER THAN 45 MINUTES. - Past Medical Family Social History Past Med/Fam/Surg Hx: No changes since H&P Allergies: Allergies Penicillins Allergy (Unknown, Verified 05/26/23 09:58) Sulfa (Sulfonamide Antibiotics) Allergy (Unknown, Verified 05/26/23 09:58) - Review of Systems ROS: No change since H&P - Vital Signs and I&O's Vital Signs: Vital Signs Temperature 98.4 F Temperature 97.8 F Pulse Rate [Apical] 82 Pulse Rate [Apical] 91 Pulse Rate 88 Respiratory Rate 18 Respiratory Rate 18 Blood Pressure [Right Arm] 142/68 Blood Pressure [Right Arm] 142/69 O2 Sat by Pulse Oximetry 96 O2 Sat by Pulse Oximetry 99 O2 Sat by Pulse Oximetry 97 Intake and Output: Intake & Output 05/25/23 05/26/23 05/27/23 05/28/23 11:59 11:59 11:59 11:59 Intake Total 1332 / 1332 1090 / 1090 Output Total 400 / 400 200 / 200 Balance 932 / 932 890 / 890 - Physical Exam Oriented: Unable to test Eyes: Normal Ear: Normal Nose: Normal Throat: Normal Respiratory: Generalized, Rhonchi Cardiovascular: Normal : Normal Auscultation: Bowel Sounds: Normal Palpation: Normal Tenderness: Normal Skin: Normal Musculoskeletal: Normal Psychiatric: Normal Mood Description: Calm Affect: Normal Speech Pattern: Clear - Laboratory and Diagnostics Result Diagrams: 05/27/23 04:25 05/27/23 04:25 Labs: 05/26/23 08:55 Urine,Catheterized Urine Culture - Preliminary Laboratory WBC 5.6 X10^3/uL (3.6-10.0) 05/27/23 04:25 RBC 3.75 X10^6/uL (3.5-5.4) 05/27/23 04:25 Hgb 10.1 g/dL (12.0-16.0) L 05/27/23 04:25 Hct 31.4 % (36.0-47.0) L 05/27/23 04:25 MCV 83.8 fL (80.0-100.0) 05/27/23 04:25 MCH 26.8 pg (27.0-34.0) L 05/27/23 04:25 MCHC 32.0 g/dL (33.0-35.0) L 05/27/23 04:25 RDW 16.8 % (11.6-16.5) H 05/27/23 04:25 Plt Count 140 X10^3/uL (150.0-450.0) L 05/27/23 04:25 MPV 9.0 fL (7.4-11.0) 05/27/23 04:25 Neut % (Auto) 79.8 % (42.0-75.0) H 05/27/23 04:25 Lymph % (Auto) 12.2 % (21.0-51.0) L 05/27/23 04:25 [place] % (Auto) 7.9 % (0.0-13.0) 05/27/23 04:25 Eos % (Auto) 0.0 % (0.9-2.9) L 05/27/23 04:25 Baso % (Auto) 0.1 % (0.2-1.0) L 05/27/23 04:25 Neut # (Auto) 4.5 x10^3/uL (2.2-4.8) 05/27/23 04:25 Lymph # (Auto) 0.7 X10^3/uL (1.3-2.9) L 05/27/23 04:25 [place] # (Auto) 0.4 x10^3/uL (0.3-0.8) 05/27/23 04:25 Eos # (Auto) 0.0 x10^3/uL (0.0-0.2) 05/27/23 04:25 Baso # (Auto) 0.0 X10^3/uL (0.0-0.1) 05/27/23 04:25 Absolute Nucleated RBC 0.1 /100WBC 05/27/23 04:25 Sodium 149 mmol/L (136-145) H 05/27/23 04:25 Corrected Sodium 151 mmol/L (136-145) H 05/27/23 04:25 Potassium 4.7 mmol/L (3.5-5.1) 05/27/23 04:25 Chloride 111 mmol/L (98-107) H 05/27/23 04:25 Carbon Dioxide 28.0 mmol/L (21-32) 05/27/23 04:25 BUN 80 mg/dL (7-18) H 05/27/23 04:25 Creatinine 1.96 mg/dL (0.55-1.02) H 05/27/23 04:25 Est GFR (MDRD) Af Amer 31 (>60) L 05/27/23 04:25 Est GFR (MDRD) Non-Af 26 (>60) L 05/27/23 04:25 Glucose 187 mg/dL (65-99) H 05/27/23 04:25 POC Glucose (mg/dL) 201 mg/dL (65-99) H 05/27/23 19:38 Lactic Acid 1.1 mmol/L (0.4-2.0) 05/26/23 08:34 Calcium 8.7 mg/dL (8.5-10.1) 05/27/23 04:25 Corrected Calcium Cancelled 05/26/23 08:34 Total Bilirubin Cancelled 05/26/23 08:34 AST Cancelled 05/26/23 08:34 ALT Cancelled 05/26/23 08:34 Alkaline Phosphatase Cancelled 05/26/23 08:34 Ammonia 32 umol/L (11-32) 05/26/23 08:34 Creatine Kinase 23 Units/L (26-192) L 05/26/23 08:34 Troponin I High Sens 39.1 ng/L (4.0-60.0) 05/26/23 08:34 Total Protein Cancelled 05/26/23 08:34 Albumin Cancelled 05/26/23 08:34 Globulin Cancelled 05/26/23 08:34 Albumin/Globulin Ratio Cancelled 05/26/23 08:34 Specimen Type Catherized urine 05/26/23 08:55 Urine Color Yellow (YELLOW) 05/26/23 08:55 Urine Appearance Cloudy (CLEAR) 05/26/23 08:55 Urine pH 8.0 (5.0 - 8.0) 05/26/23 08:55 Ur Specific [place] 1.015 (1.000-1.030) 05/26/23 08:55 Urine Protein 3+ (NEGATIVE) 05/26/23 08:55 Urine Glucose (UA) Negative (NEGATIVE) 05/26/23 08:55 Urine Ketones Negative (NEGATIVE) 05/26/23 08:55 Urine Blood 4+ (NEGATIVE) 05/26/23 08:55 Urine Nitrite Negative (NEGATIVE) 05/26/23 08:55 Urine Bilirubin Negative (NEGATIVE) 05/26/23 08:55 Urine Urobilinogen 1+ (NORMAL) 05/26/23 08:55 Ur Leukocyte Esterase 3+ (NEGATIVE) 05/26/23 08:55 Urine RBC 5-10 /HPF (0-3) A 05/26/23 08:55 Urine WBC 20-30 /HPF (0-5) A 05/26/23 08:55 Ur Squamous Epith Cells Rare /HPF (NEGATIVE) 05/26/23 08:55 Amorphous Sediment 2+ /HPF (NEGATIVE) 05/26/23 08:55 Urine Bacteria 2+ /HPF (NEGATIVE) 05/26/23 08:55 Ur Culture Indicated? Yes/culture set up 05/26/23 08:55 - Plan (1) Acute cerebrovascular accident (CVA) Status: Acute Plan: PT/OT, NORMAL SALINE AT 125 ML/HR, DUONEBS TID, ROCEPHIN 1G IV DAILY, LOVENOX 60MG SC DAILY, HYDRALAZINE 10MG IV Q6H, LOPRESSOR 5MG IV Q12H PRN, OTBS ACHS, HUMULIN R SLIDING SCALE, ATIVAN 1MG IV Q6H PRN. NPO (2) Acute bronchitis Status: Acute Qualifiers: Bronchitis organism: unspecified organism Qualified Code(s): J20.9 - Acute bronchitis, unspecified Plan: DUONEBS AND ROCEPHIN (3) Cystitis Status: Acute Plan: ROCEPHIN 1G IV DAILY (4) Sinusitis Status: Acute Qualifiers: Sinusitis location: unspecified location Chronicity: acute Recurrence: not specified as recurrent Qualified Code(s): J01.90 - Acute sinusitis, unspecified Plan: ROCEPHIN 1G IV DAILY (5) Acute dehydration Status: Acute Plan: IV FLUIDS (6) Atrial fibrillation Status: Acute Qualifiers: Atrial fibrillation type: unspecified Qualified Code(s): I48.91 - Unspecified atrial fibrillation (7) Essential hypertension Status: Chronic Plan: IV HYDRALAZINE AND METOPROLOL (8) Diabetes mellitus, type II Status: Chronic Qualifiers: Diabetes mellitus long distance operator insulin use: with custodial use Diabetes mellitus complication status: with hyperglycemia Qualified Code(s): E11.65 - Type 2 diabetes mellitus with hyperglycemia; Z79.4 - exterminator helper (current) use of insulin Plan: OTBS ACHS, HUMULIN R SLIDING SCALE (9) CAD (coronary artery disease) Status: Chronic Qualifiers: Coronary Disease-Associated Artery/Lesion type: bypass graft [place] vs. transplanted heart: [place] heart Associated angina: unspecified whether angina present Qualified Code(s): I25.810 - Atherosclerosis of coronary artery bypass graft(s) without angina pectoris
[2023-05-27 22:31] LABS: ALBUMIN 2.4 g/dL (3.4-5.0)
--- NOTE | 2023-05-28 01:24 | RAD ---
HISTORYpneumonia, sobSTUDYCHEST, 1 VIEWCOMPARISONAtrium Health Pineville 2022[facility]ITALNIQUEChes radiographic imaging, AP portable projection, 1 imageFINDINGSStatus post median sternotomy/CABG.Mild cardiomegaly.Airspace disease in the mid to lower left lung field.No pleural effusion.No pneumothorax.No acute osseous abnormality.IMPRESSIONAirspace disease in the mid to lower left lung field. Findings are consistent with the given history of pneumonia. Recommend follow-up imaging in 6-8 weeks, after treatment, to ensure resolution.Electronically signed by: Kishan Tello (May 28, 2023 01:23:21)
[2023-05-28] MEDS: NS 1,000 ML IV 1,000 ML IV SCH (03:15)
[2023-05-28] MEDS: APRESOLINE INJ 20 MG VIAL IVP SCH ×4 (04:08→21:44)
[2023-05-28 05:25] LABS: BASOPHILS % (AUTO) 0.1 % (0.2-1.0); EOSINOPHILS % (AUTO) 0.1 % (0.9-2.9); HEMOGLOBIN 9.6 g/dL (12.0-16.0); LYMPHOCYTES # (AUTO) 0.6 X10^3/uL (1.3-2.9); LYMPHOCYTES % (AUTO) 11.9 % (21.0-51.0); MEAN CORPUSCULAR HEMOGLOBIN 26.9 pg (27.0-34.0); MEAN CORPUSCULAR VOLUME 84.2 fL (80.0-100.0); MEAN PLATELET VOLUME 8.6 fL (7.4-11.0); MONOCYTES # (AUTO) 0.3 x10^3/uL (0.3-0.8); MONOCYTES % (AUTO) 6.7 % (0.0-13.0); NEUTROPHILS # (AUTO) 4.1 x10^3/uL (2.2-4.8); NEUTROPHILS % (AUTO) 81.2 % (42.0-75.0); PLATELET COUNT 103 X10^3/uL (150.0-450.0); RED BLOOD COUNT 3.56 X10^6/uL (3.5-5.4); RED CELL DISTRIBUTION WIDTH 17.4 % (11.6-16.5); WHITE BLOOD COUNT 5.1 X10^3/uL (3.6-10.0)
[2023-05-28 05:37] LABS: ALBUMIN 2.1 g/dL (3.4-5.0); CALCIUM 8.1 mg/dL (8.5-10.1); CARBON DIOXIDE 29.1 mmol/L (21-32); COR CA(FOR HYPOALB) 9.6 mg/dL (8.5-10.1); CREATININE 1.75 mg/dL (0.55-1.02); POTASSIUM 4.2 mmol/L (3.5-5.1); TOTAL PROTEIN 6.3 g/dL (6.4-8.2)
[2023-05-28] MEDS: DUONEB 0.5 MG/3 MG (3 mL) NEB SCH ×3 (06:12→20:40)
[2023-05-28] MEDS ORDERED: NS 1/2 1,000 ML IV 1,000 ML IV ONE ×2 (08:47→21:38)
[2023-05-28] MEDS: LOVENOX INJ 60 MG SYR SC SCH (08:55)
[2023-05-28] MEDS: ROCEPHIN VIAL 1 GRAM 1 G in NS 100 ML IV 100 ML IV SCH (08:55)
[2023-05-28] MEDS: NS 1/2 1,000 ML IV 1,000 ML IV SCH ×2 (08:57→21:44)
[2023-05-28] MEDS: ATIVAN INJ 2 MG VIAL IVP PRN (21:44)
--- NOTE | 2023-05-28 22:24 | PCM.PROG ---
Progress Note - Progress Note for Day of Date of Exam: 05/28/23 - Subjective Subjective: IS CURRENTLY INPATIENT STATUS FOR TREATMENT OF ACUTE CVA, ACUTE BRONCHITIS, CYSTITIS, ACUTE SINUSITIS, ACUTE DEHYDRATION. SHE HAS A PMH OF ATRIAL FIBRILLATION, HTN, DM II, AND CAD. TODAY, SHE IS LYING IN BED WITH EYES OPEN ON MORNING ROUNDS. SHE DOES NOT RESPOND VERBALLY AND IS UNABLE TO FOLLOW COMMANDS. NURSING STAFF REPORTS THAT SHE IS UNABLE TO EAT, DRINK, OR TAKE HER MEDICATIONS. ON EXAMINATION, HEART IS REGULAR IN RATE AND RHYTHM. BILATERAL LUNGS ARE NOTED WITH RHONCHI THROUGHOUT. ABDOMEN IS FLAT, SOFT, AND NON-TENDER WITH NORMAL BOWEL SOUNDS NOTED IN ALL QUADRANTS. DIFFUSE MUSCLE ATROPHY NOTED. A EVANS CATHETER IS NOTED TO BEDSIDE DRAINAGE. HER VITALS THIS MORNING ARE: 97.9-89-20-94%-180/74. LABS WERE OBTAINED. WBC 5.1, RBC 3.56, HGB 9.6, HCT 30.0, PLT COUNT 103, SODIUM 153, POTASSIUM 4.2, CHLORIDE 118, BUN 78, CREATININE 1.75, GLUCOSE 165, CALCIUM 8.1, AST 16, ALT 12, ALK PHOS 99, TOTAL PROEIN 6.3, ALBUMIN 2.1. URINE CULTURE IS POSITIVE FOR GROWTH OF PROTEUS MIRABILIS. A CHEST XRAY WAS OBTAINED YESTERDAY AND REVEALED: Airspace disease in the mid to lower left lung field. Findings are consistent with the given history of pneumonia. SPEECH THERAPY EVALUATED PATIENT YESTERDAY AND RECOMMENDS THAT PATIENT REMAIN NPO AND SUGGESTS ALTERNATE MEANS OF NUTRITION. PATIENTS FAMILY MEMBERS INITIALLY REFUSED PLACEMENT OF A PEG TUBE. THEY NOW WISH FOR PEG TUBE TO BE PLACED. SHE IS CURRENTLY RECEIVING NORMAL SALINE AT 125 ML/HR, DUONEBS TID, ROCEPHIN 1G IV DAILY, LOVENOX 60MG SC DAILY, HYDRALAZINE 10MG IV Q6H, LOPRESSOR 5MG IV Q12H PRN, OTBS ACHS, HUMULIN R SLIDING SCALE, ATIVAN 1MG IV Q6H PRN. WE WILL CHANGE HER TO NORMAL SALINE AT 75 ML/HR. WE WILL CONSULT , GENERAL SURGEON, FOR PLACEMENT OF PEG TUBE. OTHERWISE, WE PLAN TO FOLLOW UP WITH AM LABS AND CONTINUE TO MONITOR. TIME SPENT ON CLINICAL ASSESSMENT, REVIEWING LABS AND IMAGING, DECISION MAKING, AND DOCUMENTATION GREATER THAN 45 MINUTES. - Past Medical Family Social History Past Med/Fam/Surg Hx: No changes since H&P Allergies: Allergies Penicillins Allergy (Unknown, Verified 05/26/23 09:58) Sulfa (Sulfonamide Antibiotics) Allergy (Unknown, Verified 05/26/23 09:58) - Review of Systems ROS: No change since H&P - Vital Signs and I&O's Vital Signs: Vital Signs Temperature 97.8 F Temperature 97.8 F Pulse Rate [Apical] 93 Pulse Rate [Apical] 81 Pulse Rate 67 Respiratory Rate 18 Respiratory Rate 20 Blood Pressure [Right Arm] 141/75 Blood Pressure [Right Arm] 170/80 O2 Sat by Pulse Oximetry 98 O2 Sat by Pulse Oximetry 100 O2 Sat by Pulse Oximetry 98 Intake and Output: Intake & Output 05/26/23 05/27/23 05/28/23 05/29/23 11:59 11:59 11:59 11:59 Intake Total 1332 / 1332 2690 / 2690 1069 / 1069 Output Total 400 / 400 200 / 200 500 / 500 Balance 932 / 932 2490 / 2490 569 / 569 - Physical Exam Oriented: Unable to test. negative: Time, Place Eyes: Normal Ear: Normal Nose: Normal Throat: Normal Respiratory: Generalized, Rhonchi Cardiovascular: Normal : Normal Auscultation: Bowel Sounds: Normal Tenderness: Normal Skin: Normal Musculoskeletal: Normal Psychiatric: Normal Mood Description: Calm Affect: Normal Speech Pattern: Inappropriate - Laboratory and Diagnostics Result Diagrams: 05/28/23 04:50 05/28/23 04:50 Labs: 05/26/23 08:55 Urine,Catheterized Urine Culture - Final [facility] WBC 5.1 X10^3/uL (3.6-10.0) 05/28/23 04:50 RBC 3.56 X10^6/uL (3.5-5.4) 05/28/23 04:50 Hgb 9.6 g/dL (12.0-16.0) L 05/28/23 04:50 Hct 30.0 % (36.0-47.0) L 05/28/23 04:50 MCV 84.2 fL (80.0-100.0) 05/28/23 04:50 MCH 26.9 pg (27.0-34.0) L 05/28/23 04:50 MCHC 32.0 g/dL (33.0-35.0) L 05/28/23 04:50 RDW 17.4 % (11.6-16.5) H 05/28/23 04:50 Plt Count 103 X10^3/uL (150.0-450.0) L 05/28/23 04:50 MPV 8.6 fL (7.4-11.0) 05/28/23 04:50 Neut % (Auto) 81.2 % (42.0-75.0) H 05/28/23 04:50 Lymph % (Auto) 11.9 % (21.0-51.0) L 05/28/23 04:50 [place] % (Auto) 6.7 % (0.0-13.0) 05/28/23 04:50 Eos % (Auto) 0.1 % (0.9-2.9) L 05/28/23 04:50 Baso % (Auto) 0.1 % (0.2-1.0) L 05/28/23 04:50 Neut # (Auto) 4.1 x10^3/uL (2.2-4.8) 05/28/23 04:50 Lymph # (Auto) 0.6 X10^3/uL (1.3-2.9) L 05/28/23 04:50 [place] # (Auto) 0.3 x10^3/uL (0.3-0.8) 05/28/23 04:50 Eos # (Auto) 0.0 x10^3/uL (0.0-0.2) 05/28/23 04:50 Baso # (Auto) 0.0 X10^3/uL (0.0-0.1) 05/28/23 04:50 Absolute Nucleated RBC 0.1 /100WBC 05/28/23 04:50 Sodium 153 mmol/L (136-145) H* 05/28/23 04:50 Corrected Sodium 155 mmol/L (136-145) H 05/28/23 04:50 Potassium 4.2 mmol/L (3.5-5.1) 05/28/23 04:50 Chloride 118 mmol/L (98-107) H* 05/28/23 04:50 Carbon Dioxide 29.1 mmol/L (21-32) 05/28/23 04:50 BUN 78 mg/dL (7-18) H 05/28/23 04:50 Creatinine 1.75 mg/dL (0.55-1.02) H 05/28/23 04:50 Est GFR (MDRD) Af Amer 35 (>60) L 05/28/23 04:50 Est GFR (MDRD) Non-Af 29 (>60) L 05/28/23 04:50 Glucose 165 mg/dL (65-99) H 05/28/23 04:50 POC Glucose (mg/dL) 153 mg/dL (65-99) H 05/28/23 20:12 Lactic Acid 1.1 mmol/L (0.4-2.0) 05/26/23 08:34 Calcium 8.1 mg/dL (8.5-10.1) L 05/28/23 04:50 Corrected Calcium 9.6 mg/dL (8.5-10.1) 05/28/23 04:50 Total Bilirubin 0.60 mg/dL (0.2-1.0) 05/28/23 04:50 AST 16 Units/L (15-37) 05/28/23 04:50 ALT 12 Units/L (12-78) 05/28/23 04:50 Alkaline Phosphatase 99 Units/L (46-116) 05/28/23 04:50 Ammonia 32 umol/L (11-32) 05/26/23 08:34 Creatine Kinase 23 Units/L (26-192) L 05/26/23 08:34 Troponin I High Sens 39.1 ng/L (4.0-60.0) 05/26/23 08:34 Total Protein 6.3 g/dL (6.4-8.2) L 05/28/23 04:50 Albumin 2.1 g/dL (3.4-5.0) L 05/28/23 04:50 Globulin 4.2 g/dL (2.5-4.5) 05/28/23 04:50 Albumin/Globulin Ratio 0.5 Ratio (1.1-2.1) L 05/28/23 04:50 Specimen Type Catherized urine 05/26/23 08:55 Urine Color Yellow (YELLOW) 05/26/23 08:55 Urine Appearance Cloudy (CLEAR) 05/26/23 08:55 Urine pH 8.0 (5.0 - 8.0) 05/26/23 08:55 Ur Specific [place] 1.015 (1.000-1.030) 05/26/23 08:55 Urine Protein 3+ (NEGATIVE) 05/26/23 08:55 Urine Glucose (UA) Negative (NEGATIVE) 05/26/23 08:55 Urine Ketones Negative (NEGATIVE) 05/26/23 08:55 Urine Blood 4+ (NEGATIVE) 05/26/23 08:55 Urine Nitrite Negative (NEGATIVE) 05/26/23 08:55 Urine Bilirubin Negative (NEGATIVE) 05/26/23 08:55 Urine Urobilinogen 1+ (NORMAL) 05/26/23 08:55 Ur Leukocyte Esterase 3+ (NEGATIVE) 05/26/23 08:55 Urine RBC 5-10 /HPF (0-3) A 05/26/23 08:55 Urine WBC 20-30 /HPF (0-5) A 05/26/23 08:55 Ur Squamous Epith Cells Rare /HPF (NEGATIVE) 05/26/23 08:55 Amorphous Sediment 2+ /HPF (NEGATIVE) 05/26/23 08:55 Urine Bacteria 2+ /HPF (NEGATIVE) 05/26/23 08:55 Ur Culture Indicated? Yes/culture set up 05/26/23 08:55 - Plan (1) Acute cerebrovascular accident (CVA) Status: Acute Plan: PT/OT, 1/2 NS 75 ML/HR, DUONEBS TID, ROCEPHIN 1G IV DAILY, LOVENOX 60MG SC DAILY, HYDRALAZINE 10MG IV Q6H, LOPRESSOR 5MG IV Q12H PRN, OTBS ACHS, HUMULIN R SLIDING SCALE, ATIVAN 1MG IV Q6H PRN. NPO (2) Pneumonia involving left lung Status: Acute Qualifiers: Pneumonia type: due to unspecified organism Lung location: unspecified part of lung Qualified Code(s): J18.9 - Pneumonia, unspecified organism (3) Cystitis Status: Acute Plan: ROCEPHIN 1G IV DAILY (4) Sinusitis Status: Acute Qualifiers: Sinusitis location: unspecified location Chronicity: acute Recurrence: not specified as recurrent Qualified Code(s): J01.90 - Acute sinusitis, unspecified Plan: ROCEPHIN 1G IV DAILY (5) Acute dehydration Status: Acute Plan: IV FLUIDS (6) Atrial fibrillation Status: Acute Qualifiers: Atrial fibrillation type: unspecified Qualified Code(s): I48.91 - Unspecified atrial fibrillation (7) Essential hypertension Status: Chronic Plan: IV HYDRALAZINE AND METOPROLOL (8) Diabetes mellitus, type II Status: Chronic Qualifiers: Diabetes mellitus prison insulin use: with prison use Diabetes mellitus complication status: with hyperglycemia Qualified Code(s): E11.65 - T ype 2 diabetes mellitus with hyperglycemia; Z79.4 - keno terminal operator (current) use of insulin Plan: OTBS ACHS, HUMULIN R SLIDING SCALE (9) CAD (coronary artery disease) Status: Chronic Qualifiers: Coronary Disease-Associated Artery/Lesion type: bypass graft [place] vs. transplanted heart: [place] heart Associated angina: unspecified whether angina present Qualified Code(s): I25.810 - Atherosclerosis of coronary artery bypass graft(s) without angina pectoris
--- NOTE | 2023-05-28 22:47 | DR.CONSULT ---
CONSULT Consultation for Day of: Date: 05/28/23 Chief Complaint Chief Complaint: New CVA , inability to feed, request for PEG tube Allergies Allergies Allergy/AdvReac Type Severity Reaction Status Date / Time Penicillins Allergy Unknown Verified 05/26/23 09:58 Sulfa (Sulfonamide Allergy Unknown Verified 05/26/23 09:58 Antibiotics) History of Present Illness History of Present Illness: 87 year old female, resident of a [facility] with significant medical problems including coronary disease, congestive heart failure and diabetes who presented with new weakness of the left arm and leg and CT scan consistent with a right hemisphere stroke. The patient's family has requested continued feeding and I have been consulted to place a percutaneous endoscopic gastrostomy feeding tube. Past Medical History Past Medical History: Anemia, CHF, Coronary Artery Disease, CVA, Dementia, Depression, Diabetes, Dyslipidemia, GERD, Hypertension and Renal Disease Additional Medical History: CIRRHOSIS Past Surgical History Surgical History: Appendectomy, CABG/Valve Surgery, Cholecystectomy and Hysterectomy Family History Family Medical History: Cancer and Coronary Artery Disease Social History Does patient currently use any type of tobacco product: No Have you used tobacco products in the last 12 months: No Type of Tobacco Use: None Alcohol Use: None Drug Use: None Medications Home Medications: Penicillins Allergy (Unknown, Verified 05/26/23 09:58) Sulfa (Sulfonamide Antibiotics) Allergy (Unknown, Verified 05/26/23 09:58) CONTINUE taking the following medications amino acids-protein hydrolysate oral liquid 30 ea PO BID 05/26/23 [History] guaifenesin 100 mg/5 mL oral liquid 200 mg PO QID 05/26/23 [History] ipratropium 0.5 mg-albuterol 3 mg (2.5 mg base)/3 mL nebulization soln 3 ml inhalation TID PRN 05/26/23 [History] iron-folic acid-multivitamin, mineral comb#15 106 mg iron-1 mg capsule 1 cap PO DAILY 05/26/23 [History] peg [id number] 1 %-0.2 %-0.2 % eye drops (Artificial Tears ([id number])) 1 drp ophthalmic (eye) BID PRN 05/26/23 [History] Review of Systems Constitutional: See HPI Eyes: No Symptoms Reported ENT: No Symptoms Reported Respiratory: No Symptoms Reported Cardiovascular: Other (noted atial fibrillation on admission. ) Gastrointestinal: See HPI Genitourinary: No Symptoms Reported Musculoskeletal: No Symptoms Reported Skin: No Symptoms Reported Neurological: See HPI Physical Exam Vital Signs: Vital Signs Temperature 97.8 F Temperature 97.8 F Pulse Rate [Apical] 81 Pulse Rate [Apical] 75 Pulse Rate 77 Respiratory Rate 20 Respiratory Rate 20 Blood Pressure [Right Arm] 170/80 Blood Pressure [Right Arm] 142/66 O2 Sat by Pulse Oximetry 98 O2 Sat by Pulse Oximetry 98 O2 Sat by Pulse Oximetry 98 Hgb=9.6, Uo=258, Vj=642, BUN= 78, Cr= 1.75 Oriented: Unable to test; negative Time or Place Eyes: Normal Ear: Normal Nose: Normal Throat: Normal Respiratory: Rhonchi Throughout Cardiovascular: Normal and Other (atrial fibrillation) : Normal Auscultation: Bowel Sounds: Normal Palpation: Normal Tenderness: Normal Skin: Ecchymosis Musculoskeletal: Left (left arm and leg weakness) Psychiatric: Other (cannot evalute) Plan (1) Acute cerebrovascular accident (CVA): Status: Acute Plan: Will plan PEG tube placement in AM. Risks and benefits discussed with her power of transactional attorney and he agrees to proceed. (2) Acute bronchitis: Status: Acute Qualifiers: Bronchitis organism: unspecified organism Qualified Code(s): J20.9 - Acute bronchitis, unspecified (3) Cystitis: Status: Acute (4) Sinusitis: Status: Acute Qualifiers: Chronicity: acute Recurrence: not specified as recurrent Sinusitis location: unspecified location Qualified Code(s): J01.90 - Acute sinusitis, unspecified (5) Acute dehydration: Status: Acute (6) Atrial fibrillation: Status: Acute Qualifiers: Atrial fibrillation type: unspecified Qualified Code(s): I48.91 - Unspecified atrial fibrillation (7) Essential hypertension: Status: Chronic (8) Diabetes mellitus, type II: Status: Chronic Qualifiers: Diabetes mellitus complication status: with hyperglycemia Diabetes mellitus shelter insulin use: with technician terminal and repeater use Qualified Code(s): E11.65 - Type 2 diabetes mellitus with hyperglycemia; Z79.4 - intermediate manager (current) use of insulin (9) CAD (coronary artery disease): Status: Chronic Qualifiers: Associated angina: unspecified whether angina present Coronary Disease- Associated Artery/Lesion type: bypass graft [place] vs. transplanted heart: [place] heart Qualified Code(s): I25.810 - Atherosclerosis of coronary artery bypass graft(s) without angina pectoris
[2023-05-29] MEDS: APRESOLINE INJ 20 MG VIAL IVP SCH ×4 (04:32→21:34)
[2023-05-29 05:05] LABS: INR 1.23 (0.8-1.3)
[2023-05-29 05:09] LABS: EOSINOPHILS % (AUTO) 0.1 % (0.9-2.9); HEMATOCRIT 28.6 % (36.0-47.0); LYMPHOCYTES # (AUTO) 0.4 X10^3/uL (1.3-2.9); MEAN PLATELET VOLUME 8.4 fL (7.4-11.0); MONOCYTES # (AUTO) 0.2 x10^3/uL (0.3-0.8); NEUTROPHILS # (AUTO) 3.1 x10^3/uL (2.2-4.8); WHITE BLOOD COUNT 3.7 X10^3/uL (3.6-10.0)
[2023-05-29 05:12] LABS: BASOPHILS % (AUTO) 0.2 % (0.2-1.0); LYMPHOCYTES % (AUTO) 11.1 % (21.0-51.0); MEAN CORPUSCULAR HEMOGLOBIN 26.8 pg (27.0-34.0); MEAN CORPUSCULAR HGB CONC 31.7 g/dL (33.0-35.0); MEAN CORPUSCULAR VOLUME 84.7 fL (80.0-100.0); NEUTROPHILS % (AUTO) 82.6 % (42.0-75.0); PLATELET COUNT 82 X10^3/uL (150.0-450.0); RED BLOOD COUNT 3.37 X10^6/uL (3.5-5.4); RED CELL DISTRIBUTION WIDTH 16.9 % (11.6-16.5)
[2023-05-29 05:21] LABS: ALBUMIN 2.1 g/dL (3.4-5.0); CARBON DIOXIDE 24.5 mmol/L (21-32); COR CA(FOR HYPOALB) 9.5 mg/dL (8.5-10.1); CREATININE 1.46 mg/dL (0.55-1.02); POTASSIUM 3.6 mmol/L (3.5-5.1)
[2023-05-29] MEDS ORDERED: CONSULT PHARMACY - POTASSIUM & MAGNESIUM XX SCH (06:00)
[2023-05-29] MEDS: DUONEB 0.5 MG/3 MG (3 mL) NEB SCH ×3 (06:21→20:25)
[2023-05-29] MEDS: K-RIDER 10 MEQ/NS 100 ML 10 MEQ/100 ML BAG IV SCH ×2 (08:15→11:34)
[2023-05-29] MEDS: ROCEPHIN VIAL 1 GRAM 1 G in NS 100 ML IV 100 ML IV SCH (08:15)
[2023-05-29] MEDS ORDERED: K-DUR TAB 20 MEQ PO SCH (09:00)
[2023-05-29] MEDS ORDERED: NS 500 ML IV 500 ML IV ONE (09:23)
[2023-05-29] MEDS ORDERED: DIPRIVAN VIAL 20 ML ONE ×2 (09:43→10:28)
[2023-05-29] MEDS ORDERED: NS 1/2 1,000 ML IV 1,000 ML IV ONE ×2 (11:13→19:17)
[2023-05-29] MEDS: NS 1/2 1,000 ML IV 1,000 ML IV SCH (11:34)
[2023-05-29] MEDS: MORPHINE SULFATE INJ 2 MG INJ IVP PRN (20:22)
--- NOTE | 2023-05-29 20:58 | PCM.PROG ---
Progress Note - Progress Note for Day of Date of Exam: 05/29/23 - Subjective Subjective: IS CURRENTLY INPATIENT STATUS FOR TREATMENT OF ACUTE CVA, ACUTE BRONCHITIS, CYSTITIS, ACUTE SINUSITIS, ACUTE DEHYDRATION. SHE HAS A PMH OF ATRIAL FIBRILLATION, HTN, DM II, AND CAD. TODAY, SHE IS LYING IN BED WITH EYES OPEN ON MORNING ROUNDS. SHE DOES NOT RESPOND VERBALLY AND DOES NOT FOLLOW COMMANDS. NURSING STAFF REPORTS THAT SHE IS UNABLE TO EAT, DRINK, OR TAKE HER MEDICATIONS. ON EXAMINATION, HEART IS REGULAR IN RATE AND RHYTHM. BILATERAL LUNGS ARE NOTED WITH RHONCHI THROUGHOUT. ABDOMEN IS FLAT, SOFT, AND NON-TENDER WITH NORMAL BOWEL SOUNDS NOTED IN ALL QUADRANTS. DIFFUSE MUSCLE ATROPHY NOTED. A EVANS CATHETER IS NOTED TO BEDSIDE DRAINAGE. HER VITALS THIS MORNING ARE: 97.7 -82-20-92%-142/65. LABS WERE OBTAINED. WBC 3.7, RBC 3.37, HGB 9.0, HCT 28.6, PLT COUNT 82, SODIUM 154, POTASSIUM 3.6, CHLORIDE 119, BUN 63, CREATININE 1.46, GLUCOSE 138, CALCIUM 8.0, AST 20, ALT 12, ALK PHOS 94, TOTAL PROTEIN 6.0, ALBUMIN 2.1. URINE CULTURE IS POSITIVE FOR GROWTH OF PROTEUS MIRABILIS. PATIENTS FAMILY MEMBERS INITIALLY REFUSED PLACEMENT OF A PEG TUBE. THEY NOW WISH FOR PEG TUBE TO BE PLACED. WAS CONSULTED AND PLANS FOR PLACEMENT OF A PEG TUBE THIS MORNING. WE ARE IN AGREEMENT WITH PLANS. SHE IS CURRENTLY RECEIVING NORMAL SALINE AT 125 ML/HR, DUONEBS TID, ROCEPHIN 1G IV DAILY, LOVENOX 60MG SC DAILY, HYDRALAZINE 10MG IV Q6H, LOPRESSOR 5MG IV Q12H PRN, OTBS ACHS, HUMULIN R SLIDING SCALE, ATIVAN 1MG IV Q6H PRN. WE WILL CHANGE HER TO NORMAL SALINE AT 75 ML/HR. WE WILL CHANGE HER IV FLUIDS TO D5W AT 75 ML/HR. WE WILL ADD GLUCERNA FEEDINGS PER DIETARY RECOMMENDATIONS. WE WILL RESTART HER HOME MEDICATIONS OF TRAMADOL, PEPCID, PROTONIX, JANUVIA, HEMOCYTE PLUS, GABAPENTIN, BENTYL, COREG, AND ATORVASTATIN (ALL TO BE ADMINISTERED VIA PEG TUBE). OTHERWISE, WE PLAN TO FOLLOW UP WITH AM LABS AND CONTINUE TO MONITOR. TIME SPENT ON CLINICAL ASSESSMENT, REVIEWING LABS AND IMAGING, DECISION MAKING, AND DOCUMENTATION GREATER THAN 45 MINUTES. - Past Medical Family Social History Past Med/Fam/Surg Hx: No changes since H&P Allergies: Allergies Penicillins Allergy (Unknown, Verified 05/26/23 09:58) Sulfa (Sulfonamide Antibiotics) Allergy (Unknown, Verified 05/26/23 09:58) - Review of Systems ROS: No change since H&P - Vital Signs and I&O's Vital Signs: Vital Signs Temperature 97.7 F Temperature 97.9 F Temperature 97.9 F Temperature 97.9 F Temperature 97.6 F Pulse Rate [Apical] 99 Pulse Rate [Apical] 108 Pulse Rate [Apical] 108 Pulse Rate [Apical] 104 Pulse Rate [Apical] 98 Pulse Rate 75 Respiratory Rate 20 Respiratory Rate 18 Respiratory Rate 18 Respiratory Rate 18 Respiratory Rate 18 Respiratory Rate 20 Blood Pressure [Right Arm] 122/55 Blood Pressure [Right Arm] 119/57 Blood Pressure [Right Arm] 119/57 Blood Pressure [Right Arm] 112/54 Blood Pressure [Right Arm] 115/54 O2 Sat by Pulse Oximetry 100 O2 Sat by Pulse Oximetry 100 O2 Sat by Pulse Oximetry 100 O2 Sat by Pulse Oximetry 95 O2 Sat by Pulse Oximetry 100 O2 Sat by Pulse Oximetry 98 Intake and Output: Intake & Output 05/27/23 05/28/23 05/29/23 05/30/23 11:59 11:59 11:59 11:59 Intake Total 1332 / 1332 2690 / 2690 3050 / 3050 1058 / 1058 Output Total 400 / 400 200 / 200 900 / 900 200 / 200 Balance 932 / 932 2490 / 2490 2150 / 2150 858 / 858 - Physical Exam Oriented: Unable to test. negative: Time, Place Eyes: Normal Ear: Normal Nose: Normal Throat: Normal Respiratory: Generalized, Diminished, Rhonchi Cardiovascular: Normal : Normal Auscultation: Bowel Sounds: Normal Palpation: Normal Tenderness: Normal Skin: Ecchymosis Musculoskeletal: Left (left arm and leg weakness) Psychiatric: Other (cannot evalute) Mood Description: Calm Affect: Normal Speech Pattern: Inappropriate - Laboratory and Diagnostics Result Diagrams: 05/29/23 04:38 05/29/23 04:38 Labs: 05/26/23 08:55 Urine,Catheterized Urine Culture - Final [facility] WBC 3.7 X10^3/uL (3.6-10.0) 05/29/23 04:38 RBC 3.37 X10^6/uL (3.5-5.4) L 05/29/23 04:38 Hgb 9.0 g/dL (12.0-16.0) L 05/29/23 04:38 Hct 28.6 % (36.0-47.0) L 05/29/23 04:38 MCV 84.7 fL (80.0-100.0) 05/29/23 04:38 MCH 26.8 pg (27.0-34.0) L 05/29/23 04:38 MCHC 31.7 g/dL (33.0-35.0) L 05/29/23 04:38 RDW 16.9 % (11.6-16.5) H 05/29/23 04:38 Plt Count 82 X10^3/uL (150.0-450.0) L 05/29/23 04:38 MPV 8.4 fL (7.4-11.0) 05/29/23 04:38 Neut % (Auto) 82.6 % (42.0-75.0) H 05/29/23 04:38 Lymph % (Auto) 11.1 % (21.0-51.0) L 05/29/23 04:38 [place] % (Auto) 6.0 % (0.0-13.0) 05/29/23 04:38 Eos % (Auto) 0.1 % (0.9-2.9) L 05/29/23 04:38 Baso % (Auto) 0.2 % (0.2-1.0) 05/29/23 04:38 Neut # (Auto) 3.1 x10^3/uL (2.2-4.8) 05/29/23 04:38 Lymph # (Auto) 0.4 X10^3/uL (1.3-2.9) L 05/29/23 04:38 [place] # (Auto) 0.2 x10^3/uL (0.3-0.8) L 05/29/23 04:38 Eos # (Auto) 0.0 x10^3/uL (0.0-0.2) 05/29/23 04:38 Baso # (Auto) 0.0 X10^3/uL (0.0-0.1) 05/29/23 04:38 Absolute Nucleated RBC 0.1 /100WBC 05/29/23 04:38 PT 15.3 SECONDS (11.8-14.3) 05/29/23 04:38 INR Target Range - 05/29/23 04:38 INR 1.23 (0.8-1.3) 05/29/23 04:38 Sodium 154 mmol/L (136-145) H* 05/29/23 04:38 Corrected Sodium 155 mmol/L (136-145) H 05/29/23 04:38 Potassium 3.6 mmol/L (3.5-5.1) 05/29/23 04:38 Chloride 119 mmol/L (98-107) H* 05/29/23 04:38 Carbon Dioxide 24.5 mmol/L (21-32) 05/29/23 04:38 BUN 63 mg/dL (7-18) H 05/29/23 04:38 Creatinine 1.46 mg/dL (0.55-1.02) H 05/29/23 04:38 Est GFR (MDRD) Af Amer 43 (>60) L 05/29/23 04:38 Est GFR (MDRD) Non-Af 36 (>60) L 05/29/23 04:38 Glucose 138 mg/dL (65-99) H 05/29/23 04:38 POC Glucose (mg/dL) 170 mg/dL (65-99) H 05/29/23 20:10 Lactic Acid 1.1 mmol/L (0.4-2.0) 05/26/23 08:34 Calcium 8.0 mg/dL (8.5-10.1) L 05/29/23 04:38 Corrected Calcium 9.5 mg/dL (8.5-10.1) 05/29/23 04:38 Total Bilirubin 0.70 mg/dL (0.2-1.0) 05/29/23 04:38 AST 20 Units/L (15-37) 05/29/23 04:38 ALT 12 Units/L (12-78) 05/29/23 04:38 Alkaline Phosphatase 94 Units/L (46-116) 05/29/23 04:38 Ammonia 32 umol/L (11-32) 05/26/23 08:34 Creatine Kinase 23 Units/L (26-192) L 05/26/23 08:34 Troponin I High Sens 39.1 ng/L (4.0-60.0) 05/26/23 08:34 Total Protein 6.0 g/dL (6.4-8.2) L 05/29/23 04:38 Albumin 2.1 g/dL (3.4-5.0) L 05/29/23 04:38 Globulin 3.9 g/dL (2.5-4.5) 05/29/23 04:38 Albumin/Globulin Ratio 0.5 Ratio (1.1-2.1) L 05/29/23 04:38 Specimen Type Catherized urine 05/26/23 08:55 Urine Color Yellow (YELLOW) 05/26/23 08:55 Urine Appearance Cloudy (CLEAR) 05/26/23 08:55 Urine pH 8.0 (5.0 - 8.0) 05/26/23 08:55 Ur Specific [place] 1.015 (1.000-1.030) 05/26/23 08:55 Urine Protein 3+ (NEGATIVE) 05/26/23 08:55 Urine Glucose (UA) Negative (NEGATIVE) 05/26/23 08:55 Urine Ketones Negative (NEGATIVE) 05/26/23 08:55 Urine Blood 4+ (NEGATIVE) 05/26/23 08:55 Urine Nitrite Negative (NEGATIVE) 05/26/23 08:55 Urine Bilirubin Negative (NEGATIVE) 05/26/23 08:55 Urine Urobilinogen 1+ (NORMAL) 05/26/23 08:55 Ur Leukocyte Esterase 3+ (NEGATIVE) 05/26/23 08:55 Urine RBC 5-10 /HPF (0-3) A 05/26/23 08:55 Urine WBC 20-30 /HPF (0-5) A 05/26/23 08:55 Ur Squamous Epith Cells Rare /HPF (NEGATIVE) 05/26/23 08:55 Amorphous Sediment 2+ /HPF (NEGATIVE) 05/26/23 08:55 Urine Bacteria 2+ /HPF (NEGATIVE) 05/26/23 08:55 Ur Culture Indicated? Yes/culture set up 05/26/23 08:55 - Plan (1) Acute cerebrovascular accident (CVA) Status: Acute Plan: PT/OT, D5W NS 75 ML/HR, DUONEBS TID, ROCEPHIN 1G IV DAILY, LOVENOX 60MG SC DAILY, HYDRALAZINE 10MG IV Q6H, LOPRESSOR 5MG IV Q12H PRN, OTBS ACHS, HUMULIN R SLIDING SCALE, ATIVAN 1MG IV Q6H PRN. NPO. RESUME HOME MEDS VIA PEG TUBE (2) Pneumonia involving left lung Status: Acute Qualifiers: Pneumonia type: due to unspecified organism Lung location: unspecified part of lung Qualified Code(s): J18.9 - Pneumonia, unspecified organism (3) Cystitis Status: Acute Plan: ROCEPHIN 1G IV DAILY (4) Sinusitis Status: Acute Qualifiers: Sinusitis location: unspecified location Chronicity: acute Recurrence: not specified as recurrent Qualified Code(s): J01.90 - Acute sinusitis, unspecified Plan: ROCEPHIN 1G IV DAILY (5) Acute dehydration Status: Acute Plan: IV FLUIDS (6) Atrial fibrillation Status: Acute Qualifiers: Atrial fibrillation type: unspecified Qualified Code(s): I48.91 - Unspecified atrial fibrillation Plan: METOPROLOL IV PRN (7) Essential hypertension Status: Chronic Plan: IV HYDRALAZINE AND METOPROLOL, RESUME COREG (8) Diabetes mellitus, type II Status: Chronic Qualifiers: Diabetes mellitus shelter insulin use: with equipment operator intermodal yard use Diabetes mellitus complication status: with hyperglycemia Qualified Code(s): E11.65 - Type 2 diabetes mellitus with hyperglycemia; Z79.4 - long-term (current) use of insulin Plan: OTBS ACHS, HUMULIN R SLIDING SCALE, RESUME COREG VIA PEG TUBE (9) CAD (coronary artery disease) Status: Chronic Qualifiers: Coronary Disease-Associated Artery/Lesion type: bypass graft [place] vs. transplanted heart: [place] heart Associated angina: unspecified whether angina present Qualified Code(s): I25.810 - Atherosclerosis of coronary artery bypass graft(s) without angina pectoris (10) GERD (gastroesophageal reflux disease) Status: Chronic Qualifiers: Esophagitis presence: with esophagitis Esophagitis bleeding: unspecified whether hemorrhage Qualified Code(s): K21.00 - Gastro-esophageal reflux disease with esophagitis, without bleeding Plan: RESUME PROTONIX AND PEPCID VIA PEG TUBE (11) Anemia Status: Chronic Qualifiers: Anemia type: iron deficiency Iron deficiency anemia type: chronic blood loss Qualified Code(s): D50.0 - Iron deficiency anemia secondary to blood loss (chronic) Plan: RESUME DONOVAN
--- NOTE | 2023-05-29 22:34 | OR.IMMED ---
IMMEDIATE POST-OP NOTE Immediate Post-Op Note Pre-Op Diagnosis: CVA , inability to feed Post-Op Diagnosis: same Procedure: EGD and PEG tube placement Description of Procedure: see operative summary Surgeon/Director Of Digital Technology: Emiliano Estimated Blood Loss: minimal Complications: none Progress Notes: Return to floor, begin tube feedings
--- NOTE | 2023-05-29 23:03 | DR.OPNOTE ---
OP NOTE Pre-Op Diagnosis: CVA inability to feed Post-Op Diagnosis: same Procedure Date Date Of Procedure: 05/29/23 Procedure: PROCEDURE: esophagogastroduodenoscopy , percutaneous endoscopic gastrostomy feeding tube placement NARRATIVE: The patient was taken to the endoscopy suite and placed in the supine position. She was given intravenous sedation supervised by myself. Time out for the procedure obtained. Bite block was placed in the mouth and the endoscope introduced into the mouth and into the esophagus. Esophagus was normal. Gastro-esophageal junction was at the normal 40 cm location. The body of the stomach was normal . The duodenum and pylorus were normal. The stomach insufflated and palpated along the patients left costal margin. This area prepped with Betadine. The skin of the area of the planned tube placement site was injected with 1% Xylocaine. A 1 cm incision made. Through the incision a 14 gauge needle used to enter the stomach and the snare brought through this needle and grasped with another snare through the scope and pulled up and out of the mouth . The feeding tube connected to the snare and then pulled down the esophagus and out the abdominal wall and secured on the wall with a rubber bumper. Scope was replaced but the tubing had been pulled into the stomach wall. Therefore this was removed. The procedure repeated in the same fashion and under endoscopy the feeding tube was snugged up against the abdominal wall within the stomach under direct vision. Dressing applied. Patient taken back to her room in stable condition. Type of Anesthesia: Local (1% Xylocaine ) Anesthesia Comment: plus MAC Type of Fluids Used:: Lactated Ringers EBL: minimal Drains/Tubes Placed: Peg Tube Complications:: none Needle/Sponge Count:: correct Disposition/Condition: Pt. tolerated procedure without difficulty. Extubated in the OR and taken to PACU in stable condition.
[2023-05-30] MEDS: NS 1/2 1,000 ML IV 1,000 ML IV SCH ×3 (03:57→12:34)
[2023-05-30] MEDS: MORPHINE SULFATE INJ 2 MG INJ IVP PRN ×4 (04:03→21:03)
[2023-05-30] MEDS: APRESOLINE INJ 20 MG VIAL IVP SCH ×4 (04:57→21:04)
[2023-05-30] MEDS: DUONEB 0.5 MG/3 MG (3 mL) NEB SCH ×3 (05:00→21:01)
[2023-05-30 05:32] LABS: BASOPHILS % (AUTO) 0.4 % (0.2-1.0); EOSINOPHILS % (AUTO) 0.1 % (0.9-2.9); HEMATOCRIT 24.4 % (36.0-47.0); LYMPHOCYTES # (AUTO) 0.5 X10^3/uL (1.3-2.9); LYMPHOCYTES % (AUTO) 6.1 % (21.0-51.0); MEAN CORPUSCULAR HEMOGLOBIN 27.1 pg (27.0-34.0); MEAN CORPUSCULAR HGB CONC 32.5 g/dL (33.0-35.0); MEAN CORPUSCULAR VOLUME 83.3 fL (80.0-100.0); MONOCYTES # (AUTO) 0.4 x10^3/uL (0.3-0.8); MONOCYTES % (AUTO) 5.1 % (0.0-13.0); NEUTROPHILS % (AUTO) 88.3 % (42.0-75.0); PLATELET COUNT 104 X10^3/uL (150.0-450.0); RED BLOOD COUNT 2.93 X10^6/uL (3.5-5.4); RED CELL DISTRIBUTION WIDTH 17.1 % (11.6-16.5)
[2023-05-30 05:43] LABS: ALBUMIN 1.9 g/dL (3.4-5.0); CARBON DIOXIDE 21.8 mmol/L (21-32); COR CA(FOR HYPOALB) 9.7 mg/dL (8.5-10.1); CREATININE 1.75 mg/dL (0.55-1.02); POTASSIUM 3.9 mmol/L (3.5-5.1); TOTAL PROTEIN 5.6 g/dL (6.4-8.2)
[2023-05-30] MEDS ORDERED: NS 1/2 1,000 ML IV 1,000 ML IV ONE (07:58)
[2023-05-30] MEDS: ROCEPHIN VIAL 1 GRAM 1 G in NS 100 ML IV 100 ML IV SCH (08:32)
--- NOTE | 2023-05-30 19:03 | PCM.PROG ---
Progress Note Progress Note for Day of Date of Exam: 05/30/23 Subjective Subjective: IS CURRENTLY INPATIENT STATUS FOR TREATMENT OF ACUTE CVA, ACUTE BRONCHITIS, CYSTITIS, ACUTE SINUSITIS, ACUTE DEHYDRATION. SHE HAS A PMH OF ATRIAL FIBRILLATION, HTN, DM II, AND CAD. TODAY, SHE IS LYING IN BED WITH EYES OPEN ON MORNING ROUNDS. SHE DOES NOT RESPOND VERBALLY AND DOES NOT FOLLOW COMMANDS. NURSING STAFF REPORTS THAT SHE IS UNABLE TO EAT, DRINK, OR TAKE HER MEDICATIONS. ON EXAMINATION, HEART IS REGULAR IN RATE AND RHYTHM. BILATERAL LUNGS ARE NOTED WITH RHONCHI THROUGHOUT. ABDOMEN IS FLAT, SOFT, AND NON-TENDER WITH NORMAL BOWEL SOUNDS NOTED IN ALL QUADRANTS. DIFFUSE MUSCLE ATROPHY NOTED. A EVANS CATHETER IS NOTED TO BEDSIDE DRAINAGE. HER VITALS THIS MORNING ARE: 97. 7-82-20-92%-142/65. LABS WERE OBTAINED. WBC 3.7, RBC 3.37, HGB 9.0, HCT 28.6, PLT COUNT 82, SODIUM 154, POTASSIUM 3.6, CHLORIDE 119, BUN 63, CREATININE 1.46, GLUCOSE 138, CALCIUM 8.0, AST 20, ALT 12, ALK PHOS 94, TOTAL PROTEIN 6.0, ALBUMIN 2.1. URINE CULTURE IS POSITIVE FOR GROWTH OF PROTEUS MIRABILIS. PATIENTS FAMILY MEMBERS INITIALLY REFUSED PLACEMENT OF A PEG TUBE. THEY NOW WISH FOR PEG TUBE TO BE PLACED. WAS CONSULTED AND PLANS FOR PLACEMENT OF A PEG TUBE THIS MORNING. WE ARE IN AGREEMENT WITH PLANS. SHE IS CURRENTLY RECEIVING NORMAL SALINE AT 125 ML/HR, DUONEBS TID, ROCEPHIN 1G IV DAILY, LOVENOX 60MG SC DAILY, HYDRALAZINE 10MG IV Q6H, LOPRESSOR 5MG IV Q12H PRN, OTBS ACHS, HUMULIN R SLIDING SCALE, ATIVAN 1MG IV Q6H PRN. WE WILL CHANGE HER TO NORMAL SALINE AT 75 ML/HR. WE WILL CHANGE HER IV FLUIDS TO D5W AT 75 ML/HR. WE WILL ADD GLUCERNA FEEDINGS PER DIETARY RECOMMENDATIONS. WE WILL RESTART HER HOME MEDICATIONS OF TRAMADOL, PEPCID, PROTONIX, JANUVIA, HEMOCYTE PLUS, GABAPENTIN, BENTYL, COREG, AND ATORVASTATIN (ALL TO BE ADMINISTERED VIA PEG TUBE). OTHERWISE, WE PLAN TO FOLLOW UP WITH AM LABS AND CONTINUE TO MONITOR. TIME SPENT ON CLINICAL ASSESSMENT, REVIEWING LABS AND IMAGING, DECISION MAKING, AND DOCUMENTATION GREATER THAN 45 MINUTES. Thursday, 30 May 2023 This is a 87-year-old white female patient of Dr. Grady. She resides in [facility] and has recently had an acute CVA several days ago. She does not respond verbally and does not follow commands. Family has elected to make her DNR but they did elect to have a PEG tube placed yesterday. There is been no change in her state since she was admitted. I see that her hemoglobin has dropped down from 9.0 yesterday to 8.0 this morning. She is hypernatremic this morning with a corrected sodium of 152 and her current renal status is at her baseline. Vital signs are stable today however her O2 sat dropped since yesterday and they have increased her oxygen from 2 L to 3 L. Past Medical Family Social History Past Med/Fam/Surg Hx: No changes since H&P Allergies: Allergies Penicillins Allergy (Unknown, Verified 05/26/23 09:58) Sulfa (Sulfonamide Antibiotics) Allergy (Unknown, Verified 05/26/23 09:58) Review of Systems ROS: No change since H&P Vital Signs and I&O's Vital Signs: Vital Signs Temperature 97.2 F Temperature 97.4 F Pulse Rate [Apical] 101 Pulse Rate [Apical] 93 Respiratory Rate 20 Respiratory Rate 22 Respiratory Rate 20 Respiratory Rate 22 Blood Pressure [Right Arm] 126/60 Blood Pressure [Right Arm] 154/70 O2 Sat by Pulse Oximetry 98 O2 Sat by Pulse Oximetry 98 Intake and Output: Intake & Output 05/28/23 05/29/23 05/30/23 05/31/23 11:59 11:59 11:59 11:59 Intake Total 2690 / 2690 3050 / 3050 2403 / 2403 Output Total 200 / 200 900 / 900 300 / 300 40 / 40 Balance 2490 / 2490 2150 / 2150 2103 / 2103 -40 / -40 Physical Exam Oriented: Unable to test; negative Time or Place Eyes: Normal Ear: Normal Nose: Normal Throat: Normal Respiratory: Generalized, Diminished and Rhonchi Cardiovascular: Normal : Normal Auscultation: Bowel Sounds: Normal Tenderness: Normal Skin: Ecchymosis Musculoskeletal: Left (left arm and leg weakness) Psychiatric: Other (cannot evalute) Mood Description: Calm Affect: Normal Speech Pattern: Inappropriate Laboratory and Diagnostics Result Diagrams: 05/30/23 04:45 05/30/23 04:45 Labs: 05/26/23 08:55 Urine,Catheterized Urine Culture - Final [facility] Laboratory WBC 8.0 X10^3/uL (3.6-10.0) 05/30/23 04:45 RBC 2.93 X10^6/uL (3.5-5.4) L 05/30/23 04:45 Hgb 8.0 g/dL (12.0-16.0) L 05/30/23 04:45 Hct 24.4 % (36.0-47.0) L 05/30/23 04:45 MCV 83.3 fL (80.0-100.0) 05/30/23 04:45 MCH 27.1 pg (27.0-34.0) 05/30/23 04:45 MCHC 32.5 g/dL (33.0-35.0) L 05/30/23 04:45 RDW 17.1 % (11.6-16.5) H 05/30/23 04:45 Plt Count 104 X10^3/uL (150.0-450.0) L 05/30/23 04:45 MPV 9.0 fL (7.4-11.0) 05/30/23 04:45 Neut % (Auto) 88.3 % (42.0-75.0) H 05/30/23 04:45 Lymph % (Auto) 6.1 % (21.0-51.0) L 05/30/23 04:45 [place] % (Auto) 5.1 % (0.0-13.0) 05/30/23 04:45 Eos % (Auto) 0.1 % (0.9-2.9) L 05/30/23 04:45 Baso % (Auto) 0.4 % (0.2-1.0) 05/30/23 04:45 Neut # (Auto) 7.0 x10^3/uL (2.2-4.8) H 05/30/23 04:45 Lymph # (Auto) 0.5 X10^3/uL (1.3-2.9) L 05/30/23 04:45 [place] # (Auto) 0.4 x10^3/uL (0.3-0.8) 05/30/23 04:45 Eos # (Auto) 0.0 x10^3/uL (0.0-0.2) 05/30/23 04:45 Baso # (Auto) 0.0 X10^3/uL (0.0-0.1) 05/30/23 04:45 Absolute Nucleated RBC 0.0 /100WBC 05/30/23 04:45 PT 15.3 SECONDS (11.8-14.3) 05/29/23 04:38 INR Target Range - 05/29/23 04:38 INR 1.23 (0.8-1.3) 05/29/23 04:38 Sodium 150 mmol/L (136-145) H* 05/30/23 04:45 Corrected Sodium 152 mmol/L (136-145) H 05/30/23 04:45 Potassium 3.9 mmol/L (3.5-5.1) 05/30/23 04:45 Chloride 117 mmol/L (98-107) H* 05/30/23 04:45 Carbon Dioxide 21.8 mmol/L (21-32) 05/30/23 04:45 BUN 69 mg/dL (7-18) H 05/30/23 04:45 Creatinine 1.75 mg/dL (0.55-1.02) H 05/30/23 04:45 Est GFR (MDRD) Af Amer 35 (>60) L 05/30/23 04:45 Est GFR (MDRD) Non-Af 29 (>60) L 05/30/23 04:45 Glucose 174 mg/dL (65-99) H 05/30/23 04:45 POC Glucose (mg/dL) 142 mg/dL (65-99) H 05/30/23 16:01 Lactic Acid 1.1 mmol/L (0.4-2.0) 05/26/23 08:34 Calcium 8.0 mg/dL (8.5-10.1) L 05/30/23 04:45 Corrected Calcium 9.7 mg/dL (8.5-10.1) 05/30/23 04:45 Total Bilirubin 0.80 mg/dL (0.2-1.0) 05/30/23 04:45 AST 22 Units/L (15-37) 05/30/23 04:45 ALT 13 Units/L (12-78) 05/30/23 04:45 Alkaline Phosphatase 84 Units/L (46-116) 05/30/23 04:45 Ammonia 32 umol/L (11-32) 05/26/23 08:34 Creatine Kinase 23 Units/L (26-192) L 05/26/23 08:34 Troponin I High Sens 39.1 ng/L (4.0-60.0) 05/26/23 08:34 Total Protein 5.6 g/dL (6.4-8.2) L 05/30/23 04:45 Albumin 1.9 g/dL (3.4-5.0) L 05/30/23 04:45 Globulin 3.7 g/dL (2.5-4.5) 05/30/23 04:45 Albumin/Globulin Ratio 0.5 Ratio (1.1-2.1) L 05/30/23 04:45 Specimen Type Catherized urine 05/26/23 08:55 Urine Color Yellow (YELLOW) 05/26/23 08:55 Urine Appearance Cloudy (CLEAR) 05/26/23 08:55 Urine pH 8.0 (5.0 - 8.0) 05/26/23 08:55 Ur Specific [place] 1.015 (1.000-1.030) 05/26/23 08:55 Urine Protein 3+ (NEGATIVE) 05/26/23 08:55 Urine Glucose (UA) Negative (NEGATIVE) 05/26/23 08:55 Urine Ketones Negative (NEGATIVE) 05/26/23 08:55 Urine Blood 4+ (NEGATIVE) 05/26/23 08:55 Urine Nitrite Negative (NEGATIVE) 05/26/23 08:55 Urine Bilirubin Negative (NEGATIVE) 05/26/23 08:55 Urine Urobilinogen 1+ (NORMAL) 05/26/23 08:55 Ur Leukocyte Esterase 3+ (NEGATIVE) 05/26/23 08:55 Urine RBC 5-10 /HPF (0-3) A 05/26/23 08:55 Urine WBC 20-30 /HPF (0-5) A 05/26/23 08:55 Ur Squamous Epith Cells Rare /HPF (NEGATIVE) 05/26/23 08:55 Amorphous Sediment 2+ /HPF (NEGATIVE) 05/26/23 08:55 Urine Bacteria 2+ /HPF (NEGATIVE) 05/26/23 08:55 Ur Culture Indicated? Yes/culture set up 05/26/23 08:55 Plan (1) Acute cerebrovascular accident (CVA): Status: Acute Plan: PT/OT, D5W NS 75 ML/HR, DUONEBS TID, ROCEPHIN 1G IV DAILY, LOVENOX 60MG SC DAILY, HYDRALAZINE 10MG IV Q6H, LOPRESSOR 5MG IV Q12H PRN, OTBS ACHS, HUMULIN R SLIDING SCALE, ATIVAN 1MG IV Q6H PRN NPO RESUME HOME MEDS VIA PEG TUBE Continue supportive care and current treatment. (2) Hypernatremia: Status: Acute Narrative Support Text: Corrected sodium is 152 this morning. Plan: Since patient now has a PEG tube we will start her on free water at 200 mL every 3 hours. Repeat CMP in the morning to see if her hyponatremia is improving. (3) Pneumonia involving left lung: Status: Acute Qualifiers: Pneumonia type: due to unspecified organism Lung location: unspecified part of lung Qualified Code(s): J18.9 - Pneumonia, unspecified organism (4) Cystitis: Status: Acute Plan: ROCEPHIN 1G IV DAILY (5) Sinusitis: Status: Acute Qualifiers: Chronicity: acute Recurrence: not specified as recurrent Sinusitis location: unspecified location Qualified Code(s): J01.90 - Acute sinusitis, unspecified Plan: ROCEPHIN 1G IV DAILY (6) Acute dehydration: Status: Acute Plan: IV FLUIDS (7) Atrial fibrillation: Status: Acute Qualifiers: Atrial fibrillation type: unspecified Qualified Code(s): I48.91 - Un specified atrial fibrillation Plan: METOPROLOL IV PRN (8) Essential hypertension: Status: Chronic Plan: IV HYDRALAZINE AND METOPROLOL, RESUME COREG (9) Diabetes mellitus, type II: Status: Chronic Qualifiers: Diabetes mellitus prison insulin use: with termite technician use Diabetes mellitus complication status: with hyperglycemia Qualified Code(s): E11.65 - Type 2 diabetes mellitus with hyperglycemia; Z79.4 - terminal operations supervisor (current) use of insulin Plan: OTBS ACHS, HUMULIN R SLIDING SCALE, RESUME COREG VIA PEG TUBE (10) CAD (coronary artery disease): Status: Chronic Qualifiers: Coronary Disease-Associated Artery/Lesion type: bypass graft [place] vs. transplanted heart: [place] heart Associated angina: unspecified whether angina present Qualified Code(s): I25.810 - Atherosclerosis of coronary artery bypass graft(s) without angina pectoris (11) GERD (gastroesophageal reflux disease): Status: Chronic Qualifiers: Esophagitis presence: with esophagitis Esophagitis bleeding: unspecified whether hemorrhage Qualified Code(s): K21.00 - Gastro-esophageal reflux disease with esophagitis, without bleeding Plan: RESUME PROTONIX AND PEPCID VIA PEG TUBE (12) Anemia: Status: Chronic Qualifiers: Anemia type: iron deficiency Iron deficiency anemia type: chronic blood loss Qualified Code(s): D50.0 - Iron deficiency anemia secondary to blood loss (chronic) Plan: Repeat CBC tomorrow morning. If she is continuing to drop I will discuss with the family if they wish her to receive packed red blood cell t ransfusions.
[2023-05-31] MEDS: MORPHINE SULFATE INJ 2 MG INJ IVP PRN ×2 (04:48→21:08)
[2023-05-31] MEDS: APRESOLINE INJ 20 MG VIAL IVP SCH ×4 (04:48→21:55)
[2023-05-31 06:10] LABS: BASOPHILS % (AUTO) 0.1 % (0.2-1.0); EOSINOPHILS % (AUTO) 0.1 % (0.9-2.9); HEMATOCRIT 24.6 % (36.0-47.0); HEMOGLOBIN 7.9 g/dL (12.0-16.0); LYMPHOCYTES # (AUTO) 0.5 X10^3/uL (1.3-2.9); LYMPHOCYTES % (AUTO) 4.9 % (21.0-51.0); MEAN CORPUSCULAR HGB CONC 32.3 g/dL (33.0-35.0); MEAN CORPUSCULAR VOLUME 83.6 fL (80.0-100.0); MEAN PLATELET VOLUME 9.6 fL (7.4-11.0); MONOCYTES # (AUTO) 0.6 x10^3/uL (0.3-0.8); MONOCYTES % (AUTO) 6.2 % (0.0-13.0); NEUTROPHILS # (AUTO) 9.1 x10^3/uL (2.2-4.8); NEUTROPHILS % (AUTO) 88.7 % (42.0-75.0); PLATELET COUNT 89 X10^3/uL (150.0-450.0); RED BLOOD COUNT 2.95 X10^6/uL (3.5-5.4); RED CELL DISTRIBUTION WIDTH 17.2 % (11.6-16.5); WHITE BLOOD COUNT 10.2 X10^3/uL (3.6-10.0)
[2023-05-31 06:29] LABS: ALBUMIN 1.8 g/dL (3.4-5.0); CALCIUM 8.2 mg/dL (8.5-10.1); CARBON DIOXIDE 21.8 mmol/L (21-32); CREATININE 2.03 mg/dL (0.55-1.02); POTASSIUM 4.3 mmol/L (3.5-5.1); TOTAL PROTEIN 5.7 g/dL (6.4-8.2)
[2023-05-31] MEDS: DUONEB 0.5 MG/3 MG (3 mL) NEB SCH ×2 (06:50→20:45)
[2023-05-31] MEDS: ROCEPHIN VIAL 1 GRAM 1 G in NS 100 ML IV 100 ML IV SCH (09:18)
[2023-05-31] MEDS: NS 1/2 1,000 ML IV 1,000 ML IV SCH ×3 (11:18→21:04)
--- NOTE | 2023-05-31 11:53 | RAD ---
CHEST, 1 VIEWHISTORY: CVA, ELEVATED WBCStudy: Single view of the chest.Comparison:05/27/2023Findings:Cardiomegaly.L eft lung base opacity has somewhat improved. Persistent right lung base opacity. Osseous structures demonstrate no acute abnormality.IMPRESSION:1. Somewhat improved left lung base opacity.Electronically signed by: ALIVIA AVELAR (May 31, 2023 11:51:31)
[2023-05-31] MEDS ORDERED: NS 1/2 1,000 ML IV 1,000 ML IV ONE (19:10)
--- NOTE | 2023-05-31 19:52 | PCM.PROG ---
Progress Note Progress Note for Day of Date of Exam: 05/31/23 Subjective Subjective: IS CURRENTLY INPATIENT STATUS FOR TREATMENT OF ACUTE CVA, ACUTE BRONCHITIS, CYSTITIS, ACUTE SINUSITIS, ACUTE DEHYDRATION. SHE HAS A PMH OF ATRIAL FIBRILLATION, HTN, DM II, AND CAD. TODAY, SHE IS LYING IN BED WITH EYES OPEN ON MORNING ROUNDS. SHE DOES NOT RESPOND VERBALLY AND DOES NOT FOLLOW COMMANDS. NURSING STAFF REPORTS THAT SHE IS UNABLE TO EAT, DRINK, OR TAKE HER MEDICATIONS. ON EXAMINATION, HEART IS REGULAR IN RATE AND RHYTHM. BILATERAL LUNGS ARE NOTED WITH RHONCHI THROUGHOUT. ABDOMEN IS FLAT, SOFT, AND NON-TENDER WITH NORMAL BOWEL SOUNDS NOTED IN ALL QUADRANTS. DIFFUSE MUSCLE ATROPHY NOTED. A EVANS CATHETER IS NOTED TO BEDSIDE DRAINAGE. HER VITALS THIS MORNING ARE: 97. 7-82-20-92%-142/65. LABS WERE OBTAINED. WBC 3.7, RBC 3.37, HGB 9.0, HCT 28.6, PLT COUNT 82, SODIUM 154, POTASSIUM 3.6, CHLORIDE 119, BUN 63, CREATININE 1.46, GLUCOSE 138, CALCIUM 8.0, AST 20, ALT 12, ALK PHOS 94, TOTAL PROTEIN 6.0, ALBUMIN 2.1. URINE CULTURE IS POSITIVE FOR GROWTH OF PROTEUS MIRABILIS. PATIENTS FAMILY MEMBERS INITIALLY REFUSED PLACEMENT OF A PEG TUBE. THEY NOW WISH FOR PEG TUBE TO BE PLACED. WAS CONSULTED AND PLANS FOR PLACEMENT OF A PEG TUBE THIS MORNING. WE ARE IN AGREEMENT WITH PLANS. SHE IS CURRENTLY RECEIVING NORMAL SALINE AT 125 ML/HR, DUONEBS TID, ROCEPHIN 1G IV DAILY, LOVENOX 60MG SC DAILY, HYDRALAZINE 10MG IV Q6H, LOPRESSOR 5MG IV Q12H PRN, OTBS ACHS, HUMULIN R SLIDING SCALE, ATIVAN 1MG IV Q6H PRN. WE WILL CHANGE HER TO NORMAL SALINE AT 75 ML/HR. WE WILL CHANGE HER IV FLUIDS TO D5W AT 75 ML/HR. WE WILL ADD GLUCERNA FEEDINGS PER DIETARY RECOMMENDATIONS. WE WILL RESTART HER HOME MEDICATIONS OF TRAMADOL, PEPCID, PROTONIX, JANUVIA, HEMOCYTE PLUS, GABAPENTIN, BENTYL, COREG, AND ATORVASTATIN (ALL TO BE ADMINISTERED VIA PEG TUBE). OTHERWISE, WE PLAN TO FOLLOW UP WITH AM LABS AND CONTINUE TO MONITOR. TIME SPENT ON CLINICAL ASSESSMENT, REVIEWING LABS AND IMAGING, DECISION MAKING, AND DOCUMENTATION GREATER THAN 45 MINUTES. 30 May 2023 This is a 87-year-old white female patient of Dr. Grady. She resides in [facility] and has recently had an acute CVA several days ago. She does not respond verbally and does not follow commands. Family has elected to make her DNR but they did elect to have a PEG tube placed yesterday. There is been no change in her state since she was admitted. I see that her hemoglobin has dropped down from 9.0 yesterday to 8.0 this morning. She is hypernatremic this morning with a corrected sodium of 152 and her current renal status is at her baseline. Vital signs are stable today however her O2 sat dropped since yesterday and they have increased her oxygen from 2 L to 3 L. 31 May 2023 Patient is lying in bed comfortably this morning. There has been no acute pr oblems since yesterday morning. Her hypernatremia she had yesterday morning had resolved with the addition of free water yesterday. However her creatinine has gone up since yesterday. They also have gone up on her oxygen again from 3 L yesterday to 4 L today. We did a chest x-ray this morning that showed clearing of the left lung base opacity however she continues to have a right lung base opacity persist. Patient is a DNR. Past Medical Family Social History Past Med/Fam/Surg Hx: No changes since H&P Allergies: Allergies Penicillins Allergy (Unknown, Verified 05/26/23 09:58) Sulfa (Sulfonamide Antibiotics) Allergy (Unknown, Verified 05/26/23 09:58) Review of Systems ROS: No change since H&P Vital Signs and I&O's Vital Signs: Vital Signs Temperature 98.2 F Temperature 98.9 F Temperature 98.4 F Pulse Rate [Apical] 86 Pulse Rate [Apical] 89 Pulse Rate [Apical] 109 Respiratory Rate 20 Respiratory Rate 28 Respiratory Rate 26 Blood Pressure [Right Arm] 111/53 Blood Pressure [Right Arm] 118/58 Blood Pressure [Right Arm] 117/54 O2 Sat by Pulse Oximetry 98 O2 Sat by Pulse Oximetry 99 O2 Sat by Pulse Oximetry 88 Intake and Output: Intake & Output 05/29/23 05/30/23 05/31/23 06/01/23 11:59 11:59 11:59 11:59 Intake Total 3050 / 3050 2403 / 2403 1010 / 1010 1323 / 1323 Output Total 900 / 900 300 / 300 130 / 130 60 / 60 Balance 2150 / 2150 2103 / 2103 880 / 880 1263 / 1263 Physical Exam Oriented: Unable to test; negative Time or Place Eyes: Normal Ear: Normal Nose: Normal Throat: Normal Respiratory: Generalized, Diminished and Rhonchi Cardiovascular: Normal : Normal Auscultation: Bowel Sounds: Normal Tenderness: Normal Skin: Ecchymosis Musculoskeletal: Left (left arm and leg weakness) Psychiatric: Other (cannot evalute) Mood Description: Calm Affect: Normal Speech Pattern: Inappropriate Laboratory and Diagnostics Result Diagrams: 05/31/23 05:31 05/31/23 05:31 Labs: 05/26/23 08:55 Urine,Catheterized Urine Culture - Final Proteus Mirabilis Laboratory WBC 10.2 X10^3/uL (3.6-10.0) H 05/31/23 05:31 RBC 2.95 X10^6/uL (3.5-5.4) L 05/31/23 05:31 Hgb 7.9 g/dL (12.0-16.0) L 05/31/23 05:31 Hct 24.6 % (36.0-47.0) L 05/31/23 05:31 MCV 83.6 fL (80.0-100.0) 05/31/23 05:31 MCH 27.0 pg (27.0-34.0) 05/31/23 05:31 MCHC 32.3 g/dL (33.0-35.0) L 05/31/23 05:31 RDW 17.2 % (11.6-16.5) H 05/31/23 05:31 Plt Count 89 X10^3/uL (150.0-450.0) L 05/31/23 05:31 MPV 9.6 fL (7.4-11.0) 05/31/23 05:31 Neut % (Auto) 88.7 % (42.0-75.0) H 05/31/23 05:31 Lymph % (Auto) 4.9 % (21.0-51.0) L 05/31/23 05:31 [place] % (Auto) 6.2 % (0.0-13.0) 05/31/23 05:31 Eos % (Auto) 0.1 % (0.9-2.9) L 05/31/23 05:31 Baso % (Auto) 0.1 % (0.2-1.0) L 05/31/23 05:31 Neut # (Auto) 9.1 x10^3/uL (2.2-4.8) H 05/31/23 05:31 Lymph # (Auto) 0.5 X10^3/uL (1.3-2.9) L 05/31/23 05:31 [place] # (Auto) 0.6 x10^3/uL (0.3-0.8) 05/31/23 05:31 Eos # (Auto) 0.0 x10^3/uL (0.0-0.2) 05/31/23 05:31 Baso # (Auto) 0.0 X10^3/uL (0.0-0.1) 05/31/23 05:31 Absolute Nucleated RBC 0.1 /100WBC 05/31/23 05:31 PT 15.3 SECONDS (11.8-14.3) 05/29/23 04:38 INR Target Range - 05/29/23 04:38 INR 1.23 (0.8-1.3) 05/29/23 04:38 Sodium 144 mmol/L (136-145) 05/31/23 05:31 Corrected Sodium 145 mmol/L (136-145) 05/31/23 05:31 Potassium 4.3 mmol/L (3.5-5.1) 05/31/23 05:31 Chloride 111 mmol/L (98-107) H 05/31/23 05:31 Carbon Dioxide 21.8 mmol/L (21-32) 05/31/23 05:31 BUN 72 mg/dL (7-18) H 05/31/23 05:31 Creatinine 2.03 mg/dL (0.55-1.02) H 05/31/23 05:31 Est GFR (MDRD) Af Amer 30 (>60) L 05/31/23 05:31 Est GFR (MDRD) Non-Af 25 (>60) L 05/31/23 05:31 Glucose 162 mg/dL (65-99) H 05/31/23 05:31 POC Glucose (mg/dL) 162 mg/dL (65-99) H 05/31/23 16:19 Lactic Acid 1.1 mmol/L (0.4-2.0) 05/26/23 08:34 Calcium 8.2 mg/dL (8.5-10.1) L 05/31/23 05:31 Corrected Calcium 10.0 mg/dL (8.5-10.1) 05/31/23 05:31 Total Bilirubin 0.70 mg/dL (0.2-1.0) 05/31/23 05:31 AST 28 Units/L (15-37) 05/31/23 05:31 ALT 15 Units/L (12-78) 05/31/23 05:31 Alkaline Phosphatase 95 Units/L (46-116) 05/31/23 05:31 Ammonia 32 umol/L (11-32) 05/26/23 08:34 Creatine Kinase 23 Units/L (26-192) L 05/26/23 08:34 Troponin I High Sens 39.1 ng/L (4.0-60.0) 05/26/23 08:34 Total Protein 5.7 g/dL (6.4-8.2) L 05/31/23 05:31 Albumin 1.8 g/dL (3.4-5.0) L 05/31/23 05:31 Globulin 3.9 g/dL (2.5-4.5) 05/31/23 05:31 Albumin/Globulin Ratio 0.5 Ratio (1.1-2.1) L 05/31/23 05:31 Specimen Type Catherized urine 05/26/23 08:55 Urine Color Yellow (YELLOW) 05/26/23 08:55 Urine Appearance Cloudy (CLEAR) 05/26/23 08:55 Urine pH 8.0 (5.0 - 8.0) 05/26/23 08:55 Ur Specific [place] 1.015 (1.000-1.030) 05/26/23 08:55 Urine Protein 3+ (NEGATIVE) 05/26/23 08:55 Urine Glucose (UA) Negative (NEGATIVE) 05/26/23 08:55 Urine Ketones Negative (NEGATIVE) 05/26/23 08:55 Urine Blood 4+ (NEGATIVE) 05/26/23 08:55 Urine Nitrite Negative (NEGATIVE) 05/26/23 08:55 Urine Bilirubin Negative (NEGATIVE) 05/26/23 08:55 Urine Urobilinogen 1+ (NORMAL) 05/26/23 08:55 Ur Leukocyte Esterase 3+ (NEGATIVE) 05/26/23 08:55 Urine RBC 5-10 /HPF (0-3) A 05/26/23 08:55 Urine WBC 20-30 /HPF (0-5) A 05/26/23 08:55 Ur Squamous Epith Cells Rare /HPF (NEGATIVE) 05/26/23 08:55 Amorphous Sediment 2+ /HPF (NEGATIVE) 05/26/23 08:55 Urine Bacteria 2+ /HPF (NEGATIVE) 05/26/23 08:55 Ur Culture Indicated? Yes/culture set up 05/26/23 08:55 Plan (1) Acute cerebrovascular accident (CVA): Status: Acute Plan: PT/OT, D5W NS 75 ML/HR, DUONEBS TID, ROCEPHIN 1G IV DAILY, LOVENOX 60MG SC DAILY, HYDRALAZINE 10MG IV Q6H, LOPRESSOR 5MG IV Q12H PRN, OTBS ACHS, HUMULIN R SLIDING SCALE, ATIVAN 1MG IV Q6H PRN NPO RESUME HOME MEDS VIA PEG TUBE Continue supportive care and current treatment. Patient is a DNR. (2) Hypernatremia: Status: Acute Plan: Since patient now has a PEG tube we will start her on free water at 200 mL every 3 hours. Repeat CMP in the morning to see if her hyponatremia is improving. (3) Pneumonia involving left lung: Status: Acute Qualifiers: Pneumonia type: due to unspecified organism Lung location: unspecified part of lung Qualified Code(s): J18.9 - Pneumonia, unspecified organism Narrative Support Text: Left lung pneumonia clear however right lung base opacity remains. (4) Cystitis: Status: Acute Plan: ROCEPHIN 1G IV DAILY (5) Sinusitis: Status: Acute Qualifiers: Chronicity: acute Recurrence: not specified as recurrent Sinusitis location: unspecified location Qualified Code(s): J01.90 - Acute sinusitis, unspecified Plan: ROCEPHIN 1G IV DAILY (6) Acute dehydration: Status: Acute Plan: IV FLUIDS (7) Atrial fibrillation: Status: Acute Qualifiers: Atrial fibrillation type: unspecified Qualified Code(s): I48.91 - Unspecified atrial fibrillation Plan: METOPROLOL IV PRN (8) Essential hypertension: Status: Chronic Plan: IV HYDRALAZINE AND METOPROLOL, RESUME COREG (9) Diabetes mellitus, type II: Status: Chronic Qualifiers: Diabetes mellitus skilled nursing insulin use: with meterman use Diabetes mellitus complication status: with hyperglycemia Qualified Code(s): E11.65 - Type 2 diabetes mellitus with hyperglycemia; Z79.4 - custodial (current) use of insulin Plan: OTBS ACHS, HUMULIN R SLIDING SCALE, RESUME COREG VIA PEG TUBE (10) CAD (coronary artery disease): Status: Chronic Qualifiers: Coronary Disease-Associated Artery/Lesion type: bypass graft [place] vs. transplanted heart: [place] heart Associated angina: unspecified whether angina present Qualified Code(s): I25.810 - Atherosclerosis of coronary artery bypass graft(s) without angina pectoris (11) GERD (gastroesophageal reflux disease): Status: Chronic Qualifiers: Esophagitis presence: with esophagitis Esophagitis bleeding: unspecified whether hemorrhage Qualified Code(s): K21.00 - Gastro-esophageal reflux disease with esophagitis, without bleeding Plan: RESUME PROTONIX AND PEPCID VIA PEG TUBE (12) Anemia: Status: Chronic Qualifiers: Anemia type: iron deficiency Iron deficiency anemia type: chronic blood loss Qualified Code(s): D50.0 - Iron deficiency anemia secondary to blood loss (chronic) Plan: Repeat CBC tomorrow morning. If she is continuing to drop I will discuss with the family if they wish her to receive packed red blood cell transfusions.
[2023-06-01] MEDS: APRESOLINE INJ 20 MG VIAL IVP SCH ×2 (04:07→10:28)
[2023-06-01] MEDS: NS 1/2 1,000 ML IV 1,000 ML IV SCH ×2 (04:07→14:18)
[2023-06-01] MEDS ORDERED: NS 1/2 1,000 ML IV 1,000 ML IV ONE (04:11)
[2023-06-01] MEDS: MORPHINE SULFATE INJ 2 MG INJ IVP PRN (04:13)
[2023-06-01 05:13] LABS: BASOPHILS % (AUTO) 0.4 % (0.2-1.0); EOSINOPHILS # (AUTO) 0.1 x10^3/uL (0.0-0.2); EOSINOPHILS % (AUTO) 0.6 % (0.9-2.9); HEMATOCRIT 23.2 % (36.0-47.0); HEMOGLOBIN 7.5 g/dL (12.0-16.0); LYMPHOCYTES # (AUTO) 0.6 X10^3/uL (1.3-2.9); LYMPHOCYTES % (AUTO) 6.3 % (21.0-51.0); MEAN CORPUSCULAR HEMOGLOBIN 26.8 pg (27.0-34.0); MEAN CORPUSCULAR HGB CONC 32.5 g/dL (33.0-35.0); MEAN CORPUSCULAR VOLUME 82.4 fL (80.0-100.0); MEAN PLATELET VOLUME 8.6 fL (7.4-11.0); MONOCYTES # (AUTO) 0.6 x10^3/uL (0.3-0.8); MONOCYTES % (AUTO) 6.9 % (0.0-13.0); NEUTROPHILS # (AUTO) 7.8 x10^3/uL (2.2-4.8); NEUTROPHILS % (AUTO) 85.8 % (42.0-75.0); PLATELET COUNT 99 X10^3/uL (150.0-450.0); RED BLOOD COUNT 2.82 X10^6/uL (3.5-5.4); RED CELL DISTRIBUTION WIDTH 17.5 % (11.6-16.5); WHITE BLOOD COUNT 9.1 X10^3/uL (3.6-10.0)
[2023-06-01 05:29] LABS: ALBUMIN 1.6 g/dL (3.4-5.0); CALCIUM 8.3 mg/dL (8.5-10.1); CARBON DIOXIDE 20.8 mmol/L (21-32); COR CA(FOR HYPOALB) 10.2 mg/dL (8.5-10.1); CREATININE 2.29 mg/dL (0.55-1.02); POTASSIUM 4.7 mmol/L (3.5-5.1); TOTAL PROTEIN 5.7 g/dL (6.4-8.2)
[2023-06-01] MEDS: DUONEB 0.5 MG/3 MG (3 mL) NEB SCH ×2 (05:56→13:45)
[2023-06-01 08:25] VITALS: RESP 28
[2023-06-01] MEDS: ROCEPHIN VIAL 1 GRAM 1 G in NS 100 ML IV 100 ML IV SCH (09:18)
--- NOTE | 2023-06-01 11:50 | RAD ---
CHEST, 1 VIEWHISTORY: sob, acute cva, utiStudy: Single view of the chest.Comparison:05/31/2023Findings:Patient is significantly rotated to the right which obscures and distorts mediastinal markings. Cardiomegaly.There is a possible small left-sided pneumothorax which was not clearly seen on prior. Osseous structures demonstrate no acute abnormality.IMPRESSION:1. Possible small left pneumothorax. CT would be recommended for confirmation.Electronically signed by: ALIVIA AVELAR (Jun 01, 2023 11:48:41)
[2023-06-01 12:12] VITALS: BP 152/65; TEMP 99; O2SAT 97
[2023-06-01 13:46] VITALS: PULSE 115
[2023-06-01] MEDS ORDERED: PROCRIT or EPOGEN VIAL 10,000 UNITS SC NR (14:50)
== END 2023-06-01 15:20 | DRG 64 ==
LOC: ER 08:06 → ICU 09:59 → MED/SURG 05-27 11:49
PROVIDERS: ADMIT Internal Medicine; ATTEND Internal Medicine